=== PATIENT | male | born 1980 | race Caucasian/White ===

== ENCOUNTER 2024-10-09 09:36 | Outpatient (OUT) | payer BC, SELFPAY ==
--- NOTE | 2024-10-09 09:45 | XR_ITS ---
The [address] [address] Patient Name: SPEEDY ROSEN MRN: [id number] date: 1980 Sex: M Assigned Patient Location: [facility] Current Patient Location: Accession/Order Number: [id number] Exam Date: 10/09/2024 11:56 Report Date: 10/09/2024 12:02 At the request of: TAE CUNHA NP Procedure: XR lumbar spine 2-3V CLINICAL DATA: Chronic low back pain radiating to the right hip. No recent injury. RIGHT HIP - 2 views COMPARISON: None AP and frog-lateral views were obtained. There is no evidence of fracture or dislocation. The hip joint space is maintained. There is no significant hypertrophy. There are no significant soft tissue abnormalities. XR/XR hip RT min 2V IMPRESSION: NO ACUTE BONY FINDINGS. LUMBAR SPINE - 3 views COMPARISON: None AP, lateral lumbar and lumbosacral views were obtained. There are no acute fractures or displacement. There is disc space narrowing at the lumbosacral junction along with mild endplate spurring. Additional minimal endplate spurring is seen. There is minor lower lumbar facet disease. The SI joints are intact and show mild sclerosis inferiorly. There are no paraspinal soft tissue abnormalities. IMPRESSION: MILD DEGENERATIVE CHANGE, PREDOMINANTLY AT THE LUMBOSACRAL JUNCTION. NO ACUTE PLAIN FILM FINDINGS. Impression dictated by: Galina Magallon M.D.10/09/2024 12:02 PM Dictation Location: [facility] Electronically authenticated by: [id number] Y Date: 10/09/2024 12:02
--- NOTE | 2024-10-09 09:47 | XR_ITS ---
The [address] [address] Patient Name: SPEEDY ROSEN MRN: [id number] date: 1980 Sex: M Assigned Patient Location: [facility] Current Patient Location: [facility] Accession/Order Number: [id number] Exam Date: 10/09/2024 11:56 Report Date: 10/09/2024 12:02 At the request of: TAE CUNHA NP Procedure: XR lumbar spine 2-3V CLINICAL DATA: Chronic low back pain radiating to the right hip. No recent injury. RIGHT HIP - 2 views COMPARISON: None AP and frog-lateral views were obtained. There is no evidence of fracture or dislocation. The hip joint space is maintained. There is no significant hypertrophy. There are no significant soft tissue abnormalities. XR/XR lumbar spine 2-3V IMPRESSION: NO ACUTE BONY FINDINGS. LUMBAR SPINE - 3 views COMPARISON: None AP, lateral lumbar and lumbosacral views were obtained. There are no acute fractures or displacement. There is disc space narrowing at the lumbosacral junction along with mild endplate spurring. Additional minimal endplate spurring is seen. There is minor lower lumbar facet disease. The SI joints are intact and show mild sclerosis inferiorly. There are no paraspinal soft tissue abnormalities. IMPRESSION: MILD DEGENERATIVE CHANGE, PREDOMINANTLY AT THE LUMBOSACRAL JUNCTION. NO ACUTE PLAIN FILM FINDINGS. Impression dictated by: Galina Magallon M.D.10/09/2024 12:02 PM [facility]ation [facility] Electron[facility] authenticated by: [id number] Y Date: 10/09/2024 12:02
== END 2024-10-09 09:37 | disposition home or self-care (01) ==
PROVIDERS: PCP Nurse Practitioner; Visit Provider Nurse Practitioner
DX: M51.369 Other intervertebral disc degeneration, lumbar region without mention of lumbar back pain or lower extremity pain (principal)
CPT/HCPCS: 72100; 73502

== ENCOUNTER 2024-11-16 14:53 | Outpatient (OUT) | payer BC, SELFPAY ==
--- NOTE | 2024-11-16 16:00 | P.CN_ITS ---
Consult Note: HPI Data of Consult Patient: new to practice Consult date: 11/16/24 Requesting Physician: Ernesto Peña MD Primary Care Provider: Frances Nguyen NP Consult Narrative Reason for consult: low back, leg pain Narrative: 44yom who presents for evaluation. longstanding history of low back pain with radiation into leg. lumbar xr shows multilevel degernative changes. has continued in a series of provider directed home exercises >6 weeks, without lasting benefit. uses tizanidine as needed, though does not like to take medications. cc:: CC: Ernesto Peña MD Review of Systems 2 ROS Status of ROS 10 or more systems reviewed and unremark able except as noted in history and below Meds Home Medications and Allergies Home Medications ?Medication ?Instructions ?Recorded ?Confirmed ?Type pantoprazole 40 mg tablet,delayed 40 mg PO DAILY 11/16/24 11/16/24 History release tizanidine 4 mg capsule 4 mg PO BID PRN muscle spasticity 11/16/24 11/16/24 History Exam Narrative Exam Narrative: Psych-alert and oriented x 3. Attentive and appropriate, constitutionally normal, displays normal mood and affect per situation. There are no obvious deficits in memory, reasoning, or intellect.? Skin-no obvious rashes, bruising, erythema noted to the patient's area of pain.? Extremities- extremities are warm with minimal edema and palpable pulses. Lumbar-tenderness to palpation noted in the lumbar spine and paraspinal musculature. Pain is elicited with flexion, extension, and lateral rotation of the lumbar spine. Range of motion is diminished with these motions. Facet loading maneuvers are positive.? Strength-noted to be unremarkable Sensory-no notable sensory deficits in the bilateral lower extremities to touch or pinprick in all dermatomal distributions with the exception to decreased sensation to the left L3, 4 dermatomal distribution Coordination remains intact.? Gait remains non-antalgic. Assessment and Plan Assessment and Plan (1) Lumbar stenosis with neurogenic claudication: (2) Lumbar spondylosis: Plan 44yom who presents for evaluation. failed conservative measures, as noted. imaging reviewed, as noted. given symptoms and imaging, will have him undergo lumbar mri without contrast. he is in agreement. meds reviewed, no changes. follow up after imaging.
== END 2024-11-16 14:54 | disposition home or self-care (01) ==
LOC: PM 14:53
PROVIDERS: PCP Nurse Practitioner; Visit Provider Anesthesiology Pain Medicine
DX: M48.062 Spinal stenosis, lumbar region with neurogenic claudication (principal); M47.816 Spondylosis without myelopathy or radiculopathy, lumbar region
CPT/HCPCS: G0463

== ENCOUNTER 2025-02-16 08:02 | Outpatient (OUT) | payer BC, SELFPAY ==
--- NOTE | 2025-02-16 08:05 | MR_ITS ---
[facility] [place] [id number] Patient Name: SPEEDY ROSEN MRN: [id number] date: 1980 Sex: M Assigned Patient Location: [facility] Current Patient Location: [facility] Accession/Order Number: [id number] Exam Date: 02/16/2025 15:00 Report Date: 02/16/2025 15:04 At the request of: SORIN CARLOS MD Procedure: MR lumbar spine wo con EXAMINATION: MRI LUMBAR SPINE WITHOUT IV CONTRAST CLINICAL HISTORY: Chronic back pain. COMPARISON: None TECHNIQUE: Multiecho imaging was performed in the sagittal and axial planes without contrast administration. FINDINGS: Vertebral body heights appear maintained. No bone marrow edema. Disc desiccation particularly at L5-S1. Spinal cord terminates in normal position without abnormal cord signal. No paraspinal mass. Visualized retroperitoneum demonstrates no acute findings. At L1-L2: No posterior disc pathology. No neural canal or foraminal stenosis. At L2-L3: No posterior disc pathology. Mild facet joint degenerative change. No significant canal or neural foraminal stenosis. At L3-L4: Diffuse broad-based disc bulge with ligamentum flavum hypertrophy and facet joint degenerative changes causing mild canal and bilateral neural foraminal stenosis. At L4-L5: Diffuse broad-based disc bulge is present malignant flavum hypertrophy and facet joint degenerative changes causing moderate canal and bilateral neural foraminal stenosis. At L5-S1: Diffuse broad-based disc bulge with disc desiccation. Facet joint degenerative changes. No significant canal stenosis. Mild bilateral neural foraminal stenosis. MR/MR lumbar spine wo con IMPRESSION: Multilevel degenerative disease as described above, worst at L4-L5. Impression dictated by: Vinh Nieto Jr., DLettyOLetty 02/16/2025 3:04 PM Dictation Location: [place] [address] Electronically authenticated by: [id number] Y Date: 02/16/2025 15:04
--- OUTSIDE RECORDS SUMMARY | 2025-02-16 08:05 | XMS_ITS | Encounter Summary ---
Author Organization [facility] Address [address] [place] [address] Care Team Providers Care Aircraft Electrical Systems Specialist Name Role Phone Austin Gray MD Primary Care Provider [phone] Frances Nguyen NP Unavailable [phone] Austin Gray MD Primary Care Provider Encounter Details Date Type Department Care Team (Late st Contact Info) Description 08/21/2023 Orders Only [facility] [address] [place] [address] Frances Nguyen, [place] [address] [place] [address] Social History Tobacco Use Types Packs/Day Years Used Date Smoking Tobacco: Never Assessed Sex and Gender Information Value Date Recorded Sex Assigned at Not on file Legal Sex Male 7:40 PM EDT Gender Identity Not on file Sexual Orientation Not on file documented as of this encounter Plan of Treatment Not on file documented as of this encounter Procedures Procedure Name Priority Date/Time Associated Diagnosis Comments XR LUMBAR SPINE 2-3 VIEWS Routine 08/02/2023 1:29 PM EST XR HAND 3+ VIEWS RIGHT Routine 08/02/2023 1:28 PM EST XR HAND 3+ VIEWS LEFT Routine 08/02/2023 1:26 PM EST documented in this encounter Results * XR lumbar spine 2 or 3 views (08/02/2023 1:29 PM EST) Anatomical Region Laterality Modality Spine, L-spine Radiographic Rhea ging us Frances Nguyen NP IMG XR PROCEDURES Final Result * XR hand 3+ views right (08/02/2023 1:28 PM EST) Anatomical Region Laterality Modality Upper Extremities, Hand Right Radiogra phic Imaging us Frances Nguyen VICE PRESIDENT OF CONSULTING SERVICES IMG XR PROCEDURES Final Result * XR hand 3+ views left (08/02/2023 1:26 PM EST) Anatomical Region Laterality Modality Upper Extremities, Hand Left Radiogra phic Imaging Frances Nguyen VICE PRESIDENT OF CONSULTING SERVICES IMG XR PROCEDURES Final Result documented in this encounter Visit Diagnoses Not on filedocumented in this encounter Care Teams Aircraft Electrical Systems Specialist Relationship Specialty Start Date End Date Austin Gray MD PCP - General Family Medicine 03/15/23 10/07/23 Frances Nguyen NP [address] [place] [id number] [facility] 08/19/23 Austin Gray MD [address] [place] [address] PCP - General Family Medicine 10/08/23 documented as of this encounter
--- OUTSIDE RECORDS SUMMARY | 2025-02-16 08:05 | XMS_ITS | Encounter Summary ---
Author Organization [facility] Address [address] [place] [address] Care Team Providers Care Headline Writer Name Role Phone Frances Nguyen NP Unavailable [phone] Austin Gray MD Primary Care Provider [phone] Reason for Visit * Reason Comments Med Refill Encounter Details Date Type Department Care Team (Late st Contact Info) Description 09/08/2024 [facility] [address] [place] [address] Frances Nguyen NP [address] [place] [phone] Gastroesophageal reflux disease with esophagitis, unspecified whether hemorrhage Social History Tobacco Use Types Packs/Day Years Used Date Smoking Tobacco: Never Smokeless Tobacco: Never Alcohol Use Standard Drinks/Week Comments Yes 0 (1 standard drink = 0.6 oz pure alcohol) 1-2 drinks 2-3 times a week, caffeine 1-2 cups per day PHQ-2 Answer Date Recorded Patient Health Questionnaire-2 Score 0 10/10/2023 Sex and Gender Information Value Date Recorded Sex Assigned at Not on file Legal Sex Male 7:40 PM EDT Gender Identity Not on file Sexual Orientation Not on file documented as of this encounter Plan of Treatment Not on file documented as of this encounter Visit Diagnoses Diagnosis Gastroesophageal reflux disease with esophagitis, unspecified whether hemorrhage documented in this encounter Care Teams Headline Writer Relationship Specialty Start Date End Date Frances Nguyen NP [address] [place] [address] PCP - [employer] 1/1/24 Austin Gray MD [address] [place] [id number] PCP - General Family Medicine 10/08/23 documented as of this encounter
--- OUTSIDE RECORDS SUMMARY | 2025-02-16 08:05 | XMS_ITS | Encounter Summary ---
Author Organization [employer] [facility] tem Address [id number] [address] [place] [address] Care Team Providers Care Store Stock Associate Name Role Phone NnamdiFrances pena Asya CIGARETTE MAKER[facility] Primary Care Provider Encounter Details Date Type Department Care Team (Late st Contact Info) Description 10/25/2020 Orders Only [facility] [address] [place] [address] [facility]leny [facility] [address] [place] [address] Social History Tobacco Use Types Packs/Day Years Used Date Smoking Tobacco: Never Smokeless Tobacco: Never Alcohol Use Standard Drinks/Week Comments Yes 4 (1 standard drink = 0.6 oz pure alcohol) Only a few beers a week, not typically every night PHQ-2 Answer Date Recorded Total Score 0 09/27/2020 Childcare Answer Date Recorded Childcare Unknown 01/28/2019 Employment Answer Date Recorded Employment Unknown 01/28/2019 Purpose - Life Answer Date Recorded Purpose and direction in life Unknown Sex and Gender Information Value Date Recorded Sex Assigned at Not on file Legal Sex Male 11:30 AM EDT Gender Identity Not on file Sexual Orientation Not on file COVID-19 Exposure Response Date Recorded In the last month, have you been in contact with someone who was confirmed or suspected to have Coronavirus / COVID-19? No / Unsure 09/27/2020 8:30 AM EST documented as of this encounter Plan of Treatment Upcoming Encounters Date Type Department Care Team (Late st Contact Info) Description 02/23/2025 9:15 AM EDT Office Visit [facility] [address] [place] [address] Annabella Osei MD [address] [facility] [place] [address] documented as of this encounter Visit Diagnoses Not on filedocumented in this encounter Additional Health Concerns Infection Onset Date Last Indicated Resolved Time COVID-19 Rule-Out 12/11/2021 12/11/2021 12/12/2021 12:43 PM EDT Assessment Noted Time PHQ-9 Depression Total Score: 0 09/27/19 21 8:00 AM EST documented as of this encounter Care Teams Store Stock Associate Relationship Specialty Start Date End Date Frances Nguyen, CIGARETTE MAKER-REAL ESTATE AGENT/BROKER PCP - General Nurse Practitioner 08/02/23 documented as of this encounter
--- OUTSIDE RECORDS SUMMARY | 2025-02-16 08:05 | XMS_ITS | Encounter Summary ---
Author Organization [employer] Address [id number] [address] [place] [address] Care Team Providers Care Centerpuncher Name Role Phone NnamdiFrances pena SEAMAN-INSOLE TAPE STITCHER [employer] Primary Care Provider Reason for Visit * Reason Onset Date Comments Medication update 06/22/2022 Encounter Details Date Type Department Care Team (Late st Contact Info) Description 06/22/2022 [facility]phone [facility] [address] [place] [address] Parisa Abad LPN Medication update Social History Tobacco Use Types Packs/Day Years Used Date Smoking Tobacco: Never Smokeless Tobacco: Never Alcohol Use Standard Drinks/Week Comments Yes 4 (1 standard drink = 0.6 oz pure alcohol) Only a few beers a week, not typically every night PHQ-2 Answer Date Recorded Total Score 0 05/14/2022 Childcare Answer Date Recorded Childcare Unknown 01/28/2019 [...] have Coronavirus / COVID-19? No / Unsure 06/05/2022 1:27 PM EDT documented as of this encounter Miscellaneous Notes * Telephone Encounter - Parisa Abad LPN - 06/22/2022 10:10 AM EDT Pt has been using Lunesta 2 tabs at bedtime and has been sleeping great! He would like a refill sent to his pharmacy so that he can continue taking until his next visit with you in August. * Telephone Encounter - Angelica Ervin MD - 06/22/2022 10:10 AM EDT OK. I did refill this, but changed him to the 2mg tablet so he should now only be taking one tabletvs two of the 1mg. I took the Xanax off his list. I presume he has not had excessive sleepiness? * Telephone Encounter - Parisa Abad LPN - 06/22/2022 10:10 AM EDT Called pt but no answer and unable to leave message. * Telephone Encounter - Parisa Abad LPN - 06/22/2022 10:10 AM EDT Pt is not sleepy. Pt said he wakes up feeling great. documented in this encounter Plan of Treatment Upcoming Encounters Date Type Department Care Team (Late st Contact Info) Description 02/23/2025 9:15 AM EDT Office Visit [facility] [address] [place] [address] Annabella Osei MD [address] [place] [address] documented as of this encounter Visit Diagnoses Diagnosis Chronic insomnia Insomnia, unspecified documented in this encounter Additional Health Concerns Assessment Noted Time PHQ-9 Depression Total Score: 0 05/14/20 8:09 AM EDT A Body Mass Index follow-up plan has been documented for the patient 04/05/2021 4:45 PM EDT documented as of this encounter Care Teams Centerpuncher Relationship Specialty Start Date End Date Frances Nguyen, SEAMAN-INSOLE TAPE STITCHER [employer] PCP - General Nurse Practitioner 08/02/23 documented as of this encounter
--- OUTSIDE RECORDS SUMMARY | 2025-02-16 08:05 | XMS_ITS | Encounter Summary ---
Author Organization [employer] tem Address [id number] [address] [place] [address] Care Team Providers Care Mimeograph Operator Name Role Phone Frances Nguyen BOILER INSTALLER-HOUSE WIRER Primary Care Provider Reason for Visit * Reason Onset Date Comments Med Refill 09/13/2022 Encounter Details Date Type Department Care Team (Late st Contact Info) Description 09/13/2022 Refill [facility] [address] [address] Angelica Ervin MD [address] [place] [address] Chronic insomnia Social History Tobacco Use Types Packs/Day Years [...] on file documented as of this encounter Miscellaneous Notes * Telephone Encounter - BEBE Mary - 09/13/2022 8:40 AM EST Pt is scheduled for SS 10/24/22. Requesting a refill of Lunesta. * Telephone Encounter - Angelica Ervin MD - 09/13/2022 8:40 AM EST Can we get him scheduled for follow up before his sleep study? I want to reassess his sleep disordered breathing symptoms necessitating PSG now that he is sleeping better with Lunesta. Thank you. I do also require q6 mo follow up for continued controlled substance prescribing. OARRS reviewed. Lunesta 30# sent in with one refill which should last him through his currently scheduled study in October.I hope he has also considered scheduling CBTi. * Telephone Encounter - BEBE Mary - 09/13/2022 8:40 AM EST Pt scheduled 10/02/22 per EM. documented in this encounter Plan of Treatment Upcoming Encounters Date Type Department Care Team (Late st Contact Info) Description 02/23/2025 9:15 AM EDT Office Visit [facility] [address] [place] [address] Annabella Osei MD [address] [address] [address] [place] [address] documented as of this encounter Visit Diagnoses Diagnosis Chronic insomnia Insomnia, unspecified documented in this encounter Additional Health Concerns Assessment Noted Time PHQ-9 Depression Total Score: 0 05/14/20 22 8:09 AM EDT A Body Mass Index follow-up plan has been documented for the patient 04/05/2021 4:45 PM EDT documented as of this encounter Care Teams Mimeograph Operator Relationship Specialty Start Date End Date Frances Nguyen, BOILER INSTALLER-HOUSE WIRER PCP - General Nurse Practitioner 08/02/23 documented as of this encounter
--- OUTSIDE RECORDS SUMMARY | 2025-02-16 08:05 | XMS_ITS | Encounter Summary ---
Author Organization [employer] [facility] tem Address [id number] [address] [place] [address] Care Team Providers Care Podiatric Physician Name Role Phone NnamdiFrances pena Asya DIRECT[facility] Primary Care Provider Encounter Details Date Type Department Care Team (Late st Contact Info) Description 11/27/2022 Orders Only [facility] [address] [place] [address] Marleny Garcia [facility] [address] [place] [address] Social History Tobacco Use Types [...] Employment Answer Date Recorded Employment Unknown 01/28/2019 Hunger Screening Answer Date Recorded Within the past 12 months we worried whether our food would run out before we got money to buy more. Never True 10/02/2022 Within the past 12 months th e food we bought just didn't last and we didn't have money to get more. Never True 10/02/2022 Purpose - Life Answer Date Recorded Purpose and direction in life Unknown 02 /04/2021 Sex and Gender Information Value Date Recorded Sex Assigned at Not on file Legal Sex Male 11:30 AM EDT Gender Identity Not on file Sexual Orientation Not on file COVID-19 Exposure Response Date Recorded In the last month, have you been in contact with someone who was confirmed or suspected to have Coronavirus / COVID-19? No / Unsure 11/19/2022 2:19 PM EDT documented as of this encounter Plan of Treatment Upcoming Encounters Date Type Department Care Team (Late st Contact Info) Description 02/23/2025 9:15 AM EDT Office Visit [facility] [address] [place] [phone] Annabella Osei MD [address] [facility] [address] [place] [address] documented as of this encounter Visit Diagnoses Not on filedocumented in this encounter Additional Health Concerns Assessment Noted Time PHQ-9 Depression Total Score: 0 05/14/20 22 8:09 AM EDT A Body Mass Index follow-up plan has been documented for the patient 04/05/2021 4:45 PM EDT documented as of this encounter Care Teams Podiatric Physician Relationship Specialty Start Date End Date Frances Nguyen, DIRECTOR WORK-RETAIL EQUIPMENT ASSOCIATE PCP - General Nurse Practitioner 08/02/23 documented as of this encounter
--- OUTSIDE RECORDS SUMMARY | 2025-02-16 08:05 | XMS_ITS | Encounter Summary ---
Author Organization [facility] Address [address] [place] [address] Care Team Providers Care Stock Fitter Name Role Phone Austin Gray MD Primary Care Provider [phone] Frances Nguyen NP Unavailable [phone] Austin Gray MD Primary Care Provider [phone] Encounter Details Date Type Department Care Team (Late st Contact Info) Description 08/02/2023 External Result Encounter [facility] [address] [place] [address] Frances Nguyen, DESPATCH CLERK [address] [place] [address] Social History Tobacco Use Types Packs/Day Years [...] Diagnosis Comments XR LUMBAR SPINE 2-3 VIEWS 08/02/2023 9:28 AM EST XR HAND 3+ VIEWS RIGHT 9:27 AM EST XR HAND 3+ VIEWS LEFT 08/02/2023 9:26 AM EST CBC WITH AUTO DIFFERENTIAL Routine 08/02/2023 9:00 AM EST ANTI-STREPTOLYSIN O Routine 08/02/2023 9 :00 AM EST SED RATE BY MODIFIED WESTERGREN Routine 08/02/2023 9:00 AM EST RHEUMATOID FACTOR Routine 08/02/2023 9:0 0 AM EST C-REACTIVE PROTEIN Routine 08/02/2023 9: 00 AM EST PRITI SCREEN W/REFLEX Routine 08/02/2023 9 :00 AM EST URIC ACID Routine 08/02/2023 9:00 AM EST COMPREHENSIVE METABOLIC PANEL Routine 08/02/2023 9:00 AM EST documented in this encounter Results * XR lumbar spine 2 or 3 views (08/02/2023 9:28 AM EST) Anatomical Region Laterality Modality Spine, L-spine Radiographic Rhea ging 08/02/2023 9:28 AM EST Narrative 08/02/2023 9:26 AM EST THIS EXAM WAS PERFORMED AT [facility] Procedure: Lumbo-sacral spine radiographs performed Number of views:3 History:Low back pain remote trauma Comparison:None Findings: There is no fracture, malalignment, or destructive lesion. There is mild disc space narrowing at L5-S1. Vertebral body height is well-maintained. Impression: No acute findings. Finalized by Eddie Hemphill MD on 08/02/2023 9:26 AM Procedure Note Radiology, Radiologist, MD - 08/13/2023 THIS EXAM WAS PERFORMED AT [facility] Procedure: Lumbo-sacral spine radiographs performed Number of views:3 History:Low back pain remote trauma Comparison:None Findings: There is no fracture, malalignment, or destructive lesion.There is mild disc space narrowing at L5-S1. Vertebral body height iswell-maintained. Impression: No acute findings. Finalized by Eddie Hemphill MD on 08/02/2023 9:26 AM Frances Nguyen DESPATCH CLERK IMG XR PROCEDURES Final Result * XR hand 3+ views right (08/02/2023 9:27 AM EST) Anatomical Region Laterality Modality Upper Extremities, Hand Right Radiogra phic Imaging 08/02/2023 9:27 AM EST Narrative 08/02/2023 9:26 AM EST THIS EXAM WAS PERFORMED AT [facility] Procedure: Right hand radiographs performed Number of views:3 History:Hand pain Comparison:None Findings: There is no fracture, dislocation, or destructive lesion. Joint space is well preserved. Impression: No acute findings. Finalized by Eddie Hemphill MD on 08/02/2023 9:26 AM Procedure Note Radiology, RadiologistMD - 08/13/2023 THIS EXAM WAS PERFORMED AT [facility] Procedure: Right hand radiographs performed Number of views:3 History:Hand pain Comparison:None Findings: There is no fracture, dislocation, or destructive lesion. Jointspace is well preserved. Impression: No acute findings. Finalized by Eddie Hemphill MD on 08/02/2023 9:26 AM Frances Wendy DESPATCH CLERK IMG XR PROCEDURES Final Result * XR hand 3+ views left (08/02/2023 9:26 AM EST) Anatomical Region Laterality Modality Upper Extremities, Hand Left Radiogra phic Imaging 08/02/2023 9:26 AM EST Narrative 08/02/2023 9:25 AM EST THIS EXAM WAS PERFORMED AT [facility] Procedure: Left hand radiographs performed Number of views:3 History:Hand pain Comparison:None Findings: There is no fracture, dislocation, or destructive lesion. Joint space is well preserved. Impression: No acute findings. Finalized by Eddie Hemphill MD on 08/02/2023 9:25 AM Procedure Note Radiology, RadiologistMD - 08/13/2023 THIS EXAM WAS PERFORMED AT [facility] Procedure: Left hand radiographs performed Number of views:3 History:Hand pain Comparison:None Findings: There is no fracture, dislocation, or destructive lesion. Jointspace is well preserved. Impression: No acute findings. Finalized by Eddie Hemphill MD on 08/02/2023 9:25 AM Frances Nguyen NP IMG XR PROCEDURES Final Result * (ABNORMAL) Antistreptolysin O titer (08/02/2023 9:00 AM EST) STREPTOLYSIN O AB, SERUM 359(H) <=330 IU/mL [facility] Comment: NOTE REFERENCE INTERVAL: Streptolysin O Antibody Elevated titers of antideoxyribonuclease B antibody (anti-DNase B) or antistreptolysin O antibody (ASO) indicate a recent group A Streptococcus infection. Anti-DNase B antibodies typically remain elevated longer than ASO and may remain elevated for several months after infection. Patients suspected of having complications related to a recent Streptococcus infection such as acute glomerulonephritis or acute rheumatic fever may have elevated anti-DNase B but normal ASO antibody titers. A negative or very low anti-DNase B and ASO antibody titers, especially from a specimen tested 2 weeks after a suspected infection, indicates unlikely incidence of a recent Streptococcus infection. Performed By: [facility] [address] [place] [id number] Olericulturist: Tuan Xiong MD, PhD CLIA Number: [id number] PERFORMED AT [address] [place] [address] 08/02/2023 9:00 AM EST 08/02/2023 9:05 AM EST Frances Nguyen NP LAB BLOOD ORDERABLES Final Resu lt [facility] * PRITI (08/02/2023 9:00 AM EST) PRITI SCREEN W/REFLEX Negative Negative [facility] Comment: Testing performed using multiplex flow immunoassay. Eleven different antigens associated with systemic autoimmune diseases (dsDNA,Sm,Sm/[employer],Chromatin, SSA,SSB,Alma-1,Scl70,Ribo P,Centromere B) are included in this screening test. PERFORMED AT [facility] [address],[place] [address] 08/02/2023 9:00 AM EST 08/02/2023 9:05 AM EST us Frances Nguyen DESPATCH CLERK LAB BLOOD ORDERABLES Final Resu lt [facility] * Sedimentation rate, automated (08/02/2023 9:00 AM EST) ESR 3 0 - 15 mm/h [facility] 08/02/2023 9:00 AM EST 08/02/2023 9:05 AM EST us Frances Nguyen DESPATCH CLERK LAB BLOOD ORDERABLES Final Resu lt Performing Organization Address City/[facility]/ZIP Co de Phone Number [facility] * Uric acid (08/02/2023 9:00 AM EST) URIC ACID 5.4 2.6 - 7.2 mg/dL [facility] Comment:PERFORMED AT [place] [address],[place] [address] 08/02/2023 9:00 AM EST 08/02/2023 9:05 AM EST us Frances Nguyen DESPATCH CLERK LAB BLOOD ORDERABLES Final Resu lt Performing Organization Address [facility]/ZIP Co de Phone Number [facility] * C-reactive protein (08/02/2023 9:00 AM EST) C REACTIVE PROTEIN 0.1 0.000 - 0.744 mg/dL [facility] Comment:PERFORMED AT [place] [address],[place] [address] 08/02/2023 9:00 AM EST 08/02/2023 9:05 AM EST us Frances Nguyen DESPATCH CLERK LAB BLOOD ORDERABLES Final Resu lt [facility] * (ABNORMAL) Comprehensive metabolic panel (08/02/2023 9:00 AM EST) Sodium 138 134 - 146 mmol/L [facility] Potassium, Bld 4.9 3.5 - 5.0 mmol/L [facility] Chloride 102 98 - 109 mmol/L [facility] Carbon Dioxide 28 22 - 32 mmol/L [facility] Anion Gap 8 5 - 15 mmol/L [facility] BUN 29(H) 5 - 23 mg/dL [facility] Creatinine 1.02 0.60 - 1.30 mg/dL [facility] Comment:METHOD TRACEABLE TO IDMS STANDARD Glucose 81 65 - 99 mg/dL [facility] Calcium 9.9 8.5 - 10.5 mg/dL [facility] TOTAL PROTEIN 8.0 6.0 - 8.0 g/dL [facility] ALBUMIN 4.9 3.2 - 5.3 g/dL [facility] ALKALINE PHOSPHATASE 85 39 - 130 U/L [facility] AST 25 0 - 41 U/L [facility] ALT 31 0 - 40 U/L [facility] TOTAL BILIRUBIN 1.2 0.3 - 1.2 mg/dL [facility] EGFR >90 >59 ml/min/1.7 3sq.m [facility] Comment: Reported eGFR is based on the CKD-EPI 2020 equation that does not use a race coefficient. PERFORMED AT [address] [place] [address] 08/02/2023 9:00 AM EST 08/02/2023 9:05 AM EST us Frances Nguyen DESPATCH CLERK LAB BLOOD ORDERABLES Final Resu lt [facility] * Rheumatoid factor (08/02/2023 9:00 AM EST) RHEUMATOID FACTOR 15 <20 IU/mL [facility] Comment:PERFORMED AT [address], [place] [address] 08/02/2023 9:00 AM EST 08/02/2023 9:05 AM EST us Frances Wendy DESPATCH CLERK LAB BLOOD ORDERABLES Final Resu lt [facility] * CBC auto differential (08/02/2023 9:00 AM EST) WHITE BLOOD CELL COUNT, WBC 6.2 4.0 - 11.0 X10E9/L [facility] RED BLOOD CELL COUNT, RBC 5.01 4.10 - 5.70 X10E12/L [facility] HEMOGLOBIN 14.9 13.0 - 17.0 g/dL [facility] HEMATOCRIT 45.0 39 - 49 % [facility] MEAN CELL VOLUME, MCV 90 80 - 100 fL [facility] MEAN CELL HEMOGLOBIN, MCH 29.7 27 - 34 pg [facility] MEAN CELL HEMOGLOGIN CONCENTRATION, MCHC 33.1 32 - 36 g/dL [facility] RED CELL DISTRIBUTION WIDTH, RDW 13.7 11.5 - 15.0 % [facility] PLATELET COUNT 277 150 - 450 X10E9/L [facility] MEAN PLATELET VOLUME, MPV 8.8 7 - 12 fL [facility] % NEUTROPHILS 59.4 % [facility] % LYMPHOCYTES 25.8 % [facility] % MONOCYTES 7.9 % [facility] % EOSINOPHILS 6.3 % [facility] % BASOPHILS 0.6 % [facility] ABSOLUTE NEUTROPHIL 3.7 1.5 - 6.6 X10E9/L [facility] ABSOLUTE LYMPHOCYTE 1.6 1.0 - 3.5 X10E9/L [facility] ABSOLUTE MONOCYTE 0.5 0 - 0.9 X10E9/L [facility] ABSOLUTE EOSINOPHIL 0.4 0.0 - 0.4 X10E9/L [facility] ABSOLUTE BASOPHIL 0.0 0.0 - 0.2 X10E9/L [facility] Comment:PERFORMED AT [facility] [address],[place] [address] 08/02/2023 9:00 AM EST 08/02/2023 9:05 AM EST us Frances Nguyen DESPATCH CLERK LAB BLOOD ORDERABLES Final Resu lt [facility] documented in this encounter Visit Diagnoses Not on filedocumented in this encounter Care Teams Stock Fitter Relationship Specialty Start Date End Date Austin Gray MD PCP - General Family Medicine 03/15/23 10/07/23 Frances Nguyen NP [address] [place] [address] PCP - [facility] 08/19/23 Austin Gray MD [address] [place] [address] PCP - General Family Medicine 10/08/23 documented as of this encounter
--- OUTSIDE RECORDS SUMMARY | 2025-02-16 08:05 | XMS_ITS | Encounter Summary ---
Author Organization [facility] tem Address [facility] [id number] [address] [place] [address] Care Team Providers Care Furnace Cleaner Name Role Phone Frances Nguyen GEOCHEMICAL LABORATORY TECHNICIAN-INSTRUCTIONAL TECHNOLOGIST Primary Care Provider Encounter Details Date Type Department Care Team (Late st Contact Info) Description 03/07/2022 Telephone [facility] Family Medicine [address] [place] [address] Tri Davidson LPN Social History Tobacco Use Types Packs/Day Years Used Date Smoking Tobacco: Never Smokeless Tobacco: Never Alcohol Use Standard Drinks/Week Comments Yes 4 (1 standard drink = 0.6 oz pure alcohol) Only a few beers a week, not typically every night PHQ-2 Answer Date Recorded Total Score 0 12/25/2021 Childcare Answer Date Recorded Childcare Unknown 01/28/2019 [...] encounter Miscellaneous Notes * Telephone Encounter - Tri Davidson LPN - 03/07/2022 11:22 AM EDT [facility] called stating Marleny gave them a Rx for Xanax that was never filled because insurance company would not pay for it. He has not been sleeping for 2 weeks, they want to know if they could get another Rx and just pay for it. If this is ok let me know and I will talk to them and pend the Rx foryou. * Telephone Encounter - Bulmaro Dunlap MD - 03/07/2022 11:22 AM EDT ok documented in this encounter Plan of Treatment Upcoming Encounters Date Type Department Care Team (Late st Contact Info) Description 02/23/2025 9:15 AM EDT Office Visit [facility] [address] [facility] [place] [id number] Annabella Osei MD [address] [facility] [address] [place] [address] documented as of this encounter Visit Diagnoses Not on filedocumented in this encounter Additional Health Concerns Assessment Noted Time PHQ-9 Depression Total Score: 0 12/26/19 22 1:00 PM EDT A Body Mass Index follow-up plan has been documented for the patient 04/05/2021 4:45 PM EDT documented as of this encounter Care Teams Furnace Cleaner Relationship Specialty Start Date End Date Frances Nguyen, GEOCHEMICAL LABORATORY TECHNICIAN-INSTRUCTIONAL TECHNOLOGIST PCP - General Nurse Practitioner 08/02/23 documented as of this encounter
--- OUTSIDE RECORDS SUMMARY | 2025-02-16 08:05 | XMS_ITS | Clinical Summary ---
Author Organization [facility] Address [address] [place] [address] Care Team Providers Care Evs Attendant Name Role Phone Frances Nguyen NP Unavailable [phone] Austin Gray MD Primary Care Provider [phone] Allergies No known active allergies Medications pantoprazole (ProtoNix) 40 MG EC tabletIndication s:Gastroesophage al reflux disease with esophagitis, unspecified whether hemorrhage Take 1 tablet (40 mg) by mouth in the morning. Take before meals. Do not crush, chew, or split.. 90 tablet 1 09/08/2024 Active tiZANidine (Zanaflex) 4 MG tabletIndication s:Cervical pain (neck),Strain of right trapezius muscle, initial encounter Take 1 tablet (4 mg) by mouth as needed at bedtime for muscle spasms for up to 15 days 15 tablet 1 11/15/2024 Active predniSONE (Deltasone) 20 MG tabletIndication s:Poison claudia dermatitis 1 pill three times daily for 3 days, then 1 pill twice a day for 3 days, then 1 pill once a day for 3 days, then 1/2 pill daily for 3 days take with food 21 tablet 01/20/2025 Active Active Problems Problem Noted Date Diagnosed Date Poison claudia dermatitis 01/20/2025 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 Assessment & Plan (10/19/2024 8:08 PM EST): Pain mgmt Bilateral elbow joint pain 10/19/2024 Assessment & Plan (10/19/2024 8:07 PM EST): Check xrays Has saw ortho in the past for injection Did not help C/w lateral epicondylitis Wear splints at all times Displaced fracture of proxim al third of navicular (scaphoid) bone of right wrist, subsequent encounter for fracture with delayed healing 09/08/2024 Dupuytren's contracture of both hands 09/08/2024 Strain of right trapezius muscle 09/08/2024 Assessment & Plan (10/19/2024 7:55 AM EST): Has been going to PT Cervical pain (neck) 09/08/2024 Assessment & Plan (10/19/2024 7:28 PM EST): Since last visit has had PT also muscle relaxer as well Dermatitis 11/11/2023 Assessment & Plan (11/11/2023 4:36 PM EDT): Unclear etiology, will do steroid taper and vistaril, if not better notify office OTC oatmeal bath as well, try to avoid itching Motion sickness 11/06/2023 Allergic rhinitis 10/10/2023 Anxiety 10/10/2023 Depression 10/10/2023 Atopic dermatitis 10/10/2023 Gastroesophageal reflux disease with esophagitis 10/10/2023 Assessment & Plan (10/10/2023 5:00 PM EST): Cont PPI MARGOTH (obstructive sleep apnea) 10/10/2023 Insomnia 10/10/2023 Asthma 10/10/2023 Bilateral hand pain 10/10/2023 Assessment & Plan (10/10/2023 5:00 PM EST): Will refer to Ortho Dr Nayak for hand issues Neg autoimmune testing Possible ganglion cyst jara aspect of left hand not sure if possible trigger finger Also w right wrist pain Arthritis 10/10/2023 Conductive hearing loss 10/10/2023 Overview (10/10/2023): Conductive hearing loss due to disorder of external ear-bilateral cerumen impaction History of immunotherapy 10/10/2023 Chronic back pain 10/10/2023 Anti-streptolysin titer abnormal 08/07/2023 DDD (degenerative disc disease), lumbar 08/05/20 23 Overview (08/05/2023): Lumbar xray from 08/02/23: mild disc space narrowing at L5-S1 Assessment & Plan (10/19/2024 8:07 PM EST): Will send to Pain mgmt Resolved Problems Problem Noted Date Diagnosed Date Resolved Date Bursitis of right elbow 10/10/202309/20 Left elbow epicondylitis 10/10/2023 Encounters Date Type Department Care Team Description 01/20/2025 Refill [facility] [address] [place] [address] Frances Nguyen, [place] Poison claudia dermatitis (Primary Dx) 01/20/2025 Telephone [facility] [address] [place] [address] Frances Nguyen, [place] Poison Claudia 12/23/2024 Bamboo flowsheet [facility] [address] [place] [address] Mukesh Martinez T, PT 12/23/2024 Travel 12/22/2024 6:00 PM EDT Treatment [facility] [address] [place] [address] Mukesh Martinez T, PT Lumbar paraspinal muscle spasm (Primary Dx) 12/09/2024 Bamboo flowsheet [facility] [address] [place] [address] Mukesh Martinez T, PT 12/09/2024 Travel 12/08/2024 4:30 PM EDT Treatment [facility] [address] [place] [address] Mukesh Martinez T, PT Lumbar paraspinal muscle spasm (Primary Dx) 12/01/2024 4:00 PM EDT Treatment [facility] [address] [place] [address] Mukesh Martinez T, PT Lumbar paraspinal muscle spasm (Primary Dx) 12/01/2024 Bamboo flowsheet [facility] [address] [place] [address] Mukesh Martinez, PT 12/01/2024 Travel 11/25/2024 Bamboo flowsheet [facility] [address] [place] [address] Mukesh Martinez, PT 11/25/2024 Travel 11/24/2024 6:00 PM EDT Treatment [facility] [address] [place] [address] Mukesh Martinez, PT Lumbar paraspinal muscle spasm (Primary Dx) 11/19/2024 Plan of Care Documentation [facility] [address] [place] [address] 11/18/2024 2:30 PM EDT Evaluation [facility] [address] [place] [address] Mukesh Martinez, PT Lumbar paraspinal muscle spasm (Primary Dx) 11/18/2024 Bamboo flowsheet [facility] [address] [place] [address] Mukesh Martinez, PT 11/18/2024 Travel from Last 3 Months Family History Medical History Relation Name Comments Asthma Child Cancer Father Diabetes Father Hepatitis Father Hepatitis C Heart disease Maternal Grandfather Leukemia Other 2 Aunt\/Uncle Arthritis Paternal Grandfather Cancer Paternal Grandmother Hearing loss Son Relation Name Status Comments Brother 3 brothers Child Father Alive Maternal Grandfather Mother Alive Other 1 Spouse Alive Other 2 Aunt\/Uncle Paternal Grandfather Paternal Grandmother Son Social History Tobacco Use Types Packs/Day Years Used Date Smoking Tobacco: Never Smokeless Tobacco: Never Tobacco Cessation:Counseling Given: Not Answered Alcohol Use Standard Drinks/Week Comments Yes 0 [...] on file Sexual Orientation Not on file Last Filed Vital Signs Vital Sign Reading Time Taken Comments Blood Pressure 124/86 10/19/2024 7:19 PM EST Pulse 76 10/19/2024 7:19 PM EST Temperature 37.1 C (98.8 F) 10/19/2024 7:19 PM EST Respiratory Rate 18 10/19/2024 7:19 PM EST Oxygen Saturation 98% 10/19/2024 7:19 PM EST Inhaled Oxygen Concentration - - Weight 80.8 kg (178 lb 3.2 oz) 10/19/2024 7:19 P M EST Height 182.9 cm (6') 11/11/2023 4:14 PM EDT Body Mass Index 24.17 11/11/2023 4:14 PM EDT Plan of Treatment Health Maintenance Due Date Last Done Comments Influenza Vaccine Discontinued Insurance [facility] Care Teams Evs Attendant Relationship Specialty Start Date End Date Frances Nguyen NP [address] [place] [address] PCP - [facility] 08/19/23 Austin Gray MD [address] [place] [address] PCP - General Family Medicine 10/08/23
--- OUTSIDE RECORDS SUMMARY | 2025-02-16 08:05 | XMS_ITS | Referral Summary ---
Author Organization [facility] Address [address] [place] [address] Care Team Providers Care Claims Collector Name Role Phone Unavailable Primary Care Provider Unavailabl e Social History Tobacco Use Types Packs/Day Years Used Date Smoking Tobacco: Never Assessed [place] Safety & Environment Answer Date Rec orded Fear of Current or Ex-Partner Not on file Emotionally Abused Not on file 10/10/2023 Physically Abused Not on file 10/10/2023 Sexually Abused Not on file 10/10/2023 Physically or Sexually Abused Not on file Sex and Gender Information Value Date Recorded Sex Assigned at Not on file Legal Sex Male 9:29 PM EDT Gender Identity Not on file Sexual Orientation Not on file Last Filed Vital Signs Vital Sign Reading Time Taken Comments Blood Pressure - - Pulse - - Temperature - - Respiratory Rate - - Oxygen Saturation - - Inhaled Oxygen Concentration - - Weight 80.7 kg (178 lb) 05/25/2021 8:52 AM EDT Height 182.9 cm (6') 05/25/2021 8:51 AM EDT Body Mass Index 24.14 05/25/2021 8:51 AM EDT Plan of Treatment Not on file
--- OUTSIDE RECORDS SUMMARY | 2025-02-16 08:05 | XMS_ITS | Encounter Summary ---
Author Organization [facility] Address [facility] [id number] [address] [place] [address] Care Team Providers Care Customer Account Coordinator Name Role Phone Frances Nguyen CLIENT COORDINATOR-POST ACUTE CARE NURSE Primary Care Provider Reason for Visit * Reason Onset Date Comments Med Refill 03/07/2022 Encounter Details Date Type Department Care Team (Late st Contact Info) Description [facility] [address] [place] [address] Tri Davidson LPN Anxiety Social History Tobacco Use Types Packs/Day Years [...] Encounter - Tri Davidson LPN - 03/07/2022 12:11 PM EDT Xanax Rx sent to [facility] per Dr. Selina MD documented in this encounter Plan of Treatment Upcoming Encounters Date Type Department Care Team (Late st Contact Info) Description 02/23/2025 9:15 AM EDT Office Visit [facility] [address] [place] [phone] Annabella Osei MD [address] [facility] [address] [place] [address] documented as of this encounter Visit Diagnoses Diagnosis Anxiety Anxiety state, unspecified documented in this encounter Additional Health Concerns Assessment Noted Time PHQ-9 Depression Total Score: 0 12/26/19 22 1:00 PM EDT A Body Mass Index follow-up plan has been documented for the patient 04/05/2021 4:45 PM EDT documented as of this encounter Care Teams Customer Account Coordinator Relationship Specialty Start Date End Date Francse Nguyen, CLIENT COORDINATOR-POST ACUTE CARE NURSE PCP - General Nurse Practitioner 08/02/23 documented as of this encounter
--- OUTSIDE RECORDS SUMMARY | 2025-02-16 08:05 | XMS_ITS | Patient Health Record ---
Author Organization [facility] Address [address] [place] [address] Care Team Providers Care Strategic Account Director Name Role Phone Mike Wilks Unavailable [phone] Allergies No Known Allergies Reason For Referral No Information Social History Tobacco Use: Social History Observation Description Date Details (start date - stop date) Never Smoker NA - NA AUDIT-C (Standard) Question Answer Notes Did you have a drink contain ing alcohol in the past year? Yes How often did you have six o r more drinks on one occasion in the past year? Never (0 point) How many drinks did you have on a typical day when you were drinking in the past year? 1 or 2 drinks (0 point) How often did you have a dri nk containing alcohol in the past year? Daily or almost daily (4 points) Points 4 Interpretation Positive Tobacco Control (Standard) Question Answer Notes Tobacco use: Nonsmoker Problems Problem Type SNOMED Code ICD Code Onset Dates Problem Status W/U Status Risk Notes Problem 37881639613552237 Dupuytren's contracture of both hands (M72.0) Active confirmed Problem [id number] Displaced fracture of proximal third of navicular [scaphoid] bone of right wrist, subsequent encounter for fracture with delayed healing (S62.031G) Active confirmed Plan Of Treatment Pending Test Test Name Order Date SCC- HAND 3 VIEW LEFT [id number] 12/09/2023 CT WRIST RIGHT WITHOUT CONTRAST 12/09/19 24 Insurance Providers Payer Name Payer Address Payer Phone Subscriber Number Group Number Insured Name Patient Relationship to Insured Coverage Start Date Coverage End Date [facility] [address] [place] [address] [id number] SPEEDY ROSEN Self - patient is the insured
--- OUTSIDE RECORDS SUMMARY | 2025-02-16 08:05 | XMS_ITS | Encounter Summary ---
Author Organization [employer] Address [id number] [address] [place] [address] Care Team Providers Care Drawer In Name Role Phone NnamdiFrances pena Asya RN HEDIS-EDUCATOR SENIOR CLINICAL Primary Care Provider Encounter Details Date Type Department Care Team (Late st Contact Info) Description 08/07/2023 Telephone [facility] Pul[facility]Sleep Medicine [address] [address] Parisa Gandara Social History Tobacco Use Types Packs/Day Years [...] Miscellaneous Notes * Telephone Encounter - Parisa Gandara - 08/07/2023 12:55 PM EST Patient called and wanted to pass along information to Dr Ervin that [facility] Patient stated that he is extremely frustrated and will not use the device moving forward. He also requested to cancel his upcoming sleep study, transferred him to the sleep lab to cancel same. * Telephone Encounter - Angelica Ervin MD - 08/07/2023 12:55 PM EST Ok. Thanks for letting me know. I did make a similar note in response to message from sleep lab. I'd be happy to see him in follow up and discuss further. Again, the titration was intended to help identify some of the problems he is having with PAP and therefore improve his tolerance for treatment of his MARGOTH that undoubtedly contributes to his insomnia. I did make alternative therapy recommendations. I think historically he has had difficulty making time for follow up and other treatment recommendations due to his work responsibilities, that again as we have reviewed likely also contribute tohis sleep problems. documented in this encounter Plan of Treatment Upcoming Encounters Date Type Department Care Team (Late st Contact Info) Description 02/23/2025 9:15 AM EDT Office Visit [facility] [address] [place] [address] Annabella Osei MD [address] [facility] [place] [address] documented as of this encounter Visit Diagnoses Not on filedocumented in this encounter Additional Health Concerns Assessment Noted Time PHQ-9 Depression Total Score: 0 05/14/20 22 8:09 AM EDT A Body Mass Index follow-up plan has been documented for the patient 04/05/2021 4:45 PM EDT documented as of this encounter Care Teams Drawer In Relationship Specialty Start Date End Date Frances Nguyen, RN HEDIS-EDUCATOR SENIOR CLINICAL PCP - General Nurse Practitioner 08/02/23 documented as of this encounter
--- OUTSIDE RECORDS SUMMARY | 2025-02-16 08:05 | XMS_ITS | Encounter Summary ---
Author Organization [employer] [facility] tem Address [id number] [address] [place] [address] Care Team Providers Care Traffic Signal Repairer Name Role Phone Frances Nguyen RETAIL LOSS PREVENTION OFFICER-UNDERCOLLAR BASTER Primary Care Provider Encounter Details Date Type Department Care Team (Late st Contact Info) Description 01/25/2021 Orders Only [facility] Family Medicine [address] [place] [address] Tri Davidson LPN Cervicalgia Social History Tobacco Use Types Packs/Day Years Used Date Smoking Tobacco: Never Smokeless Tobacco: Never Alcohol Use Standard Drinks/Week Comments Yes 4 (1 standard drink = 0.6 oz pure alcohol) Only a few beers a week, not typically every night PHQ-2 Answer Date Recorded Total Score 0 01/11/2021 Childcare Answer Date Recorded Childcare Unknown 01/28/2019 [...] have Coronavirus / COVID-19? No / Unsure 01/11/2021 8:56 AM EDT documented as of this encounter Plan of Treatment Upcoming Encounters Date Type Department Care Team (Late st Contact Info) Description 02/23/2025 9:15 AM EDT Office Visit [facility] Pulmonary/Sleep Medicine [address] [place] [address] Annabella Osei MD [address] [place] [address] documented as of this encounter Procedures Procedure Name Priority Date/Time Associated Diagnosis Comments AMB REFERRAL TO PHYSICAL THERAPY Routine 01/26/20 21 Cervicalgia documented in this encounter Results * Ambulatory referral to Physical Therapy (01/25/2021) 01/25/2021 us Marleny Garcia APRN-UNDERCOLLAR BASTER OUTPATIENT REFERRAL O RDERABLES Final Result MANUALLY TRANSCRIBED RESULTS documented in this encounter Visit Diagnoses Diagnosis Cervicalgia documented in this encounter Additional Health Concerns Infection Onset Date Last Indicated Resolved Time COVID-19 Rule-Out 12/11/2021 12/11/2021 12/12/2021 12:43 PM EDT Assessment Noted Time PHQ-9 Depression Total Score: 0 01/12/20 21 9:00 AM EDT documented as of this encounter Care Teams Traffic Signal Repairer Relationship Specialty Start Date End Date Frances Nguyen APRN-UNDERCOLLAR BASTER PCP - General Nurse Practitioner 08/02/23 documented as of this encounter
--- OUTSIDE RECORDS SUMMARY | 2025-02-16 08:05 | XMS_ITS | Encounter Summary ---
Author Organization [employer] [facility] tem Address [id number] [address] [place] [address] Care Team Providers Care Manufacturing Lab Technician Name Role Phone NnamdiFrances pena Asya BRIDGE ENGINEERBOSTON HOME FOR INCURABLES Primary Care Provider Encounter Details Date Type Department Care Team (Late Contact Info) Description 07/17/2021 Orders Only [facility] Family Medicine [address] [place] [address] Marleny Garcia APRNBOSTON HOME FOR INCURABLES [address] [place] [address] Social History Tobacco Use Types Packs/Day Years Used Date Smoking Tobacco: Never Smokeless Tobacco: Never Alcohol Use Standard Drinks/Week Comments Yes 4 (1 standard drink = 0.6 oz pure alcohol) Only a few beers a week, not typically every night PHQ-2 Answer Date Recorded Total Score 0 04/05/2021 Childcare Answer Date Recorded Childcare Unknown 01/28/2019 [...] Encounters Date Type Department Care Team (Late Contact Info) Description 02/23/2025 9:15 AM EDT Office Visit [facility] Pul[facility]Sleep [facility] [address] [place] [address] Annabella Osei MD [address] [facility] [place], [place] [id number] documented as of this encounter Visit Diagnoses Not on filedocumented in this encounter Additional Health Concerns Infection Onset Date Last Indicated Resolved Time COVID-19 Rule-Out 12/11/2021 12/11/2021 12/12/2021 12:43 PM EDT Assessment Noted Time PHQ-9 Depression Total Score: 0 04/05/20 4:00 PM EDT A Body Mass Index follow-up plan has been documented for the patient 04/05/2021 4:45 PM EDT documented as of this encounter Care Teams Manufacturing Lab Technician Relationship Specialty Start Date End Date Frances Nguyen, BRIDGE ENGINEER-MEDICARE NURSE PCP - General Nurse Practitioner 08/02/23 documented as of this encounter
--- OUTSIDE RECORDS SUMMARY | 2025-02-16 08:05 | XMS_ITS | Encounter Summary ---
Author Organization [facility] Address [address] [place] [address] Care Team Providers Care B2B Account Executive Name Role Phone Frances Nguyen NP Unavailable [phone] Austin Gray MD Primary Care Provider [phone] Encounter Details Date Type Department Care Team (Late st Contact Info) Description 11/14/2024 External Result [facility] [address] [place] [address] Frances Nguyen NP [address] [place] [address] Social History Tobacco Use Types Packs/Day Years [...] Name Priority Date/Time Associated Diagnosis Comments XR ELBOW 3+ VIEWS LEFT 11/14/2024 2:17 PM EDT XR ELBOW 3+ VIEWS RIGHT 11/14/2024 11:51 AM EDT documented in this encounter Results * XR elbow 3+ views left (11/14/2024 2:17 PM EDT) Anatomical Region Laterality Modality Upper Extremities, Elbow Left Radiogr aphic Imaging 11/14/2024 2:17 PM EDT Narrative 11/14/2024 2:16 PM EDT THIS EXAM WAS PERFORMED AT [facility] XR ELBOW LT MIN 3 VWS: 11/14/2024 9:27 AM Clinical: Elbow pain. EXAM: LEFT ELBOW RADIOGRAPHS Comparison none Views: 3 Findings: Tiny bone densities adjacent to the lateral epicondyle appear chronic. There is no convincing acute fracture, dislocation, or destructive lesion. Normal joint spaces. No displaced posterior fat pad. Impression: * No acute findings. Finalized by Mele Robles MD on 11/14/2024 2:16 PM Procedure Note Radiology, Radiologist, - 11/14/2024 THIS EXAM WAS PERFORMED AT [facility] XR ELBOW LT MIN 3 VWS: 11/14/2024 9:27 AM Clinical: Elbow pain. EXAM: LEFT ELBOW RADIOGRAPHS Comparison none Views: 3 Findings: Tiny bone densities adjacent to the lateral epicondyle appear chronic. There is no convincing acute fracture, dislocation, or destructivelesion. Normal joint spaces. No displaced posterior fat pad. Impression: * No acute findings. Finalized by Mele Robles MD on 11/14/2024 2:16 PM Frances Nguyen ACCOUNT SERVICES COORDINATOR IMG XR PROCEDURES Final Result * XR elbow 3+ views right (11/14/2024 11:51 AM EDT) Anatomical Region Laterality Modality Upper Extremities, Elbow Right Radiogr aphic Imaging 11/14/2024 11:5 1 AM EDT Narrative 11/14/2024 11:49 AM EDT THIS EXAM WAS PERFORMED AT [facility] Right elbow: HISTORY: Right elbow pain. 4 views of the right elbow were obtained. There is no acute osseous, articular, or soft tissue abnormality. IMPRESSION: Negative exam. Finalized by Paulo Howell MD on 11/14/2024 11:49 AM Procedure Note Radiology, Radiologist, - 11/14/2024 THIS EXAM WAS PERFORMED AT [facility] Right elbow: HISTORY: Right elbow pain. 4 views of the right elbow were obtained. There is no acute osseous,articular, or soft tissue abnormality. IMPRESSION: Negative exam. Finalized by Paulo Howell MD on 11/14/2024 11:49 AM Frances Nguyen NP IMG XR PROCEDURES Final Result documented in this encounter Visit Diagnoses Not on filedocumented in this encounter Care Teams B2B Account Executive Relationship Specialty Start Date End Date Frances Nguyen NP [address] [place] [address] PCP - [facility] 08/19/23 Austin Gray MD [address] [place] [address] PCP - General Family Medicine 10/08/23 documented as of this encounter
--- OUTSIDE RECORDS SUMMARY | 2025-02-16 08:05 | XMS_ITS | Encounter Summary ---
Author Organization [employer] Address [id number] [address] [place] [address] Care Team Providers Care Siphon Operator Name Role Phone NnamdiFrances pena WORM GROWER-MANAGER SOFTWARE Primary Care Provider Encounter Details Date Type Department Care Team (Late st Contact Info) Description 01/22/2023 [facility] [address] [address] Uyen Dickesn RN Social History Tobacco Use Types Packs/Day Years [...] encounter Miscellaneous Notes * Telephone Encounter - Uyen Dickens RN - 01/22/2023 11:43 AM EDT Patient called he is struggling with cpap. Patient states he is taking it off during sleep. Patient is requesting a refill on lunesta. Appt moved up to 02/12 * Telephone Encounter - Angelica Ervin MD - 01/22/2023 11:43 AM EDT Images from the original note were not included. Agree with scheduling follow up. Ordered titration as scheduling out. Will see if we can have him mask refit before our appt. * Telephone Encounter - Kristine Richey - 01/22/2023 11:43 AM EDT Called pt, says not sure he will have time to come in prior to 02/12 appt due to his work schedule but will try. He will call if in the area and can come in. Says he has been working already with [facility] has tried a couple different masks already. 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 Suggested chinstrap- says has severe allergies and doesn't know if if can keep mouth shut due to this. Asked if addressing allergies, says needs to but works long hours and can't get the allergy shots that needs to. He asked if possible to get refill of Lunesta/ advised will check with EM. * Telephone Encounter - Angelica Ervin MD - 01/22/2023 11:43 AM EDT He was given a script for 6 months worth of Lunesta in September. He should still have refills available to him at his pharmacy. I would direct him there. He doesn't have MyChart. * Telephone Encounter - Uyen Dickens RN - 01/22/2023 11:43 AM EDT Patient notified that refills are available documented in this encounter Plan of Treatment Upcoming Encounters Date Type Department Care Team (Late st Contact Info) Description 02/23/2025 9:15 AM EDT Office Visit [facility] Pul[facility]Sleep [facility] [address] [place] [address] Annabella Osei MD [address] [facility] [address] [place] [address] documented as of this encounter Visit Diagnoses Diagnosis Obstructive sleep apnea- Primary Obstructive sleep apnea (adult) (pediatric) documented in this encounter Additional Health Concerns Assessment Noted Time PHQ-9 Depression Total Score: 0 05/14/20 22 8:09 AM EDT A Body Mass Index follow-up plan has been documented for the patient 04/05/2021 4:45 PM EDT documented as of this encounter Care Teams Siphon Operator Relationship Specialty Start Date End Date Frances Nguyen, WORM GROWER-MANAGER SOFTWARE PCP - General Nurse Practitioner 08/02/23 documented as of this encounter
--- OUTSIDE RECORDS SUMMARY | 2025-02-16 08:05 | XMS_ITS | Clinical Summary ---
Author Organization [facility] Address [address] [place] [address] Care Team Providers Care Oxidation Operator Name Role Phone Unavailable Primary Care Provider [...]
--- OUTSIDE RECORDS SUMMARY | 2025-02-16 08:05 | XMS_ITS | Clinical Summary ---
Author Organization [employer] [facility] tem Address [id number] [address] [place] [address] Care Team Providers Care Bottle Label Inspector Name Role Phone Frances Nguyen MELT HOUSE SUPERVISOR-AIR PUMPER Primary Care Provider Allergies No known active allergies Medications pantoprazole (PROTONIX) 40 mg EC tablet TAKE 1 TABLET(40 MG) BY MOUTH IN THE MORNING 30 tablet 5 02/25/2023 Active zaleplon (SONATA) 5 mg capsuleIndicati ons:Chronic insomnia Take 1 capsule (5 mg total) by mouth nightly. 30 capsule 01/12/2025 Active Active Problems Problem Noted Date Diagnosed Date Allergic rhinitis Depression Encounters Date Type Department Care Team Description 01/12/2025 2:45 PM EDT Office Visit [facility] [address] [place] [place] [address] Annabella Osei MD Chronic insomnia (Primary Dx); MARGOTH (obstructive sleep apnea); Hypersomnia 01/12/2025 Telephone [facility]/Sleep [facility] [address] [place] [address] Yeny Garduno RMA Medication Dosage 01/12/2025 Travel 12/29/2024 Telephone [facility]Sleep [facility] [address] [place] [place] [address] SchElise harper CMA 12/29/2024 Telephone [facility]/Sleep Medicine [address] [place] [place] [address] Jovanna Quinones, [facility] 11/26/2024 Telephone [facility] Pulmonary/Sleep Medicine [address] [place] [place] [address] Jovanna Quinones, [facility] 11/18/2024 8:00 PM EDT Clinical Support [facility] - Sleep Disorders [address] [facility] [address] Annabella Osei MD MARGOTH (obstructive sleep apnea) from Last 3 Months Immunizations No known immunizations Family History Medical History Relation Name Comments Hepatitis Father Prostate cancer Father No Known Problems Mother Sleep apnea Neg Hx Relation Name Status Comments Father Alive Mother Alive Social History Tobacco Use Types Packs/Day Years Used Date Smoking Tobacco: Never Smokeless Tobacco: Never Tobacco Cessation:Counseling Given: Not Answered Alcohol Use Standard Drinks/Week Comments Yes 4 [...] Sign Reading Time Taken Comments Blood Pressure 118/84 01/12/2025 2:38 PM EDT Pulse 74 01/12/2025 2:38 PM EDT Temperature 37.1 C (98.8 F) 12/25/2021 1:58 PM EDT Respiratory Rate 16 11/19/2022 2:25 PM EDT Oxygen Saturation 99% 01/12/2025 2:38 PM EDT Inhaled Oxygen Concentration - - Weight 82.1 kg (181 lb) 01/12/2025 2:38 PM EDT Height 182.9 cm (6') 01/12/2025 2:38 PM EDT Body Mass Index 24.55 01/12/2025 2:38 PM EDT Plan of Treatment Upcoming Encounters Date Type Department Care Team (Late st Contact Info) Description 02/23/2025 9:15 AM EDT Office Visit [facility] Pulmonary/Sleep Medicine [address] [facility] [facility] [address] Annabella Osei MD [address] [address] [place] [address] Health Maintenance Due Date Last Done Comments DTaP,Tdap and Td Vaccines (1 - Tdap) 01/28/2000 Depression Screening 05/14/2023 05/14/2022 Influenza Vaccine 04/19/2025 Adult BMI Screening 01/12/2026 01/12/2025 Tobacco Screening 01/12/2026 01/12/2025 Medical Devices Implanted Type Area Herbologist Device Identifier Shelf Expiration Date Model / Serial / Lot Anch Sut 2.9mm Shldr Kntls Rpl [id number] - [id number] - [id number] Implanted:Qty: 3 on 08/07/2019 by Dain Marinelli DO at [facility] [place] Left: Elbow [employer] 11/17/2019 [id number] / [id number] / [id number] Procedures Procedure Name Priority Date/Time Associated Diagnosis Comments POLYSOMNOGRAPHY 4 OR MORE PARAMETERS WITH PAP TITRATION Routine 11/18/2024 8:41 PM EDT MARGOTH (obstructive sleep apnea) from Last 3 Months Results * Polysomnography 4 or more parameters with PAP titration (11/18/2024 8:41 PM EDT) 11/18/2024 8:41 PM EDT Narrative [facility] - 11/27/2024 2:35 PM EDT INTERPRETED us Annabella Osei MD [facility] ORDERABLES Final Re sult [facility] from Last 3 Months Insurance ANTH Care Teams Bottle Label Inspector Relationship Specialty Start Date End Date Frances Nguyen, MELT HOUSE SUPERVISOR-AIR PUMPER PCP - General Nurse Practitioner 08/02/23
--- OUTSIDE RECORDS SUMMARY | 2025-02-16 08:05 | XMS_ITS | Encounter Summary ---
Author Organization [facility] Address [address] [place] [address] Care Team Providers Care Electric Sealing Machine Operator Name Role Phone Frances Nguyen NP Unavailable [phone] Austin Gray MD Primary Care Provider [phone] Encounter Details Date Type Department Care Team (Late st Contact Info) Description 10/09/2023 Abstract [facility] [address] [place] [address] Frances Nguyen NP [address] [place] [address] Social History Tobacco Use Types Packs/Day Years Used Date Smoking Tobacco: Never Tobacco Cessation:Counseling Given: Not Answered [...] on file documented as of this encounter Functional Status * Over the past 2 weeks, how often have you been bothered by any of the following problems? Question Answer Date of Assessment Author Little interest or pleasure in doing things Not at all 10/10/2023 2:36 PM OTTONIEL KLEIN Feeling down, depressed, or hopeless Not at all 10/10/2023 2:36 PM OTTONIEL KLEIN Patient Health Questionnaire -2 Score 0 10/10/2023 2:36 PM EST HUMBARGER, NATASH A documented as of this encounter Plan of Treatment Not on file documented as of this encounter Visit Diagnoses Not on filedocumented in this encounter Care Teams Electric Sealing Machine Operator Relationship Specialty Start Date End Date Frances Nguyen NP [address] [place] [address] PCP - [facility] 08/19/23 Austin Gray MD [address] [place] [address] PCP - General Family Medicine 10/08/23 documented as of this encounter
--- NOTE | 2025-02-16 08:06 | XR_ITS ---
The [address] [address] Patient Name: SPEEDY ROSEN MRN: [id number] date: 1980 Sex: M Assigned Patient Location: RAD Current Patient Location: [facility] Accession/Order Number: [id number] Exam Date: 02/16/2025 08:27 Report Date: 02/16/2025 08:28 At the request of: SORIN CARLOS MD Procedure: XR foreign body eye YUDITH ORBITS FOR FOREIGN BODY - 2 views COMPARISON: None CLINICAL DATA: MRI foreign body clearance Neil and lateral views were obtained. No radiopaque orbital foreign bodies are identified. The imaged paranasal sinuses are clear. No soft tissue abnormalities are seen. XR/XR foreign body eye YUDITH IMPRESSION: NO EVIDENCE OF ORBITAL FOREIGN BODY. Impression dictated by: Galina Magallon M.D. 02/16/2025 8:28 AM Dictation Location: [place] [address] Electronically authenticated by: [id number] Y Date: 02/16/2025 08:28
== END 2025-02-16 08:03 | disposition home or self-care (01) ==
LOC: RAD 08:02
PROVIDERS: PCP Nurse Practitioner; Visit Provider Anesthesiology
DX: M48.062 Spinal stenosis, lumbar region with neurogenic claudication (principal); M51.369 Other intervertebral disc degeneration, lumbar region without mention of lumbar back pain or lower extremity pain
CPT/HCPCS: 70030; 72148

== ENCOUNTER 2025-03-01 15:28 | Outpatient (OUT) | payer BC, SELFPAY ==
--- OUTSIDE RECORDS SUMMARY | 2025-03-01 15:31 | XMS_ITS | Patient Health Record ---
Author Organization [facility] Address [address] [place] [address] Care Team Providers Care Electrical Controls Engineer Name Role Phone Mike Wilks Unavailable [phone] Allergies No Known Allergies Reason For Referral [...] Problem Status W/U Status Risk Notes Problem [id number] Dupuytren's contracture of both hands (M72.0) Active confirmed Problem [id number] Displaced fracture of proximal third of navicular [scaphoid] bone of right wrist, subsequent encounter for fracture with delayed healing (S62.031G) Active confirmed Plan Of Treatment Pending Test Test Name Order Date SCC- HAND 3 VIEW LEFT [id number] 12/09/2023 CT WRIST RIGHT WITHOUT CONTRAST 12/09/19 24 Insurance Providers Payer Name Payer Address Payer Phone Subscriber Number Group Number Insured Name Patient Relationship to Insured Coverage Start Date Coverage End Date [facility] [address] [place] [address] [id number] SPEEDY ROSEN Self - patient is the insured
--- OUTSIDE RECORDS SUMMARY | 2025-03-01 15:31 | XMS_ITS | Encounter Summary ---
Author Organization [facility] Address [address] [place] [address] Care Team Providers Care Pricing Specialist Name Role Phone Frances Nguyen NP Unavailable [phone] Austin Gray MD Primary Care Provider [phone] Reason for Visit * Reason Comments Med Refill Encounter Details Date Type Department Care Team (Late st Contact Info) Description 09/08/2024 [facility] [address] [place] [address] Frances Nguyen NP [address] [place] [address] Gastroesophageal reflux disease with esophagitis, unspecified whether [...] hemorrhage documented in this encounter Care Teams Pricing Specialist Relationship Specialty Start Date End Date Frances Nguyen NP [address] [place] [address] PCP - [facility] [employer] 1/1/24 Austin Gray MD [address] [place] [address] PCP - General Family Medicine 10/08/23 documented as of this encounter
--- OUTSIDE RECORDS SUMMARY | 2025-03-01 15:31 | XMS_ITS | Encounter Summary ---
Author Organization [employer] Address [facility][id number] [address] [place] [address] Care Team Providers Care Materials Handling Coordinator Name Role Phone NnamdiFrances pena CAR SHAGGER-ELECTRIC WIRER Primary Care Provider Encounter Details Date Type Department Care Team (Late st Contact Info) Description 01/22/2023 [facility] [address] [address] Uyen Dickens RN Social History Tobacco Use Types Packs/Day [...] Says he has been working already with [place] has tried a couple different masks already. [...] documented in this encounter Plan of Treatment Not on [...] documented as of this encounter Care Teams Materials Handling Coordinator Relationship Specialty Start Date End Date Frances Nguyen, CAR SHAGGER-ELECTRIC WIRER PCP - General Nurse Practitioner 08/02/23 documented as of this encounter
--- OUTSIDE RECORDS SUMMARY | 2025-03-01 15:31 | XMS_ITS | Encounter Summary ---
Author Organization [employer] Address [id number] [address] [place] [address] Care Team Providers Care Fast Brim Pouncer Name Role Phone NnamdiFrances pena Asya STOCK PREPARER-PAINT PROCESS ENGINEER Primary Care Provider Encounter Details Date Type Department Care Team (Late st Contact Info) Description 08/07/2023 [facility] [address] [address] Parisa Gandara Social History Tobacco [...] [facility] Patient stated that he [...] documented as of this encounter Care Teams Fast Brim Pouncer Relationship Specialty Start Date End Date Frances Nguyen, STOCK PREPARER-PAINT PROCESS ENGINEER PCP - General Nurse Practitioner 08/02/23 documented as of this encounter
--- OUTSIDE RECORDS SUMMARY | 2025-03-01 15:31 | XMS_ITS | Encounter Summary ---
Author Organization [employer] [facility] tem Address [facility][id number] [address] [place] [address] Care Team Providers Care Title Department Manager Name Role Phone NnamdiFrances pena Asya [facility] Primary Care Provider Encounter Details Date Type Department Care Team (Late st Contact Info) Description 07/17/2021 Orders Only [facility] [address] [place] [address] Marleny Garcia [facility] [address] [place] [address] Social History Tobacco Use Types [...] documented as of this encounter Care Teams Title Department Manager Relationship Specialty Start Date End Date Frances Nguyen, OFFC SPEC-ALL AROUND PRESSER PCP - General Nurse Practitioner 08/02/23 documented as of this encounter
--- OUTSIDE RECORDS SUMMARY | 2025-03-01 15:31 | XMS_ITS | Encounter Summary ---
Author Organization [facility] Address [address] [place] [address] Care Team Providers Care Unix Manager Name Role Phone Frances Nguyen NP Unavailable Austin Gray MD Primary Care Provider [phone] Encounter Details Date Type Department Care Team (Late st Contact Info) Description 11/14/2024 External Result [facility] [address] [place] [address] Frances Nguyen NP [address] [place] [address] Social History Tobacco Use Types Packs/Day Years [...] PM EDT THIS EXAM WAS PERFORMED AT [facility] XR ELBOW LT MIN 3 VWS: 11/14/2024 [...] - 11/14/2024 THIS EXAM WAS PERFORMED AT [facility] XR ELBOW LT MIN 3 VWS: 11/14/2024 [...] MD on 11/14/2024 2:16 PM Frances Nguyen EXTENSION SERVICE SPECIALIST IMG XR PROCEDURES Final Result * XR elbow 3+ views right (11/14/2024 11:51 AM EDT) Anatomical Region Laterality Modality Upper Extremities, Elbow Right Radiogr aphic Imaging 11/14/2024 11:5 1 AM EDT Narrative 11/14/2024 11:49 AM EDT THIS EXAM WAS PERFORMED AT [facility] Right elbow: HISTORY: Right elbow pain. 4 views of the right elbow were obtained. There is no acute osseous, articular, or soft tissue abnormality. IMPRESSION: Negative exam. Finalized by Paulo Howell MD on 11/14/2024 11:49 AM Procedure Note Radiology, Radiologist, - 11/14/2024 THIS EXAM WAS PERFORMED AT [facility] Right elbow: HISTORY: Right elbow pain. 4 views of the right elbow were obtained. There is no acute osseous,articular, or soft tissue abnormality. IMPRESSION: Negative exam. Finalized by Paulo Howell MD on 11/14/2024 11:49 AM Frances Nguyen NP IMG XR PROCEDURES Final Result documented in this encounter Visit Diagnoses Not on filedocumented in this encounter Care Teams Unix Manager Relationship Specialty Start Date End Date Frances Nguyen NP [address] [place] [address] PCP - [facility] 08/19/23 Austin Gray MD [address] [place] [address] PCP - General Family Medicine 10/08/23 documented as of this encounter
--- OUTSIDE RECORDS SUMMARY | 2025-03-01 15:31 | XMS_ITS | Encounter Summary ---
Author Organization [employer] [facility] tem Address [facility][id number] [address] [place] [address] Care Team Providers Care Flame Burner Name Role Phone NnamdiFrances pena Asya TELETRAY OPERATOR-[facility] Primary Care Provider Encounter Details Date Type Department Care Team (Late st Contact Info) Description 11/27/2022 Orders Only [facility] [address] [place] [address] Marleny Garcia [facility] [address] [place] [address] Social History Tobacco Use Types [...] documented as of this encounter Care Teams Flame Burner Relationship Specialty Start Date End Date Frances Nguyen APRN-ASSEMBLER [employer] PCP - General Nurse Practitioner 08/02/23 documented as of this encounter
--- OUTSIDE RECORDS SUMMARY | 2025-03-01 15:31 | XMS_ITS | Encounter Summary ---
Author Organization [facility] Address [address] [place] [address] Care Team Providers Care Conservation Scientist Name Role Phone Frances Nguyen NP Unavailable [phone] Austin Gray MD Primary Care Provider [phone] Encounter Details Date Type Department Care Team (Late st Contact Info) Description 10/09/2023 Abstract [facility] [address] [place] [address] Frances Nguyen NP [address] [place] [address] Social History Tobacco Use Types Packs/Day Years [...] on filedocumented in this encounter Care Teams Conservation Scientist Relationship Specialty Start Date End Date Frances Nguyen NP [address] [place] [address] PCP - [facility] 08/19/23 Austin Gray MD [address] [place] [address] PCP - General Family Medicine 10/08/23 documented as of this encounter
--- OUTSIDE RECORDS SUMMARY | 2025-03-01 15:31 | XMS_ITS | Encounter Summary ---
Author Organization [facility] Address [address] [place] [place] [address] Care Team Providers Care Administrative Professional Name Role Phone Austin Gray MD Primary Care Provider Frances Nguyen NP Unavailable [phone] Austin Gray MD Primary Care Provider Encounter Details Date Type Department Care Team (Late st Contact Info) Description 08/21/2023 Orders Only [facility] [address] [place] [place] [address] Frances Nguyen, [place] [address] [place] [address] Social History Tobacco Use Types Packs/Day Years [...] Right Radiogra phic Imaging us Frances Nguyen COLUMN PRECASTER IMG XR PROCEDURES Final Result * XR hand 3+ views left (08/02/2023 1:26 PM EST) Anatomical Region Laterality Modality Upper Extremities, Hand Left Radiogra phic Imaging Frances Nguyen COLUMN PRECASTER IMG XR PROCEDURES Final Result documented in this encounter Visit Diagnoses Not on filedocumented in this encounter Care Teams Administrative Professional Relationship Specialty Start Date End Date Austin Gray MD PCP - General Family Medicine 03/15/23 10/07/23 Frances Nguyen NP [address] [place] [address] [facility]19[facility] Austin Gray MD [address] [place] [address] PCP - General Family Medicine 10/08/23 documented as of this encounter
--- OUTSIDE RECORDS SUMMARY | 2025-03-01 15:31 | XMS_ITS | Encounter Summary ---
Author Organization [employer] Address [id number] [address] [place] [address] Care Team Providers Care Disaster Recovery Consultant Name Role Phone Frances Nguyen DIE CAST PATTERNMAKER-CUSTOMER SUCCESS ASSOCIATE Primary Care Provider Reason for Visit * Reason Onset Date Comments Med Refill 09/13/2022 Encounter Details Date Type Department Care Team (Late st Contact Info) Description 09/13/2022 Refill [facility] [address] [address] Angelica Ervin MD [address] [place] [address] Chronic insomnia Social History Tobacco [...] documented as of this encounter Care Teams Disaster Recovery Consultant Relationship Specialty Start Date End Date Frances Nguyen, DIE CAST PATTERNMAKER-CUSTOMER SUCCESS ASSOCIATE PCP - General Nurse Practitioner 08/02/23 documented as of this encounter
--- OUTSIDE RECORDS SUMMARY | 2025-03-01 15:31 | XMS_ITS | Encounter Summary ---
Author Organization [facility] Address [address] [place] [address] Care Team Providers Care Firestopper Installer Name Role Phone Austin Gray MD Primary Care Provider [phone] Frances Nguyen NP Unavailable [phone] Austin Gray MD Primary Care Provider [phone] Encounter Details Date Type Department Care Team (Late st Contact Info) Description 08/02/2023 External Result Encounter [facility] [address] [place] [address] Frances Nguyen, RAND BUTTER [address] [place] [address] Social History Tobacco Use Types Packs/Day Years [...] AM EST THIS EXAM WAS PERFORMED AT [facility] Procedure: Lumbo-sacral spine radiographs performed Number of views:3 History:Low back pain remote trauma Comparison:None Findings: There is no fracture, malalignment, or destructive lesion. There is mild disc space narrowing at L5-S1. Vertebral body height is well-maintained. Impression: No acute findings. Finalized by Eddie Hemphill MD on 08/02/2023 9:26 AM Procedure Note Radiology, Radiologist, MD - 08/13/2023 THIS EXAM WAS PERFORMED AT [facility] Procedure: Lumbo-sacral spine radiographs performed Number of views:3 History:Low back pain remote trauma Comparison:None Findings: There is no fracture, malalignment, or destructive lesion.There is mild disc space narrowing at L5-S1. Vertebral body height iswell-maintained. Impression: No acute findings. Finalized by Eddie Hemphill MD on 08/02/2023 9:26 AM Frances Nguyen RAND BUTTER IMG XR PROCEDURES Final Result * XR hand 3+ views right (08/02/2023 9:27 AM EST) Anatomical Region Laterality Modality Upper Extremities, Hand Right Radiogra phic Imaging 08/02/2023 9:27 AM EST Narrative 08/02/2023 9:26 AM EST THIS EXAM WAS PERFORMED AT [facility] Procedure: Right hand radiographs performed Number of views:3 History:Hand pain Comparison:None Findings: There is no fracture, dislocation, or destructive lesion. Joint space is well preserved. Impression: No acute findings. Finalized by Eddie Hemphill MD on 08/02/2023 9:26 AM Procedure Note Radiology, RadiologistMD - 08/13/2023 THIS EXAM WAS PERFORMED AT [facility] Procedure: Right hand radiographs performed Number of views:3 History:Hand pain Comparison:None Findings: There is no fracture, dislocation, or destructive lesion. Jointspace is well preserved. Impression: No acute findings. Finalized by Eddie Hemphill MD on 08/02/2023 9:26 AM Frances Wendy RAND BUTTER IMG XR PROCEDURES Final Result * XR hand 3+ views left (08/02/2023 9:26 AM EST) Anatomical Region Laterality Modality Upper Extremities, Hand Left Radiogra phic Imaging 08/02/2023 9:26 AM EST Narrative 08/02/2023 9:25 AM EST THIS EXAM WAS PERFORMED AT [facility] Procedure: Left hand radiographs performed Number of views:3 History:Hand pain Comparison:None Findings: There is no fracture, dislocation, or destructive lesion. Joint space is well preserved. Impression: No acute findings. Finalized by Eddie Hemphill MD on 08/02/2023 9:25 AM Procedure Note Radiology, RadiologistMD - 08/13/2023 THIS EXAM WAS PERFORMED AT [facility] Procedure: Left hand radiographs performed Number of [...] of a recent Streptococcus infection. Performed By: [facility] [address] [place] [address] Inside Meter Tester: Tuan Xiong MD, PhD CLIA Number: [id number] PERFORMED AT [address] [place] [address] 08/02/2023 9:00 AM EST 08/02/2023 9:05 AM EST Frances Nguyen NP LAB BLOOD ORDERABLES Final Resu lt [facility] * PRITI (08/02/2023 9:00 AM EST) PRITI SCREEN W/REFLEX Negative Negative [facility] Comment: Testing performed using multiplex flow immunoassay. Eleven different antigens associated with systemic autoimmune diseases (dsDNA,Sm,Sm/MANAGER EMERGENCY DEPARTMENT,MANAGER EMERGENCY DEPARTMENT,Chromatin, SSA,SSB,Alma-1,Scl70,Ribo P,Centromere B) are included in this screening test. PERFORMED AT [facility] [address],[place] [address] 08/02/2023 9:00 AM EST 08/02/2023 9:05 AM EST us Frances Nguyen RAND BUTTER LAB BLOOD ORDERABLES Final Resu lt [facility] * Sedimentation rate, automated (08/02/2023 9:00 AM EST) ESR 3 0 - 15 mm/h [facility] 08/02/2023 9:00 AM EST 08/02/2023 9:05 AM EST us Frances Nguyen RAND BUTTER LAB BLOOD ORDERABLES Final Resu lt Performing Organization Address City/[facility]/ZIP Co de Phone Number [facility] * Uric acid (08/02/2023 9:00 AM EST) URIC ACID 5.4 2.6 - 7.2 mg/dL [facility] Comment:PERFORMED AT [place] [address],[place] [address] 08/02/2023 9:00 AM EST 08/02/2023 9:05 AM EST us Frances Nguyen RAND BUTTER LAB BLOOD ORDERABLES Final Resu lt Performing Organization Address [facility]/ZIP Co de Phone Number [facility] * C-reactive protein (08/02/2023 9:00 AM EST) C REACTIVE PROTEIN 0.1 0.000 - 0.744 mg/dL [facility] Comment:PERFORMED AT [place] [address],[place] [address] 08/02/2023 9:00 AM EST 08/02/2023 9:05 AM EST us Frances Nguyen RAND BUTTER LAB BLOOD ORDERABLES Final Resu lt [facility] [...] not use a race coefficient. PERFORMED AT [address] [place] [address] 08/02/2023 9:00 AM EST 08/02/2023 9:05 AM EST us Frances Nguyen RAND BUTTER LAB BLOOD ORDERABLES Final Resu lt [facility] * Rheumatoid factor (08/02/2023 9:00 AM EST) RHEUMATOID FACTOR 15 <20 IU/mL [facility] Comment:PERFORMED AT [address] [address] 08/02/2023 9:00 AM EST 08/02/2023 9:05 AM EST us Frances Wendy RAND BUTTER LAB BLOOD ORDERABLES Final Resu lt [facility] [...] 0.0 - 0.2 X10E9/L [facility] Comment:PERFORMED AT [facility] [address],[place] [address] 08/02/2023 9:00 AM EST 08/02/2023 9:05 AM EST us Frances Nguyen RAND BUTTER LAB BLOOD ORDERABLES Final Resu lt [facility] documented in this encounter Visit Diagnoses Not on filedocumented in this encounter Care Teams Firestopper Installer Relationship Specialty Start Date End Date Austin Gray MD PCP - General Family Medicine 03/15/23 10/07/23 Frances Nguyen NP [address] [place] [address] PCP - [facility] 08/19/23 Austin Gray MD [address] [place] [address] PCP - General Family Medicine 10/08/23 documented as of this encounter
--- OUTSIDE RECORDS SUMMARY | 2025-03-01 15:31 | XMS_ITS | Encounter Summary ---
Author Organization [email or web address] [facility] tem Address [facility]-[id number] [address] [place] [address] Care Team Providers Care Viticulture Teacher Name Role Phone Frances Nguyen BOBBIN COLLECTOR-POWER LINE INSTALLER Primary Care Provider Encounter Details Date Type Department Care Team (Late st Contact Info) Description 01/25/2021 Orders Only [facility] [address] [place] [address] Tri Davidson LPN Cervicalgia Social History Tobacco [...] Physical Therapy (01/25/2021) 01/25/2021 us Marleny Garcia APRN-POWER LINE INSTALLER OUTPATIENT REFERRAL O RDERABLES Final Result MANUALLY TRANSCRIBED RESULTS documented in this encounter Visit Diagnoses Diagnosis Cervicalgia documented in this encounter Additional Health Concerns Infection Onset Date Last Indicated Resolved Time COVID-19 Rule-Out 12/11/2021 12/11/2021 12/12/2021 12:43 PM EDT Assessment Noted Time PHQ-9 Depression Total Score: 0 01/12/20 21 9:00 AM EDT documented as of this encounter Care Teams Viticulture Teacher Relationship Specialty Start Date End Date Frances Nguyen, PAYAL-POWER LINE INSTALLER PCP - General Nurse Practitioner 08/02/23 documented as of this encounter
--- OUTSIDE RECORDS SUMMARY | 2025-03-01 15:31 | XMS_ITS | Encounter Summary ---
Author Organization [employer] Address [facility][id number] [address] [place] [address] Care Team Providers Care Carbon Furnace Operator Helper Name Role Phone NnamdiFrances pena CHIEF OPERATOR HYDROFORMER-MERCHANDISE WORKER Primary Care Provider Reason for Visit * Reason Onset Date Comments Medication update 06/22/2022 Encounter Details Date Type Department Care Team (Late st Contact Info) Description 06/22/2022 [facility] [address] [address] Parisa Abad LPN Medication update Social [...] documented as of this encounter Care Teams Carbon Furnace Operator Helper Relationship Specialty Start Date End Date Frances Nguyen, CHIEF OPERATOR HYDROFORMER-MERCHANDISE WORKER PCP - General Nurse Practitioner 08/02/23 documented as of this encounter
--- OUTSIDE RECORDS SUMMARY | 2025-03-01 15:32 | XMS_ITS | Encounter Summary ---
Author Organization [employer] Address [facility][id number] [address] [place] [address] Care Team Providers Care Seed And Fertilizer Specialist Name Role Phone Frances Nguyen EXPENSE CLERK-QUARTZ CUTTER Primary Care Provider Reason for Visit * Reason Onset Date Comments Med Refill 03/07/2022 Encounter Details Date Type Department Care Team (Late st Contact Info) Description 03/07/20[facility] [address] [place] [address] Tri Davidson LPN Anxiety Social [...] Miscellaneous Notes * Telephone Encounter - Tri Davidsno LPN - 03/07/2022 12:11 PM EDT Xanax [...] documented as of this encounter Care Teams Seed And Fertilizer Specialist Relationship Specialty Start Date End Date Frances Nguyen, PAYAL-QUARTZ CUTTER PCP - General Nurse Practitioner 08/02/23 documented as of this encounter
--- OUTSIDE RECORDS SUMMARY | 2025-03-01 15:32 | XMS_ITS | Clinical Summary ---
Author Organization [employer] [facility] tem Address [facility]-[id number] [address] [place] [address] Care Team Providers Care Sewing Machine Tester Name Role Phone Frances Nguyen WHEEL CLEANER-RAILWAY SIGNAL OPERATOR Primary Care Provider Allergies No known active [...] Office Visit [facility] [address] [place] [address] Annabella Osei MD Chronic insomnia (Primary Dx); MARGOTH (obstructive sleep apnea); Hypersomnia 01/12/2025 Telephone [facility] [address] [place] [address] Yeny Garduno RMA Medication Dosage 01/12/2025 Travel 12/29/2024 Telephone [facility] [address] [place] [address] SchElise harper CMA 12/29/2024 Telephone [facility] [address] [place] [address] Jovanna Quinones RMA from Last 3 Months Immunizations No known [...] 01/12/2025 2:38 PM EDT Plan of Treatment Health Maintenance Due Date Last Done Comments DTaP,Tdap and Td Vaccines (1 - Tdap) 01/28/2000 Depression Screening 05/14/2023 05/14/2022 Influenza Vaccine 04/19/2025 Adult BMI Screening 01/12/2026 01/12/2025 Tobacco Screening 01/12/2026 01/12/2025 Medical Devices Implanted Type Area Radio Engineering Teacher Device Identifier Shelf Expiration Date Model / Serial / Lot Anch Sut 2.9mm Shldr Kntls Rpl [id number] - [id number] - [id number] Implanted:Qty: 3 on 08/07/2019 by Dain Marinelli DO at [facility] [place] Left: Elbow [employer] 11/17/2019 [id number] / [id number] / [id number] Insurance Care Teams Sewing Machine Tester Relationship Specialty Start Date End Date Frances Nguyen, WHEEL CLEANER-RAILWAY SIGNAL OPERATOR PCP - General Nurse Practitioner 08/02/23
--- OUTSIDE RECORDS SUMMARY | 2025-03-01 15:32 | XMS_ITS | Encounter Summary ---
Author Organization [facility] Address [address] [place] [address] Care Team Providers Care Plug Paster Name Role Phone Frances Nguyen NP Unavailable [phone] Austin Gray MD Primary Care Provider [phone] Encounter Details Date Type Department Care Team (Late st Contact Info) Description 02/16/2025 Clinisync Result Encounter [facility] External Department Unsolicited Provider, Generic External Data Social History Tobacco Use Types Packs/Day Years [...] Procedure Name Priority Date/Time Associated Diagnosis Comments MR LUMBAR SPINE WO CON 02/16/2025 3:04 PM EDT documented in this encounter Results * MR LUMBAR SPINE WO CON (02/16/2025 3:04 PM EDT) Anatomical Region Laterality Modality Other 02/16/2025 3:04 PM EDT Narrative 02/16/2025 3:06 PM EDT The [address] [address] Magnetic Resonance Report Signed Patient: NOLAN ROSEN MR#: [id number] : 1980 Acct:[id number] Age/Sex: 45 / M ADM Date: 02/16/25 Loc: RAD Attending Dr: Jessica Elizondo M.D. Ordering Physician: Jessica Elizondo M.D. Date of Service: 02/16/25 Procedure(s): MR lumbar spine wo con Accession Number(s): [id number] cc: Frances Nguyen NP; Jessica Elizondo M.D. [place] [address] Patient Name: NOLAN ROSEN MRN: [id number] date: 1980 Sex: M Assigned Patient Location: [facility] Current Patient Location: [facility] Accession/Order Number: [id number] Exam Date: 02/16/2025 15:00 Report Date: 02/16/2025 15:04 At the request of: JESSICA ELIZONDO MD Procedure: MR lumbar spine wo con EXAMINATION: MRI LUMBAR SPINE WITHOUT IV CONTRAST CLINICAL HISTORY: Chronic back pain. COMPARISON: None TECHNIQUE: Multiecho imaging was performed in the sagittal and axial planes without contrast administration. FINDINGS: Vertebral body heights appear maintained. No bone marrow edema. Disc desiccation particularly at L5-S1. Spinal cord terminates in normal position without abnormal cord signal. No paraspinal mass. Visualized retroperitoneum demonstrates no acute findings. At L1-L2: No posterior disc pathology. No neural canal or foraminal stenosis. At L2-L3: No posterior disc pathology. Mild facet joint degenerative change. No significant canal or neural foraminal stenosis. At L3-L4: Diffuse broad-based disc bulge with ligamentum flavum hypertrophy and facet joint degenerative changes causing mild canal and bilateral neural foraminal stenosis. At L4-L5: Diffuse broad-based disc bulge is present malignant flavum hypertrophy and facet joint degenerative changes causing moderate canal and bilateral neural foraminal stenosis. At L5-S1: Diffuse broad-based disc bulge with disc desiccation. Facet joint degenerative changes. No significant canal stenosis. Mild bilateral neural foraminal stenosis. MR/MR lumbar spine wo con IMPRESSION: Multilevel degenerative disease as described above, worst at L4-L5. Impression dictated by: Vinh Nieto Jr., D.O. 02/16/2025 3:04 PM Dictation Location: [place] [address] Electronically authenticated by: [id number] Y Date: 02/16/2025 15:04 Dictated By: Vinh Nieto M.D. Signed By: 02/16/25 1506 DD/ 1504 TD/TT: Buttonhole Machine Operator: Procedure Note Radiology, Radiologist, MD - 02/16/2025 [place] [address] Magnetic Resonance Report Signed Patient: DMITRI ROSEN#: [id number] : 1980Acct:[id number] Age/Sex: 45 / MADM Date: 02/16/25 Loc: [facility] Attending Dr: Jessica Elizondo M.D. Ordering Physician: Jessica Elizondo M.D. Date of Service: 02/16/25 Procedure(s): MR lumbar spine wo con Accession Number(s): [id number] cc: Frances Nguyen SLABBING MACHINE OPERATOR; Jessica Elizondo M.D. The [place] [address] Patient Name: NOLAN ROSEN MRN: [id number] date: 1980 Sex: M Assigned Patient Location: [facility] Current Patient Location: [facility] Accession/Order Number: [id number] Exam Date: 02/16/2025 15:00 Report Date: 02/16/2025 15:04 At the request of: JESSICA ELIZONDO MD Procedure: MR lumbar spine wo con EXAMINATION: MRI LUMBAR SPINE WITHOUT IV CONTRAST CLINICAL HISTORY: Chronic back pain. COMPARISON: None TECHNIQUE: Multiecho imaging was performed in the sagittal and axialplanes without contrast administration. FINDINGS: Vertebral body heights appear maintained. No bone marrow edema. Disc desiccation particularly at L5-S1. Spinal cord terminates in normal position without abnormal cord signal. No paraspinal mass. Visualized retroperitoneum demonstrates no acute findings. At L1-L2: No posterior disc pathology. No neural canal or foraminalstenosis. At L2-L3: No posterior disc pathology. Mild facet joint degenerativechange. No significant canal or neural foraminal stenosis. At L3-L4: Diffuse broad-based disc bulge with ligamentum flavumhypertrophy and facet joint degenerative changes causing mild canal and bilateralneural foraminal stenosis. At L4-L5: Diffuse broad-based disc bulge is present malignant flavum hypertrophy and facet joint degenerative changes causing moderate [place] bilateral neural foraminal stenosis. At L5-S1: Diffuse broad-based disc bulge with disc desiccation. Facetjoint degenerative changes. No significant canal stenosis. Mild bilateralneural foraminal stenosis. MR/MR lumbar spine wo con IMPRESSION: Multilevel degenerative disease as described above, worst at L4-L5. Impression dictated by: Vinh Nieto Jr., DPeyton 02/16/2025 3:04 PM Dictation Location: [place] [address] Electronically authenticated by: [id number] Y Date: :04 Dictated By: Vinh Nieto M.D. Signed By:02/16/25 1506 DD/ 1504 TD/TT: Buttonhole Machine Operator: Generic External Data Provider [facility] Final Result documented in this encounter Visit Diagnoses Not on filedocumented in this encounter Care Teams Plug Paster Relationship Specialty Start Date End Date Frances Nguyen NP [address] [place] [address] PCP - [facility] 08/19/23 Austin Gray MD [address] [place] [address] PCP - General Family Medicine 10/08/23 documented as of this encounter
--- OUTSIDE RECORDS SUMMARY | 2025-03-01 15:32 | XMS_ITS | Clinical Summary ---
Author Organization The [facility] Address [address] [place] [address] Care Team Providers Care Woodwinds Teacher Name Role Phone Unavailable Primary Care Provider [...]
--- OUTSIDE RECORDS SUMMARY | 2025-03-01 15:32 | XMS_ITS | Encounter Summary ---
Author Organization [facility] Address [address] [place] [address] Care Team Providers Care Pull Socket Assembler Name Role Phone Frances Nguyen NP Unavailable [phone] Austin Gray MD Primary Care Provider [phone] Encounter Details Date Type Department Care Team [...] Name Priority Date/Time Associated Diagnosis Comments XR EYE BILATERAL FOREIGN BODY 15410 02/16/2025 8:28 AM EDT documented in this encounter Results * XR EYE BILATERAL FOREIGN BODY 01236 (02/16/2025 8:28 AM EDT) Anatomical Region Laterality Modality Radiographic Rhea ging 02/16/2025 8:28 AM EDT Narrative 02/16/2025 8:30 AM EDT The [address] [address] XRay Report Signed Patient: NOLAN ROSEN MR#: [id number] : 1980 Acct:[id number] Age/Sex: 45 / M ADM Date: 02/16/25 Loc: RAD Attending Dr: Jessica Elizondo M.D. Ordering Physician: Jessica Elizondo M.D. Date of Service: 02/16/25 Procedure(s): XR foreign body eye YUDITH Accession Number(s): [id number] cc: Frances Nguyen ENAMEL BUFFER; Jessica Elizondo M.D. The [place] [address] Patient Name: NOLAN ROSEN MRN: [id number] date: 1980 Sex: M Assigned Patient Location: RAD Current Patient Location: [facility] Accession/Order Number: [id number] Exam Date: 02/16/2025 08:27 Report Date: 02/16/2025 08:28 At the request of: JESSICA ELIZONDO MD Procedure: XR foreign body eye YUDITH ORBITS FOR FOREIGN BODY - 2 views COMPARISON: None CLINICAL DATA: MRI foreign body clearance Neil and lateral views were obtained. No radiopaque orbital foreign bodies are identified. The imaged paranasal sinuses are clear. No soft tissue abnormalities are seen. XR/XR foreign body eye YUDITH IMPRESSION: NO EVIDENCE OF ORBITAL FOREIGN BODY. Impression dictated by: Galina Magallon M.D. 02/16/2025 8:28 AM Dictation Location: [place] [address] Electronically authenticated by: [id number] Y Date: 02/16/2025 08:28 Dictated By: Galina Magallon M.D. Signed By: 02/16/25 0830 DD/ 0828 TD/TT: Food Assembler: Procedure Note Radiology, Radiologist, - 02/16/2025 [place] [address] XRay Report Signed Patient: DEVYN ROSENR#: [id number] : 1980Acct:[id number] Age/Sex: 45 / MADM Date: 02/16/25 Loc: RAD Attending Dr: Jessica Elizondo M.D. Ordering Physician: Jessica Elizondo M.D. Date of Service: 02/16/25 Procedure(s): XR foreign body eye YUDITH Accession Number(s): [id number] cc: Frances Nguyen ENAMEL BUFFER; Jessica Elizondo M.D. [place] [id number] Patient Name: NOLAN ROSEN MRN: [id number] date: 1980 Sex: M Assigned Patient Location: [facility] Current Patient Location: RAD Accession/Order Number: [id number] Exam Date: 02/16/2025 08:27 Report Date: 02/16/2025 08:28 At the request of: JESSICA ELIZONDO MD Procedure: XR foreign body eye YUDITH ORBITS FOR FOREIGN BODY - 2 views COMPARISON: None CLINICAL DATA: MRI foreign body clearance Neil and lateral views were obtained. No radiopaque orbital foreignbodies are identified. The imaged paranasal sinuses are clear. No soft tissue abnormalities are seen. XR/XR foreign body eye YUDITH IMPRESSION: NO EVIDENCE OF ORBITAL FOREIGN BODY. Impression dictated by: Galina Magallon M.D. 02/16/2025 8:28 AM Dictation Location: [place] [address] Electronically authenticated by: [id number] Y Date: 508:28 Dictated By: Galina Magallon M.D. Signed By:02/16/25829 DD/ 7 TD/TT: Food Assembler: us Generic External Data Provider IMG XR PROCEDURES Final Result documented in this encounter Visit Diagnoses Not on filedocumented in this encounter Care Teams Pull Socket Assembler Relationship Specialty Start Date End Date Frances Nguyen NP [address] [place] [address] PCP - [place] [employer] 08/19/23 Austin Gray MD [address] [place] [address] PCP - General Family Medicine 10/08/23 documented as of this encounter
--- OUTSIDE RECORDS SUMMARY | 2025-03-01 15:32 | XMS_ITS | Encounter Summary ---
Author Organization [employer] [facility] tem Address [id number] [address] [place] [address] Care Team Providers Care Diesel Engine Inspector Name Role Phone NnamdiFrances pena Asya POT OPERATOR-[facility] Primary Care Provider Encounter Details Date Type Department Care Team (Late st Contact Info) Description 10/25/2020 Orders Only [facility] [address] [place] [address] [facility]leny [facility] [address] [place] [address] Social History Tobacco Use Types [...] documented as of this encounter Care Teams Diesel Engine Inspector Relationship Specialty Start Date End Date Frances Nguyen, POT OPERATOR-CORRECTIVE AND MANUAL ARTS THERAPIST PCP - General Nurse Practitioner 08/02/23 documented as of this encounter
--- OUTSIDE RECORDS SUMMARY | 2025-03-01 15:32 | XMS_ITS | Clinical Summary ---
Author Organization [facility] Address [address] [place] [address] Care Team Providers Care Valuer Name Role Phone Frances Nguyen NP Unavailable [phone] Austin Gray MD Primary Care Provider [phone] Allergies No known active allergies Medications pantoprazole [...] Active predniSONE (Deltasone) 20 MG tabletIndication s:Poison mery dermatitis 1 pill three times daily for 3 days, then 1 pill twice a day for 3 days, then 1 pill once a day for 3 days, then 1/2 pill daily for 3 days take with food 21 tablet 01/20/2025 Active Active Problems Problem Noted Date Diagnosed Date Poison mery dermatitis 01/20/2025 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 Assessment [...] Encounters Date Type Department Care Team Description 02/16/2025 Clinisync Result Encounter [facility] External Department Unsolicited Provider, Generic External Data 02/16/2025 Clinisync Result Encounter [facility] External Department Unsolicited Provider, Generic External Data 01/20/2025 Refill [facility] [address] [place] [address] Frances Nguyen, INSURANCE PROFESSIONAL Poison mery dermatitis (Primary Dx) 01/20/2025 Telephone [facility] [address] [place] [address] Frances Nguyen, INSURANCE PROFESSIONAL Poison Mery 12/23/2024 Bamboo flowsheet [facility] [address] [place] [address] Mukesh Martinez, PT 12/23/2024 Travel 12/22/2024 6:00 PM EDT Treatment [facility] [address] [place] [address] Mukesh [place], PT Lumbar paraspinal muscle spasm (Primary Dx) 12/09/2024 Bamboo flowsheet [facility] [address] [place] [address] Mukesh Martinez, PT 12/09/2024 Travel 12/08/2024 4:30 PM EDT Treatment [facility] [address] [place] [address] Mukesh Martinez, PT Lumbar paraspinal muscle spasm (Primary Dx) 12/01/2024 4:00 PM EDT Treatment [facility] [address] [place] [address] Mukesh Martinez T, PT Lumbar paraspinal muscle spasm (Primary Dx) 12/01/2024 Bamboo flowsheet [facility] [address] [place] [address] Mukesh Martinez, PT 12/01/2024 Travel from Last 3 Months Family History [...] Date Last Done Comments Influenza Vaccine Discontinued Procedures Procedure Name Priority Date/Time Associated Diagnosis Comments MR LUMBAR SPINE WO CON 02/16/2025 3:04 PM EDT XR EYE BILATERAL FOREIGN BODY 67945 02/16/2025 8:28 AM EDT from Last 3 Months Results * MR LUMBAR SPINE WO CON (02/16/2025 3:04 PM EDT) Anatomical Region Laterality Modality Other 02/16/2025 3:04 PM EDT Narrative 02/16/2025 3:06 [place] [address] Magnetic Resonance Report Signed Patient: NOLAN ROSEN MR#: [id number] : 1980 Acct:[id number] Age/Sex: 45 / M ADM Date: 02/16/25 Loc: [facility] Attending Dr: Jessica Elizondo M.D. Ordering Physician: Jessica Elizondo M.D. Date of Service: 02/16/25 Procedure(s): MR lumbar spine wo con Accession Number(s): [id number] cc: Frances Nguyen NP; Jessica Elizondo M.D. The [place] [id number] Patient Name: NOLAN ROSEN MRN: [id number] date: 1980 Sex: M Assigned Patient Location: [facility] Current Patient Location: [facility] Accession/Order Number: [id number] Exam Date: 02/16/2025 15:00 Report Date: 02/16/2025 [...] Jr., D.O. 02/16/2025 3:04 PM Dictation Location: [place] [address] Electronically authenticated by: [id number] Y Date: 02/16/2025 15:04 Dictated By: Vinh Nieto M.D. Signed By: 02/16/25 1506 DD/ 1504 TD/TT: Rocket Propellant Plant Supervisor: Procedure Note Radiology, Radiologist, - 02/16/2025 [place] [address] Magnetic Resonance Report Signed Patient: DMITRI ROSEN#: [id number] : 1980Acct:[id number] Age/Sex: 45 / MADM Date: 02/16/25 Loc: RAD Attending Dr: Jessica Elizondo M.D. Ordering Physician: Jessica Elizondo M.D. Date of Service: 02/16/25 Procedure(s): MR lumbar spine wo con Accession Number(s): [id number] cc: Frances Nguyen INSURANCE PROFESSIONAL; Jessica Elizondo M.D. The [place] [address] Patient Name: NOLAN ROSEN MRN: [facility]:[id number] date: 1980 Sex: M Assigned Patient Location: [facility] Current Patient Location: [facility] Accession/Order Number: [id number] Exam Date: 02/16/2025 15:00 Report Date: 02/16/2025 [...] Jr., D.O. 02/16/2025 3:04 PM Dictation Location: [place] [address] Electronically authenticated by: [id number] Y Date: 5:04 Dictated By: Vinh Nieto M.D. Signed By:02/16/25 1506 DD/ 1504 TD/TT: Rocket Propellant Plant Supervisor: us Generic External Data Provider [facility] Final Result * XR EYE BILATERAL FOREIGN BODY 51201 (02/16/2025 8:28 AM EDT) Anatomical Region Laterality Modality Radiographic Rhea ging 02/16/2025 8:28 AM EDT Narrative 02/16/2025 8:30 AM EDT The [place] [id number] XRay Report Signed Patient: NOLAN ROSEN MR#: [id number] : 1980 Acct:[id number] Age/Sex: 45 / M ADM Date: 02/16/25 Loc: RAD Attending Dr: Jessica Elizondo M.D. Ordering Physician: Jessica Elizondo M.D. Date of Service: 02/16/25 Procedure(s): XR foreign body eye YUDITH Accession Number(s): [id number] cc: Frances Nguyen NP; Jessica Elizondo M.D. The [address] [address] Patient Name: NOLAN ROSEN MRN: [id number] date: 1980 Sex: M Assigned Patient Location: [facility] Current Patient Location: [facility] Accession/Order Number: [id number] Exam Date: 02/16/2025 08:27 Report Date: 02/16/2025 [...] Magallon M.D. 02/16/2025 8:28 AM Dictation Location: [place] [address] Electronically authenticated by: [id number] Y Date: 02/16/2025 08:28 Dictated By: Galina Magallon M.D. Signed By: 02/16/2530 DD/ 7 TD/TT: Rocket Propellant Plant Supervisor: Procedure Note Radiology, Radiologist, - 02/16/[address] [address] XRay Report Signed Patient: DEVYN ROSENR#: [id number] : 1980Acct:[id number] Age/Sex: 45 / MADM Date: 02/16/25 Loc: RAD Attending Dr: Jessica Elizondo M.D. Ordering Physician: Jessica Elizondo M.D. Date of Service: 02/16/25 Procedure(s): XR foreign body eye YUDITH Accession Number(s): [id number] cc: Frances Nguyen INSURANCE PROFESSIONAL; Jessica Elizondo M.D. The [address] [address] Patient Name: NOLAN ROSEN MRN: [id number] date: 1980 Sex: M Assigned Patient Location: [facility] Current Patient Location: [facility] Accession/Order Number: [id number] Exam Date: 02/16/2025 08:27 Report Date: 02/16/2025 [...] Magallon M.D. 02/16/2025 8:28 AM Dictation Location: [place] [address] Electronically authenticated by: [id number] Y Date: 508:28 Dictated By: Galina Magallon M.D. Signed By:02/16/25829 DD/ 7 TD/TT: Rocket Propellant Plant Supervisor: Generic External Data Provider IMG XR PROCEDURES Final Result from Last 3 Months Insurance BCBS Care Teams Valuer Relationship Specialty Start Date End Date Frances Nguyen NP [address] [place] [address] PCP - [place] [employer] 08/19/23 Austin Gray MD [address] [place] [address] PCP - General Family Medicine 10/08/23
--- OUTSIDE RECORDS SUMMARY | 2025-03-01 15:32 | XMS_ITS | Encounter Summary ---
Author Organization [employer] [facility] tem Address [id number] [address] [place] [address] Care Team Providers Care Corporate Administrative Assistant Name Role Phone Frances Nguyen GAS DERRICK OPERATOR-STATEMENT CLERK Primary Care Provider Encounter Details Date Type Department Care Team (Late st Contact Info) Description 03/07/2022 Telephone [facility] Family Medicine [address] [place] [address] Tri Davidson LPN Social History [...] Time PHQ-9 Depression Total Score: 0 12/26/19 1:00 PM EDT A Body Mass Index follow-up plan has been documented for the patient 04/05/2021 4:45 PM EDT documented as of this encounter Care Teams Corporate Administrative Assistant Relationship Specialty Start Date End Date Frances Nguyen, PAYAL-STATEMENT CLERK PCP - General Nurse Practitioner 08/02/23 documented as of this encounter
--- NOTE | 2025-03-01 16:20 | PM.CN ---
Consult Note: HPI Data of Consult Patient: known to practice within the last 3 years Consult date: 03/01/25 Requesting Physician: Katty Hughes NP Primary Care Provider: Frances Nguyen NP Consult Narrative Reason for consult: low back, bilateral leg pain Narrative: 45yom who presents for assessment. notes persistence of low back, bilateral lower extremity pain. mri reviewed, shows multilevel degenerative changes and disc bulging with resultant stenosis worst at l4-5. continues in a series of provider directed home exercises >6 weeks, without benefit. tried muscle relaxer. cc:: CC: Katty Hughes NP Review of Systems ROS Status of ROS 10 or more systems reviewed and unremarkable except as noted in history and below Meds Home Medications and Allergies Home Medications ?Medication ?Instructions ?Recorded ?Confirmed ?Type pantoprazole 40 mg tablet,delayed 40 mg PO DAILY 11/16/24 11/16/24 History release tizanidine 4 mg capsule 4 mg PO BID PRN muscle spasticity 11/16/24 11/16/24 History Exam Narrative Exam Narrative: Psych-alert and oriented x 3. Attentive and appropriate, constitutionally normal, displays normal mood and affect per situation. There are no obvious deficits in memory, reasoning, or intellect.? Skin-no obvious rashes, bruising, erythema noted to the patient's area of pain.? Extremities- extremities are warm with minimal edema and palpable pulses. Lumbar-tenderness to palpation noted in the lumbar spine and paraspinal musculature. Pain is elicited with flexion, extension, and lateral rotation of the lumbar spine. Range of motion is diminished with these motions. Facet loading maneuvers are positive.? Strength-noted to be unremarkable with the exception of decreased strength rated at 4 out of 5 in bilateral quadriceps femoris, anterior tibialis. Sensory-no notable sensory deficits in the bilateral lower extremities to touch or pinprick in all dermatomal distributions with the exception to decreased sensation to the bilateral L4, 5 dermatomal distribution Coordination remains intact.? Gait remains non-antalgic Assessment and Plan Assessment and Plan (1) Lumbar stenosis with neurogenic claudication: Plan 45yom who presents for assessment. failed conservative measures, as noted. imaging reviewed, as noted. given symptoms and imaging, prudent to attempt bilateral l4-5 tfesi under fluoroscopic guidance x2. he is in agreement. meds reviewed, no changes. follow up after procedure.
== END 2025-03-01 15:29 | disposition home or self-care (01) ==
LOC: PM 15:29
PROVIDERS: PCP Nurse Practitioner; Visit Provider Nurse Practitioner
DX: M48.062 Spinal stenosis, lumbar region with neurogenic claudication (principal)
CPT/HCPCS: G0463

== ENCOUNTER 2025-03-22 07:13 | Day surgery (SDC) | payer BC, SELFPAY ==
--- OUTSIDE RECORDS SUMMARY | 2025-03-22 07:16 | XMS_ITS | CCD ---
Author Organization [facility] Care Team Providers Care Metallurgical Inspector Name Role Phone Wendy CAREER REPRESENTATIVE, Frances Unavailable Austin Gray MD Primary Care Provider [phone] Aichluis fernando HEALTH SERVICES RN-PLATFORM SUPERVISORFrances Primary Care Provider Aichluis fernando HEALTH SERVICES RN-PLATFORM SUPERVISOR, Frances Aysa Primary Care Provider Wendy HEALTH SERVICES RN-PLATFORM SUPERVISOR, Frances Sky Primary Care Provider GIAZ, FRANCES J Referring Unavailable AICHHOLZ, FRANCES J Primary Care Unavailable AICHHOLZ, FRANCES J Referring Unavailable AICHHOLZ, FRANCES J Primary Care Unavailable CL THOMAS Referring Unavailable AICHHOLZ, FRANCES J Primary Care Unavailable AICHHOLZ, FRANCES Attending Unavailable BLACKSTON, ANNABELLE T Attending Unavailable AICHHOLZ, FRANCES Referring Unavailable BLACKSTON, ANNABELLE T Attending Unavailable AICHHOLZ, FRANCES Referring Unavailable BLACKSTON, ANNABELLE T Attending Unavailable AICHHOLZ, FRANCES Referring Unavailable PARISA CALLE Attending Unavailable AICHHOLZ, FRANCES Referring Unavailable BLACKSTON, ANNABELLE T Attending Unavailable AICHHOLZ, FRANCES Referring Unavailable BLACKSTON, ANNABELLE T Attending Unavailable AICHHOLZ, FRANCES Referring Unavailable BLACKSTON, ANNABELLE T Attending Unavailable AICHHOLZ, FRANCES Referring Unavailable AICHHOLZ, FRANCES Attending Unavailable BLACKSTON, ANNABELLE T Attending Unavailable GIEDRAITIS, ANDRIUS Referring Unavailable BLACKSTON, ANNABELLE T Attending Unavailable GIEDRAITIS, ANDRIUS Referring Unavailable BLACKSTON, ANNABELLE T Attending Unavailable GIEDRAITIS, ANDRIUS Referring Unavailable BLACKSTON, ANNABELLE T Attending Unavailable GIEDRAITIS, ANDRIUS Referring Unavailable ANNABELLE MARTINEZ Attending Unavailable GIEDRAITIS, ANDRIUS Referring Unavailable CL THOMAS Attending Unavailable FRANCES NGUYEN Referring Unavailable FRANCES NGUYEN Primary Care Unavailable CL THOMAS Attending Unavailable FRANCES NGUYEN Referring Unavailable FRANCES NGUYEN Primary Care Unavailable CL THOMAS Attending Unavailable FRANCES NGUYEN Referring Unavailable FRANCES NGUYEN Primary Care Unavailable Gijosemanuel REED, Sorin Francisco Attending Unavailable Gijosemanuel REED, Sorin Francisco Attending Unavailable Medications Current Medications Medication Drug Class(es) Dates Sig (Normalized) Sig (Original) pantoprazole 40 mg delayed release oral tablet (20 sources) Proton Pump Inhibitor Start: 02-25-2023 End: 12-07-2024 take 1 tablet by mouth before mealtime pantoprazole (ProtoNix) 40 MG EC tablet Indications: Gastroesophageal reflux disease with esophagitis, unspecified whether hemorrhage Take 1 tablet (40 mg) by mouth in the morning. Take before meals. Do not crush, chew, or split.. 90 tablet 1 09/08/2024 Active predniSONE 20 mg oral tablet (6 sources) Start: 01-20-2025 predniSONE (Deltasone) 20 MG tablet Indications: Poison mery dermatitis 1 pill three times daily for 3 days, then 1 pill twice a day for 3 days, then 1 pill once a day for 3 days, then 1/2 pill daily for 3 days take with food 21 tablet 01/20/2025 Active Start: 11-11-2023 End: 09-08-2024 predniSONE (Deltasone) 10 MG tablet Indications: Dermatitis 2 pills three times daily for 3 days, then 2 pills twice a day for 3 days, then 2 pills once a day for 3 days, then 1 pill daily for 3 days, take with food 39 tablet 11/11/2023 09/08/2024 Discontinued (Therapy completed) tiZANidine 4 mg oral tablet (20 sources) Central alpha-2 Adrenergic Agonist Start: 09-08-2024 End: 11-30-2024 tiZANidine (Zanaflex) 4 MG tablet Indications: Cervical pain (neck) , Strain of right trapezius muscle, initial encounter Take 1 tablet (4 mg) by mouth as needed at bedtime for muscle spasms for up to 15 days 15 tablet 1 11/15/2024 Active zaleplon 5 mg oral capsule (2 sources) gamma-Aminobutyri c Acid A Receptor Agonist Start: 01-12-2025 take 1 capsule by mouth once daily zaleplon (SONATA) 5 mg capsule Indications: Chronic insomnia Take 1 capsule (5 mg total) by mouth nightly. 30 capsule 01/12/2025 Active Completed/Discontinued Medications Medication Drug Class(es) Dates Sig (Normalized) Sig (Original) eszopiclone 3 mg oral tablet (3 sources) Start: 02-26-2023 End: 02-25-2024 take 1 tablet by mouth once daily at bedtime for sleep eszopiclone (LUNESTA) 3 mg tablet Indications: Chronic insomnia Take 1 tablet (3 mg total) by mouth nightly. Take immediately before bedtime for sleep study 1 tablet 11/05/2023 02/25/2024 Discontinued hydrOXYzine pamoate 25 mg oral capsule (3 sources) Antihistamine Start: 11-11-2023 End: 09-08-2024 take 1 capsule by mouth every eight hours hydrOXYzine pamoate (Vistaril) 25 MG capsule Indications: Dermatitis Take 1 capsule (25 mg) by mouth every 8 (eight) hours if needed for itching for up to 10 days May cause drowsiness 30 capsule 11/11/2023 09/08/2024 Discontinued (Therapy completed) Problems Active Problems Problem Classification Problem Date Documented Date Episodic/Chronic Allergic reactions (20 sources) Atopic dermatitis; Translations: [Atopic dermatitis, unspecified] Onset: 10-10-2023 10-10-2023 Chronic Allergic reactions (20 sources) Inflammatory dermatosis; Translations: [Dermatitis, unspecified] Onset: 11-11-2023 11-11-2023 Episodic Anxiety disorders (20 sources) Anxiety; Translations: [Anxiety disorder, unspecified] Onset: 10-10-2023 10-10-2023 Chronic Asthma (20 sources) Asthma; Translations: [Unspecified asthma, uncomplicated] Onset: 10-10-2023 10-10-2023 Chronic Esophageal disorders (20 sources) Gastro-esophageal reflux disease with esophagitis; Translations: [Gastroesophageal reflux disease with esophagitis] Onset: 10-10-2023 10-10-2023 Chronic Miscellaneous mental health disorders (4 sources) Chronic insomnia; Translations: [Psychophysiologic insomnia] Onset: 01-12-2025 10-03-2023 Chronic Mood disorders (20 sources) Depressive disorder; Translations: [Depression] Onset: 10-10-2023 10-10-2023 Chronic Osteoarthritis (20 sources) Arthritis; Translations: [Unspecified osteoarthritis, unspecified site] Onset: 10-10-2023 10-10-2023 Chronic Other ear and sense organ disorders (20 sources) Conductive hearing loss; Translations: [Conductive hearing loss, unspecified] Onset: 10-10-2023 10-10-2023 Chronic Other non-traumatic joint disorders (1 source) Pain in right elbow; Translations: [Pain in right elbow] Onset: 11-14-2024 Episodic Other non-traumatic joint disorders (1 source) Pain in left elbow; Translations: [Pain in left elbow] Onset: 11-14-2024 Episodic Other upper respiratory disease (20 sources) Allergic rhinitis; Translations: [Allergic rhinitis, unspecified] Onset: 10-10-2023 10-10-2023 Chronic Residual codes; unclassified (20 sources) Obstructive sleep apnea syndrome; Translations: [Obstructive sleep apnea (adult) (pediatric)] Onset: 10-10-2023 10-10-2023 Chronic Residual codes; unclassified (3 sources) Hypersomnia; Translations: [Hypersomnia, unspecified] 02-25-2024 Chronic Residual codes; unclassified (2 sources) Obstructive sleep apnea (adult) (pediatric); Translations: [Obstructive sleep apnea (adult) (pediatric)] Onset: 02-25-2024 Chronic Residual codes; unclassified (1 source) Sleep apnea Onset: 02-25-2024 Chronic Spondylosis; intervertebral disc disorders; other back problems (20 sources) Degeneration of lumbar intervertebral disc; Translations: [DDD (degenerative disc disease), lumbar] Onset: 08-05-2023 08-05-2023 Chronic Past or Other Problems Problem Classification Problem Date Documented Da te Episodic/Chronic Fracture of upper limb (20 sources) Fracture of scaphoid bone of wrist; Translations: [Displaced fracture of proximal third of navicular [scaphoid] bone of right wrist, subsequent encounter for fracture with delayed healing] Onset: 09-08-2024 09-08-2024 Episodic Immunizations and screening for infectious disease (20 sources) Anti-streptolysin titer abnormal; Translations: [Raised antibody titer] Onset: 08-07-2023 08-07-2023 Episodic Mood disorders (15 sources) Mood disorders Onset: 05-14-2022 05-14-2022 Other connective tissue disease (20 sources) Pain of bilateral hands; Translations: [Pain in right hand] Onset: 10-10-2023 10-10-2023 Episodic Other connective tissue disease (20 sources) Other bursitis of elbow, right elbow; Translations: [Olecranon bursitis] Onset: 10-10-2023 Resolved: 10-10-2023 10-10-2023 Episodic Other connective tissue disease (20 sources) Dupuytrens contracture of bilateral hands; Translations: [Palmar fascial fibromatosis [Dupuytren]] Onset: 09-08-2024 09-08-2024 Episodic Other injuries and conditions due to external causes (20 sources) Motion sickness; Translations: [Motion sickness, initial encounter] Onset: 11-06-2023 11-06-2023 Episodic Other non-traumatic joint disorders (18 sources) Bilateral elbow joint pain; Translations: [Pain in right elbow] Onset: 10-19-2024 10-19-2024 Episodic Other upper respiratory disease (1 source) Nasal congestion; Translations: [Nasal congestion] 02-25-2024 Episodic Residual codes; unclassified (20 sources) Insomnia; Translations: [Insomnia, unspecified] Onset: 10-10-2023 10-10-2023 Episodic Residual codes; unclassified (20 sources) Past history of procedure; Translations: [Personal history of other medical treatment] Onset: 10-10-2023 10-10-2023 Episodic Residual codes; unclassified (20 sources) History of clinical finding in subject; Translations: [Personal history of other specified conditions] Onset: 10-10-2023 Resolved: 10-10-2023 10-10-2023 Episodic Residual codes; unclassified (1 source) Other specified health status; Translations: [Other specified conditions influencing health status] 06-02-2024 Episodic Residual codes; unclassified (1 source) Sleep disorder; Translations: [Pain, unspecified] 06-02-2024 Episodic Spondylosis; intervertebral disc disorders; other back problems (20 sources) Chronic back pain ; Translations: [Dorsalgia, unspecified] Onset: 10-10-2023 10-10-2023 Episodic Sprains and strains (20 sources) Strain of right trapezius muscle; Translations: [Strain of other muscles, fascia and tendons at shoulder and upper arm level, right arm, initial encounter] Onset: 09-08-2024 09-08-2024 Episodic Unclassified (2 sources) Strain of right trapezius muscle 09-08-2024 Unclassified (15 sources) Onset: 04-05-2021 04-05-2021 Unclassified (2 sources) SI joint arthritis (CMS/HCC) 10-19-2024 Results Test Name Value Interpretation Reference Range Facil ity [place] [address] Magnetic Resonance Report Signed Patient: SPEEDY ROSEN MR#: [id number] : 1980 Acct:[id number] Age/Sex: 45 / M ADM Date: 02/16/25 Loc: RAD Attending Dr: Sorin Elizondo M.D. Ordering Physician: Sorin Elizondo M.D. Date of Service: 02/16/25 Procedure(s): MR lumbar spine wo con Accession Number(s): [id number] cc: Frances Nguyen NP; Sorin Elizondo M.D. [place] [address] Patient Name: SPEEDY ROSEN MRN: [id number] date: 1980 Sex: M Assigned Patient Location: [facility] Current Patient Location: [facility] Accession/Order Number: [id number] Exam Date: 02/16/2025 15:00 Report Date: 02/16/2025 15:04 At the request of: SORIN ELIZONDO MD Procedure: MR lumbar spine wo [...] L4-L5. Impression dictated by: Vinh Nieto Jr., Martin.OLetty 02/16/2025 3:04 PM Dictation Location: [place] [address] Electronically authenticated by: [id number] Y Date: 02/16/2025 15:04 Dictated By: Vinh Nieto M.D. Signed By: 02/16/25 1506 DD/ 1504 TD/TT: Vice President Of Recruiting: [facility] Radiology, Radiologist, - 02/16/2025 [place] [address] Magnetic Resonance Report Signed Patient: SPEEDY ROSEN MR#: [id number] : 1980 Acct:[id number] Age/Sex: 45 / M ADM Date: 02/16/25 Loc: RAD Attending Dr: Sorin Elizondo M.D. Ordering Physician: Sorin Elizondo M.D. Date of Service: 02/16/25 Procedure(s): MR lumbar spine wo con Accession Number(s): [id number] cc: Frances Nguyen CAREER REPRESENTATIVE; Sorin Elizondo M.D. The [place] [address] Patient Name: SPEEDY ROSEN MRN: [id number] date: 1980 Sex: M Assigned Patient Location: [facility] Current Patient Location: [facility] Accession/Order Number: [id number] Exam Date: 02/16/2025 15:00 Report Date: 02/16/2025 15:04 At the request of: SORIN ELIZONDO MD Procedure: MR lumbar spine wo [...] Jr., D.O. 02/16/2025 3:04 PM Dictation Location: [place] [address] Electronically authenticated by: [id number] Y Date: 02/16/2025 15:04 Dictated By: Vinh Nieto M.D. Signed By: 02/16/25 1506 DD/ 1504 TD/TT: Vice President Of Recruiting: [facility] Rad[facility] Study observation (narrative) [facility] MR LUMBAR SPINE WO CONOrdere d By: Radiologist Radiology on 02-16-2025 [facility] Work Phone: XR EYE BILATERAL FOREIGN BOD Y [phone] 02-16-[address] [address] XRay Report Signed Patient: SPEEDY ROSEN MR#: [id number] : 1980 Acct:[id number] Age/Sex: 45 / M ADM Date: 02/16/25 Loc: RAD Attending Dr: Sorin Elizondo M.D. Ordering Physician: Sorin Elizondo M.D. Date of Service: 02/16/25 Procedure(s): XR foreign body eye YUDITH Accession Number(s): [id number] cc: Frances Nguyen NP; Sorin Elizondo M.D. The [address] [address] Patient Name: SPEEDY ROSEN MRN: [facility]:[id number] date: 1980 Sex: M Assigned Patient Location: [facility] Current Patient Location: [facility] Accession/Order Number: [id number] Exam Date: 02/16/2025 08:27 Report Date: 02/16/2025 08:28 At the request of: SORIN ELIZONDO MD Procedure: XR foreign body eye [...] Magallon M.D. 02/16/2025 8:28 AM Dictation Location: [place] [address] Electronically authenticated by: [id number] Y Date: 02/16/2025 08:28 Dictated By: Galina Magallon M.D. Signed By: 02/16/25829 DD/ 7 TD/TT: Vice President Of Recruiting: [facility] Radiology, Radiologist, MD - 02/16/[address] [address] XRay Report Signed Patient: SPEEDY ROSEN MR#: [id number] : 1980 Acct:[id number] Age/Sex: 45 / M ADM Date: 02/16/25 Loc: RAD Attending Dr: Sorin Elizondo M.D. Ordering Physician: Sorin Elizondo M.D. Date of Service: 02/16/25 Procedure(s): XR foreign body eye YUDITH Accession Number(s): [id number] cc: Frances Nguyen CAREER REPRESENTATIVE; Sorin Elizondo M.D. The [place] [address] Patient Name: SPEEDY ROSEN MRN: [id number] date: 1980 Sex: M Assigned Patient Location: [facility] Current Patient Location: [facility] Accession/Order Number: [id number] Exam Date: 02/16/2025 08:27 Report Date: 02/16/2025 08:28 At the request of: SORIN ELIZONDO MD Procedure: XR foreign body eye [...] Magallon M.D. 02/16/2025 8:28 AM Dictation Location: [place] [address] Electronically authenticated by: [id number] Y Date: 02/16/2025 08:28 Dictated By: Galina Magallon M.D. Signed By: 02/16/25829 DD/ 7 TD/TT: Vice President Of Recruiting: [facility] Radiology Study observation (narrative) [facility] XR EYE BILATERAL FOREIGN BOD Y [id number] By: Radiologist Radiology on 02-16-2025 [facility] Work Phone: XR ELBOW LT MIN 3 VWSon 10-18 XR ELBOW LT MIN 3 VWS XR ELBOW LT MIN 3 VWS XR ELBOW LT MIN 3 VWS: 11/14/2024 9:27 AM Clinical: Elbow pain. EXAM: LEFT ELBOW RADIOGRAPHS Comparison none Views: 3 Findings: Tiny bone densities adjacent to the lateral epicondyle appear chronic. There is no convincing acute fracture, dislocation, or destructive lesion. Normal joint spaces. No displaced posterior fat pad. Impression: * No acute findings. Finalized by Mele Robles MD on 11/14/2024 2:16 PM Normal [facility] XR ELBOW RT MIN 3 VWSon 03-2 XR ELBOW RT MIN 3 VWS XR ELBOW RT MIN 3 VWS Right elbow: HISTORY: Right elbow pain. 4 views of the right elbow were obtained. There is no acute osseous, articular, or soft tissue abnormality. IMPRESSION: Negative exam. Finalized by Paulo Howell MD on 11/14/2024 11:49 AM Normal [facility] XR Hip - right [address] [place] [address] XRay Report Signed Patient: SPEEDY ROSEN MR#: [id number] : 1980 Acct:[id number] Age/Sex: 44 / M ADM Date: 10/09/24 Loc: [facility] Attending Dr: Frances Nguyen NP Ordering Physician: Frances Nguyen NP Date of Service: 10/09/24 Procedure(s): XR hip RT min 2V Accession Number(s): [id number] cc: Frances Nguyen NP [place] [address] Patient Name: SPEEDY ROSEN MRN: [id number] date: 1980 Sex: M Assigned Patient Location: [facility] Current Patient Location: Accession/Order Number: [id number] Exam Date: 10/09/2024 11:56 Report Date: 10/09/2024 12:02 At the request of: FRANCES NGUYEN NP Procedure: XR lumbar spine 2-3V CLINICAL DATA: Chronic low back pain radiating to the right hip. No recent injury. RIGHT HIP - 2 views COMPARISON: None AP and frog-lateral views were obtained. There is no evidence of fracture or dislocation. The hip joint space is maintained. There is no significant hypertrophy. There are no significant soft tissue abnormalities. XR/XR hip RT min 2V IMPRESSION: NO ACUTE BONY FINDINGS. LUMBAR SPINE - 3 views COMPARISON: None AP, lateral lumbar and lumbosacral views were obtained. There are no acute fractures or displacement. There is disc space narrowing at the lumbosacral junction along with mild endplate spurring. Additional minimal endplate spurring is seen. There is minor lower lumbar facet disease. The SI joints are intact and show mild sclerosis inferiorly. There are no paraspinal soft tissue abnormalities. IMPRESSION: MILD DEGENERATIVE CHANGE, PREDOMINANTLY AT THE LUMBOSACRAL JUNCTION. NO ACUTE PLAIN FILM FINDINGS. Impression dictated by: Galina Magallon M.D.10/09/2024 12:02 PM Dictation Location: [place] [address] Electronically authenticated by: [id number] Y Date: 10/09/2024 12:02 Dictated By: Galina Magallon M.D. Signed By: 10/14/24 1035 DD/ 1202 TD/TT: Vice President Of Recruiting: [facility] Radiology, Radiologist, - 10/14/2024 [place] [address] XRay Report Signed Patient: SPEEDY ROSEN MR#: [id number] : 1980 Acct:[id number] Age/Sex: 44 / M ADM Date: 10/09/24 Loc: RAD Attending Dr: Frances Nguyne NP Ordering Physician: Frances Nguyen NP Date of Service: 10/09/24 Procedure(s): XR hip RT min 2V Accession Number(s): [id number] cc: Frances Nguyen NP The [address] [address] Patient Name: SPEEDY ROSEN MRN: [facility]:[id number] date: 1980 Sex: M Assigned Patient Location: RAD Current Patient Location: Accession/Order Number: [id number] Exam Date: 10/09/2024 11:56 Report Date: 10/09/2024 12:02 At the request of: FRANCES NGUYEN NP Procedure: XR lumbar spine 2-3V CLINICAL DATA: Chronic low back pain radiating to the right hip. No recent injury. RIGHT HIP - 2 views COMPARISON: None AP and frog-lateral views were obtained. There is no evidence of fracture or dislocation. The hip joint space is maintained. There is no significant hypertrophy. There are no significant soft tissue abnormalities. XR/XR hip RT min 2V IMPRESSION: NO ACUTE BONY FINDINGS. LUMBAR SPINE - 3 views COMPARISON: None AP, lateral lumbar and lumbosacral views were obtained. There are no acute fractures or displacement. There is disc space narrowing at the lumbosacral junction along with mild endplate spurring. Additional minimal endplate spurring is seen. There is minor lower lumbar facet disease. The SI joints are intact and show mild sclerosis inferiorly. There are no paraspinal soft tissue abnormalities. IMPRESSION: MILD DEGENERATIVE CHANGE, PREDOMINANTLY AT THE LUMBOSACRAL JUNCTION. NO ACUTE PLAIN FILM FINDINGS. Impression dictated by: Galina Magallon M.D.10/09/2024 12:02 PM Dictation Location: [place] [address] Electronically authenticated by: [id number] Y Date: 10/09/2024 12:02 Dictated By: Galina Magallon M.D. Signed By: 10/14/24 1035 DD/ 1202 TD/TT: Vice President Of Recruiting: [facility] XR Hip - right 3 ViewsOrdere d By: Radiologist Radiology on 10-14-2024 [facility] Work Phone: No Panel Informationon 10-09 Radiology Study observation (narrative) [facility] XR LUMBAR SPINE 2 OR 3Von [address] [address] XRay Report Signed Patient: SPEEDY ROSEN MR#: [id number] : 1980 Acct:[id number] Age/Sex: 44 / M ADM Date: 10/09/24 Loc: RAD Attending Dr: Frances Nguyen NP Ordering Physician: Frances Nguyen NP Date of Service: 10/09/24 Procedure(s): XR lumbar spine 2-3V Accession Number(s): [id number] cc: Frances Nguyen NP The [address] [address] Patient Name: SPEEDY ROSEN MRN: [facility]:[id number] date: 1980 Sex: M Assigned Patient Location: [facility] Current Patient Location: RAD Accession/Order Number: [id number] Exam Date: 10/09/2024 11:56 Report Date: 10/09/2024 12:02 At the request of: FRANCES NGUYEN NP Procedure: XR lumbar spine 2-3V CLINICAL DATA: Chronic low back pain radiating to the right hip. No recent injury. RIGHT HIP - 2 views COMPARISON: None AP and frog-lateral views were obtained. There is no evidence of fracture or dislocation. The hip joint space is maintained. There is no significant hypertrophy. There are no significant soft tissue abnormalities. XR/XR lumbar spine 2-3V IMPRESSION: NO ACUTE BONY FINDINGS. LUMBAR SPINE - 3 views COMPARISON: None AP, lateral lumbar and lumbosacral views were obtained. There are no acute fractures or displacement. There is disc space narrowing at the lumbosacral junction along with mild endplate spurring. Additional minimal endplate spurring is seen. There is minor lower lumbar facet disease. The SI joints are intact and show mild sclerosis inferiorly. There are no paraspinal soft tissue abnormalities. IMPRESSION: MILD DEGENERATIVE CHANGE, PREDOMINANTLY AT THE LUMBOSACRAL JUNCTION. NO ACUTE PLAIN FILM FINDINGS. Impression dictated by: Galina Magallon M.D.10/09/2024 12:02 PM Dictation Location: [place] [address] Electronically authenticated by: [id number] Y Date: 10/09/2024 12:02 Dictated By: Galina Magallon M.D. Signed By: 10/09/24 1208 DD/ 1202 TD/TT: Vice President Of Recruiting: [facility] Radiology, Radiologist, MD - 10/09/[address] [address] XRay Report Signed Patient: SPEEDY ROESN MR#: [id number] : 1980 Acct:[id number] Age/Sex: 44 / M ADM Date: 10/09/24 Loc: [facility] Attending Dr: Frances Nguyen NP Ordering Physician: Frances Nguyen NP Date of Service: 10/09/24 Procedure(s): XR lumbar spine 2-3V Accession Number(s): [id number] cc: Frances Nguyen NP The [address] [address] Patient Name: SPEEDY ROSEN MRN: [id number] date: 1980 Sex: M Assigned Patient Location: [facility] Current Patient Location: [facility] Accession/Order Number: [id number] Exam Date: 10/09/2024 11:56 Report Date: 10/09/2024 12:02 At the request of: FRANCES NGUYEN NP Procedure: XR lumbar spine 2-3V CLINICAL DATA: Chronic low back pain radiating to the right hip. No recent injury. RIGHT HIP - 2 views COMPARISON: None AP and frog-lateral views were obtained. There is no evidence of fracture or dislocation. The hip joint space is maintained. There is no significant hypertrophy. There are no significant soft tissue abnormalities. XR/XR lumbar spine 2-3V IMPRESSION: NO ACUTE BONY FINDINGS. LUMBAR SPINE - 3 views COMPARISON: None AP, lateral lumbar and lumbosacral views were obtained. There are no acute fractures or displacement. There is disc space narrowing at the lumbosacral junction along with mild endplate spurring. Additional minimal endplate spurring is seen. There is minor lower lumbar facet disease. The SI joints are intact and show mild sclerosis inferiorly. There are no paraspinal soft tissue abnormalities. IMPRESSION: MILD DEGENERATIVE CHANGE, PREDOMINANTLY AT THE LUMBOSACRAL JUNCTION. NO ACUTE PLAIN FILM FINDINGS. Impression dictated by: Galina Magallon M.D.10/09/2024 12:02 PM Dictation Location: [place] [address] Electronically authenticated by: [id number] Y Date: 10/09/2024 12:02 Dictated By: Galina Magallon M.D. Signed By: 10/09/241204 DD/ 01 TD/TT: Vice President Of Recruiting: [facility] [facility] X[facility] LUMBAR SPINE 2 OR 3VOrder ed By: Radiologist Radiology on 10-09-2024 [facility] Work Phone: CERVICAL SPINE 4 OR 5 VIEWSo n 05-25-2021 CERVICAL SPINE 4 OR 5 VIEWS [facility] Department of Radiology [address] [place] [phone] Patient Name: SPEEDY ROSEN : 1980 Sex: M Age: Race: White Pt. Location: Patient Status: O Ordered Date: 05/25/2021 9:30:00 AM Completed Date: 05/25/2021 09:39 AM Requesting Provider: EDWARD KRUGER Attending Provider: EDWARD KRUGER Report Copy To: Signs & Symptoms: M54.2 Cervicalgia I10 History: [place] Comments: Evaluate Exam: CERVICAL SPINE 4 OR 5 VIEWS CERVICAL SPINE 4 OR 5 VIEWS 05/25/2021 9:39 AM CLINICAL INDICATIONS: M54.2 Cervicalgia I10 TECHNOLOGIST COMMENTS: Patient complains of left arm numbness and tingling QUESTION FOR THE RADIOLOGIST: Evaluate PROTOCOL: AP,Odontoid, Lateral, Flexion and Extension views. COMPARISON: None FINDINGS: There is no cervical malalignment or compression deformity. Slight straightening of the normal cervical lordosis noted. No acute fractures seen. Endplates are intact. No subluxation with flexion extension. IMPRESSION: Slight straightening of the normal cervical lordosis. Electronically signed: Paulo Howell. Transcribed by: [email or web address], User Resident: Electronically Signed by: PAULO HOWELL @ 05/25/2021 07:59 PM Normal [facility] Comment on above: Order Comment: Evalu ate Vital Signs Date Time Vital Sign Value Performing Clinician Facility 01-12-2025 14:38-0400 Body height 182.9 cm Cl Thomas MD Work Phone: [facility] 01-12-2025 14:38-0400 Body mass index (BMI) [Ratio] 24.55 kg/m2 Cl Thomas MD Work Phone: [facility] 01-12-2025 14:38-0400 Body weight 82.1 kg Cl Thomas MD Work Phone: [facility] 01-12-2025 14:38-0400 Diastolic blood pressure 84 mm[Hg] Cl Thomas MD Work Phone: [facility] 01-12-2025 14:38-0400 Heart rate 74 /min Cl Thomas MD Work Phone: [facility] 01-12-2025 14:38-0400 SaO2% (BldA) [Mass fraction] 99 % Cl Thomas MD Work Phone: [facility] 01-12-2025 14:38-0400 Systolic blood pressure 118 mm[Hg] Cl Thomas MD Work Phone: [facility] 11-18-2024 20:50-0400 Body height 182.9 cm Pmh 3 [facility] 11-18-2024 20:50-0400 Body mass index (BMI) [Ratio] 24.01 kg/m2 Pm 3 [facility] 11-18-2024 20:50-0400 Body weight 80.29 kg Pmh 3 [facility] 10-19-2024 19:19-0500 Body mass index (BMI) [Ratio] 24.17 kg/m2 Francescristal Zamoraholz CAREER REPRESENTATIVE Work Phone: [facility] 10-19-2024 19:19-0500 Body temperature 98.8 [degF] Frances Seraholz CAREER REPRESENTATIVE Work Phone: [facility] 10-19-2024 19:19-0500 Body weight 80.83 kg Francescristal Zamoraholz CAREER REPRESENTATIVE Work Phone: [facility] 10-19-2024 19:19-0500 Diastolic blood pressure 86 mm[Hg] Frances Seraholz CAREER REPRESENTATIVE Work Phone: [facility] 10-19-2024 19:19-0500 Heart rate 76 /min Frances Seraholz CAREER REPRESENTATIVE Work Phone: [facility] 10-19-2024 19:19-0500 Respiratory rate 18 /min Frances Seraholz CAREER REPRESENTATIVE Work Phone: [facility] 10-19-2024 19:19-0500 SaO2% (BldA) [Mass fraction] 98 % Frances Seraholz CAREER REPRESENTATIVE Work Phone: [facility] 10-19-2024 19:19-0500 Systolic blood pressure 124 mm[Hg] Frances Seraholz CAREER REPRESENTATIVE Work Phone: [facility] 09-08-2024 15:23-0500 Diastolic blood pressure 84 mm[Hg] Frances Seraholz CAREER REPRESENTATIVE Work Phone: [facility] 09-08-2024 15:23-0500 Systolic blood pressure 122 mm[Hg] Frances Seraholz CAREER REPRESENTATIVE Work Phone: [facility] 09-08-2024 14:59-0500 Body mass index (BMI) [Ratio] 25.33 kg/m2 Frances Seraholz CAREER REPRESENTATIVE Work Phone: [facility] 09-08-2024 14:59-0500 Body temperature 97.81 [degF] Frances Seraholz CAREER REPRESENTATIVE Work Phone: [facility] 09-08-2024 14:59-0500 Body weight 84.73 kg Frances Zamoraluis fernando CAREER REPRESENTATIVE Work Phone: [facility] 09-08-2024 14:59-0500 Heart rate 81 /min Frances Zamoraluis fernando CAREER REPRESENTATIVE Work Phone: [facility] 09-08-2024 14:59-0500 Respiratory rate 19 /min Frances Zamoraluis fernando CAREER REPRESENTATIVE Work Phone: [facility] 09-08-2024 14:59-0500 SaO2% (BldA) [Mass fraction] 99 % Frances Zamoraluis fernando CAREER REPRESENTATIVE Work Phone: [facility] 06-02-2024 08:47-0400 Body height 182.9 cm Cl Thomas MD Work Phone: [facility] 06-02-2024 08:47-0400 Body mass index (BMI) [Ratio] 24.01 kg/m2 Cl Thomas MD Work Phone: [facility] 06-02-2024 08:47-0400 Body weight 80.29 kg Cl Thomas MD Work Phone: [facility] 06-02-2024 08:47-0400 Diastolic blood pressure 82 mm[Hg] Cl Thomas MD Work Phone: [facility] 06-02-2024 08:47-0400 Heart rate 74 /min Cl Thomas MD Work Phone: [facility] 06-02-2024 08:47-0400 SaO2% (BldA) [Mass fraction] 100 % Cl Thomas MD Work Phone: [facility] 06-02-2024 08:47-0400 Systolic blood pressure 120 mm[Hg] Cl Thomas MD Work Phone: [facility] 02-25-2024 14:33-0400 Body height 182.9 cm Cl Thomas MD Work Phone: [facility] 02-25-2024 14:33-0400 Body mass index (BMI) [Ratio] 23.42 kg/m2 Cl Thomas MD Work Phone: [facility] 02-25-2024 14:33-0400 Body weight 78.34 kg Cl Thomas MD Work Phone: [facility] 02-25-2024 14:33-0400 Diastolic blood pressure 88 mm[Hg] Cl Thomas MD Work Phone: [facility] 02-25-2024 14:33-0400 Heart rate 78 /min Cl Thomas MD Work Phone: [facility] 02-25-2024 14:33-0400 SaO2% (BldA) [Mass fraction] 98 % Cl Thomas MD Work Phone: [facility] 02-25-2024 14:33-0400 Systolic blood pressure 135 mm[Hg] Cl Thomas MD Work Phone: [facility] Encounters Encounter Date Encounter Type Care Provider Facility Start: 03-01-2025 End: 03-01-2025 ambulatory Sorin Elizondo MD Facility:[facility] Start: 02-16-2025 End: 02-16-2025 Clinisync Result Encounter Generic External Data Provider [facility] Unsolicited Start: 02-16-2025 End: 02-16-2025 Clinisync Result Encounter Generic External Data Provider [facility] External Department Unsolicited Start: 01-20-2025 End: 01-20-2025 Refill Frances Nguyen CAREER REPRESENTATIVE Work Phone: [facility] Comment on above: Poison mery dermatiti s (Primary Dx) Start: 01-12-2025 End: 01-12-2025 Office outpatient visit 25 minutes Cl Thomas MD Work Phone: [facility] Comment on above: Chronic insomnia (Pr imary Dx); MARGOTH (obstructive sleep apnea); Hypersomnia Start: 01-12-2025 End: 01-12-2025 ambulatory CL THOMAS [facility] Start: 01-12-2025 End: 01-12-2025 Telephone encounter Yeny Garduno A [facility] Comment on above: Medication Dosage Start: 12-29-2024 End: 12-29-2024 Telephone encounter Jovanna Quinones [facility] Start: 12-23-2024 End: 12-23-2024 Bamboo flowsheet Annabelle T Blackston PT Work Phone: [facility] Start: 12-23-2024 End: 12-23-2024 Bamboo flowsheet Annabelle T Blackston PT Work Phone: [facility] Start: 12-23-2024 End: 12-23-2024 ambulatory ANNABELLE T BLACKSTON Not Available Start: 12-22-2024 End: 12-23-2024 ambulatory Annabelle T Blackston PT Work Phone: [facility] Comment on above: Lumbar paraspinal mu scle spasm (Primary Dx) Start: 12-09-2024 End: 12-09-2024 Bamboo flowsheet Annabelle T Blackston PT Work Phone: [facility] Start: 12-09-2024 End: 12-09-2024 Bamboo flowsheet Annabelle T Blackston PT Work Phone: [facility] Start: 12-09-2024 End: 12-09-2024 ambulatory ANNABELLE T BLACKSTON Not Available Start: 12-08-2024 End: 12-09-2024 ambulatory Annabelle T Blackston PT Work Phone: [facility] Comment on above: Lumbar paraspinal mu scle spasm (Primary Dx) Start: 12-01-2024 End: 12-02-2024 ambulatory Annabelle T Blackston PT Work Phone: [facility] Comment on above: Lumbar paraspinal mu scle spasm (Primary Dx) Start: 12-01-2024 End: 12-01-2024 Bamboo flowsheet Annabelle T Blackston PT Work Phone: [facility] Start: 12-01-2024 End: 12-01-2024 Bamboo flowsheet Annabelle Cabralton PT Work Phone: [facility] Start: 11-26-2024 End: 11-26-2024 Telephone encounter Jovanna Quinones Cristal [facility] Start: 11-25-2024 End: 11-25-2024 Bamboo flowsheet Annabelle Cabralton PT Work Phone: [facility] Start: 11-25-2024 End: 11-25-2024 Bamboo flowsheet Annabelle Cabralton PT Work Phone: [facility] Start: 11-25-2024 End: 11-25-2024 ambulatory ANNABELLE MARTINEZ Not Available Start: 11-24-2024 End: 11-25-2024 ambulatory Annabelle Martinez PT Work Phone: [facility] Comment on above: Lumbar paraspinal mu scle spasm (Primary Dx) Start: 11-18-2024 End: 11-18-2024 Clinical Support Cl Thomas MD Work Phone: [facility] Comment on above: MARGOTH (obstructive sle ep apnea) Lumbar paraspinal mu scle spasm (Primary Dx) Start: 11-18-2024 End: 11-18-2024 Bamboo flowsheet Annabelle Martinez PT Work Phone: [facility] Start: 11-18-2024 End: 11-18-2024 Bamboo flowsheet Annabelle Cabralton PT Work Phone: [facility] Start: 11-16-2024 End: 11-16-2024 ambulatory Sorin Elizondo MD Facility:[facility] Start: 11-15-2024 End: 11-15-2024 Refill Frances Nguyen CAREER REPRESENTATIVE Work Phone: [facility] Comment on above: Cervical pain (neck) ; Strain of right trapezius muscle, initial encounter Start: 11-14-2024 End: 11-14-2024 ambulatory FRANCES Sky EWNDY [facility] Start: 10-20-2024 End: 10-20-2024 Telephone encounter Jovanna SPENCE [facility] Start: 10-19-2024 End: 10-19-2024 Office outpatient visit 25 minutes Frances Wendy CAREER REPRESENTATIVE Work Phone: [facility] Comment on above: SI joint arthritis ( CMS/HCC) (Primary Dx); Cervical pain (neck); Strain of right trapezius muscle, subsequent encounter; Bilateral elbow joint pain; Degeneration of intervertebral disc of lumbar region, unspecified whether pain present Start: 10-19-2024 End: 10-19-2024 ambulatory FRANCES ZAMORALUIS FERNANDO Not Available Start: 10-19-2024 End: 10-19-2024 Bamboo flowsheet Frances Wendy CAREER REPRESENTATIVE Work Phone: [facility] Start: 10-19-2024 End: 10-19-2024 Bamboo flowsheet Frances Nnamdiallysonluis fernando CAREER REPRESENTATIVE Work Phone: [facility] Start: 10-13-2024 End: 10-13-2024 ambulatory Annabelle Martinez PT Work Phone: [facility] Comment on above: Cervical pain (neck) (Primary Dx); Strain of right trapezius muscle, initial encounter; Degeneration of intervertebral disc of lumbar region, unspecified whether pain present Start: 10-13-2024 End: 10-13-2024 Bamboo flowsheet Annabelle Martinez PT Work Phone: [facility] Start: 10-13-2024 End: 10-13-2024 Bamboo flowsheet Annabelle Martinez PT Work Phone: [facility] Start: 10-12-2024 End: 10-12-2024 Telephone encounter Elise Garcia CMA [facility] Start: 10-11-2024 End: 10-11-2024 Refill Frances Nguyen CAREER REPRESENTATIVE Work Phone: [facility] Comment on above: Cervical pain (neck) ; Strain of right trapezius muscle, initial encounter Start: 10-09-2024 End: 10-14-2024 Clinisync Result Encounter Frances Nguyen CAREER REPRESENTATIVE Work Phone: [facility] Department Unsolicited Start: 10-09-2024 End: 10-14-2024 Clinisync Result Encounter Frances Nguyen CAREER REPRESENTATIVE Work Phone: [facility] Unsolicited Start: 10-06-2024 End: 10-07-2024 ambulatory Annabelle Martinez PT Work Phone: [facility] Comment on above: Cervical pain (neck) (Primary Dx); Strain of right trapezius muscle, initial encounter; Degeneration of intervertebral disc of lumbar region, unspecified whether pain present Start: 10-06-2024 End: 10-06-2024 Bamboo flowsheet Annabelle Martinez PT Work Phone: [facility] Start: 10-06-2024 End: 10-06-2024 Bamboo flowsheet Annabelle Martinez PT Work Phone: [facility] Start: 09-30-2024 End: 09-30-2024 Bamboo flowsheet Parisa Calle MANAGEMENT SCIENTIST [facility] Start: 09-30-2024 End: 09-30-2024 Bamboo flowsheet Parisa Walkery MANAGEMENT SCIENTIST [facility] Start: 09-30-2024 End: 09-30-2024 ambulatory ANNABELLE MARTINEZ Not Available Start: 09-29-2024 End: 09-30-2024 ambulatory Annabelle Martinez PT Work Phone: [facility] Comment on above: Cervical pain (neck) (Primary Dx); Strain of right trapezius muscle, initial encounter Start: 09-23-2024 End: 09-23-2024 Bamboo flowsheet Annabelle Martinez PT Work Phone: [facility] Start: 09-23-2024 End: 09-23-2024 Bamestiven Martinez PT Work Phone: [facility] Start: 09-23-2024 End: 09-23-2024 ambulatory ANNABELLE MARTINEZ Not Available Start: 09-22-2024 End: 09-23-2024 ambulatory Annabelle Martinez PT Work Phone: [facility] Comment on above: Cervical pain (neck) (Primary Dx); Strain of right trapezius muscle, initial encounter; Degeneration of intervertebral disc of lumbar region, unspecified whether pain present Start: 09-16-2024 End: 09-16-2024 Bamestiven Martinez PT Work Phone: [facility] Start: 09-16-2024 End: 09-16-2024 Flower Martinez PT Work Phone: [facility] Start: 09-16-2024 End: 09-16-2024 ambulatory Annabelle Martinez PT Work Phone: [facility] Comment on above: Cervical pain (neck) (Primary Dx); Strain of right trapezius muscle, initial encounter; Degeneration of intervertebral disc of lumbar region, unspecified whether pain present Start: 09-09-2024 End: 09-09-2024 ambulatory Annabelle Martinez PT Work Phone: [facility] Comment on above: Cervical pain (neck) (Primary Dx); Strain of right trapezius muscle, initial encounter; Degeneration of intervertebral disc of lumbar region, unspecified whether pain present Start: 09-08-2024 End: 09-08-2024 ambulatory FRANCES NGUYEN Not Available Start: 09-08-2024 End: 09-08-2024 Office outpatient visit 25 minutes Frances Nguyen CAREER REPRESENTATIVE Work Phone: [facility] Comment on above: Strain of right trap ezius muscle, initial encounter (Primary Dx); Gastroesophageal reflux disease with esophagitis, unspecified whether hemorrhage; Cervical pain (neck); Degeneration of intervertebral disc of lumbar region, unspecified whether pain present Start: 09-08-2024 End: 09-08-2024 Bamboo flowsheet Frances Nguyen CAREER REPRESENTATIVE Work Phone: [facility] Start: 09-08-2024 End: 09-08-2024 Bamboo flowsheet Frances Nguyen CAREER REPRESENTATIVE Work Phone: [facility] Start: 06-03-2024 End: 06-03-2024 Telephone encounter Cl Thomas [facility] Comment on above: Sleep Lab (CPAP) Start: 06-02-2024 End: 06-02-2024 Office outpatient visit 15 minutes Cl Thomas MD Work Phone: [facility] Comment on above: MARGOTH (obstructive sle ep apnea) (Primary Dx); Intolerance of continuous positive airway pressure (CPAP) ventilation; Hypersomnia; Awakens from sleep due to pain Start: 06-02-2024 End: 06-02-2024 ambulatory [facility] Start: 03-24-2024 End: 03-24-2024 Telephone encounter Cl Thomas MD Work Phone: [facility] Start: 02-25-2024 End: 02-25-2024 Office outpatient visit 15 minutes Cl Thomas MD Work Phone: [facility] Comment on above: MARGOTH (obstructive sle ep apnea) (Primary Dx); Chronic insomnia; Hypersomnia; Nasal congestion Start: 02-25-2024 End: 02-25-2024 ambulatory [facility] Start: 11-05-2023 Telephone encounter Cl Max MD Work Phone: [facility] Start: 10-03-2023 Refill Angelica Ervin MD Work Phone: [facility] Comment on above: Chronic insomnia Procedures Date Procedure Procedure Detail Performing Clinician Start: 02-16-2025 MR LUMBAR SPINE WO CON Generic External Data Provider Start: 02-16-2025 XR EYE BILATERAL FOR EIGN BODY 86270 Generic External Data Provider Start: 10-09-2024 Radex hip unilateral with pelvis 2-3 views Frances Nguyen CAREER REPRESENTATIVE Work Phone: Start: 10-09-2024 XR LUMBAR SPINE 2 OR 3V Frances Nguyen CAREER REPRESENTATIVE Work Phone: Start: 02-25-2024 Follow-up visit Follow-up CL THOMAS Start: 05-14-2022 Adult depression screening assessment Angelica Ervin MD Work Phone: Plan of Treatment Date Care Activity Detail Author Start: 01-12-2026 Adult BMI Screening Adult BMI Screen ing [facility] Start: 01-12-2026 Tobacco Screening Tobacco Screening [facility] Start: 11-18-2025 Adult BMI Screening Adult BMI Screen ing [facility] Start: 11-18-2025 Tobacco Screening Tobacco Screening [facility] Start: 06-02-2025 Adult BMI Screening Adult BMI Screen ing [facility] Start: 06-02-2025 Tobacco Screening Tobacco Screening [facility] Start: 04-19-2025 Influenza vaccination Influenza Vacc ine [facility] Start: 02-24-2025 Adult BMI Screening Adult BMI Screen ing [facility] Start: 02-24-2025 Tobacco Screening Tobacco Screening [facility] Start: 02-23-2025 End: 02-23-2025 Patient encounter procedure 02/23/2025 9:15 AM EDT Office Visit [facility] [place] [address] Cl Thomas MD [address] [address] [facility] Start: 01-12-2025 End: 01-12-2025 Patient encounter procedure 01/12/2025 2:45 PM EDT Office Visit [facility] [place] [address] Cl Thomas MD [address] [place] [address] [facility] Start: 12-28-2024 End: 12-28-2024 Patient encounter procedure 12/28/2024 6:30 PM EDT Office Visit [facility] [address] [place] [address] Frances Nguyen, CAREER REPRESENTATIVE [address] [place] [address] [facility] Start: 12-22-2024 End: 12-22-2024 ambulatory 12/22/2024 6:00 PM EDT Treatment [facility] [address] [facility] [address] [place] [address] Annabelle Martinez, PT [address] [facility] [address] [place] [address] [facility] Start: 12-14-2024 End: 12-14-2024 ambulatory 12/14/2024 4:00 PM EDT Treatment [facility] [address] [place] [address] [place] [address] Annabelle Martinez, PT [address] [facility] [address] [place] [address] [facility] Start: 12-08-2024 End: 12-08-2024 ambulatory 12/08/2024 6:00 PM EDT Treatment [facility] [address] [place] [address] [place] [address] Annabelle Martinez, PT [address] [place] [address] [place] [address] [facility] Start: 12-03-2024 End: 12-03-2024 ambulatory 12/03/2024 4:30 PM EDT Treatment [facility] [address] [place] [address] [place] [address] Annabelle Martinez, PT [address] [place] [address] [place] [address] [facility] Start: 12-01-2024 End: 12-01-2024 ambulatory 12/01/2024 4:00 PM EDT Treatment [facility] [address] [place] [address] [place] [address] Annabelle Martinez, PT [address] [place] [address] [place] [address] [facility] Start: 11-26-2024 End: 11-26-2024 ambulatory 11/26/2024 5:00 PM EDT Treatment [facility] [address] [place] [address] [place] [address] Ranjan Britt, PHILIPP [facility] Start: 11-24-2024 End: 11-24-2024 ambulatory 11/24/2024 6:00 PM EDT Treatment [facility] [address] [place] [address] [place] [address] Annabelle Martinez, PT [address] [place] [address] [place] [address] [facility] Start: 11-18-2024 End: 11-18-2024 Clinical Support 11/18/2024 8:00 PM EDT Clinical Support [facility] [address] [place] [id number] Cl Thomas MD [address] [place] [address] [facility] Start: 10-21-2024 End: 10-21-2024 Patient encounter procedure 10/21/2024 6:00 PM EST Office Visit [facility] [address] [place] [address] Frances Nguyen NP [address] [place] [address] [facility] Start: 10-19-2024 End: 10-19-2024 Patient encounter procedure [facility] Comment on above: Cervical pain (neck) (Primary Dx); Strain of right trapezius muscle, subsequent encounter Start: 10-19-2024 End: 10-19-2025 XR Elbow - left 3 Views XR elbow 3+ views left Imaging Routine Bilateral elbow joint pain Expected: 10/19/2024 (Approximate), Expires: 10/19/2025 [facility] Work Phone: Comment on above: Expected: 10/19/2024 (Approximate), Expires: 10/19/2025 Start: 10-19-2024 End: 10-19-2025 XR Elbow - right 3 Views XR elbow 3+ views right Imaging Routine Bilateral elbow joint pain Expected: 10/19/2024 (Approximate), Expires: 10/19/2025 [facility] Comment on above: Expected: 10/19/2024 (Approximate), Expires: 10/19/2025 Start: 10-13-2024 End: 10-13-2024 ambulatory 10/13/2024 5:00 PM EST Treatment [facility] [address] [facility] [address] [place] [address] Annabelle Martinez, PT [address] [facility] [address] [place] [address] [facility] Start: 10-13-2024 End: 10-13-2024 Patient encounter procedure 10/13/2024 2:15 PM EST Office Visit [facility] [address] [id number] Cl Thomas MD [address] [place] [address] [facility] Start: 10-06-2024 End: 10-06-2024 ambulatory 10/06/2024 4:30 PM EST Treatment [facility] [address] [place] [address] [place] [address] Annabelle Martinez, PT [address] [place] [address] [place] [address] [facility] Start: 10-01-2024 End: 10-01-2024 ambulatory 10/01/2024 5:00 PM EST Treatment [facility] [address] [place] [address] [place] [address] Parisa Calle, MANAGEMENT SCIENTIST Arrived [facility] Comment on above: Arrived Start: 09-22-2024 End: 09-22-2024 ambulatory 09/22/2024 4:30 PM EST Treatment [facility] [address] [place] [address] [place] [address] Annabelle Martinez, PT [address] [place] [address] [place] [address] [facility] Start: 09-16-2024 End: 09-16-2024 ambulatory 09/16/2024 4:30 PM EST Treatment [facility] [address] [place] [address] [place] [address] Annabelle Martinez, PT [address] [place] [address] [place] [address] [facility] Start: 09-09-2024 End: 09-09-2024 ambulatory 09/09/2024 1:00 PM EST Evaluation [facility] [address] [place] [address] [place] [address] Annabelle Martinez, PT [address] [place] [address] [place] [address] [facility] Start: 09-08-2024 End: 09-08-2025 XR Hip - right 3 Views XR hip right 2 or 3 views Imaging Routine Degeneration Of Intervertebral Disc Of Lumbar Region, Unspecified Whether Pain Present Expected: 09/08/2024 (Approximate), Expires: 09/08/2025 [facility] Work Phone: Comment on above: Expected: 09/08/2024 (Approximate), Expires: 09/08/2025 Start: 09-08-2024 End: 09-08-2025 XR Lumbar spine 2 or 3 Views XR lumbar spine 2 or 3 views Imaging Routine Degeneration Of Intervertebral Disc Of Lumbar Region, Unspecified Whether Pain Present Expected: 09/08/2024, Expires: 09/08/2025 [facility] Comment on above: Expected: 09/08/2024 , Expires: 09/08/2025 Start: 06-29-2024 End: 06-29-2024 Clinical Support 06/29/2024 8:00 PM EST Clinical Support [facility] [address] [place], [place] [address] [id number] Cl Thomas MD [address] [place] [address] [facility] [facility] Start: 06-02-2024 End: 06-02-2024 Patient encounter procedure 06/02/2024 8:45 AM EDT Office Visit [facility] [address] [place] [address] Cl Thomas MD [address] [address] [facility] Start: 04-19-2024 Influenza vaccination Influenza Vacc ine [facility] Start: 02-27-2024 Adult BMI Screening Adult BMI Screen ing [facility] Start: 02-27-2024 Tobacco Screening Tobacco Screening [facility] Start: 01-07-2024 End: 01-07-2024 Patient encounter procedure 01/07/2024 9:30 AM EDT [facility] [address] [place] [id number] Cl Thomas MD [address] [place] [address] [facility] Start: 01-02-2024 End: 01-02-2024 Clinical Support 01/02/2024 8:00 PM EDT Clinical Support [facility] [address] [place] [address] Angelica Ervin MD [address] [place] [address] [facility] Start: 05-14-2023 Depression Screening Depression Scre ening [facility] Start: 04-19-2023 Influenza vaccination Influenza Vacc ine [facility] Start: 01-28-2000 DTaP,Tdap and Td Vac cines (1 - Tdap) DTaP,Tdap and Td Vaccines (1 - Tdap) [facility] End: 06-02-2025 Polysomnography 4 or more parameters with PAP titration Polysomnography 4 or more parameters with PAP titration Sleep Center Routine MARGOTH (obstructive sleep apnea) 1 Occurrences starting 06/02/2024 until 06/02/2025 [facility] Work Phone: Comment on above: 1 Occurrences starti ng 06/02/2024 until 06/02/2025 Payers Date Payer Category [facility] [id number] 2023 [employer] - PPO ANTHEM [id number] 2023 Unknown [id number]. [id number] 2023 Unknown [id number] 1981 Unknown [id number] 2.16840.1.833211.3.579. 2.1285 1981 Unknown [id number] 2.16.840.1.401461.3.579. 2.1285 1981 Unknown [id number] 2.16.840.1.994040.3.579. 2.1285 1981 Unknown [id number] 2.16.840.1.925392.3.579. 2.1258 1981 Unknown [id number] 2.16.840.1.059016.3.579. 2.1258 1981 Unknown [id number] 2.16.840.1.053950.3.579. 2.1258 1981 Unknown [id number] 2.16.840.1.628663.3.579. 2.1258 1981 Unknown [id number] 2.16.840.1.562434.3.579. 2.1258 1981 Unknown [id number] 2.16.840.1.940204.3.579. 2.1258 1981 Unknown [id number] 2.16.840.1.118951.3.579. 2.1258 1981 Unknown [id number] 2.16.840.1.088998.3.579. 2.1258 1981 Unknown [id number] 2.16.840.1.150259.3.579. 2.1258 1981 Unknown [id number] 2.16.840.1.980407.3.579. 2.1258 1981 Unknown [id number] 2.16.840.1.988050.3.579. 2.1258 1981 Unknown [id number] 2.16840.1.985669.3.579. 2.1258 1981 Unknown [id number] 2.16.840.1.590138.3.579. 2.1258 1981 Unknown [id number] 2.16.840.1.141514.3.579. 2.1258 1981 Unknown [id number] 2.16.840.1.588005.3.579. 2.1285 1981 Unknown [id number] 2.16840.1.625276.3.579. 2.1285 1981 Unknown [id number] 2.16840.1.313623.3.579. 2.1285 1981 Unknown [id number] 2.16840.1.397232.3.579. 2.196 1981 Unknown [id number] 2.16840.1.493419.3.579. 2.196 Social History Date Type Detail Facility Start: 06-05-2022 End: 10-10-2023 Tobacco smoking status NHIS Never smoked tobacco [facility] Start: 06-05-2022 End: 10-10-2023 Tobacco use and exposure Smokeless tobacco non-user [facility] Start: 11-11-2023 End: 10-19-2024 Alcoholic beverage intake Current drinker of alcohol (finding) [facility] Start: 10-10-2023 End: 11-11-2023 History of Social function [facility] Start: 10-10-2023 End: 11-11-2023 Tobacco use panel [facility] Start: 10-09-2023 Alcohol Comment 1-2 drinks 2-3 times a week, caffeine 1-2 cups per day [facility] Start: 1980 Sex assigned at Not on file P [facility] Adolescent depressio n screening assessment 0 [facility] Start: 05-15-2017 Alcohol Comment Only a few bee rs a week, not typically every night [facility] Start: 03-24-2015 Sex Male (finding) [facility] Medical Equipment Procedure Code Equipment Code Equipment Origin al Text Equipment Identifier Dates Anch Sut 2.9mm S hldr Kntls Rpl [id number] - [id number] - [id number] Start: 08-07-2019 Clinical Notes 11-05-2023 to 01-12-2025 Telephone Encounter - BEBE Mary - 01/12/2025 3:59 PM EDTTelephone Encounter - Cl Thomas MD - 01/12/2025 3:59 PM EDTTelephone Encounter - BEBE Mary - 01/12/2025 3:59 PM EDT Note Date & Type Note Facility 01-12-2025 Miscellaneous Notes [facility] They need clarification on Rx. Is it supposed to be 30 for 30 days or 10 for 10 days? I [facility] message with [facility], 30 day supply was intended documented in this encounter [facility] 01-12-2025 Telephone encounter Note Received call from [facility]. They need clarification on Rx. Is it supposed to be 30 for 30 days or 10 for 10 days? [facility] 01-12-2025 Telephone encounter Note I left message with [facility] pharmacy, 30 day supply was intended [facility] 01-12-2025 History of Presen t illness Narrative Images from the original note were not included. Images from the original note were not included. CHIEF COMPLAINT: Speedy Rosen is a 44 y.o. male who presents to [facility] in follow-up for MARGOTH and chronic insomnia The patient was unaccompanied. INTERVAL EVENTS Since last seen, Mr. Rosen reports he was trying to use his CPAP machine but has trouble keeping it on and falling asleep with the mask. Sometimes he will remove it unintentionally. He has been having significant insomnia. He feels like he does not fall asleep. He did not feel like he slept on the sleep study despite it showing several hours asleep, although it was highly fragmented. He did notice a benefit that night and tolerated the CPAP better at higher pressures. He would like to be able to wear his CPAP at home. He has been very tired during the day because he is not sleeping well at night. He has had to call off of work. He sometimes is worried about driving. He reports that he had tried Xanax in the past, for sleep, after his son had . He also had tried Lunesta with Dr. Ervin but had to take higher than prescribed doses for it to be effective. Denies marijuana use, denies drug use. Using a Nasal cushion with chin strap, denies trouble tolerating the mask. Benton Sleepiness Scale: Sitting and Reading: (!) High Chance Watching TV: (!) High Chance Sitting inactive in a public place (theater, meeting): (!) High Chance As a passenger in a car for an hour without a break: (!) Moderate Chance Lying down in the afternoon to rest: (!) High Chance Sitting and talking to someone: Never Sitting quietly after lunch (without alcohol): Slight Chance In a car, while stopped for a few minutes in traffic: Slight Chance Total: 16 I personally reviewed this data PAST MEDICAL HISTORY: Patient Active Problem List Diagnosis Allergic rhinitis Depression Past Medical History: Diagnosis Date Allergic rhinitis Anxiety Depression Moderate obstructive sleep apnea Visual impairment glasses, contacts Past Surgical History: Procedure Laterality Date CYST REMOVAL left hand, left foot HERNIA REPAIR RELEASE LATERAL EPICONDYLE ELBOW Left 08/07/2019 Performed by Dain Marinelli DO at [facility] ALLERGIES: No Known Allergies MEDICATIONS: Current Outpatient Medications on File Prior to Visit Medication Sig Dispense Refill pantoprazole (PROTONIX) 40 mg EC tablet TAKE 1 TABLET(40 MG) BY MOUTH IN THE MORNING 30 tablet 5 No current facility-administered medications on file prior to visit. PHYSICAL EXAMINATION: BP 118/84 (BP Site: Left Arm, BP Postition: Sitting) Pulse 74 Ht 182.9 cm (6') Wt 82.1 kg (181 lb) SpO2 99% BMI 24.55 kg/m General appearance: no acute distress. Eyes: no conjunctival erythema, no scleral icterus. Ears, Nose, Mouth and Throat: external ears unremarkable, external nose and mouth unremarkable Neck: trachea position midline. Respiratory: normal work of breathing Skin: No rash/ lesions/ulcers/ induration/subcutaneous nodules in visible regions. Neurologic: face symmetric at rest and activation, no dysarthria, no tremor or abnormal movements Mental Status: Cognitive: Alert and oriented. Insight good. Judgment good. DATA: I personally reviewed the following: Sleep Study Results: Titration study on 11/18/2024 (Rutppw=634.0 lbs; BMI=24.2 kg/m2) DIAGNOSIS: ? Obstructive Sleep Apnea (G47.33) COMMENTS: This CPAP titration tested settings of 9-11 cm of water. Sleep was initially highly fragmented. The patient reported during an awakening after about 2 hrs, that he did not feel like he had slept at all, suggest of sleep state misperception. There was mouth venting and a chin strap was added. CPAP 11 cm of water effectively treated this patient s obstructive sleep apnea and was tested in lateral REM and NREM sleep. PSG 10/24/22 AHI 21.1 pil2ckj 92% Dx MARGOTH IMPRESSION/RECOMMENDATIONS: 1. Chronic insomnia 2. MARGOTH (obstructive sleep apnea) 3. Hypersomnia Speedy Rosen is a 44 y.o. male with medical problems including as above, presenting in follow up for moderate MARGOTH AHI 21.1 SpO2 min 92%, prescribed auto CPAP 12-20 cm of water. He is attempting CPAP use but is either removing the mask due to difficulty falling asleep or removing it shortly thereafter unintentionally when he falls asleep. - all trial zaleplon 5mg nightly for 30 supply to see if this improves his sleep onset difficulty and ability to use CPAP - RV in 6 weeks - OARRS/MAPS reviewed today with no concerns - We discussed the side effects of hypnotic medication including risks for dependence, abuse/misuse, sleep walking/abnormal sleep related behaviors, changes to mood/behavior, and hang over effect/next day sedation. - We discussed to stop use and contact the clinic should adverse effects occur - The patient was advised they should not take this medication with alcohol or other sedating substances as this may cause excess CATEGORY CONSULTANT depression/altered mentation. - The patient was advised to only take the medication if they have adequate time to devote to sleep (must have a full night sleep - 8 hrs) and not to drive or perform tasks requiring full mental alertness the next morning until the know how the medication affects them EDUCATION: Pathophysiology of MARGOTH was explained. Health risks associated with untreated MARGOTH were discussed (cardiopulmonary, cerebrovascular, and anesthesia/sedative-related). Risks associated with excessive daytime sleepiness, particularly while driving/operating machinery were discussed. 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 MARGOTH treatment options were discussed. CPAP is the most predictably effective treatment. Above plan as discussed with the patient who acknowledged understanding and agreement. CL THOMAS MD [facility] [address] [address] documented in this encounter [facility] 01-12-2025 Instructions Cl Thomas MD - 01/12/2025 2:45 PM EDT Sonata 5 mg at bedtime must use CPAP - you may adjust the ramp time - We discussed the side effects of hypnotic medication including risks for dependence, abuse/misuse, sleep walking/abnormal sleep related behaviors, changes to mood/behavior, and hang over effect/next day sedation. - We discussed to stop use and contact the clinic should adverse effects occur - The patient was advised they should not take this medication with alcohol or other sedating substances as this may cause excess CATEGORY CONSULTANT depression/altered mentation. - The patient was advised to only take the medication if they have adequate time to devote to sleep (must have a full night sleep - 8 hrs) and not to drive or perform tasks requiring full mental alertness the next morning until the know how the medication affects them The following attachments cannot be sent through Care Everywhere.Zaleplon, ADULT (Ivorian)documented in this encounter [facility] 12-29-2024 Miscellaneous Notes Pressure change done in office and pressure change order faxed to [facility] for their records. documented in this encounter [facility] 12-29-2024 Telephone encounter Note Pressure change done in office and pressure change order faxed to [facility] for their records. [facility] 12-29-2024 Miscellaneous Notes Images from the original note were not included. Patient stopped in office and stated that he had a sleep study recently and that his pressures where adjusted from those results. Patient stated that the pressures do not feel like they are not enough, he stated that he feels that he is suffocating. 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 Patient stated that he does not know how we were able to get any results from his sleep study because he stated that he did not sleep at all. Patient is wanting this fixed as soon as possible. Please review and advise. Pressure change auto CPAP 12-[address] if excessively sleepy He slept for 375 min on the sleep study, although sleep was broken Will need RV for compliance and address insomnia Consumer Insights Specialist called patient and informed him that per AD: Cl Thomas MD Physician Signed 1449 Pressure change auto CPAP 12-[address] not [address] if excessively sleepy He slept for 375 min on the sleep study, although sleep was broken Will need RV for compliance and address insomnia Consumer Insights Specialist scheduled patient for follow up with AD on 01/12/2025. documented in this encounter [facility] 12-29-2024 Telephone encounter Note Images from the original note were not included. Patient stopped in office and stated that he had a sleep study recently and that his pressures where adjusted from those results. Patient stated that the pressures do not feel like they are not enough, he stated that he feels that he is suffocating. 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 Patient stated that he does not know how we were able to get any results from his sleep study because he stated that he did not sleep at all. Patient is wanting this fixed as soon as possible. Please review and advise. [facility] 12-29-2024 Telephone encounter Note Pressure change auto CPAP 12-[address] if excessively sleepy He slept for 375 min on the sleep study, although sleep was broken Will need RV for compliance and address insomnia [facility] 12-29-2024 Telephone encounter Note Consumer Insights Specialist called patient and informed him that per AD: Cl Thomas MD Physician Signed 1449 Pressure change auto CPAP 12-[address] if excessively sleepy He slept for 375 min on the sleep study, although sleep was broken Will need RV for compliance and address insomnia Consumer Insights Specialist scheduled patient for follow up with AD on 01/12/2025. [facility] 12-22-2024 History of Presen t illness Narrative Images from the original note were not included. Physical Therapy Treatment Visit Patient Name: Speedy Rosen Today's Date: 12/22/24 Encounter Diagnoses Name Primary? Lumbar paraspinal muscle spasm Yes Visit number: 5/6 Timed Code Treatment Minutes: 40 minutes Total Treatment Time: 40 minutes Time In: 1705 Time Out: 1745 History: Pt. Presents to PT with c/c of lumbar spine which started couple years ago. Reports his back is affecting his ability to sleep and perform daily tasks. Pt. 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 Denies N/T in LE. Pain feels like it is heating up and on fire at time. Has difficulty sitting for long periods of time. Less back pain while moving. Follow up: after PT Precautions: universal Subjective: pt. Report no change is his back pain. Increased limping and bilateral lumbar and hip pain today. Back feels worse today. Pain: 6-7/10 Objective: PT Evaluation (11/18/24) Lumbar ROM: flexion mid pierre, prone extension increased stiffness at L3/4 segment, good extension at L5/S1, rotation/side bending normal ROM Flexibility: moderate lumbar paraspinal and hamstring Core: 4-/5 Palpation: increased lumbar paraspinal muscle tone Joint: hypomobility at L3/4 segment Treatment: PT evaluation Education: HEP education with demonstration, Educated on Eval Findings and POC Manual Therapy: (30 minutes) lumbar PA mobs, lumbar roll MET bilateral, Passive ROM, Joint mobilization, Soft Tissue Mobilization, Myofascial Release, Muscle Energy Technique, Neural Mobilization, Myofascial Cupping, Dry Needling, IASTM, and Scar mobilization Therapeutic Exercise: (10 minutes) exercises in grid; Strength, Endurance, Flexibility, ROM, HEP, Neural Mobilization, Power, and Core Stability Therapeutic Activity: Exercises to improve dynamic activities, functional tasks, functional mobility to return to prior activity level Gait Training: Neuromuscular re-education: Balance Training, Muscle Facilitation, Dynamic Stability, Core Stabilization, and Blood Flow Restriction Training (BFRT) Modalities: ( minutes) prone: IFC with MHP, Heat, Ice, Electrical Stimulation, Ultrasound, Cervical Mechanical Traction, Lumbar Mechanical Traction, Iontophoresis, and Fluidotherapy DN: 6x needles, 3x right/3x left to lumbar paraspinal muscles at L3/4/5. 20 mm depth (held minute rest) Assessment: Pt. Has participated 5 PT session with start of POC on 11/18/24 for lumbar paraspinal muscle spasms. Pt. Will benefit from skilled PT services. Manual techniques help back feel better during treatment but does not last long. Outcome Measure: in chart Short Term Goal: To be met in 2 weeks Goal 1: Pt to be instructed in home exercise program. Working Supervisor Goals: To be met in 10 weeks Goal 1: Pt to report independence and compliance with home program. Goal 2: Pt. Will report of 0/10 low back pain while sitting for long periods of time to help improve his quality of life. Goal 3: Pt. Will demonstrate normal lumbar paraspinal muscle flexibility to help demonstrate his low back pain to while him to sit for long periods of time. Goal 4: Pt. Will demonstrate normal lumbar spine joint mobility to help decrease pain to improve his quality of life. Goal 5: Pt. Will demonstrate 5/5 core strength to allow him to sit of long periods of time. Pt will benefit from skilled PT for 1-3x/week from 11/18/24 to 01/27/25 to address the above impairments. I hereby deem this POC medically necessary. Please sign below. Date: documented in this encounter [facility] 12-08-2024 History of Presen t illness Narrative Images from the original note were not included. Physical Therapy Treatment Visit Patient Name: Speedy Rosen Today's Date: 12/08/24 Encounter Diagnoses Name Primary? Lumbar paraspinal muscle spasm Yes Visit number: 4 Timed Code Treatment Minutes: 53 minutes Total Treatment Time: 53 minutes Time In: 1605 Time Out: 1650 History: Pt. Presents to PT with c/c of lumbar spine which started couple years ago. Reports his back is affecting his ability to sleep and perform daily tasks. Pt. 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 Denies N/T in LE. Pain feels like it is heating up and on fire at time. Has difficulty sitting for long periods of time. Less back pain while moving. Follow up: after PT Precautions: universal Subjective: pt. Report no change is his back pain. Pain: 2/10 best; worst: 8-9/10 Objective: PT Evaluation (11/18/24) Lumbar ROM: flexion mid pierre, prone extension increased stiffness at L3/4 segment, good extension at L5/S1, rotation/side bending normal ROM Flexibility: moderate lumbar paraspinal and hamstring Core: 4-/5 Palpation: increased lumbar paraspinal muscle tone Joint: hypomobility at L3/4 segment Treatment: PT evaluation Education: HEP education with demonstration, Educated on Eval Findings and POC Manual Therapy: (30 minutes) lumbar PA mobs, lumbar roll MET bilateral, Passive ROM, Joint mobilization, Soft Tissue Mobilization, Myofascial Release, Muscle Energy Technique, Neural Mobilization, Myofascial Cupping, Dry Needling, IASTM, and Scar mobilization Therapeutic Exercise: (25 minutes) exercises in grid; Strength, Endurance, Flexibility, ROM, HEP, Neural Mobilization, Power, and Core Stability Therapeutic Activity: Exercises to improve dynamic activities, functional tasks, functional mobility to return to prior activity level Gait Training: Neuromuscular re-education: Balance Training, Muscle Facilitation, Dynamic Stability, Core Stabilization, and Blood Flow Restriction Training (BFRT) Modalities: ( minutes) prone: IFC with MHP, Heat, Ice, Electrical Stimulation, Ultrasound, Cervical Mechanical Traction, Lumbar Mechanical Traction, Iontophoresis, and Fluidotherapy DN: 6x needles, 3x right/3x left to lumbar paraspinal muscles at L3/4/5. 20 mm depth (held minute rest) Assessment: Pt. Has participated 4 PT session with start of POC on 11/18/24 for lumbar paraspinal muscle spasms. Pt. Will benefit from skilled PT services. DN did not help, continues to demonstrate severe lumbar paraspinal muscle tightness. Added more lateral hip strengthening to HEP and POC today. Pt. Demonstrates 4/5 lateral hip strength. Continue PT POC Outcome Measure: in chart Short Term Goal: To be met in 2 weeks Goal 1: Pt to be instructed in home exercise program. Working Supervisor Goals: To be met in 10 weeks Goal 1: Pt to report independence and compliance with home program. Goal 2: Pt. Will report of 0/10 low back pain while sitting for long periods of time to help improve his quality of life. Goal 3: Pt. Will demonstrate normal lumbar paraspinal muscle flexibility to help demonstrate his low back pain to while him to sit for long periods of time. Goal 4: Pt. Will demonstrate normal lumbar spine joint mobility to help decrease pain to improve his quality of life. Goal 5: Pt. Will demonstrate 5/5 core strength to allow him to sit of long periods of time. Pt will benefit from skilled PT for 1-3x/week from 11/18/24 to 01/27/25 to address the above impairments. I hereby deem this POC medically necessary. Please sign below. Date: documented in this encounter [facility] 12-01-2024 History of Presen t illness Narrative Images from the original note were not included. Physical Therapy Treatment Visit Patient Name: Speedy Rosen Today's Date: 12/01/24 Encounter Diagnoses Name Primary? Lumbar paraspinal muscle spasm Yes Visit number: 3 Timed Code Treatment Minutes: 40 minutes Total Treatment Time: 40 minutes Time In: 1605 Time Out: 1650 History: Pt. Presents to PT with c/c of lumbar spine which started couple years ago. Reports his back is affecting his ability to sleep and perform daily tasks. Pt. 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 Denies N/T in LE. Pain feels like it is heating up and on fire at time. Has difficulty sitting for long periods of time. Less back pain while moving. Follow up: after PT Precautions: universal Subjective: pt. Report no change is his back pain. Pain: 2/10 best; worst: 8-9/10 Objective: PT Evaluation (11/18/24) Lumbar ROM: flexion mid pierre, prone extension increased stiffness at L3/4 segment, good extension at L5/S1, rotation/side bending normal ROM Flexibility: moderate lumbar paraspinal and hamstring Core: 4-/5 Palpation: increased lumbar paraspinal muscle tone Joint: hypomobility at L3/4 segment Treatment: PT evaluation Education: HEP education with demonstration, Educated on Eval Findings and POC Manual Therapy: (30 minutes) lumbar PA mobs, lumbar roll MET bilateral, Passive ROM, Joint mobilization, Soft Tissue Mobilization, Myofascial Release, Muscle Energy Technique, Neural Mobilization, Myofascial Cupping, Dry Needling, IASTM, and Scar mobilization Therapeutic Exercise: (10 minutes) exercises in grid; Strength, Endurance, Flexibility, ROM, HEP, Neural Mobilization, Power, and Core Stability Therapeutic Activity: Exercises to improve dynamic activities, functional tasks, functional mobility to return to prior activity level Gait Training: Neuromuscular re-education: Balance Training, Muscle Facilitation, Dynamic Stability, Core Stabilization, and Blood Flow Restriction Training (BFRT) Modalities: ( minutes) prone: IFC with MHP, Heat, Ice, Electrical Stimulation, Ultrasound, Cervical Mechanical Traction, Lumbar Mechanical Traction, Iontophoresis, and Fluidotherapy DN: 6x needles, 3x right/3x left to lumbar paraspinal muscles at L3/4/5. 20 mm depth (held minute rest) Assessment: Pt. Has participated 3 PT session with start of POC on 11/18/24 for lumbar paraspinal muscle spasms. Pt. Will benefit from skilled PT services. DN did not help, continues to demonstrate severe lumbar paraspinal muscle tightness. Added more lateral hip strengthening to HEP and POC today. Pt. Demonstrates 4/5 lateral hip strength. Outcome Measure: in chart Short Term Goal: To be met in 2 weeks Goal 1: Pt to be instructed in home exercise program. Senior Living Goals: To be met in 10 weeks Goal 1: Pt to report independence and compliance with home program. Goal 2: Pt. Will report of 0/10 low back pain while sitting for long periods of time to help improve his quality of life. Goal 3: Pt. Will demonstrate normal lumbar paraspinal muscle flexibility to help demonstrate his low back pain to while him to sit for long periods of time. Goal 4: Pt. Will demonstrate normal lumbar spine joint mobility to help decrease pain to improve his quality of life. Goal 5: Pt. Will demonstrate 5/5 core strength to allow him to sit of long periods of time. Pt will benefit from skilled PT for 1-3x/week from 11/18/24 to 01/27/25 to address the above impairments. I hereby deem this POC medically necessary. Please sign below. Date: documented in this encounter [facility] 11-26-2024 Miscellaneous Notes Patient called office about having a titration completed on 11/18/2024, patient stated that he needs to have a pressure change and a chin strap. Consumer Insights Specialist informed patient that AD will read the titration and then result it to our sleep coordinators and they will contact patient to inform him if any pressure changes need made. Patient verbalized understanding. documented in this encounter [facility] 11-26-2024 Telephone encounter Note Patient called office about having a titration completed on 11/18/2024, patient stated that he needs to have a pressure change and a chin strap. Consumer Insights Specialist informed patient that AD will read the titration and then result it to our sleep coordinators and they will contact patient to inform him if any pressure changes need made. Patient verbalized understanding. [facility] 11-24-2024 History of Presen t illness Narrative Images from the original note were not included. Physical Therapy Treatment Visit Patient Name: Speedy Rosen Today's Date: 11/25/2024 Encounter Diagnoses Name Primary? Lumbar paraspinal muscle spasm Yes Visit number: 2 Timed Code Treatment Minutes: 38 minutes Total Treatment Time: 45 minutes Time In: 1800 Time Out: 1845 History: Pt. Presents to PT with c/c of lumbar spine which started couple years ago. Reports his back is affecting his ability to sleep and perform daily tasks. Pt. 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 Denies N/T in LE. Pain feels like it is heating up and on fire at time. Has difficulty sitting for long periods of time. Less back pain while moving. Follow up: after PT Precautions: universal Subjective: pt. Report back does feel looser but continues to have pain. Pain: 2/10 best; worst: 8-9/10 Objective: PT Evaluation (11/18/24) Lumbar ROM: flexion mid pierre, prone extension increased stiffness at L3/4 segment, good extension at L5/S1, rotation/side bending normal ROM Flexibility: moderate lumbar paraspinal and hamstring Core: 4-/5 Palpation: increased lumbar paraspinal muscle tone Joint: hypomobility at L3/4 segment Treatment: PT evaluation Education: HEP education with demonstration, Educated on Eval Findings and POC Manual Therapy: (30 minutes) lumbar PA mobs, lumbar roll MET bilateral, Passive ROM, Joint mobilization, Soft Tissue Mobilization, Myofascial Release, Muscle Energy Technique, Neural Mobilization, Myofascial Cupping, Dry Needling, IASTM, and Scar mobilization Therapeutic Exercise: (8 minutes) exercises in grid; Strength, Endurance, Flexibility, ROM, HEP, Neural Mobilization, Power, and Core Stability Therapeutic Activity: Exercises to improve dynamic activities, functional tasks, functional mobility to return to prior activity level Gait Training: Neuromuscular re-education: Balance Training, Muscle Facilitation, Dynamic Stability, Core Stabilization, and Blood Flow Restriction Training (BFRT) Modalities: ( minutes) prone: IFC with MHP, Heat, Ice, Electrical Stimulation, Ultrasound, Cervical Mechanical Traction, Lumbar Mechanical Traction, Iontophoresis, and Fluidotherapy DN: 6x needles, 3x right/3x left to lumbar paraspinal muscles at L3/4/5. 20 mm depth (10 minute rest) Assessment: Pt. Has participated 2 PT session with start of POC on 11/18/24 for lumbar paraspinal muscle spasms. Pt. Will benefit from skilled PT services. Trial to DN today to help decrease lumbar spasm, severe bilateral lumbar paraspinal muscle tightness. Outcome Measure: in chart Short Term Goal: To be met in 2 weeks Goal 1: Pt to be instructed in home exercise program. Senior Living Goals: To be met in 10 weeks Goal 1: Pt to report independence and compliance with home program. Goal 2: Pt. Will report of 0/10 low back pain while sitting for long periods of time to help improve his quality of life. Goal 3: Pt. Will demonstrate normal lumbar paraspinal muscle flexibility to help demonstrate his low back pain to while him to sit for long periods of time. Goal 4: Pt. Will demonstrate normal lumbar spine joint mobility to help decrease pain to improve his quality of life. Goal 5: Pt. Will demonstrate 5/5 core strength to allow him to sit of long periods of time. Pt will benefit from skilled PT for 1-3x/week from 11/18/24 to 01/27/25 to address the above impairments. I hereby deem this POC medically necessary. Please sign below. Date: documented in this encounter [facility] 11-18-2024 History of Presen t illness Narrative Images from the original note were not included. Physical Therapy Evaluation Visit Patient Name: Speedy Rosen Today's Date: 11/18/2024 Encounter Diagnoses Name Primary? Lumbar paraspinal muscle spasm Yes Visit number: 1 Timed Code Treatment Minutes: 60 minutes Total Treatment Time: 60 minutes Time In: 1430 Time Out: 1530 History: Pt. Presents to PT with c/c of lumbar spine which started couple years ago. Reports his back is affecting his ability to sleep and perform daily tasks. Pt. 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 Denies N/T in LE. Pain feels like it is heating up and on fire at time. Has difficulty sitting for long periods of time. Less back pain while moving. Follow up: after PT Precautions: universal Subjective Pain: 2/10 best; worst: 8-9/10 Objective: PT Evaluation (11/18/24) Lumbar ROM: flexion mid pierre, prone extension increased stiffness at L3/4 segment, good extension at L5/S1, rotation/side bending normal ROM Flexibility: moderate lumbar paraspinal and hamstring Core: 4-/5 Palpation: increased lumbar paraspinal muscle tone Joint: hypomobility at L3/4 segment Treatment: PT evaluation (20 minutes) Education: HEP education with demonstration, Educated on Eval Findings and POC Manual Therapy: (15 minutes) lumbar PA mobs, lumbar roll MET bilateral, Passive ROM, Joint mobilization, Soft Tissue Mobilization, Myofascial Release, Muscle Energy Technique, Neural Mobilization, Myofascial Cupping, Dry Needling, IASTM, and Scar mobilization Therapeutic Exercise: (8 minutes) exercises in grid; Strength, Endurance, Flexibility, ROM, HEP, Neural Mobilization, Power, and Core Stability Therapeutic Activity: Exercises to improve dynamic activities, functional tasks, functional mobility to return to prior activity level Gait Training: Neuromuscular re-education: Balance Training, Muscle Facilitation, Dynamic Stability, Core Stabilization, and Blood Flow Restriction Training (BFRT) Modalities: (15 minutes) prone: IFC with MHP, Heat, Ice, Electrical Stimulation, Ultrasound, Cervical Mechanical Traction, Lumbar Mechanical Traction, Iontophoresis, and Fluidotherapy Assessment: Pt. Has participated 1 PT session with start of POC on 11/18/24 for lumbar paraspinal muscle spasms. Pt. Will benefit from skilled PT services. Outcome Measure: in chart Short Term Goal: To be met in 2 weeks Goal 1: Pt to be instructed in home exercise program. Senior Living Goals: To be met in 10 weeks Goal 1: Pt to report independence and compliance with home program. Goal 2: Pt. Will report of 0/10 low back pain while sitting for long periods of time to help improve his quality of life. Goal 3: Pt. Will demonstrate normal lumbar paraspinal muscle flexibility to help demonstrate his low back pain to while him to sit for long periods of time. Goal 4: Pt. Will demonstrate normal lumbar spine joint mobility to help decrease pain to improve his quality of life. Goal 5: Pt. Will demonstrate 5/5 core strength to allow him to sit of long periods of time. Pt will benefit from skilled PT for 1-3x/week from 11/18/24 to 01/27/25 to address the above impairments. I hereby deem this POC medically necessary. Please sign below. Date: documented in this encounter [facility] 10-20-2024 Miscellaneous Notes Patient stopped in office and stated that he tried to contact the sleep lab to see what he needed to bring with him for his titration study that is scheduled for tonight, financial underwriter informed him to wear comfortable pajamas, eat dinner prior to coming, bring his PAP mask that he currently using with his PAP machine, and to bring any nighttime medication that he may need to take. Patient stated that he does not know why he needs to have a sleep study as he had stopped at his DME and was informed by them that he could just have a pressure change. Patient stated that a pressure change has never been offered to him and he feels that he is being ripped off that he has to have another study. Consumer Insights Specialist explained to patient that he has had pressure changes in the past by Dr. Ervin and that those had not helped so the next step is a sleep study, patient verbalized understanding and walked out of office. documented in this encounter [facility] 10-20-2024 Telephone encounter Note Patient stopped in office and stated that he tried to contact the sleep lab to see what he needed to bring with him for his titration study that is scheduled for tonight, financial underwriter informed him to wear comfortable pajamas, eat dinner prior to coming, bring his PAP mask that he currently using with his PAP machine, and to bring any nighttime medication that he may need to take. Patient stated that he does not know why he needs to have a sleep study as he had stopped at his DME and was informed by them that he could just have a pressure change. Patient stated that a pressure change has never been offered to him and he feels that he is being ripped off that he has to have another study. Consumer Insights Specialist explained to patient that he has had pressure changes in the past by Dr. Ervin and that those had not helped so the next step is a sleep study, patient verbalized understanding and walked out of office. [facility] 10-19-2024 History of Presen t illness Narrative Associated Problem(s): SI joint arthritis (CMS/HCC) Pain mgmt Associated Problem(s): DDD (degenerative disc disease), lumbar Will send to Pain mgmt Associated Problem(s): Bilateral elbow joint pain Check xrays Has saw ortho in the past for injection Did not help C/w lateral epicondylitis Wear splints at all times Pt still gets nerve pain in that back left shoulder blade. Pt is still doing the stretches at home. Images from the original note were not included. Speedy Rosen is a 44 y.o. male presents with chief complaint of No chief complaint on file. HPI: Here for recheck and to review xrays Chronic pain related issues: trapezius, bilat elbows, lumbar and hip No fever, rashes, steroids in the past not a lot of help, autoimmune testing a bout 15 months ago negative PT did help on trapezius region, but sxs still present His pain in low back limits his ability to stand for much of any length of time Elbow pain is worsening as well, L>R SUBJECTIVE: MEDICATIONS: Current Outpatient Medications Medication Instructions pantoprazole (PROTONIX) 40 mg, Oral, Daily before breakfast, Do not crush, chew, or split. tiZANidine (ZANAFLEX) 4 mg, Oral, Nightly PRN ALLERGIES: No Known Allergies REVIEW OF SYMPTOMS: Review of Systems Constitutional: Negative for activity change, appetite change and unexpected weight change. HENT: Negative for ear pain, nosebleeds, sneezing, trouble swallowing and voice change. Eyes: Negative for pain, discharge and visual disturbance. Respiratory: Negative for apnea, chest tightness and wheezing. Cardiovascular: Negative for leg swelling. Gastrointestinal: Negative for abdominal distention, blood in stool, constipation and diarrhea. Genitourinary: Negative for decreased urine volume, difficulty urinating, dysuria and hematuria. Musculoskeletal: Positive for arthralgias, back pain and myalgias. Skin: Negative for color change. Neurological: Negative for dizziness, tremors and seizures. Psychiatric/Behavioral: Negative for agitation, decreased concentration, hallucinations, self-injury and suicidal ideas. The patient is not nervous/anxious. Hematological: Negative for adenopathy. Does not bruise/bleed easily. Endocrine: Negative for cold intolerance, heat intolerance, polydipsia and polyuria. Allergic/Immunologic: Negative for environmental allergies and food allergies. PAST MEDICAL HISTORY Past Medical History: Diagnosis Date Anti-streptolysin titer abnormal 08/07/2023 Anxiety Arthritis 10/10/2023 Asthma (CMS/HCC) 10/10/2023 Bilateral hand pain 10/10/2023 Bursitis of right elbow 10/10/2023 Chronic back pain 10/10/2023 Conductive hearing loss 10/10/2023 Conductive hearing loss due to disorder of external ear-bilateral cerumen impaction DDD (degenerative disc disease), lumbar 08/05/2023 High serum bilirubin level Serum bilirubin raised History of immunotherapy 10/10/2023 History of medical problems 10/10/2023 Perennial allergic rhinitis, unspecified allergic rhinitis trigger Insomnia 10/10/2023 MARGOTH (obstructive sleep apnea) 10/10/2023 Past Surgical History: Procedure Laterality Date CYST REMOVAL left hand HERNIA REPAIR 2009 TENDON RELEASE 07/2019 Left partial lateral epicondylectomy 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 OBJECTIVE: Visit Vitals BP 124/86 (BP Location: Left arm, Patient Position: Sitting, BP Cuff Size: Adult long) Pulse 76 Temp 98.8 F (Temporal) Resp 18 Wt 178 lb 3.2 oz SpO2 98% BMI 24.17 kg/m Smoking Status Never BSA 2.03 m Physical Exam Vitals and nursing note reviewed. Constitutional: Appearance: Normal appearance. He is not ill-appearing. HENT: Head: Normocephalic. Right Ear: External ear normal. Left Ear: External ear normal. Nose: Nose normal. Mouth/Throat: Mouth: Mucous membranes are moist. Pharynx: Oropharynx is clear. Eyes: Extraocular Movements: Extraocular movements intact. Conjunctiva/sclera: Conjunctivae normal. Neck: Vascular: No carotid bruit. Cardiovascular: Rate and Rhythm: Normal rate and regular rhythm. Pulses: Normal pulses. Heart sounds: Normal heart sounds. Pulmonary: Effort: Pulmonary effort is normal. Breath sounds: Normal breath sounds. No wheezing. Musculoskeletal: Cervical back: Neck supple. Right lower leg: No edema. Left lower leg: No edema. Comments: No CTL spine curvature DTR's 2+ bilat UE/LE, MMT 5/5 bilat UE/LE No atrophy noted, +tenderness to left lateral elbow, pain bilat with resisted supination and pronation. Tightness and spasm to right trap region, near full cervical ROM Lymphadenopathy: Cervical: No cervical adenopathy. Skin: General: Skin is warm and dry. Capillary Refill: Capillary refill takes 2 to 3 seconds. Neurological: General: No focal deficit present. Mental Status: He is alert. Motor: No weakness. Deep Tendon Reflexes: Reflexes normal. Psychiatric: Mood and Affect: Mood normal. Behavior: Behavior normal. Thought Content: Thought content normal. Judgment: Judgment normal. ASSESSMENT AND PLAN: No follow-ups on file. Problem List Items Addressed This Visit DDD (degenerative disc disease), lumbar Will send to Pain mgmt Strain of right trapezius muscle Has been going to PT Cervical pain (neck) Since last visit has had PT also muscle relaxer as well SI joint arthritis (CMS/HCC) - Primary Pain mgmt Relevant Orders Ambulatory referral to Pain Medicine Bilateral elbow joint pain Check xrays Has saw ortho in the past for injection Did not help C/w lateral epicondylitis Wear splints at all times Relevant Orders XR elbow 3+ views left XR elbow 3+ views right Associated Problem(s): Strain of right trapezius muscle Has been going to PT Associated Problem(s): Cervical pain (neck) Since last visit has had PT also muscle relaxer as well documented in this encounter [facility] 10-19-2024 Instructions Frances Nguyen NP - 10/19/2024 7:30 PM EST Low back: refer to pain mgmt: Dr Nikos Garza Check elbow xray documented in this encounter [facility] 10-13-2024 History of Presen t illness Narrative Images from the original note were not included. Physical Therapy Treatments Visit Patient Name: Speedy Rosen Today's Date: 10/06/24 Encounter Diagnoses Name Primary? Cervical pain (neck) Yes Strain of right trapezius muscle, initial encounter Degeneration of intervertebral disc of lumbar region, unspecified whether pain present Visit number: 6 Timed Code Treatment Minutes: 38 minutes Total Treatment Time: 48 minutes Time In: 1630 Time Out: 1722 History: Pt. Presents to PT with c/c of right neck pain (upper trapezius/rhomboid muscle) which started couple months ago. Static posture increases his neck/shoulder pain. Movement no issues/pain/feels better. 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 No NT or weakness. Also, having lumbar pain and has order for x-ray of low back and right hip which he has to schedule. Pt. Reports he is able to perform all work and daily tasks but has pain with tasks. Precautions: universal Subjective: Pt. Reports he feels he took a step backward. Continues to have increased mid back pain while sitting for long periods of time. Pt. Had x-ray which showed DDD in lumbar spine. Reports he has increased low back pain while sitting/standing for long periods of time. Reports he did slip and fall on ice today and back is sore from his fall. Pain: 4/10 left rhomboid Objective: PT Evaluation (09/09/24) Neck ROM: flexion normal, extension normal, R SB 20 deg pain, L SB 25 deg pain. R rotation 45 deg, L rotation 40 deg. Palpation: right upper trapezius muscle trigger point Flexibility: moderate right upper trapezius muscle flexibility Strength: right manager environmental services 100#, left manager environmental services 110#, bilateral UE 5/5 Treatment: PT evaluation ( minutes) Education: HEP education with demonstration, Educated on Eval Findings and POC Manual Therapy: (26 minutes) MFR bilateral UT, cervical joint mobs, UT str. Trigger point release, Passive ROM, Joint mobilization, Soft Tissue Mobilization, Myofascial Release, Muscle Energy Technique, Neural Mobilization, Myofascial Cupping, Dry Needling, IASTM, and Scar mobilization Therapeutic Exercise: (16 minutes) Strength, Endurance, Flexibility, ROM, HEP, Neural Mobilization, Power, and Core Stability Therapeutic Activity: Exercises to improve dynamic activities, functional tasks, functional mobility to return to prior activity level Neuromuscular re-education: Balance Training, Muscle Facilitation, Dynamic Stability, Core Stabilization, and Blood Flow Restriction Training (BFRT) Modalities: Heat, Ice, Electrical Stimulation, Ultrasound, Cervical Mechanical Traction, Lumbar Mechanical Traction, Iontophoresis, and Fluidotherapy DN: 4x needles, left rhomboid muscle protocol, minute rest (no charge), bilateral upper trapezius, fanning, (1x) Assessment: Pt. Has participated in 6 PT session with start of POC on 09/09/24 for right upper trapezius muscle trigger point. Pt. Will benefit from skilled PT services. Pt. Demonstrates bilateral rib pain at T8-10 segment/bottom of scapula. Pt. Demonstrates less neck pain but possible mid back pain might be secondary pain due to low back pain. Pt. Has met max potential toward PT goals and will be discharged. Overall patient reports of improvement with PT treatment. Outcome Measure: UEFS: 78/80 Short Term Goal: To be met in 2 weeks Goal 1: Pt to be instructed in home exercise program. Senior Living Goals: To be met in 10 weeks Goal 1: Pt to report independence and compliance with home program. Goal 2: Pt. Will report of 0/10 right neck pain while perform work tasks to help improve his quality of life. Goal 3: Pt. Will demonstrate normal right upper trapezius muscle flexibility to help decrease pain and improve his quality of life. Goal 4: Pt. Will demonstrate normal right cervical spine ROM grossly in all planes to help improve his functional mobility with work tasks. Plan: Pt will be discharged and instructed to call our office if he has questions. I hereby deem this POC medically necessary. Please sign below. Date: documented in this encounter [facility] 10-12-2024 Miscellaneous Notes Patient called office back and stated that he does not wish to reschedule his appointment at this time due to him needing to reschedule his sleep study, patient stated that he hasn't been able to use his machine and that he really needs to get his sleep study before returning to the office, financial underwriter transferred patient to the sleep lab to reschedule his sleep study, patient stated that he would call our office back to reschedule. documented in this encounter [facility] 10-12-2024 Telephone encounter Note Patient called office back and stated that he does not wish to reschedule his appointment at this time due to him needing to reschedule his sleep study, patient stated that he hasn't been able to use his machine and that he really needs to get his sleep study before returning to the office, financial underwriter transferred patient to the sleep lab to reschedule his sleep study, patient stated that he would call our office back to reschedule. [facility] 10-12-2024 Miscellaneous Notes Patient left [employer] message wanting to cancel appointment and stated Nothing has changed. I haven't done the study . Consumer Insights Specialist attempted to call patient to reschedule appointment, voicemail box was full, unable to leave message. [facility] encounter Note Patient left [employer] message wanting to cancel appointment and stated Nothing has changed. I haven't done the study . Consumer Insights Specialist attempted to call patient to reschedule appointment, voicemail box was full, unable to leave message. [facility] History of Presen t illness Narrative Physical Therapy Treatments Visit Patient Name: Speedy Rosen Today's Date: 10/06/24 Encounter Diagnoses Name Primary? Cervical pain (neck) Yes Strain of right trapezius muscle, initial encounter Degeneration of intervertebral disc of lumbar region, unspecified whether pain present Visit number: 5 Timed Code Treatment Minutes: 38 minutes Total Treatment Time: 48 minutes Time In: 1630 Time Out: 1722 History: Pt. Presents to PT with c/c of right neck pain (upper trapezius/rhomboid muscle) which started couple months ago. Static posture increases his neck/shoulder pain. Movement no issues/pain/feels better. 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 No NT or weakness. Also, having lumbar pain and has order for x-ray of low back and right hip which he has to schedule. Pt. Reports he is able to perform all work and daily tasks but has pain with tasks. Precautions: universal Subjective: Pt. Reports he was able to sit for 3 hours with no mid back pain at swim meet over the weekend. Reports no mid back issue today. Pain: 0-3/10 left rhomboid Objective: PT Evaluation (09/09/24) Neck ROM: flexion normal, extension normal, R SB 20 deg pain, L SB 25 deg pain. R rotation 45 deg, L rotation 40 deg. Palpation: right upper trapezius muscle trigger point Flexibility: moderate right upper trapezius muscle flexibility Strength: right manager environmental services 100#, left manager environmental services 110#, bilateral UE 5/5 Treatment: PT evaluation ( minutes) Education: HEP education with demonstration, Educated on Eval Findings and POC Manual Therapy: (26 minutes) MFR bilateral UT, cervical joint mobs, UT str. Trigger point release, Passive ROM, Joint mobilization, Soft Tissue Mobilization, Myofascial Release, Muscle Energy Technique, Neural Mobilization, Myofascial Cupping, Dry Needling, IASTM, and Scar mobilization Therapeutic Exercise: (27 minutes) Strength, Endurance, Flexibility, ROM, HEP, Neural Mobilization, Power, and Core Stability Therapeutic Activity: Exercises to improve dynamic activities, functional tasks, functional mobility to return to prior activity level Neuromuscular re-education: Balance Training, Muscle Facilitation, Dynamic Stability, Core Stabilization, and Blood Flow Restriction Training (BFRT) Modalities: Heat, Ice, Electrical Stimulation, Ultrasound, Cervical Mechanical Traction, Lumbar Mechanical Traction, Iontophoresis, and Fluidotherapy DN: 4x needles, left rhomboid muscle protocol, minute rest (no charge), bilateral upper trapezius, fanning, (1x) Assessment: Pt. Has participated in 5 PT session with start of POC on 09/09/24 for right upper trapezius muscle trigger point. Pt. Will benefit from skilled PT services. Pt. Demonstrates good progress with PT treatment. No LTRs with DN today in UT. Continue to focus on improve scapular strength. Outcome Measure: UEFS: 78/80 Short Term Goal: To be met in 2 weeks Goal 1: Pt to be instructed in home exercise program. Working Supervisor Goals: To be met in 10 weeks Goal 1: Pt to report independence and compliance with home program. Goal 2: Pt. Will report of 0/10 right neck pain while perform work tasks to help improve his quality of life. Goal 3: Pt. Will demonstrate normal right upper trapezius muscle flexibility to help decrease pain and improve his quality of life. Goal 4: Pt. Will demonstrate normal right cervical spine ROM grossly in all planes to help improve his functional mobility with work tasks. Pt will benefit from skilled PT for 1-3x/week from 09/09/24 to 11/18/24 to address the above impairments. I hereby deem this POC medically necessary. Please sign below. Date: documented in this encounter [facility] 09-29-2024 History of Presen t illness Narrative Physical Therapy Treatments Visit Patient Name: Speedy Rosen Today's Date: 09/22/24 Encounter Diagnoses Name Primary? Cervical pain (neck) Yes Strain of right trapezius muscle, initial encounter Visit number: 4 Timed Code Treatment Minutes: 38 minutes Total Treatment Time: 48 minutes Time In: 1630 Time Out: 1722 History: Pt. Presents to PT with c/c of right neck pain (upper trapezius/rhomboid muscle) which started couple months ago. Static posture increases his neck/shoulder pain. Movement no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 lab. This order is then reviewed by the lab staff and a request for approval is sent to your insurance company. If you would like to know the estimated cost of your study, you can call [phone] for general pricing information (note that you will need the following procedure codes allow them to estimate the cost: Polysomnogram (PSG), in lab diagnostic study without CPAP = 19542 PAP titration, in lab with CPAP for treatment = 36099 Home sleep study = 47239 Every study request is reviewed in our sleep prior authorization department. Some sleep studies require prior authorization and some do not (only require that the provider document the need for the study). Some sleep study orders may need to be changed based on insurance coverage. (ie in lab to home study). Please confirm with your insurance that all [facility] sleep labs are in network with your insurance. If you change your insurance after the sleep study is ordered, please call the sleep lab back to update our scheduling staff ([phone] option #1). You should receive a call prior to your sleep study to pre-register. They will be able to provide sleep study cost estimates as well. The sleep lab will also give detailed instructions on where to check in for the study. Preparing for your sleep study: Avoid napping and afternoon caffeine use prior to the sleep study. Very specific instructions on what to bring will be provided by the sleep lab (pajamas, toiletries, medications, etc). Prior to the sleep study you will be asked to choose a medical equipment supplier (DME).The DME will be providing the pap machine if ordered by the provider. What happens after my sleep study? Within 24-48 hours the data from your sleep study is sent to a graphics edit technician to be reviewed and scored. The report from the graphics edit technician is then sent to the sleep medicine physician and within 7-10 days the study will be formally interpreted. Once the study is completed, there will be contact from our office (through [employer], phone, or a letter) about next steps (ie treatment for sleep apnea, office appointment, cpap machine orders). If a cpap machine has been ordered and you do not hear from the equipment company within 30 days of your study, please call our office [phone]. FYI: Some insurance companies have strict guidelines regarding the timeline for this process. If sleep studies are not completed within 6-12 months of the office visit insurance may require another office visit. Also if cpap set up is not done within a year of the initial sleep study insurance may require another sleep study. Thank you, [facility], [place] Sleep Medicine Department documented in this encounter [facility] 03-24-2024 Miscellaneous Notes ----- Message from Dr. Cl Thomas MD sent at 02/25/2024 2:50 PM EDT ----- Regarding: check 1 mo Check download Please obtain updated download for review documented in this encounter [facility] 03-24-2024 Telephone encounter Note ----- Message from Dr. Cl Thomas MD sent at 02/25/2024 2:50 PM EDT ----- Regarding: check 1 mo Check download [facility] 03-24-2024 Telephone encounter Note Please obtain updated download for review [facility] 02-25-2024 History of Presen t illness Narrative Images from the original note were not included. CHIEF COMPLAINT: Speedy Rosen is a 44 y.o. male who presents to [facility] in follow-up for MARGOTH and insomnia The patient was unaccompanied. He is a former patient of Dr. Arcadio LEONARD EVENTS Since last seen, Mr. Rosen reports he has not been using his CPAP machine. He has a nasal pillow mask which he does find comfortable. He tried a fullface mask in the past which caused him to feel claustrophobic. He reports that he removes the mask unintentionally overnight. He did feel more panic was using the fullface mask. He reports having allergies and congestion but is not using any treatment for this currently. Reports he has take very high doses of Benadryl for it to be effective. He did try Flonase in the past but did not notice a benefit. His CPAP machine pressures have not been adjusted. He did have a CPAP titration ordered. He did not go through with this as he was told that it would be 3000 dollars after getting the [place] estimate. He sleeps on his side at home Wakes with obstruction on his back He was using Lunesta in the past. 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 [place] Sleepiness Scale: Sitting and Reading: Slight Chance Watching TV: (!) Moderate Chance Sitting inactive in a public place (theater, meeting): (!) Moderate Chance As a passenger in a car for an hour without a break: Slight Chance Lying down in the afternoon to rest: (!) Moderate Chance Sitting and talking to someone: Never Sitting quietly after lunch (without alcohol): Slight Chance In a car, while stopped for a few minutes in traffic: Slight Chance Total: 10 PAST MEDICAL HISTORY: Patient Active Problem List Diagnosis Allergic rhinitis Depression Past Medical History: Diagnosis Date Allergic rhinitis Anxiety Depression Moderate obstructive sleep apnea Visual impairment glasses, contacts Past Surgical History: Procedure Laterality Date CYST REMOVAL left hand, left foot HERNIA REPAIR RELEASE LATERAL EPICONDYLE ELBOW Left 08/07/2019 Performed by Dain Marinelli DO at [facility] ALLERGIES: No Known Allergies MEDICATIONS: Current Outpatient Medications on File Prior to Visit Medication Sig Dispense Refill pantoprazole (PROTONIX) 40 mg EC tablet TAKE 1 TABLET(40 MG) BY MOUTH IN THE MORNING 30 tablet 5 No current facility-administered medications on file prior to visit. PHYSICAL EXAMINATION: BP 135/88 Pulse 78 Ht 182.9 cm (6') Wt 78.3 kg (172 lb 11.2 oz) SpO2 98% BMI 23.42 kg/m General appearance: no acute distress. Eyes: no conjunctival erythema, no scleral icterus. Ears, Nose, Mouth and Throat: external ears unremarkable, external nose and mouth unremarkable Respiratory: normal work of breathing Skin: No rash/ lesions/ulcers/ induration/subcutaneous nodules in visible regions. Neurologic: face symmetric at rest and activation, no dysarthria, no tremor or abnormal movements Mental Status: Cognitive: Alert and oriented, Insight good. Judgment good. DATA: Sleep Study Results: PSG 10/24/22 AHI 21.1 [id number] 92% Dx MARGOTH No new CPAP data today IMPRESSION/RECOMMENDATIONS: 1. MARGOTH (obstructive sleep apnea) 2. Chronic insomnia 3. Hypersomnia 4. Nasal congestion Speedy Rosen is a 44 y.o. male with medical problems including as above, presenting in follow up for Moderate obstructive sleep apnea AHI 21 SpO2 min 92% not currently treated. He has trouble tolerating CPAP and not able to keep it all night. I did review his prior CPAP download from last year which should continued obstructive events on the auto CPAP settings 5-20 cm of water. Discussed with him that he should resume his CPAP and use it for several weeks so I can have some data to adjust his machine empirically. He may need a higher pressure if his AHI continues to be elevated, not able to have in lab titration due to cost. Discussed with him that if his sleep apnea is untreated that I would avoid using hypnotics. I am not refilling Lunesta at this time. Discussed with him that they 3 mg Lunesta does has a warning they should not drive the next day after taking the medication. He also admitted to taking higher than prescribed doses in the past. For nasal congestion recommended that he try Astepro [id number] nasal spray per package directions Return visit in 3 months Can also consider oral appliance if not able to tolerate CPAP EDUCATION: Pathophysiology of MARGOTH was explained. Health risks associated with untreated MARGOTH were discussed (cardiopulmonary, cerebrovascular, and anesthesia/sedative-related). Risks associated with excessive daytime sleepiness, particularly while driving/operating machinery were discussed. 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 MARGOTH treatment options were discussed. CPAP is the most predictably effective treatment. Interim measures to reduce obstructive sleep apnea severity were recommended (avoidance of the supine position and elevation of the upper body and during sleep). Above plan as discussed with the patient who acknowledged understanding and agreement. CL THOMAS MD [facility] [address] [address] documented in this encounter [facility] 02-25-2024 Instructions Cl Thomas MD - 02/25/2024 2:30 PM EDT AstePro nasal spray - over the counter per package directions for congestion Retry CPAP - we can adjust the pressure as needed documented in this encounter [facility] 11-05-2023 Miscellaneous Notes error documented in this encounter [facility] 11-05-2023 Telephone encounter Note error [facility] Work Phone: Evaluation note Diagnosis Bilateral hand pain- Primary Gastroesophageal reflux disease with esophagitis, unspecified whether hemorrhage Dermatitis- Primary Contact dermatitis and other eczema, due to unspecified cause Strain of right trapezius muscle, initial encounter- Primary Gastroesophageal reflux disease with esophagitis, unspecified whether hemorrhage Cervical pain (neck) Cervicalgia Degeneration of intervertebral disc of lumbar region, unspecified whether pain present [facility] Diagnosis Bilateral hand pain- Primary Gastroesophageal reflux disease with esophagitis, unspecified whether hemorrhage Dermatitis- Primary Contact dermatitis and other eczema, due to unspecified cause Cervical pain (neck)- Primary Cervicalgia Strain of right trapezius muscle, initial encounter Degeneration of intervertebral disc of lumbar region, unspecified whether pain present [facility] Diagnosis Bilateral hand pain- Primary Gastroesophageal reflux disease with esophagitis, unspecified whether hemorrhage Dermatitis- Primary Contact dermatitis and other eczema, due to unspecified cause Cervical pain (neck)- Primary Cervicalgia Strain of right trapezius muscle, initial encounter Degeneration of intervertebral disc of lumbar region, unspecified whether pain present [facility] Diagnosis Bilateral hand pain- Primary Gastroesophageal reflux disease with esophagitis, unspecified whether hemorrhage Dermatitis- Primary Contact dermatitis and other eczema, due to unspecified cause Cervical pain (neck)- Primary Cervicalgia Strain of right trapezius muscle, initial encounter documented [facility] encounter [facility]* Diagnosis Chronic insomnia Insomnia, unspecified [facility] Diagnosis MARGOTH (obstructive sleep apnea)- Primary Obstructive sleep apnea (adult) (pediatric) Chronic insomnia Insomnia, unspecified Hypersomnia Hypersomnia, unspecified Nasal congestion Other diseases of nasal cavity and sinuses [facility] Diagnosis MARGOTH (obstructive sleep apnea)- Primary Obstructive sleep apnea (adult) (pediatric) Intolerance of continuous positive airway pressure (CPAP) ventilation Hypersomnia Hypersomnia, unspecified Awakens from sleep due to pain [facility] Diagnosis Bilateral hand pain- Primary Gastroesophageal reflux disease with esophagitis, unspecified whether hemorrhage Dermatitis- Primary Contact dermatitis and other eczema, due to unspecified cause Cervical pain (neck) Cervicalgia Strain of right trapezius muscle, initial encounter documented in this encounter [facility]* Diagnosis Bilateral hand pain- Primary Gastroesophageal reflux disease with esophagitis, unspecified whether hemorrhage Dermatitis- Primary Contact dermatitis and other eczema, due to unspecified cause SI joint arthritis (CMS/HCC)- Primary Cervical pain (neck) Cervicalgia Strain of right trapezius muscle, subsequent encounter Bilateral elbow joint pain Degeneration of intervertebral disc of lumbar region, unspecified whether pain present documented in this encounter [facility]* Diagnosis Bilateral hand pain- Primary Gastroesophageal reflux disease with esophagitis, unspecified whether hemorrhage Dermatitis- Primary Contact dermatitis and other eczema, due to unspecified cause SI joint arthritis (CMS/HCC)- Primary Cervical pain (neck) Cervicalgia Strain of right trapezius muscle, subsequent encounter Bilateral elbow joint pain Degeneration of intervertebral disc of lumbar region, unspecified whether pain present Cervical pain (neck) Cervicalgia Strain of right trapezius muscle, initial encounter documented in this encounter [facility]* Diagnosis MARGOTH (obstructive sleep apnea) Obstructive sleep apnea (adult) (pediatric) [facility] Diagnosis Bilateral hand pain- Primary Gastroesophageal reflux disease with esophagitis, unspecified whether hemorrhage Dermatitis- Primary Contact dermatitis and other eczema, due to unspecified cause SI joint arthritis (CMS/HCC)- Primary Cervical pain (neck) Cervicalgia Strain of right trapezius muscle, subsequent encounter Bilateral elbow joint pain Degeneration of intervertebral disc of lumbar region, unspecified whether pain present Lumbar paraspinal muscle spasm- Primary Other symptoms referable to back [facility]* Diagnosis Bilateral hand pain- Primary Gastroesophageal reflux disease with esophagitis, unspecified whether hemorrhage Dermatitis- Primary Contact dermatitis and other eczema, due to unspecified cause SI joint arthritis (CMS/HCC)- Primary Cervical pain (neck) Cervicalgia Strain of right trapezius muscle, subsequent encounter Bilateral elbow joint pain Degeneration of intervertebral disc of lumbar region, unspecified whether pain present Lumbar paraspinal muscle spasm- Primary Other symptoms referable to back [facility]* Diagnosis Bilateral hand pain- Primary Gastroesophageal reflux disease with esophagitis, unspecified whether hemorrhage Dermatitis- Primary Contact dermatitis and other eczema, due to unspecified cause SI joint arthritis (CMS/HCC)- Primary Cervical pain (neck) Cervicalgia Strain of right trapezius muscle, subsequent encounter Bilateral elbow joint pain Degeneration of intervertebral disc of lumbar region, unspecified whether pain present Lumbar paraspinal muscle spasm- Primary Other symptoms referable to back [facility]* Diagnosis Bilateral hand pain- Primary Gastroesophageal reflux disease with esophagitis, unspecified whether hemorrhage Dermatitis- Primary Contact dermatitis and other eczema, due to unspecified cause SI joint arthritis (CMS/HCC)- Primary Cervical pain (neck) Cervicalgia Strain of right trapezius muscle, subsequent encounter Bilateral elbow joint pain Degeneration of intervertebral disc of lumbar region, unspecified whether pain present Lumbar paraspinal muscle spasm- Primary Other symptoms referable to back [facility]* Diagnosis MARGOTH (obstructive sleep apnea)- Primary Obstructive sleep apnea (adult) (pediatric) [facility] Diagnosis Chronic insomnia- Primary Insomnia, unspecified MARGOTH (obstructive sleep apnea) Obstructive sleep apnea (adult) (pediatric) Hypersomnia Hypersomnia, unspecified [facility] Diagnosis Bilateral hand pain- Primary Gastroesophageal reflux disease with esophagitis, unspecified whether hemorrhage Dermatitis- Primary Contact dermatitis and other eczema, due to unspecified cause SI joint arthritis (CMS/HCC)- Primary Cervical pain (neck) Cervicalgia Strain of right trapezius muscle, subsequent encounter Bilateral elbow joint pain Degeneration of intervertebral disc of lumbar region, unspecified whether pain present Poison mery dermatitis- Primary documented in this encounter [facility] HealthcareInstructionsNot on filedocumented in this [facility] SystemInstructionsNot on filedocumented in this encounterProMedina Hospital SystemInstructionsNot on filedocumented in this encounterProMedina Hospital SystemInstructionsNot on filedocumented in this encounterProMed[facility] InstructionsNot on filedocumented in this encounterProMedina [facility] InstructionsNot on filedocumented in this encounterProMedina Hospital SystemReason for visit Narrative* Consultation (Routine) - Authorized Specialty Diagnoses / Procedures Referred By Rosamaria campos Referred To Contact Physical Therapy Diagnoses Cervical pain (neck) Strain of right trapezius muscle, initial encounter Degeneration of intervertebral disc of lumbar region, unspecified whether pain present Procedures [place] OFFICE/OUTPATIENT NEW HIGH MDM 60 MINUTES Frances Nguyen NP [address] [place] [address] Phone: tel: fax: Annabelle Martinez, PT [address] [address] Phone: tel: fax: Referral ID Status Reason Start Date Expiration Date Visits Requested Visits Authorized [id number] Authorized Consult and Treat 09/09/2024 11/07/2024 6 6 The [facility] Narrative* Consultation (Routine) - Closed Specialty Diagnoses / Procedures Referred By Rosamaria campos Referred To Contact Physical Therapy Diagnoses Cervical pain (neck) Strain of right trapezius muscle, initial encounter Degeneration of intervertebral disc of lumbar region, unspecified whether pain present Procedures AK OFFICE/OUTPATIENT NEW HIGH MDM 60 MINUTES Frances Nguyen NP [address] [place] [address] Phone: tel: fax: Annabelle Martinez, PT 112 [facility] [address] [place] [address] Phone: tel: fax: Referral ID Status Reason Start Date Expiration Date V isits Requested Visits Authorized [id number] Closed Consult and Treat 09/09/2024 11/07/2024 6 6 [facility]* Misc (Routine) - Closed Specialty Diagnoses / Procedures [facility] Referred To Contact Diagnoses MARGOTH (obstructive sleep apnea) Procedures Polysomnography 4 or more [place] [address] [place] [address] Phone: tel: fax: Referral ID Status Reason Start Date Expiration Date Visits Re quested Visits Authorized [id number] Closed 06/02/2024 06/02/[address] [facility] - Outpatient (Routine) - Authorized Specialty Diagnoses / Procedures [facility] Referred To Contact Physical Therapy Diagnoses Lumbar Stenosis Procedures AK PHYSICAL THERAPY EVALUATION LOW COMPLEX 20 MINS [place] OFFICE/OUTPATIENT NEW HIGH MDM 60 MINUTES Sorin Elizondo MD [address] [place] [address] Phone: tel: fax: Leydi Jenkins, GRACE Referral ID Status Reason Start Date Expiration Date V isits Requested Visits Authorized [id number] Authorized 11/18/2024 01/16/2025 6 6 [facility] Summary Purpose Family History No Family History Records FoundNo Family History Records FoundNo Family History Records FoundNo Family History Records FoundNo Family History Records Found Advance Directives No Advanced Directives Records FoundNo Advanced Directives Records FoundNo Advanced Directives Records FoundNo Advanced Directives Records FoundNo Advanced Directives Records Found Reason for Referral Specialty Diagnoses / Procedures [facility] Referred To Contact Diagnoses MARGOTH (obstructive sleep apnea) Procedures Polysomnography 4 or more parameters [place] [address] [place] [address] Referral ID Status Reason Start Date Expiration Date V isits Requested Visits Authorized [id number] Pending Review 06/02/2024 06/02/2025 1 1 Additional Source Comments (unrecognized sect ion and content) No Status Records FoundNo Status Records FoundNo Status Records FoundNo Status Records FoundNo Status Records Found INFORMATION SOURCE (unrecogn ized section and content) DATE CREATED AUTHOR 05/29/2021 [facility] DATE CREATED AUTHOR AUTHOR'S ORGANIZ ATION 11/22/2024 [facility] DATE CREATED AUTHOR AUTHOR'S ORGANIZ ATION 12/25/2024 [facility] EPIC DATE CREATED AUTHOR AUTHOR'S ORGANIZ ATION 01/15/2025 [facility] DATE CREATED AUTHOR AUTHOR'S ORGANIZ ATION 03/08/2025 [facility] Care Teams (unrecognized sec tion and content) Metallurgical Inspector Relationship Specialty Start Date End Date Frances Nguyen NP [address] [place] [address] PCP - [employer] 08/19/23 Austin Gray MD [address] [place] [address] PCP - General Family Medicine 10/08/23 Metallurgical Inspector Relationship Specialty Start Date End Date Frances Nguyen NP [address] [place] [address] PCP - [employer] 08/19/23 Austin Gray MD [address] [place] [address] PCP - General Family Medicine 10/08/23 Metallurgical Inspector Relationship Specialty Start Date End Date Frances Nguyen NP [address] [place] [address] PCP - [employer] 08/19/23 Austin Gray MD [address] [place] [address] PCP - General Family Medicine 10/08/23 Metallurgical Inspector Relationship Specialty Start Date End Date Frances Nguyen NP [address] [place] [address] PCP - [employer] 08/19/23 Austin Gray MD [address] [place] [address] PCP - General Family Medicine 10/08/23 Metallurgical Inspector Relationship Specialty Start Date End Date Frances Nguyen NP [address] [place] [address] PCP - [employer] 08/19/23 Austin Gray MD [address] [place] [address] PCP - General Family Medicine 10/08/23 Metallurgical Inspector Relationship Specialty Start Date End Date Frances Nguyen NP [address] [place] [address] PCP - [employer] 08/19/23 Austin Gray MD [address] [place] [address] PCP - General Family Medicine 10/08/23 Metallurgical Inspector Relationship Specialty Start Date End Date Frances Nguyen NP [address] [place] [address] PCP - [employer] 08/19/23 Austin Gray MD [address] [place] [address] PCP - General Family Medicine 10/08/23 Metallurgical Inspector Relationship Specialty Start Date End Date Frances Nguyen [facility] [address] [place] [address] PCP - General Nurse Practitioner 08/02/23 Metallurgical Inspector Relationship Specialty Start Date End Date Frances Nguyen [facility] [address] [place] [address] PCP - General Nurse Practitioner 08/02/23 Metallurgical Inspector Relationship Specialty Start Date End Date Frances Nguyen [facility] [address] [place] [address] PCP - General Nurse Practitioner 08/02/23 Metallurgical Inspector Relationship Specialty Start Date End Date Frances Nguyen [facility] PCP - General Nurse Practitioner 08/02/23 Metallurgical Inspector Relationship Specialty Start Date End Date Frances Nguyen [facility] PCP - General Nurse Practitioner 08/02/23 Metallurgical Inspector Relationship Specialty Start Date End Date Frances Nguyen NP [address] [place] [address] PCP - [employer] 08/19/23 Austin Gray MD [address] [place] [address] PCP - General Family Medicine 10/08/23 Metallurgical Inspector Relationship Specialty Start Date End Date Frances Nguyen NP [address] [place] [address] PCP - [employer] 08/19/23 Austin Gray MD [address] [place] [address] PCP - General Family Medicine 10/08/23 Metallurgical Inspector Relationship Specialty Start Date End Date Frances Nguyen, HEALTH SERVICES RN-PLATFORM SUPERVISOR PCP - General Nurse Practitioner 08/02/23 Metallurgical Inspector Relationship Specialty Start Date End Date Frances Nguyen NP [address] [place] [address] PCP - [employer] 08/19/23 Austin Gray MD [address] [place] [address] PCP - General Family Medicine 10/08/23 Metallurgical Inspector Relationship Specialty Start Date End Date Frances Nguyen NP [address] [place] [address] PCP - [employer] 08/19/23 Austin Gray MD [address] [place] [address] PCP - General Family Medicine 10/08/23 Metallurgical Inspector Relationship Specialty Start Date End Date Frances Nguyen NP [address] [place] [address] PCP - [employer] 08/19/23 Austin Gray MD [address] [place] [address] PCP - General Family Medicine 10/08/23 Metallurgical Inspector Relationship Specialty Start Date End Date Frances Nguyen NP [address] [place] [address] PCP - [employer] 08/19/23 Austin Gray MD [address] [place] [address] PCP - General Family Medicine 10/08/23 Metallurgical Inspector Relationship Specialty Start Date End Date Frances Nguyen NP [address] [place] [address] PCP - [employer] 08/19/23 Austin Gray MD [address] [place] [address] PCP - General Family Medicine 10/08/23 Metallurgical Inspector Relationship Specialty Start Date End Date Frances Nguyen, HEALTH SERVICES RN-PLATFORM SUPERVISOR PCP - General Nurse Practitioner 08/02/23 Metallurgical Inspector Relationship Specialty Start Date End Date Frances Nguyen NP [address] [place] [address] PCP - [employer] 08/19/23 Austin Gray MD [address] [place] [address] PCP - General Family Medicine 10/08/23 Metallurgical Inspector Relationship Specialty Start Date End Date Frances Nguyen NP [address] [place] [address] PCP - [employer] 08/19/23 Austin Gray MD [address] [place] [address] PCP - General Family Medicine 10/08/23 Metallurgical Inspector Relationship Specialty Start Date End Date Frances Nguyen NP [address] [place] [address] PCP - [employer] 08/19/23 Austin Gray MD [address] [place] [address] PCP - General Family Medicine 10/08/23 Metallurgical Inspector Relationship Specialty Start Date End Date Frances Nguyen, HEALTH SERVICES RN-PLATFORM SUPERVISOR PCP - General Nurse Practitioner 08/02/23 Metallurgical Inspector Relationship Specialty Start Date End Date Frances Nguyen NP [address] [place] [address] PCP - [employer] 08/19/23 Austin Gray MD [address] [place] [address] PCP - General Family Medicine 10/08/23 Metallurgical Inspector Relationship Specialty Start Date End Date Frances Nguyen NP [address] [place] [address] PCP - [employer] 08/19/23 Austin Gray MD [address] [place] [address] PCP - General Family Medicine 10/08/23 Metallurgical Inspector Relationship Specialty Start Date End Date Frances Nguyen APRN-PLATFORM SUPERVISOR PCP - General Nurse Practitioner 08/02/23 Metallurgical Inspector Relationship Specialty Start Date End Date Frances Nguyen APRN-PLATFORM SUPERVISOR PCP - General Nurse Practitioner 08/02/23 Metallurgical Inspector Relationship Specialty Start Date End Date Frances Nguyen NP [address] [place] [address] PCP - [employer] 08/19/23 Austin Gray MD [address] [place] [address] PCP - General Family Medicine 10/08/23 Reason for Visit (unrecogniz ed section and content) Reason Comments Pain Reason Onset Date Comments Med Refill 10/03/2023 Reason Comments Sleep Apnea Not using PAP [facility] eDME: Jocelyn Avery, patient reports that he has not used medication in over 6 months Follow-up Reason Comments Follow-up Sleep Apnea Patient has not used his pap machine in about a month- he states he will try to wear it but it ends up on the floor and he takes it off- Reason Onset Date Comments Sleep Lab 06/03/2024 CPAP Reason Comments Med Refill Reason Onset Date Comments Medication Dosage 01/12/2025 Reason Comments Follow-up Sleep Apnea Download in chart Insomnia Would like to discus s insomnia FOR RECORDS PERTAINING TO PATIENTS WHO ARE OR HAVE BEEN ENROLLED IN A CHEMICAL DEPENDENCY/SUBSTANCEABUSE PROGRAM, SOME INFORMATION MAY BE OMITTED. This clinical summary was aggregated from multiple sources. Caution should be exercised in using it in the provision of clinical care. This summary normalizes information from multiple sources, and as a consequence, information in this document may materially change the coding, format and clinical context of patient data. In addition, data may be omitted in some cases. CLINICAL DECISIONS SHOULD BE BASED ON THE PRIMARY CLINICAL RECORDS. [employer] provides no warranty or guarantee of the accuracy or completeness of information in this document.
[2025-03-22 07:29] VITALS: BP 127/79; PULSE 69; TEMP 36.6; O2SAT 98
[2025-03-22 08:25] VITALS: BP 143/80; PULSE 62; O2SAT 99
[2025-03-22] MEDS: BUPIVACAINE HCL 0.25% PF 25 MG/10 ML VIAL INJ (08:26)
[2025-03-22] MEDS: IOHEXOL 240 MG/ML - 10 ML VIAL INJ (08:26)
[2025-03-22] MEDS: 0.9 % SODIUM CHLORIDE 10 ML SYRINGE - SALINE FLUSH INJ (08:26)
[2025-03-22] MEDS: LIDOCAINE HCL 2% 400 MG/20 ML MDV 3 ML INJ (08:27)
[2025-03-22] MEDS: METHYLPREDNISOLONE ACETATE 80 MG/ML VIAL INJ (08:27)
[2025-03-22 08:28] VITALS: BP 141/83; PULSE 59; O2SAT 100
--- NOTE | 2025-03-22 08:29 | W.PM.PROCNOT ---
Date of procedure: 03/22/25 Pre-op diagnosis: Pain due to lumbar stenosis with neurogenic claudication Post-op diagnosis: same as pre-op Procedure: Procedure: Bilateral L4-5 transforaminal epidural steroid injection Medications: Bupivacaine 0.25% 2cc, lidocaine 2% 1cc, depomedrol 80mg The patient was seen and examined in the preoperative holding area.? Informed consent was obtained and placed on the chart.? Patient was brought to the medical procedure unit and placed in the prone position where a timeout was completed verifying the correct patient, procedure site, position, and planned special equipment using sterile aseptic technique.? Under direct fluoroscopic visualization a 25-gauge Quincke tipped spinal needle was advanced at level left L4-5 to the designated neural foramen where contrast dye was injected to show adequate spread.? There was no evidence of vascular or adverse uptake.? Epidural spread was appreciated.? The above-mentioned injectate was then placed in a 1.5 mL aliquot preceded by negative aspiration.? The needle was removed. The same procedure, at the same level, was completed on the opposite side. ? Patient was taken to the postprocedural recovery area and monitored for an appropriate length of time before found suitable for discharge in the accompaniment of a responsible adult. Anesthesia: Local Surgeon: Jessica Elizondo Pathology: none sent Condition: stable Disposition: no change
== END 2025-03-22 08:32 | disposition home or self-care (01) ==
LOC: SURGOUT 07:14
PROVIDERS: PCP Nurse Practitioner; Visit Provider Anesthesiology
DX: M48.062 Spinal stenosis, lumbar region with neurogenic claudication (principal); M54.50 Low back pain, unspecified
CPT/HCPCS: 64483; J0665; J1010; Q9966

== ENCOUNTER 2025-03-31 15:08 | Outpatient (OUT) | payer BC, SELFPAY ==
--- OUTSIDE RECORDS SUMMARY | 2025-03-31 15:12 | XMS_ITS | Encounter Summary ---
Author Organization [employer] [facility] Address [id number] [address] [place] [address] Care Team Providers Care Electrical Linesworker Name Role Phone NnamdiFrances pena HYDRO EXCAVATION OPERATOR-PARKS WORKER Primary Care Provider Encounter Details Date Type Department Care Team (Late st Contact Info) Description 01/22/2023 [facility]phone [facility] [address] [address] Uyen Dickens RN Social History [...] Says he has been working already [place] different masks already. [...] documented as of this encounter Care Teams Electrical Linesworker Relationship Specialty Start Date End Date Frances Nguyen, HYDRO EXCAVATION OPERATOR-PARKS WORKER PCP - General Nurse Practitioner 08/02/23 documented as of this encounter
--- OUTSIDE RECORDS SUMMARY | 2025-03-31 15:12 | XMS_ITS | Encounter Summary ---
Author Organization [email or web address] tem Address [id number] [address] [place] [address] Care Team Providers Care Robotic Machine Tender Production Name Role Phone Frances Nguyen CARBON BRUSH MAKER-BATCH UNIT TREATER Primary Care Provider Encounter Details Date Type Department Care Team (Late st Contact Info) Description 01/25/2021 Orders Only [facility] [address] [place] [address] Tri Davidson LPN Cervicalgia Social History Tobacco [...] Physical Therapy (01/25/2021) 01/25/2021 us Marleny Garcia APRN-BATCH UNIT TREATER OUTPATIENT REFERRAL O RDERABLES Final Result MANUALLY TRANSCRIBED RESULTS documented in this encounter Visit Diagnoses Diagnosis Cervicalgia documented in this encounter Additional Health Concerns Infection Onset Date Last Indicated Resolved Time COVID-19 Rule-Out 12/11/2021 12/11/2021 12/12/2021 12:43 PM EDT Assessment Noted Time PHQ-9 Depression Total Score: 0 01/12/20 21 9:00 AM EDT documented as of this encounter Care Teams Robotic Machine Tender Production Relationship Specialty Start Date End Date Frances Nguyen, PAYAL-BATCH UNIT TREATER PCP - General Nurse Practitioner 08/02/23 documented as of this encounter
--- OUTSIDE RECORDS SUMMARY | 2025-03-31 15:12 | XMS_ITS | Encounter Summary ---
Author Organization [facility] Address [address] [place] [address] Care Team Providers Care Form Presser Name Role Phone Frances Nguyen NP Unavailable [phone] Austin Gray MD Primary Care Provider [phone] Reason for Visit * Reason Comments Med Refill Encounter Details Date Type Department Care Team (Late st Contact Info) Description 09/08/2024 Refill [facility] [address] [place] [address] Frances Nguyen NP [address] [place] [address] Gastroesophageal reflux disease with esophagitis, unspecified whether [...] hemorrhage documented in this encounter Care Teams Form Presser Relationship Specialty Start Date End Date Frances Nguyen NP [address] [place] [address] PCP - [employer] 1/1/24 Austin Gray MD [address] [place] [address] PCP - General Family Medicine 10/08/23 documented as of this encounter
--- OUTSIDE RECORDS SUMMARY | 2025-03-31 15:12 | XMS_ITS | Clinical Summary ---
Author Organization [facility] Address [address] [address] Care Team Providers Care National Recruiter Name Role Phone Unavailable Primary Care Provider [...]
--- OUTSIDE RECORDS SUMMARY | 2025-03-31 15:12 | XMS_ITS | Encounter Summary ---
Author Organization [facility] Address [address] [facility] [place] [address] Care Team Providers Care Manager Physical Name Role Phone Frances Nguyen NP Unavailable [phone] Austin Gray MD Primary Care Provider [phone] Encounter Details Date Type Department Care Team (Late st Contact Info) Description 03/01/2025 Abstract [facility] [address] [place] [address] Frances Nguyen NP [address] [place] [address] Social History Tobacco Use Types Packs/Day Years [...] on filedocumented in this encounter Care Teams Manager Physical Relationship Specialty Start Date End Date Frances Nguyen NP [address] [place] [address] PCP - [employer] 08/19/23 Austin Gray MD [address] [place] [address] PCP - General Family Medicine 10/08/23 documented as of this encounter
--- OUTSIDE RECORDS SUMMARY | 2025-03-31 15:12 | XMS_ITS | Encounter Summary ---
Author Organization [facility] Address [address] [place] [address] Care Team Providers Care Marine Rigger Name Role Phone Frances Nguyen NP Unavailable [phone] Austin Gray MD Primary Care Provider [phone] Encounter Details Date Type Department Care Team (Late st Contact Info) Description 10/09/2023 Abstract [facility] [address] [place] [address] Frances Nguyen NP [address] [place] [address] Social History Tobacco Use Types Packs/Day Years [...] on filedocumented in this encounter Care Teams Marine Rigger Relationship Specialty Start Date End Date Frances Nguyen NP [address] [place] [address] PCP - [facility] 08/19/23 Austin Gray MD [address] [place] [address] PCP - General Family Medicine 10/08/23 documented as of this encounter
--- OUTSIDE RECORDS SUMMARY | 2025-03-31 15:12 | XMS_ITS | Encounter Summary ---
Author Organization [employer] Address [facility]-[id number] [address] [place] [address] Care Team Providers Care Cigarette Seller Name Role Phone Frances Nguyen BRAND SALES CONSULTANT-BLADDER TRIMMER Primary Care Provider Reason for Visit * Reason Onset Date Comments Med Refill 09/13/2022 Encounter Details Date Type Department Care Team (Late st Contact Info) Description 09/13/2022 Refill [facility] Pul[facility]/Sleep Medicine [address] [address] Angelica Ervin MD [address] [place] [address] Chronic insomnia Social History Tobacco [...] documented as of this encounter Care Teams Cigarette Seller Relationship Specialty Start Date End Date Frances Nguyen, BRAND SALES CONSULTANT-BLADDER TRIMMER PCP - General Nurse Practitioner 08/02/23 documented as of this encounter
--- OUTSIDE RECORDS SUMMARY | 2025-03-31 15:12 | XMS_ITS | Encounter Summary ---
Author Organization [employer] [facility] tem Address [id number] [address] [place] [address] Care Team Providers Care Quantitative Developer Name Role Phone NnamdiFrances pena Asya MANAGER BACKGROUND-[facility] Primary Care Provider Encounter Details Date Type Department Care Team (Late st Contact Info) Description 10/25/2020 Orders Only [facility] [address] [place] [address] [facility] [address] [place] [address] Social History Tobacco Use Types [...] documented as of this encounter Care Teams Quantitative Developer Relationship Specialty Start Date End Date Frances Nguyen, MANAGER BACKGROUND-TECHNOLOGY ADMINISTRATOR PCP - General Nurse Practitioner 08/02/23 documented as of this encounter
--- OUTSIDE RECORDS SUMMARY | 2025-03-31 15:12 | XMS_ITS | Patient Health Record ---
Author Organization [facility] Address [address] [place] [address] Care Team Providers Care Retoucher Photoengraving Name Role Phone Mike Wilks Unavailable [phone] Allergies No Known Allergies Reason For Referral [...] Problem Status W/U Status Risk Notes Problem [id number] Dupuytren's contracture of both hands (M72.0) Active confirmed Problem [id number] Displaced fracture of proximal third of navicular [scaphoid] bone of right wrist, subsequent encounter for fracture with delayed healing (S62.031G) Active confirmed Plan Of Treatment Pending Test Test Name Order Date SCC- HAND 3 VIEW LEFT [id number] 12/09/2023 CT WRIST RIGHT WITHOUT CONTRAST 12/09/19 24 Insurance Providers Payer Name Payer Address Payer Phone Subscriber Number Group Number Insured Name Patient Relationship to Insured Coverage Start Date Coverage End Date [facility] [address] [place] [address] [id number] SPEEDY ROSEN Self - patient is the insured
--- OUTSIDE RECORDS SUMMARY | 2025-03-31 15:12 | XMS_ITS | Clinical Summary ---
Author Organization [employer] [facility] tem Address [facility]-[id number] [address] [place] [address] Care Team Providers Care Brake Repairer Bus Name Role Phone Frances Nguyen PODIATRY DOCTOR-PLANT ATTENDANT OR ASSISTANT OPERATOR Primary Care Provider Allergies No known [...] Medicine [address] [place] [place] [address] Annabella Osei MD Chronic insomnia (Primary Dx); MARGOTH (obstructive sleep apnea); Hypersomnia 01/12/2025 Telephone [facility]Sleep [facility] [address] [place] [address] Yeny Garduno RMA Medication Dosage 01/12/2025 Travel 12/29/2024 Telephone [facility] [address] [place] [address] SchElise harper CMA 12/29/2024 Telephone [facility] [address] [place] [address] Jovanna Quinones RMA from Last 3 [...] 01/12/2026 01/12/2025 Medical Devices Implanted Type Area Track Laying Equipment Operator Device Identifier Shelf Expiration Date Model / Serial / Lot Anch Sut 2.9mm Shldr Kntls Rpl [id number] - [id number] - [id number] Implanted:Qty: 3 on 08/07/2019 by Dain Marinelli DO at [facility] [place] [employer] Left: El[employer] 11/17/2019 [id number] / [id number] / [id number] Insurance Care Teams Brake Repairer Bus Relationship Specialty Start Date End Date Frances Nguyen, PODIATRY DOCTOR-PLANT ATTENDANT OR ASSISTANT OPERATOR PCP - General Nurse Practitioner 08/02/23
--- OUTSIDE RECORDS SUMMARY | 2025-03-31 15:12 | XMS_ITS | Encounter Summary ---
Author Organization [employer] [facility] Address [facility]-[id number] [address] [place] [address] Care Team Providers Care Consumer Insights Specialist Name Role Phone NnamdiFrances pena Asya PORK CUTLET MAKER-DENTURE WAXER Primary Care Provider Encounter Details Date Type Department Care Team (Late st Contact Info) Description 08/07/2023 [facility] [address] [address] Parisa Gandara Social History Tobacco [...] [place] Patient stated that he is extremely frustrated [...] documented as of this encounter Care Teams Consumer Insights Specialist Relationship Specialty Start Date End Date Frances Nguyen, PORK CUTLET MAKER-DENTURE WAXER PCP - General Nurse Practitioner 08/02/23 documented as of this encounter
--- OUTSIDE RECORDS SUMMARY | 2025-03-31 15:12 | XMS_ITS | Encounter Summary ---
Author Organization [employer] tem Address [facility] [id number] [address] [place] [address] Care Team Providers Care Rn Private Duty Name Role Phone NnamdiFrances pena MANAGER FAMILY-MEDICAL DEVICE SALES CONSULTANT Primary Care Provider Reason for Visit * Reason Onset Date Comments Medication update 06/22/2022 Encounter Details Date Type Department Care Team (Late st Contact Info) Description 06/22/2022 Telephone [facility] [address] [place] [address] Parisa Abad LPN Medication update Social [...] documented as of this encounter Care Teams Rn Private Duty Relationship Specialty Start Date End Date Frances Nguyen, MANAGER FAMILY-MEDICAL DEVICE SALES CONSULTANT PCP - General Nurse Practitioner 08/02/23 documented as of this encounter
--- OUTSIDE RECORDS SUMMARY | 2025-03-31 15:12 | XMS_ITS | Encounter Summary ---
Author Organization [facility] tem Address [id number] [address] [place] [address] Care Team Providers Care Casino Floor Runner Name Role Phone NnamdiFrances pena Asya NETWORK CONTRACTOR-[facility] Primary Care Provider Encounter Details Date Type Department Care Team (Late st Contact Info) Description 11/27/2022 Orders Only [facility] [address] [place] [address] [facility] [address] [place] [address] Social History Tobacco Use Types [...] documented as of this encounter Care Teams Casino Floor Runner Relationship Specialty Start Date End Date Frances Nguyen APRN-PEGA DEVELOPER PCP - General Nurse Practitioner 08/02/23 documented as of this encounter
--- OUTSIDE RECORDS SUMMARY | 2025-03-31 15:12 | XMS_ITS | Encounter Summary ---
Author Organization [employer] Address [facility] [id number] [address] [place] [address] Care Team Providers Care Embosser Operator Name Role Phone Frances Nguyen FELLER OPERATOR-ECOLOGICAL RISK ASSESSOR Primary Care Provider Reason for Visit * Reason Onset Date Comments Med Refill 03/07/2022 Encounter Details Date Type Department Care Team (Late st Contact Info) Description 03/07/2022 Refill [facility] [address] [place] [address] Tri Davidson LPN Anxiety Social [...] documented as of this encounter Care Teams Embosser Operator Relationship Specialty Start Date End Date Frances Nguyen, PAYAL-ECOLOGICAL RISK ASSESSOR PCP - General Nurse Practitioner 08/02/23 documented as of this encounter
--- OUTSIDE RECORDS SUMMARY | 2025-03-31 15:12 | XMS_ITS | Encounter Summary ---
Author Organization [facility] Address [address] [facility] [place] [address] Care Team Providers Care Building Illuminating Engineer Name Role Phone Frances Nguyen NP Unavailable [phone] Austin Gray MD Primary Care Provider [phone] Encounter Details Date Type Department Care Team (Late st Contact Info) Description 03/22/2025 Abstract [facility] [address] [place] [address] Frances Nguyen NP [address] [place] [address] Social History Tobacco Use Types Packs/Day Years [...] on filedocumented in this encounter Care Teams Building Illuminating Engineer Relationship Specialty Start Date End Date Frances Nguyen NP [address] [place] [address] PCP - [place] [employer] 08/19/23 Austin Gray MD [address] [place] [address] PCP - General Family Medicine 10/08/23 documented as of this encounter
--- OUTSIDE RECORDS SUMMARY | 2025-03-31 15:12 | XMS_ITS | Encounter Summary ---
Author Organization [facility] Address [address] [place] [place] [address] Care Team Providers Care Auto Body Painter Name Role Phone Austin Gray MD Primary Care Provider [phone] Frances Nguyen NP Unavailable [phone] Austin Gray MD Primary Care Provider Encounter Details Date Type Department Care Team (Late st Contact Info) Description 08/21/2023 Orders Only [facility] [address] [place] [place] [address] Frances Nguyen, [place] [address] [place] [address] Social History Tobacco Use Types Packs/Day Years [...] Right Radiogra phic Imaging us Frances Nguyen RETAIL CENTER RECEPTIONIST IMG XR PROCEDURES Final Result * XR hand 3+ views left (08/02/2023 1:26 PM EST) Anatomical Region Laterality Modality Upper Extremities, Hand Left Radiogra phic Imaging Frances Nguyen RETAIL CENTER RECEPTIONIST IMG XR PROCEDURES Final Result documented in this encounter Visit Diagnoses Not on filedocumented in this encounter Care Teams Auto Body Painter Relationship Specialty Start Date End Date Austin Gray MD PCP - General Family Medicine 03/15/23 10/07/23 Frances Nguyen NP [address] [place] [address] [facility] 08/19/23 Austin Gray MD [address] [place] [address] PCP - General Family Medicine 10/08/23 documented as of this encounter
--- OUTSIDE RECORDS SUMMARY | 2025-03-31 15:12 | XMS_ITS | Encounter Summary ---
Author Organization [employer] tem Address [id number] [address] [place] [address] Care Team Providers Care Digging Machine Operator Name Role Phone NnamdiFrances pena Asya [facility] Primary Care Provider Encounter Details Date Type Department Care Team (Late st Contact Info) Description 07/17/2021 Orders Only [facility] [address] [place] [address] Marleny Garcia [facility] [address] [place] [address] Social History Tobacco Use Types [...] documented as of this encounter Care Teams Digging Machine Operator Relationship Specialty Start Date End Date Frances Nguyen, PHARMACY MANAGER-FUEL RETROFITTING TECHNICIAN PCP - General Nurse Practitioner 08/02/23 documented as of this encounter
--- OUTSIDE RECORDS SUMMARY | 2025-03-31 15:12 | XMS_ITS | Encounter Summary ---
Author Organization [facility] Address [address] [place] [address] Care Team Providers Care Chief Warden Name Role Phone Austin Gray MD Primary Care Provider [phone] Frances Nguyen NP Unavailable [phone] Austin Gray MD Primary Care Provider [phone] Encounter Details Date Type Department Care Team (Late st Contact Info) Description 08/02/2023 External Result Encounter [facility] [address] [place] [address] Frances Nguyen, DRUPAL DEVELOPER [address] [place] [address] Social History Tobacco Use Types Packs/Day Years [...] AM EST THIS EXAM WAS PERFORMED AT [facility] Procedure: Lumbo-sacral spine radiographs performed Number of views:3 History:Low back pain remote trauma Comparison:None Findings: There is no fracture, malalignment, or destructive lesion. There is mild disc space narrowing at L5-S1. Vertebral body height is well-maintained. Impression: No acute findings. Finalized by Eddie Hemphill MD on 08/02/2023 9:26 AM Procedure Note Radiology, Radiologist, MD - 08/13/2023 THIS EXAM WAS PERFORMED AT [facility] Procedure: Lumbo-sacral spine radiographs performed Number of views:3 History:Low back pain remote trauma Comparison:None Findings: There is no fracture, malalignment, or destructive lesion.There is mild disc space narrowing at L5-S1. Vertebral body height iswell-maintained. Impression: No acute findings. Finalized by Eddie Hemphill MD on 08/02/2023 9:26 AM Frances Nguyen DRUPAL DEVELOPER IMG XR PROCEDURES Final Result * XR hand 3+ views right (08/02/2023 9:27 AM EST) Anatomical Region Laterality Modality Upper Extremities, Hand Right Radiogra phic Imaging 08/02/2023 9:27 AM EST Narrative 08/02/2023 9:26 AM EST THIS EXAM WAS PERFORMED AT [facility] Procedure: Right hand radiographs performed Number of views:3 History:Hand pain Comparison:None Findings: There is no fracture, dislocation, or destructive lesion. Joint space is well preserved. Impression: No acute findings. Finalized by Eddie Hemphill MD on 08/02/2023 9:26 AM Procedure Note Radiology, RadiologistMD - 08/13/2023 THIS EXAM WAS PERFORMED AT [facility] Procedure: Right hand radiographs performed Number of views:3 History:Hand pain Comparison:None Findings: There is no fracture, dislocation, or destructive lesion. Jointspace is well preserved. Impression: No acute findings. Finalized by Eddie Hemphill MD on 08/02/2023 9:26 AM Frances Wendy DRUPAL DEVELOPER IMG XR PROCEDURES Final Result * XR hand 3+ views left (08/02/2023 9:26 AM EST) Anatomical Region Laterality Modality Upper Extremities, Hand Left Radiogra phic Imaging 08/02/2023 9:26 AM EST Narrative 08/02/2023 9:25 AM EST THIS EXAM WAS PERFORMED AT [facility] Procedure: Left hand radiographs performed Number of views:3 History:Hand pain Comparison:None Findings: There is no fracture, dislocation, or destructive lesion. Joint space is well preserved. Impression: No acute findings. Finalized by Eddie Hemphill MD on 08/02/2023 9:25 AM Procedure Note Radiology, RadiologistMD - 08/13/2023 THIS EXAM WAS PERFORMED AT [facility] Procedure: Left hand radiographs performed Number [...] of a recent Streptococcus infection. Performed By: [employer] [address] [place] [address] Inspector Floor: Tuan Xiong MD, PhD CLIA Number: [id number] PERFORMED AT [address] [place] [address] 08/02/2023 9:00 AM EST 08/02/2023 9:05 AM EST Frances Nguyen NP LAB BLOOD ORDERABLES Final Resu lt [facility] * PRITI (08/02/2023 9:00 AM EST) PRITI SCREEN W/REFLEX Negative Negative [facility] Comment: Testing performed using multiplex flow immunoassay. Eleven different antigens associated with systemic autoimmune diseases (dsDNA,Sm,Sm/PLASTIC TILE LAYER,PLASTIC TILE LAYER,Chromatin, SSA,SSB,Alma-1,Scl70,Ribo P,Centromere B) are included in this screening test. PERFORMED AT [facility] [address],[place] [address] 08/02/2023 9:00 AM EST 08/02/2023 9:05 AM EST us Frances Nguyen DRUPAL DEVELOPER LAB BLOOD ORDERABLES Final Resu lt [facility] * Sedimentation rate, automated (08/02/2023 9:00 AM EST) ESR 3 0 - 15 mm/h [facility] 08/02/2023 9:00 AM EST 08/02/2023 9:05 AM EST us Frances Nguyen DRUPAL DEVELOPER LAB BLOOD ORDERABLES Final Resu lt Performing Organization Address City/[facility]/ZIP Co de Phone Number [facility] * Uric acid (08/02/2023 9:00 AM EST) URIC ACID 5.4 2.6 - 7.2 mg/dL [facility] Comment:PERFORMED AT [place] [address],[place] [address] 08/02/2023 9:00 AM EST 08/02/2023 9:05 AM EST us Frances Nguyen DRUPAL DEVELOPER LAB BLOOD ORDERABLES Final Resu lt Performing Organization Address [facility]/ZIP Co de Phone Number [facility] * C-reactive protein (08/02/2023 9:00 AM EST) C REACTIVE PROTEIN 0.1 0.000 - 0.744 mg/dL [facility] Comment:PERFORMED AT [place] [address],[place] [address] 08/02/2023 9:00 AM EST 08/02/2023 9:05 AM EST us Frances Nguyen DRUPAL DEVELOPER LAB BLOOD ORDERABLES Final Resu lt [facility] [...] not use a race coefficient. PERFORMED AT [address] [place] [address] 08/02/2023 9:00 AM EST 08/02/2023 9:05 AM EST us Frances Nguyen DRUPAL DEVELOPER LAB BLOOD ORDERABLES Final Resu lt [facility] * Rheumatoid factor (08/02/2023 9:00 AM EST) RHEUMATOID FACTOR 15 <20 IU/mL [facility] Comment:PERFORMED AT [address], [place] [address] 08/02/2023 9:00 AM EST 08/02/2023 9:05 AM EST us Frances Wendy DRUPAL DEVELOPER LAB BLOOD ORDERABLES Final Resu lt [facility] [...] 0.0 - 0.2 X10E9/L [facility] Comment:PERFORMED AT [facility] [address],[place] [address] 08/02/2023 9:00 AM EST 08/02/2023 9:05 AM EST us Frances Nguyen DRUPAL DEVELOPER LAB BLOOD ORDERABLES Final Resu lt [facility] documented in this encounter Visit Diagnoses Not on filedocumented in this encounter Care Teams Chief Warden Relationship Specialty Start Date End Date Austin Gray MD PCP - General Family Medicine 03/15/23 10/07/23 Frances Nguyen NP [address] [place] [address] PCP - [facility] 08/19/23 Austin Gray MD [address] [place] [address] PCP - General Family Medicine 10/08/23 documented as of this encounter
--- OUTSIDE RECORDS SUMMARY | 2025-03-31 15:12 | XMS_ITS | Encounter Summary ---
Author Organization [facility] Address [address] [place] [address] Care Team Providers Care Bowling Ball Marker Name Role Phone Frances Nguyen NP Unavailable [phone] Austin Gray MD Primary Care Provider [phone] Encounter Details Date Type Department Care Team (Late st Contact Info) Description 11/14/2024 External Result [facility] [address] [place] [address] Frances Nguyen NP [address] [place] [address] Social History Tobacco Use Types Packs/Day Years [...] PM EDT THIS EXAM WAS PERFORMED AT [facility] XR ELBOW LT MIN 3 VWS: 11/14/2024 [...] - 11/14/2024 THIS EXAM WAS PERFORMED AT [facility] XR ELBOW LT MIN 3 VWS: 11/14/2024 [...] MD on 11/14/2024 2:16 PM Frances Nguyen JD EDWARDS CONSULTANT IMG XR PROCEDURES Final Result * XR elbow 3+ views right (11/14/2024 11:51 AM EDT) Anatomical Region Laterality Modality Upper Extremities, Elbow Right Radiogr aphic Imaging 11/14/2024 11:5 1 AM EDT Narrative 11/14/2024 11:49 AM EDT THIS EXAM WAS PERFORMED AT [facility] Right elbow: HISTORY: Right elbow pain. 4 views of the right elbow were obtained. There is no acute osseous, articular, or soft tissue abnormality. IMPRESSION: Negative exam. Finalized by Paulo Howell MD on 11/14/2024 11:49 AM Procedure Note Radiology, Radiologist, - 11/14/2024 THIS EXAM WAS PERFORMED AT [facility] Right elbow: HISTORY: Right elbow pain. 4 views of the right elbow were obtained. There is no acute osseous,articular, or soft tissue abnormality. IMPRESSION: Negative exam. Finalized by Paulo Howell MD on 11/14/2024 11:49 AM Frances Nguyen NP IMG XR PROCEDURES Final Result documented in this encounter Visit Diagnoses Not on filedocumented in this encounter Care Teams Bowling Ball Marker Relationship Specialty Start Date End Date Frances Nguyen NP [address] [place] [address] PCP - [facility] 08/19/23 Austin Gray MD [address] [place] [address] PCP - General Family Medicine 10/08/23 documented as of this encounter
--- OUTSIDE RECORDS SUMMARY | 2025-03-31 15:12 | XMS_ITS | Encounter Summary ---
Author Organization [facility] tem Address [id number] [address] [place] [address] Care Team Providers Care Binding Stitcher Name Role Phone Frances Nguyen PHONE SCREENER-VEHICLE FARE COLLECTOR Primary Care Provider Encounter Details Date Type Department Care Team (Late st Contact Info) Description 03/07/2022 Telephone [facility] Family Medicine [address] [place] [address] Tri Davidson LPN Social History [...] documented as of this encounter Care Teams Binding Stitcher Relationship Specialty Start Date End Date Frances Nguyen, PAYAL-VEHICLE FARE COLLECTOR PCP - General Nurse Practitioner 08/02/23 documented as of this encounter
--- OUTSIDE RECORDS SUMMARY | 2025-03-31 15:13 | XMS_ITS | Clinical Summary ---
Author Organization [facility] Address [address] [place] [address] Care Team Providers Care Infrastructure Project Manager Name Role Phone Frances Nguyen NP Unavailable [phone] Austin Gray MD Primary Care Provider [phone] Allergies No known active allergies Medications pantoprazole [...] abnormal 08/07/2023 DDD (degenerative disc disease), lumbar 12/18/20 23 Overview (08/05/2023): Lumbar xray from 08/02/23: mild disc space narrowing at L5-S1 Assessment & Plan (10/19/2024 8:07 PM EST): Will send to Pain mgmt Resolved Problems Problem Noted Date Diagnosed Date Resolved Date Bursitis of right elbow 10/10/202309/20 Left elbow epicondylitis 10/10/2023 Encounters Date Type Department Care Team Description 03/22/2025 Abstract [facility] [address] [place] [address] Frances Nguyen NP 03/01/2025 Abstract [facility] [address] [place] [address] Frances Nguyen NP 02/16/2025 Clinisync Result Encounter [facility] External Department Unsolicited Provider, Generic External Data 02/16/2025 Clinisync Result Encounter [facility] External Department Unsolicited Provider, Generic External Data 01/20/2025 Refill [facility] [address] [place] [address] Frances Nguyen NP Poison claudia dermatitis (Primary Dx) 01/20/2025 Telephone [facility] [address] [place] [address] Frances Nguyen NP Poison Claudia from Last 3 Months Family History Medical [...] PM EDT XR EYE BILATERAL FOREIGN BODY 12363 02/16/2025 8:28 AM EDT from Last 3 Months Results * MR LUMBAR SPINE WO CON (02/16/2025 3:04 PM EDT) Anatomical Region Laterality Modality Other 02/16/2025 3:04 PM EDT Narrative 02/16/2025 3:06 [place] [address] Magnetic Resonance Report Signed Patient: NOLAN ROSEN MR#: [id number] : 1980 Acct:[id number] Age/Sex: 45 / M ADM Date: 02/16/25 Loc: RAD Attending Dr: Jessica Elizondo M.D. Ordering Physician: Jessica Elizondo M.D. Date of Service: 02/16/25 Procedure(s): MR lumbar spine wo con Accession Number(s): [id number] cc: Frances Nguyen NP; Jessica Elizondo M.D. [place] [address] Patient Name: NOLAN ROSEN MRN: [id number] date: 1980 Sex: M Assigned Patient Location: [facility] Current Patient Location: RAD Accession/Order Number: [id number] Exam Date: 02/16/2025 15:00 Report Date: 02/16/2025 [...] L4-L5. Impression dictated by: Vinh Nieto Jr., D.OLetty 02/16/2025 3:04 PM Dictation Location: [place] [address] Electronically authenticated by: [id number] Y Date: 02/16/2025 15:04 Dictated By: Vinh Nieto M.D. Signed By: 02/16/25 1506 DD/ 1504 TD/TT: Metal Miner: Procedure Note Radiology, Radiologist, - 02/16/2025 [place] [address] Magnetic Resonance Report Signed Patient: DMITRI ORSEN#: [id number] : 1980Acct:[id number] Age/Sex: 45 / MADM Date: 02/16/25 Loc: RAD Attending Dr: Jessica Elizondo M.D. Ordering Physician: Jessica Elizondo M.D. Date of Service: 02/16/25 Procedure(s): MR lumbar spine wo con Accession Number(s): [id number] cc: Frances Nguyen NP; Jessica Elizondo M.D. [place] [address] Patient Name: NOLAN ROSEN MRN: [id number] date: 1980 Sex: M Assigned Patient Location: [facility] Current Patient Location: [facility] Accession/Order Number: [id number] Exam Date: 02/16/2025 15:00 Report Date: 02/16/2025 [...] Jr., D.O. 02/16/2025 3:04 PM Dictation Location: [place] [address] Electronically authenticated by: [id number] Y Date: :04 Dictated By: Vinh Nieto M.D. Signed By:02/16/25 1506 DD/ 1504 TD/TT: Metal Miner: Generic External Data Provider [facility] Final Result * XR EYE BILATERAL FOREIGN BODY 08644 (02/16/2025 8:28 AM EDT) Anatomical Region Laterality Modality Radiographic Rhea ging 02/16/2025 8:28 AM EDT Narrative 02/16/2025 8:30 [place] [address] XRay Report Signed Patient: NOLAN ROSEN MR#: [id number] : 1980 Acct:[id number] Age/Sex: 45 / M ADM Date: 02/16/25 Loc: RAD Attending Dr: Jessica Elizondo M.D. Ordering Physician: Jessica Elizondo M.D. Date of Service: 02/16/25 Procedure(s): XR foreign body eye YUDITH Accession Number(s): [id number] cc: Frances Nguyen NP; Jessica Elizondo M.D. The [place] [address] Patient Name: NOLAN ROSEN MRN: [id number] date: 1980 Sex: M Assigned Patient Location: RAD Current Patient Location: RAD Accession/Order Number: [id number] Exam Date: 02/16/2025 08:27 Report Date: 02/16/2025 [...] Magallon M.D. 02/16/2025 8:28 AM Dictation Location: [place] [address] Electronically authenticated by: [id number] Y Date: 02/16/2025 08:28 Dictated By: Galina Magallon M.D. Signed By: 02/16/25829 DD/ 7 TD/TT: Metal Miner: Procedure Note Radiology, Radiologist, MD - 02/16/2025 [place] [address] XRay Report Signed Patient: DMITRI ROSEN#: [id number] : 1980Acct:[id number] Age/Sex: 45 / MADM Date: 02/16/25 Loc: RAD Attending Dr: Jessica Elizondo M.D. Ordering Physician: Jessica Elizondo M.D. Date of Service: 02/16/25 Procedure(s): XR foreign body eye YUDITH Accession Number(s): [id number] cc: Frances Nguyen HOUSEKEEPER CAREGIVER; Jessica Elizondo M.D. The [address] [address] Patient Name: NOLAN ROSEN MRN: [id number] date: 1980 Sex: M Assigned Patient Location: [facility] Current Patient Location: RAD Accession/Order Number: [id number] Exam Date: 02/16/2025 08:27 Report Date: 02/16/2025 [...] Magallon M.D. 02/16/2025 8:28 AM Dictation Location: [place] [address] Electronically authenticated by: [id number] Y Date: 508:28 Dictated By: Galina Magallon M.D. Signed By:02/16/25829 DD/ 7 TD/TT: Metal Miner: Generic External Data Provider IMG XR PROCEDURES Final Result from Last 3 Months Insurance [facility] Care Teams Infrastructure Project Manager Relationship Specialty Start Date End Date Frances Nguyen NP [address] [place] [address] PCP - [employer] [employer] 08/19/23 Austin Gray MD [address] [place] [address] PCP - General Family Medicine 10/08/23
--- NOTE | 2025-03-31 15:30 | P.CN_ITS ---
Consult Note: HPI Data of Consult Patient: known to practice within the last 3 years Consult date: 03/31/25 Requesting Physician: Katty Hughes NP Primary Care Provider: Frances Nguyen NP Consult Narrative Reason for consult: low back, bilateral leg pain Narrative: 45yom who presents for assessment. notes persistence of low back, bilateral lower extremity pain. mri reviewed, shows multilevel degenerative changes and disc bulging with resultant stenosis worst at l4-5. continues in a series of provider directed home exercises >6 weeks, without benefit. tried muscle relaxer. recently underwent bilateral L4-5 TFESI with 100% improvement per pt, pain 0/10 increasing to 0/10. has not utilized tylenol, nsaids, or tizanidine since his injection. cc:: CC: Katty Hughes NP [facility] Medical History (Updated 03/10/25 @ 12:27 by Mary Kimble RN) Hiatal hernia ?K44.9 - Diaphragmatic hernia without obstruction or gangrene (ICD-10) Acid reflux ?K21.9 - Gastro-esophageal reflux disease without esophagitis (ICD-10) Asthma ?J45.909 - Unspecified asthma, uncomplicated (ICD-10) Sleep apnea ?G47.30 - Sleep apnea, unspecified (ICD-10) Surgical History (Updated 03/10/25 @ 12:27 by Mary Kimble RN) History of hernia repair ?Z98.890 - Other specified postprocedural states (ICD-10) ?Z87.19 - Personal history of other diseases of the digestive system (ICD-10) Meds Home Medications and Allergies Home Medications ?Medication ?Instructions ?Recorded ?Confirmed ?Type pantoprazole 40 mg tablet,delayed 40 mg PO DAILY 11/1603/22/25 History release tizanidine 4 mg capsule 4 mg PO BID PRN muscle spast icity 11/16/24 03/22/25 History Exam Constitutional Documenting provider has reviewed patient's vital signs: yes Common normals: no apparent distress, oriented x3, healthy appearing, alert and well nourished General appearance: cooperative HENAK Common normals: normocephalic, hearing grossly normal bilaterally and moist oral mucous membranes Head and scalp: normocephalic Eye Common normals: PERRL Pupil: PERRL Neck & C-Spine Common normals: full ROM General: normal visual inspection Chest Common normals: inspection of chest normal Respiratory Common normals: normal respiratory effort, no retractions and no use of accessory muscles Back & Pelvis Lumbar spine/lower back: straight leg raise negative bilaterally; ROM not limited, no pain with ROM and no lumbar spinal tenderness Other: strength 5/5 in BLE sensation intact BLE Neuro Common normals: oriented x3 Sensorium/orientation: alert Psych Common normals: mental status grossly normal, thought process normal, cooperative, affect normal, speech normal and activity/motor behavior normal Speech: normal speech Thought process: normal thought process Assessment and Plan Assessment and Plan (1) Lumbar stenosis with neurogenic claudication: Assessment and Plan: 03/22/25 bilateral L4-5 TFESI 100% improvement ongoing Plan pain significantly improved, can utilize tizanidine prn as directed continue HEP as tolerated f/u 3 months, sooner if needed. as discussed with pt goal of KLARISSA is at least 50% improvement for 3 months
--- OUTSIDE RECORDS SUMMARY | 2025-03-31 16:05 | XMS_ITS | CCD ---
Author Organization [facility] Care Team Providers Care Trencher Driver Name Role Phone Wendy PAI GOW DEALER, Frances Unavailable Austin Gray MD Primary Care Provider [phone] Aichluis fernando PATTERNMAKER BENCH-CLIENT CUSTOMER MANAGERFrances Primary Care Provider Aichluis fernando PATTERNMAKER BENCH-CLIENT CUSTOMER MANAGER, Frances Asya Primary Care Provider Wendy PATTERNMAKER BENCH-CLIENT CUSTOMER MANAGER, Frances Sky Primary Care Provider GIAZ, FRANCES [...] Facil ity [place] [address] Magnetic Resonance Report Signed Patient: SPEEDY ROSEN MR#: [id number] : 1980 Acct:[id number] Age/Sex: 45 / M ADM Date: 02/16/25 Loc: RAD Attending Dr: Sorin Elizondo M.D. Ordering Physician: Sorin Elizondo M.D. Date of Service: 02/16/25 Procedure(s): MR lumbar spine wo con Accession Number(s): [id number] cc: Frances Nguyen NP; Sorin Elizondo M.D. [place] [address] Patient Name: SPEEDY ROSEN MRN: TBH:[id number] date: 1980 Sex: M Assigned Patient Location: [facility] Current Patient Location: [facility] Accession/Order Number: [id number] Exam Date: 02/16/2025 15:00 Report Date: 02/16/2025 [...] Jr., Martin.OLetty 02/16/2025 3:04 PM Dictation Location: [place] [address] Electronically authenticated by: [id number] Y Date: 02/16/2025 15:04 Dictated By: Vinh Nieto M.D. Signed By: 02/16/25 1506 DD/ 1504 TD/TT: Preform Machine Operator: [facility] Radiology, Radiologist, - 02/16/2025 [place] [address] Magnetic Resonance Report Signed Patient: SPEEDY ROSEN MR#: [id number] : 1980 Acct:[id number] Age/Sex: 45 / M ADM Date: 02/16/25 Loc: RAD Attending Dr: Sorin Elizondo M.D. Ordering Physician: Sorin Elizondo M.D. Date of Service: 02/16/25 Procedure(s): MR lumbar spine wo con Accession Number(s): [id number] cc: Frances Nguyen PAI GOW DEALER; Sorin Elizondo M.D. The [place] [address] Patient Name: SPEEDY ROSEN MRN: [id number] date: 1980 Sex: M Assigned Patient Location: [facility] Current Patient Location: [facility] Accession/Order Number: [id number] Exam Date: 02/16/2025 15:00 Report Date: 02/16/2025 [...] Jr., D.O. 02/16/2025 3:04 PM Dictation Location: [place] [address] Electronically authenticated by: [id number] Y Date: 02/16/2025 15:04 Dictated By: Vinh Nieto M.D. Signed By: 02/16/25 1506 DD/ 1504 TD/TT: Preform Machine Operator: [facility] [employer] Radiology Study observation (narrative) [facility] MR LUMBAR SPINE WO CONOrdere d By: Radiologist Radiology on 02-16-2025 [facility] [employer] Work Phone: XR EYE BILATERAL FOREIGN BOD Y [id number] 02-16-[address] [address] XRay Report Signed Patient: SPEEDY ROSEN MR#: [id number] : 1980 Acct:[id number] Age/Sex: 45 / M ADM Date: 02/16/25 Loc: RAD Attending Dr: Sorin Elizondo M.D. Ordering Physician: Sorin Elizondo M.D. Date of Service: 02/16/25 Procedure(s): XR foreign body eye YUDITH Accession Number(s): [id number] cc: Frances Nguyen NP; Sorin Elizondo M.D. The [address] [address] Patient Name: SPEEDY ROSEN MRN: [facility]:[id number] date: 1980 Sex: M Assigned Patient Location: [facility] Current Patient Location: [facility] Accession/Order Number: [id number] Exam Date: 02/16/2025 08:27 Report Date: 02/16/2025 [...] Magallon M.D. 02/16/2025 8:28 AM Dictation Location: [place] [address] Electronically authenticated by: [id number] Y Date: 02/16/2025 08:28 Dictated By: Galina Magallon M.D. Signed By: 02/16/25829 DD/ 7 TD/TT: Preform Machine Operator: [facility] Radiology, Radiologist, MD - 02/16/[address] [address] XRay Report Signed Patient: SPEEDY ROSEN MR#: [id number] : 1980 Acct:[id number] Age/Sex: 45 / M ADM Date: 02/16/25 Loc: RAD Attending Dr: Sorin Elizondo M.D. Ordering Physician: Sorin Elizondo M.D. Date of Service: 02/16/25 Procedure(s): XR foreign body eye YUDITH Accession Number(s): [id number] cc: Frances Nguyen PAI GOW DEALER; Sorin Elizondo M.D. The [place] [address] Patient Name: SPEEDY ROSEN MRN: TBH:[id number] date: 1980 Sex: M Assigned Patient Location: [facility] Current Patient Location: [facility] Accession/Order Number: [id number] Exam Date: 02/16/2025 08:27 Report Date: 02/16/2025 [...] Magallon M.D. 02/16/2025 8:28 AM Dictation Location: [place] [address] Electronically authenticated by: [id number] Y Date: 02/16/2025 08:28 Dictated By: Galina Magallon M.D. Signed By: 02/16/25829 DD/ 7 TD/TT: Preform Machine Operator: [facility] Radiology Study observation (narrative) [facility] XR EYE BILATERAL FOREIGN BOD Y [id number] By: Radiologist Radiology on 02-16-2025 [facility] [email or web address] Work Phone: XR ELBOW LT MIN [...] Robles MD on 11/14/2024 2:16 PM Normal [facility] XR ELBOW RT MIN 3 VWSon 03-2 XR ELBOW RT MIN 3 VWS XR ELBOW RT MIN 3 VWS Right elbow: HISTORY: Right elbow pain. 4 views of the right elbow were obtained. There is no acute osseous, articular, or soft tissue abnormality. IMPRESSION: Negative exam. Finalized by Paulo Howell MD on 11/14/2024 11:49 AM Normal [facility] XR Hip - right 3 [place] [address] XRay Report Signed Patient: SPEEDY ROSEN MR#: [id number] : 1980 Acct:[id number] Age/Sex: 44 / M ADM Date: 10/09/24 Loc: [facility] Attending Dr: Frances Nguyen NP Ordering Physician: Frances Nguyen NP Date of Service: 10/09/24 Procedure(s): XR hip RT min 2V Accession Number(s): [id number] cc: Frances Nguyen NP [place] [address] Patient Name: SPEEDY ROSEN MRN: TBH:[id number] date: 1980 Sex: M Assigned Patient Location: [facility] Current Patient Location: Accession/Order Number: [id number] Exam Date: 10/09/2024 11:56 Report Date: 10/09/2024 [...] Galina Magallon M.D.10/09/2024 12:02 PM Dictation Location: [place] [address] Electronically authenticated by: [id number] Y Date: 10/09/2024 12:02 Dictated By: Galina Magallon M.D. Signed By: 10/14/24 1035 DD/ 1202 TD/TT: Preform Machine Operator: [facility] Radiology, Radiologist, - 10/14/2024 [place] [address] XRay Report Signed Patient: SPEEDY ROSEN MR#: [id number] : 1980 Acct:[id number] Age/Sex: 44 / M ADM Date: 10/09/24 Loc: RAD Attending Dr: Frances Nguyen NP Ordering Physician: Frances Nguyen NP Date of Service: 10/09/24 Procedure(s): XR hip RT min 2V Accession Number(s): [id number] cc: Frances Nguyen NP The [address] [address] Patient Name: SPEEDY ROSEN MRN: [facility]:[id number] date: 1980 Sex: M Assigned Patient Location: RAD Current Patient Location: Accession/Order Number: [id number] Exam Date: 10/09/2024 11:56 Report Date: 10/09/2024 [...] Galina Magallon M.D.10/09/2024 12:02 PM Dictation Location: [place] [address] Electronically authenticated by: [id number] Y Date: 10/09/2024 12:02 Dictated By: Galina Magallon M.D. Signed By: 10/14/24 1035 DD/ 1202 TD/TT: Preform Machine Operator: [employer] XR Hip - right 3 ViewsOrdere d By: Radiologist Radiology on 10-14-2024 [facility] Work Phone: No Panel Informationon 10-09 Radiology Study observation (narrative) [facility] XR LUMBAR SPINE 2 OR [address] [address] XRay Report Signed Patient: SPEEDY ROSEN MR#: [id number] : 1980 Acct:[id number] Age/Sex: 44 / M ADM Date: 10/09/24 Loc: RAD Attending Dr: Frances Nguyen NP Ordering Physician: Frances Nguyen NP Date of Service: 10/09/24 Procedure(s): XR lumbar spine 2-3V Accession Number(s): [id number] cc: Frances Nguyen NP The [address] [address] Patient Name: SPEEDY ROSEN MRN: [facility]:[id number] date: 1980 Sex: M Assigned Patient Location: [facility] Current Patient Location: RAD Accession/Order Number: [id number] Exam Date: 10/09/2024 11:56 Report Date: 10/09/2024 [...] ACUTE PLAIN FILM FINDINGS. Impression dictated by: Glaina Magallon M.D.10/09/2024 12:02 PM Dictation Location: [place] [address] Electronically authenticated by: [id number] Y Date: 10/09/2024 12:02 Dictated By: Galina Magallon M.D. Signed By: 10/09/24 1207 DD/ 1202 TD/TT: Preform Machine Operator: [facility] Radiology, Radiologist, MD - 10/09/[address] [address] XRay Report Signed Patient: SPEEDY ROSEN MR#: [id number] : 1980 Acct:[id number] Age/Sex: 44 / M ADM Date: 10/09/24 Loc: [facility] Attending Dr: Frances Nguyen NP Ordering Physician: Frances Nguyen NP Date of Service: 10/09/24 Procedure(s): XR lumbar spine 2-3V Accession Number(s): [id number] cc: Frances Nguyen NP The [address] [address] Patient Name: SPEEDY ROSEN MRN: [id number] date: 1980 Sex: M Assigned Patient Location: [facility] Current Patient Location: [facility] Accession/Order Number: [id number] Exam Date: 10/09/2024 11:56 Report Date: 10/09/2024 [...] Galina Magallon M.D.10/09/2024 12:02 PM Dictation Location: [place] [address] Electronically authenticated by: [id number] Y Date: 10/09/2024 12:02 Dictated By: Galina Magallon M.D. Signed By: 10/09/241204 DD/ 01 TD/TT: Preform Machine Operator: [employer] XR LUMBAR SPINE 2 OR 3VOrder ed By: Radiologist Radiology on 10-09-2024 [facility] Work Phone: CERVICAL SPINE 4 OR 5 VIEWSo n 05-25-2021 CERVICAL SPINE 4 OR 5 VIEWS [facility] Department of Radiology [address] [place] [address] Patient Name: SPEEDY ROSEN : 1980 Sex: M Age: Race: White Pt. Location: Patient Status: O Ordered Date: 05/25/2021 9:30:00 AM Completed Date: 05/25/2021 09:39 AM Requesting Provider: EDWARD KRUGER Attending Provider: EDWARD KRUGER Report Copy To: Signs & Symptoms: M54.2 Cervicalgia I10 History: Erna Comments: Evaluate Exam: CERVICAL SPINE 4 OR [...] lordosis. Electronically signed: Paulo Howell. Transcribed by: [email or web address], User Resident: Electronically Signed by: PAULO HOWELL @ 05/25/2021 07:59 PM Normal The [facility] Comment on above: Order Comment: Evalu ate Vital Signs Date Time Vital Sign Value Performing Clinician Facility 01-12-2025 14:38-0400 Body height 182.9 cm Cl Thomas MD Work Phone: [facility] 01-12-2025 14:38-0400 Body mass index (BMI) [Ratio] 24.55 kg/m2 Cl Thomas MD Work Phone: [facility] 01-12-2025 14:38-0400 Body weight 82.1 kg Cl Thomas MD Work Phone: [facility] 01-12-2025 14:38-0400 Diastolic blood pressure 84 mm[Hg] Cl Thomas MD Work Phone: [facility] 01-12-2025 14:38-0400 Heart rate 74 /min Cl Thomas MD Work Phone: [facility] 01-12-2025 14:38-0400 SaO2% (BldA) [Mass fraction] 99 % Cl Thomas MD Work Phone: [facility] 01-12-2025 14:38-0400 Systolic blood pressure 118 mm[Hg] Cl Thomas MD Work Phone: [facility] 11-18-2024 20:50-0400 Body height 182.9 cm Pmh 3 [facility] 11-18-2024 20:50-0400 Body mass index (BMI) [Ratio] 24.01 kg/m2 Pm 3 [facility] 11-18-2024 20:50-0400 Body weight 80.29 kg Pmh 3 [facility] 10-19-2024 19:19-0500 Body mass index (BMI) [Ratio] 24.17 kg/m2 Francescristal Zamoraholz PAI GOW DEALER Work Phone: [facility] 10-19-2024 19:19-0500 Body temperature 98.8 [degF] Frances Seraholz PAI GOW DEALER Work Phone: [facility] 10-19-2024 19:19-0500 Body weight 80.83 kg Francescristal Zamoraholz PAI GOW DEALER Work Phone: [facility] 10-19-2024 19:19-0500 Diastolic blood pressure 86 mm[Hg] Frances Seraholz PAI GOW DEALER Work Phone: [facility] 10-19-2024 19:19-0500 Heart rate 76 /min Frances Seraholz PAI GOW DEALER Work Phone: [facility] 10-19-2024 19:19-0500 Respiratory rate 18 /min Frances Seraholz PAI GOW DEALER Work Phone: [facility] 10-19-2024 19:19-0500 SaO2% (BldA) [Mass fraction] 98 % Frances Seraholz PAI GOW DEALER Work Phone: [facility] 10-19-2024 19:19-0500 Systolic blood pressure 124 mm[Hg] Frances Seraholz PAI GOW DEALER Work Phone: [facility] 09-08-2024 15:23-0500 Diastolic blood pressure 84 mm[Hg] Frances Seraholz PAI GOW DEALER Work Phone: [facility] 09-08-2024 15:23-0500 Systolic blood pressure 122 mm[Hg] Frances Seraholz PAI GOW DEALER Work Phone: [facility] 09-08-2024 14:59-0500 Body mass index (BMI) [Ratio] 25.33 kg/m2 Frances Seraholz PAI GOW DEALER Work Phone: [facility] 09-08-2024 14:59-0500 Body temperature 97.81 [degF] Frances Seraholz PAI GOW DEALER Work Phone: [facility] 09-08-2024 14:59-0500 Body weight 84.73 kg Frances Zamoraluis fernando PAI GOW DEALER Work Phone: [facility] 09-08-2024 14:59-0500 Heart rate 81 /min Frances Zamoraluis fernando PAI GOW DEALER Work Phone: [facility] 09-08-2024 14:59-0500 Respiratory rate 19 /min Frances Zamoraluis fernando PAI GOW DEALER Work Phone: [facility] 09-08-2024 14:59-0500 SaO2% (BldA) [Mass fraction] 99 % Frances Zamoraluis fernando PAI GOW DEALER Work Phone: [facility] 06-02-2024 08:47-0400 Body height 182.9 cm Cl Thomas MD Work Phone: [facility] 06-02-2024 08:47-0400 Body mass index (BMI) [Ratio] 24.01 kg/m2 Cl Thomas MD Work Phone: [facility] 06-02-2024 08:47-0400 Body weight 80.29 kg Cl Thomas MD Work Phone: [facility] 06-02-2024 08:47-0400 Diastolic blood pressure 82 mm[Hg] Cl Thomas MD Work Phone: [facility] 06-02-2024 08:47-0400 Heart rate 74 /min Cl Thomas MD Work Phone: [facility] 06-02-2024 08:47-0400 SaO2% (BldA) [Mass fraction] 100 % Cl Thomas MD Work Phone: [facility] 06-02-2024 08:47-0400 Systolic blood pressure 120 mm[Hg] Cl Thomas MD Work Phone: [facility] 02-25-2024 14:33-0400 Body height 182.9 cm Cl Thomas MD Work Phone: [facility] 02-25-2024 14:33-0400 Body mass index (BMI) [Ratio] 23.42 kg/m2 Cl Thomas MD Work Phone: [facility] 02-25-2024 14:33-0400 Body weight 78.34 kg Cl Thomas MD Work Phone: [facility] 02-25-2024 14:33-0400 Diastolic blood pressure 88 mm[Hg] Cl Thomas MD Work Phone: [facility] 02-25-2024 14:33-0400 Heart rate 78 /min Cl Thomas MD Work Phone: [facility] 02-25-2024 14:33-0400 SaO2% (BldA) [Mass fraction] 98 % lC Thomas MD Work Phone: [facility] 02-25-2024 14:33-0400 Systolic blood pressure 135 mm[Hg] Cl Thomas MD Work Phone: [facility] Encounters Encounter Date Encounter Type Care Provider Facility Start: 03-01-2025 End: 03-01-2025 ambulatory Sorin Elizondo MD Facility:[facility] Start: 02-16-2025 End: 02-16-2025 Clinisync Result Encounter Generic External Data Provider [facility] External Department Unsolicited Start: 02-16-2025 End: 02-16-2025 Clinisync Result Encounter Generic External Data Provider [facility] External Department Unsolicited Start: 01-20-2025 End: 01-20-2025 Refill Frances Nguyen PAI GOW DEALER Work Phone: [facility] Comment on above: Poison mery dermatiti s (Primary Dx) Start: 01-12-2025 End: 01-12-2025 Office outpatient visit 25 minutes Cl Thomas MD Work Phone: [facility] Comment on above: Chronic insomnia (Pr imary Dx); MARGOTH (obstructive sleep apnea); Hypersomnia Start: 01-12-2025 End: 01-12-2025 ambulatory CL THOMAS [facility] Start: 01-12-2025 End: 01-12-2025 Telephone [...] End: 11-26-2024 Telephone encounter Jovanna Quinones Cristal [facility] Start: 11-25-2024 [...] Clinical Support Cl Thomas MD Work Phone: [facility] Comment on above: [...] Start: 11-15-2024 End: 11-15-2024 Refill Frances Nguyen PAI GOW DEALER Work Phone: [facility] Comment on above: Cervical pain (neck) ; Strain of right trapezius muscle, initial encounter Start: 11-14-2024 End: 11-14-2024 ambulatory FRANCES Sky WENDY [facility] Start: 10-20-2024 End: 10-20-2024 Telephone encounter Jovanna SPENCE [facility] Start: 10-19-2024 End: 10-19-2024 Office outpatient visit 25 minutes Frances Wendy PAI GOW DEALER Work Phone: [facility] Comment on above: SI joint arthritis ( CMS/HCC) (Primary Dx); Cervical pain (neck); Strain of right trapezius muscle, subsequent encounter; Bilateral elbow joint pain; Degeneration of intervertebral disc of lumbar region, unspecified whether pain present Start: 10-19-2024 End: 10-19-2024 ambulatory FRANCES ZAMORALUIS FERNANDO Not Available Start: 10-19-2024 End: 10-19-2024 Bamboo flowsheet Frances Wendy PAI GOW DEALER Work Phone: [facility] Start: 10-19-2024 End: 10-19-2024 Bamboo flowsheet Frances Nnamdiallysonluis fernando PAI GOW DEALER Work Phone: [facility] Start: 10-13-2024 [...] Start: 10-11-2024 End: 10-11-2024 Refill Frances Nguyen PAI GOW DEALER Work Phone: [facility] Comment on above: Cervical pain (neck) ; Strain of right trapezius muscle, initial encounter Start: 10-09-2024 End: 10-14-2024 Clinisync Result Encounter Frances Nguyen PAI GOW DEALER Work Phone: [facility] Unsolicited Start: 10-09-2024 End: 10-14-2024 Clinisync Result Encounter Frances Nguyen PAI GOW DEALER Work Phone: [facility] Unsolicited Start: [...] 09-30-2024 End: 09-30-2024 Bamboo flowsheet Parisa Calle OPERATING ROOM COORDINATOR [facility] Start: 09-30-2024 End: 09-30-2024 Bamboo flowsheet Parisa Walkery OPERATING ROOM COORDINATOR [facility] Start: 09-30-2024 End: 09-30-2024 [...] Office outpatient visit 25 minutes Frances Nguyen PAI GOW DEALER Work Phone: [facility] Comment on above: Strain of right trap ezius muscle, initial encounter (Primary Dx); Gastroesophageal reflux disease with esophagitis, unspecified whether hemorrhage; Cervical pain (neck); Degeneration of intervertebral disc of lumbar region, unspecified whether pain present Start: 09-08-2024 End: 09-08-2024 Bamboo flowsheet Frances Nguyen PAI GOW DEALER Work Phone: [facility] Start: 09-08-2024 End: 09-08-2024 Bamboo flowsheet Frances Nguyen PAI GOW DEALER Work Phone: [facility] Start: 06-03-2024 End: 06-03-2024 Telephone encounter [facility] Comment on above: Sleep Lab (CPAP) Start: 06-02-2024 End: 06-02-2024 Office outpatient visit 15 minutes Cl Thomas MD Work Phone: [facility] Comment on above: MARGOTH (obstructive sle ep apnea) (Primary Dx); Intolerance of continuous positive airway pressure (CPAP) ventilation; Hypersomnia; Awakens from sleep due to pain Start: 06-02-2024 End: 06-02-2024 ambulatory [facility] Start: 03-24-2024 End: 03-24-2024 Telephone encounter Cl Thomas MD Work Phone: [facility] Start: 02-25-2024 End: 02-25-2024 Office outpatient visit 15 minutes Cl Thomas MD Work Phone: [facility] Comment on above: MARGOTH (obstructive sle ep apnea) (Primary Dx); Chronic insomnia; Hypersomnia; Nasal congestion Start: 02-25-2024 End: 02-25-2024 ambulatory [facility] Start: 11-05-2023 Telephone encounter Cl Max MD Work Phone: [facility] Start: 10-03-2023 Refill Angelica Ervin MD Work Phone: [facility] Comment on above: Chronic insomnia Procedures Date Procedure Procedure Detail Performing Clinician Start: 02-16-2025 MR LUMBAR SPINE WO CON Generic External Data Provider Start: 02-16-2025 XR EYE BILATERAL FOR EIGN BODY 24960 Generic External Data Provider Start: 10-09-2024 Radex hip unilateral with pelvis 2-3 views Frances Nguyen PAI GOW DEALER Work Phone: Start: 10-09-2024 XR LUMBAR SPINE 2 OR 3V Frances Nguyen PAI GOW DEALER Work Phone: Start: 02-25-2024 Follow-up visit Follow-up CL THOMAS Start: 05-14-2022 Adult depression screening assessment Angelica Ervin MD Work Phone: Plan of Treatment Date Care Activity Detail Author Start: 01-12-2026 Adult BMI Screening Adult BMI Screen ing [facility] Start: 01-12-2026 Tobacco Screening Tobacco Screening [facility] Start: 11-18-2025 Adult BMI Screening Adult BMI Screen ing [facility] Start: 11-18-2025 Tobacco Screening Tobacco Screening [facility] Start: 06-02-2025 Adult BMI Screening Adult BMI Screen ing [facility] Start: 06-02-2025 Tobacco Screening Tobacco Screening [facility] Start: 04-19-2025 Influenza vaccination Influenza Vacc ine [facility] Start: 02-24-2025 Adult BMI Screening Adult BMI Screen ing [facility] Start: 02-24-2025 Tobacco Screening Tobacco Screening [facility] Start: 02-23-2025 End: 02-23-2025 Patient encounter procedure 02/23/2025 9:15 AM EDT Office Visit [facility] [place] [address] Cl Thomas MD [address] [address] [facility] Start: 01-12-2025 End: 01-12-2025 Patient encounter procedure 01/12/2025 2:45 PM EDT Office Visit [facility] [place] [address] Cl Thomas MD [address] [facility] [address] [place] [address] [facility] Start: 12-28-2024 End: 12-28-2024 Patient encounter procedure 12/28/2024 6:30 PM EDT Office Visit [facility] [address] [place] [address] Frances Nguyen, PAI GOW DEALER [address] [place] [address] [facility] Start: 12-22-2024 End: 12-22-2024 ambulatory 12/22/2024 6:00 PM EDT Treatment [facility] [address] [place] [address] Annabelle Martinez, PT [address] [facility] [address] [place] [address] [facility] Start: 12-14-2024 End: 12-14-2024 ambulatory 12/14/2024 4:00 PM EDT Treatment [facility] [address] [place] [address] Annabelle Martinez, PT [address] [facility] [address] [place] [address] [facility] Start: 12-08-2024 End: 12-08-2024 ambulatory 12/08/2024 6:00 PM EDT Treatment [facility] [address] [place] [address] Annabelle Martinez, PT [address] [place] [address] [facility] Start: 12-03-2024 End: 12-03-2024 ambulatory 12/03/2024 4:30 PM EDT Treatment [facility] [address] [place] [address] Annabelle Martinez, PT [address] [place] [address] [facility] Start: 12-01-2024 End: 12-01-2024 ambulatory 12/01/2024 4:00 PM EDT Treatment [facility] [address] [place] [address] Annabelle Martinez, PT [address] [place] [address] [facility] Start: 11-26-2024 End: 11-26-2024 ambulatory 11/26/2024 5:00 PM EDT Treatment [facility] [address] [place] [address] Ranjan Britt, PHILIPP [facility] Start: 11-24-2024 End: 11-24-2024 ambulatory 11/24/2024 6:00 PM EDT Treatment [facility] [address] [place] [address] Annabelle Martinez, PT [address] [place] [address] [facility] Start: 11-18-2024 End: 11-18-2024 Clinical Support 11/18/2024 8:00 PM EDT Clinical Support [facility] [address] [place] [id number] Cl Thomas MD [address] [facility] [address] [place] [address] [facility] Start: 10-21-2024 End: 10-21-2024 Patient encounter procedure 10/21/2024 6:00 PM EST Office Visit [facility] [address] [place] [address] Frances Nguyen NP [address] [place] [address] [facility] Start: 10-19-2024 End: 10-19-2024 [...] Treatment [facility] [address] [facility] [address] [place] [address] Annabelle Martinez, PT [address] [facility] [address] [place] [address] [facility] Start: 10-13-2024 End: 10-13-2024 Patient encounter procedure 10/13/2024 2:15 PM EST Office Visit [facility] [address] [facility] [place] [id number] Cl Thomas MD [address] [facility] [address] [place] [address] [facility] Start: 10-06-2024 End: 10-06-2024 ambulatory 10/06/2024 4:30 PM EST Treatment [facility] [address] [place] [address] [place] [address] Annabelle Martinez, PT [address] [place] [address] [place] [address] [facility] Start: 10-01-2024 End: 10-01-2024 ambulatory 10/01/2024 5:00 PM EST Treatment [facility] [address] [place] [address] [place] [address] Parisa Calle, OPERATING ROOM COORDINATOR Arrived [facility] Comment on above: Arrived Start: 09-22-2024 End: 09-22-2024 ambulatory 09/22/2024 4:30 PM EST Treatment [facility] [address] [place] [address] [place] [address] Annabelle Martinez, PT [address] [place] [address] [place] [address] [facility] Start: 09-16-2024 End: 09-16-2024 ambulatory 09/16/2024 4:30 PM EST Treatment [facility] [address] [place] [address] [place] [address] Annabelle Martinez, PT [address] [place] [address] [place] [address] [facility] Start: 09-09-2024 End: 09-09-2024 ambulatory 09/09/2024 1:00 PM EST Evaluation [facility] [address] [place] [address] [place] [address] Annabelle Martinez, PT [address] [place] [address] [place] [address] [facility] Start: 09-08-2024 End: 09-08-2025 [...] Support 06/29/2024 8:00 PM EST Clinical Support [facility] [address] [place], [place] [address] [place] [id number] Cl Thomas MD [address] [place] [address] [facility] Start: 06-02-2024 End: 06-02-2024 Patient encounter procedure 06/02/2024 8:45 AM EDT Office Visit [facility] [address] [facility] [place] [address] Cl Thomas MD [address] [address] [facility] Start: 04-19-2024 Influenza vaccination Influenza Vacc ine [facility] Start: 02-27-2024 Adult BMI Screening Adult BMI Screen ing [facility] Start: 02-27-2024 Tobacco Screening Tobacco Screening [facility] Start: 01-07-2024 End: 01-07-2024 Patient encounter procedure 01/07/2024 9:30 AM EDT [facility] [address] [place] [phone] Cl Thomas MD [address] [facility] [address] [place] [address] [facility] Start: 01-02-2024 End: 01-02-2024 Clinical Support 01/02/2024 8:00 PM EDT Clinical Support [facility] [address] [facility] [place] [address] Angelica Ervin MD [address] [place] [place] [address] [facility] Start: 05-14-2023 Depression Screening Depression Scre ening [facility] Start: 04-19-2023 Influenza vaccination Influenza Vacc ine [facility] Start: 01-28-2000 DTaP,Tdap and Td Vac cines (1 - Tdap) DTaP,Tdap and Td Vaccines (1 - Tdap) [facility] End: 06-02-2025 Polysomnography 4 or more parameters with PAP titration Polysomnography 4 or more parameters with PAP titration Sleep Center Routine MARGOTH (obstructive sleep apnea) 1 Occurrences starting 06/02/2024 until 06/02/2025 [facility] Work Phone: Comment on above: 1 Occurrences starti ng 06/02/2024 until 06/02/2025 Payers Date Payer Category [facility] [id number] 2023 [employer] - PPO ANTHEM [id number] 2023 Unknown [id number] [id number]. [id number] 2023 Unknown [id number] 1981 Unknown [id number] 2.16840.1.753989.3.579. 2.1285 1981 Unknown [id number] 2.16.840.1.782496.3.579. 2.1285 1981 Unknown [id number] 2.16.840.1.849979.3.579. 2.1285 1981 Unknown [id number] 2.16.840.1.409206.3.579. 2.1258 1981 Unknown [id number] 2.16.840.1.714189.3.579. 2.1258 1981 Unknown [id number] 2.16.840.1.064795.3.579. 2.1258 1981 Unknown [id number] 2.16.840.1.439816.3.579. 2.1258 1981 Unknown [id number] 2.16.840.1.539749.3.579. 2.1258 1981 Unknown [id number] 2.16.840.1.822077.3.579. 2.1258 1981 Unknown [id number] 2.16.840.1.509018.3.579. 2.1258 1981 Unknown [id number] 2.16.840.1.435626.3.579. 2.1258 1981 Unknown [id number] 2.16.840.1.542350.3.579. 2.1258 1981 Unknown [id number] 2.16.840.1.197396.3.579. 2.1258 1981 Unknown [id number] 2.16.840.1.755382.3.579. 2.1258 1981 Unknown [id number] 2.16840.1.987804.3.579. 2.1258 1981 Unknown [id number] 2.16.840.1.177023.3.579. 2.1258 1981 Unknown [id number] 2.16.840.1.003907.3.579. 2.1258 1981 Unknown [id number] 2.16.840.1.030680.3.579. 2.1285 1981 Unknown [id number] 2.16840.1.631247.3.579. 2.1285 1981 Unknown [id number] 2.16840.1.681742.3.579. 2.1285 1981 Unknown [id number] 2.16840.1.195008.3.579. 2.196 1981 Unknown [id number] 2.16840.1.861595.3.579. 2.196 Social History Date Type Detail Facility Start: 06-05-2022 End: 10-10-2023 Tobacco smoking status NHIS Never smoked tobacco [facility] Start: 06-05-2022 End: 10-10-2023 Tobacco use and exposure Smokeless tobacco non-user [facility] Start: 11-11-2023 End: 10-19-2024 Alcoholic beverage intake Current drinker of alcohol (finding) [facility] Start: 10-10-2023 End: 11-11-2023 History of Social function [facility] Start: 10-10-2023 End: 11-11-2023 Tobacco use panel [facility] Start: 10-09-2023 Alcohol Comment 1-2 drinks 2-3 times a week, caffeine 1-2 cups per day [facility] Start: 1980 Sex assigned at Not on file [facility] Adolescent depressio n screening assessment 0 [facility] Start: 05-15-2017 Alcohol Comment Only a few bee rs a week, not typically every night [facility] Start: 03-24-2015 Sex Male (finding) [facility] Medical Equipment Procedure Code Equipment Code Equipment Origin al Text Equipment Identifier Dates Anch Sut 2.9mm S hldr Kntls Rpl [id number] - [id number] - [id number] Start: 08-07-2019 Clinical Notes 11-05-2023 to 01-12-2025 Telephone Encounter - BEBE Mary - 01/12/2025 3:59 PM EDTTelephone Encounter - Cl Thomas MD - 01/12/2025 3:59 PM EDTTelephone Encounter - BEBE Mary - 01/12/2025 3:59 PM EDT Note Date & Type Note Facility 01-12-2025 Miscellaneous Notes [facility] They need clarification on Rx. Is it supposed to be 30 for 30 days or 10 for 10 days? I [facility] message [facility], 30 day supply was intended documented in this encounter [facility] 01-12-2025 Telephone encounter Note Received call from [facility]. They need clarification on Rx. Is it supposed to be 30 for 30 days or 10 for 10 days? [facility] 01-12-2025 Telephone encounter Note I left message with [facility] pharmacy, 30 day supply was intended [facility] 01-12-2025 History of Presen t illness Narrative Images from the original note were not included. Images from the original note were not included. CHIEF COMPLAINT: Speedy Rosen is a 44 y.o. male who presents to [facility] in follow-up [...] chin strap, denies trouble tolerating the mask. [place] Sleepiness Scale: Sitting and Reading: (!) High [...] 08/07/2019 Performed by Dain Marinelli DO at [facility] ALLERGIES: No Known Allergies MEDICATIONS: Current Outpatient [...] Sleep Study Results: Titration study on 11/18/2024 (Qbtxgl=886.0 lbs; BMI=24.2 kg/m2) DIAGNOSIS: ? Obstructive Sleep [...] and NREM sleep. PSG 10/24/22 AHI 21.1 [id number] 92% Dx MARGOTH IMPRESSION/RECOMMENDATIONS: 1. Chronic insomnia [...] sedating substances as this may cause excess AIRPLANE RENTAL CLERK depression/altered mentation. 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 MARGOTH treatment options were discussed. CPAP is the most predictably effective treatment. Above plan as discussed with the patient who acknowledged understanding and agreement. CL THOMAS MD [facility] [address] [facility] [place] [address] documented in this encounter [facility] 01-12-2025 Instructions Cl Thomas MD - 01/12/2025 [...] sedating substances as this may cause excess AIRPLANE RENTAL CLERK depression/altered mentation. - The patient was advised to only take the medication if they have adequate time to devote to sleep (must have a full night sleep - 8 hrs) and not to drive or perform tasks requiring full mental alertness the next morning until the know how the medication affects them The following attachments cannot be sent through Care Everywhere.[place], ADULT (Bahamian)documented in this encounter [facility] 12-29-2024 Miscellaneous Notes Pressure change done in office and pressure change order faxed to [facility] for their records. documented in this encounter [facility] 12-29-2024 Telephone encounter Note Pressure change done in office and pressure change order faxed to [facility] for their records. [facility] 12-29-2024 Miscellaneous Notes Images from the original [...] need RV for compliance and address insomnia Crane Operator called patient and informed him that per AD: Cl Thomas MD Physician Signed 1449 Pressure change auto CPAP 12-[address] should not drive if excessively sleepy He slept for 375 min on the sleep study, although sleep was broken Will need RV for compliance and address insomnia Crane Operator scheduled patient for follow up with AD on 01/12/2025. documented in this encounter [facility] 12-29-2024 Telephone encounter Note Images from the [...] soon as possible. Please review and advise. [facility] 12-29-2024 Telephone encounter Note Pressure change auto CPAP 12-[address] should not drive if excessively sleepy He slept for 375 min on the sleep study, although sleep was broken Will need RV for compliance and address insomnia [facility] 12-29-2024 Telephone encounter Note Crane Operator called patient and informed him that per AD: Cl Thomas MD Physician Signed 1449 Pressure change auto CPAP 12-20 Agree he should not drive if excessively sleepy He slept for 375 min on the sleep study, although sleep was broken Will need RV for compliance and address insomnia Crane Operator scheduled patient for follow up with AD on 01/12/2025. [facility] 12-22-2024 History of Presen t illness Narrative [...] to be instructed in home exercise program. Pellet Machine Operator Goals: To be met in 10 weeks [...] sign below. Date: documented in this encounter [facility] 12-08-2024 History of Presen t illness Narrative [...] to be instructed in home exercise program. Pellet Machine Operator Goals: To be met in 10 weeks [...] sign below. Date: documented in this encounter [facility] 12-01-2024 History of Presen t illness Narrative [...] to be instructed in home exercise program. Penitentiary Goals: To be met in 10 weeks [...] sign below. Date: documented in this encounter [facility] 11-26-2024 Miscellaneous Notes Patient called office about having a titration completed on 11/18/2024, patient stated that he needs to have a pressure change and a chin strap. Crane Operator informed patient that AD will read the titration and then result it to our sleep coordinators and they will contact patient to inform him if any pressure changes need made. Patient verbalized understanding. documented in this encounter [facility] 11-26-2024 Telephone encounter Note Patient called office about having a titration completed on 11/18/2024, patient stated that he needs to have a pressure change and a chin strap. Crane Operator informed patient that AD will read the titration and then result it to our sleep coordinators and they will contact patient to inform him if any pressure changes need made. Patient verbalized understanding. [facility] 11-24-2024 History of Presen t illness Narrative [...] to be instructed in home exercise program. Pellet Machine Operator Goals: To be met in 10 weeks [...] sign below. Date: documented in this encounter [facility] 11-18-2024 History of Presen t illness Narrative [...] to be instructed in home exercise program. Pellet Machine Operator Goals: To be met in 10 weeks [...] sign below. Date: documented in this encounter [facility] 10-20-2024 Miscellaneous Notes Patient stopped in office and stated that he tried to contact the sleep lab to see what he needed to bring with him for his titration study that is scheduled for tonight, securities underwriter informed him to wear comfortable pajamas, [...] that he has to have another study. Crane Operator explained to patient that he has had pressure changes in the past by Dr. Ervin and that those had not helped so the next step is a sleep study, patient verbalized understanding and walked out of office. documented in this encounter [facility] 10-20-2024 Telephone encounter Note Patient stopped in office and stated that he tried to contact the sleep lab to see what he needed to bring with him for his titration study that is scheduled for tonight, securities underwriter informed him to wear comfortable pajamas, [...] that he has to have another study. Crane Operator explained to patient that he has had pressure changes in the past by Dr. Ervin and that those had not helped so the next step is a sleep study, patient verbalized understanding and walked out of office. [facility] 10-19-2024 History of Presen t illness Narrative [...] TENDON RELEASE 07/2019 Left partial lateral epicondylectomy slide fastener repairer tendon release/Bondra family history includes Arthritis in [...] relaxer as well documented in this encounter [facility] 10-19-2024 Instructions Frances Nguyen NP - 10/19/2024 7:30 PM EST Low back: refer to pain mgmt: Dr Nikos Garza Check elbow xray documented in this encounter [facility] 10-13-2024 History of Presen t illness Narrative [...] right upper trapezius muscle flexibility Strength: right journalists and other writers 100#, left journalists and other writers 110#, bilateral UE 5/5 Treatment: PT evaluation [...] to be instructed in home exercise program. Pellet Machine Operator Goals: To be met in 10 weeks [...] sign below. Date: documented in this encounter [facility] 10-12-2024 Miscellaneous Notes Patient called office back and stated that he does not wish to reschedule his appointment at this time due to him needing to reschedule his sleep study, patient stated that he hasn't been able to use his machine and that he really needs to get his sleep study before returning to the office, securities underwriter transferred patient to the sleep lab to reschedule his sleep study, patient stated that he would call our office back to reschedule. documented in this encounter [facility] 10-12-2024 Telephone encounter Note Patient called office back and stated that he does not wish to reschedule his appointment at this time due to him needing to reschedule his sleep study, patient stated that he hasn't been able to use his machine and that he really needs to get his sleep study before returning to the office, securities underwriter transferred patient to the sleep lab to reschedule his sleep study, patient stated that he would call our office back to reschedule. [facility] 10-12-2024 Miscellaneous Notes Patient left [employer] message wanting to cancel appointment and stated Nothing has changed. I haven't done the study . Crane Operator attempted to call patient to reschedule appointment, voicemail box was full, unable to leave message. [facility]12[facility] Telephone encounter Note Patient left [employer] message wanting to cancel appointment and stated Nothing has changed. I haven't done the study . Crane Operator attempted to call patient to reschedule appointment, voicemail box was full, unable to leave message. [facility] 10-06[facility] History of Presen t illness Narrative [...] right upper trapezius muscle flexibility Strength: right journalists and other writers 100#, left journalists and other writers 110#, bilateral UE 5/5 Treatment: PT evaluation [...] to be instructed in home exercise program. Pellet Machine Operator Goals: To be met in 10 weeks [...] sign below. Date: documented in this encounter [facility] 09-29-2024 History of Presen t illness Narrative [...] right upper trapezius muscle flexibility Strength: right journalists and other writers 100#, left journalists and other writers 110#, bilateral UE 5/5 Treatment: PT evaluation [...] to be instructed in home exercise program. Pellet Machine Operator Goals: To be met in 10 weeks [...] sign below. Date: documented in this encounter [facility] 09-22-2024 History of Presen t illness Narrative [...] right upper trapezius muscle flexibility Strength: right journalists and other writers 100#, left journalists and other writers 110#, bilateral UE 5/5 Treatment: PT evaluation [...] to be instructed in home exercise program. Pellet Machine Operator Goals: To be met in 10 weeks [...] sign below. Date: documented in this encounter [facility] 09-16-2024 History of Presen t illness Narrative [...] right upper trapezius muscle flexibility Strength: right journalists and other writers 100#, left journalists and other writers 110#, bilateral UE 5/5 Treatment: PT evaluation [...] to be instructed in home exercise program. Pellet Machine Operator Goals: To be met in 10 weeks [...] sign below. Date: documented in this encounter [facility] 09-08-2024 History of Presen t illness Narrative [...] TENDON RELEASE 07/2019 Left partial lateral epicondylectomy slide fastener repairer tendon release/Bondra family history includes Arthritis in [...] to Physical Therapy documented in this encounter [facility] 09-08-2024 Instructions Frances Nguyen NP - 09/08/2024 2:40 PM EST Will use muscle relaxer at bedtime as needed PT Fu in 6 weeks documented in this encounter [facility] 06-03-2024 Miscellaneous Notes 06/02 order received Scheduled CPAP at [facility] on 06/29 Confirmation antionette Cortez pre auth for ins [employer] blue access CPAP order & 06/02 Thomas notes in [facility] documented in this encounter [facility] [email or web address] [facility] 06-03-2024 Telephone encounter Note 06/02 order received Scheduled CPAP at [facility] on 06/29 Confirmation antionette Patelted pre auth for ins [employer] blue access CPAP order & 06/02 Thomas notes in epic [facility] [email or web address] [facility] 06-02-2024 History of Presen t illness Narrative CHIEF COMPLAINT: Speedy Rosen is a 44 y.o. 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1 [id number] 92% Dx MARGOTH IMPRESSION/RECOMMENDATIONS: 1. MARGOTH (obstructive [...] he would want to have a permanent diagnostic medical sonographer in his body. 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 MARGOTH treatment options were discussed. CPAP is the most predictably effective treatment. Above plan as discussed with the patient who acknowledged understanding and agreement. CL THOMAS MD [facility] [address] [facility] [address] documented in this encounter [facility] 06-02-2024 Instructions Cl Thomas MD - 06/02/2024 8:45 AM EDT Mandibular advancing oral appliance for MARGOTH Custom made and adjustable ENT: Dr. Marissa Garcia ([facility]), phone: [phone] Dr. Lana Carson ([facility]), phone: [phone] Dentists: Dr. Roberth Murcia, phone [phone], [place], [address] Dr. Devendra Sesay ([facility] Accredited) [facility] [address] Chris Rogers [facility] [place], [place] [id number] Dr. Rl Coronado [address] [place], [place] [id number] Dr. Ignacio Pérez [address] [place] [address] Thank you for visiting [facility] office. The process of completing a sleep study has many steps. We have detailed these steps below to help keep you informed of what to expect. The scheduling, prior authorization, and registration process: Please call [phone] option #1 to schedule your sleep study. Your sleep medicine specialist places an electronic order which is sent to [facility] sleep lab. This order is then reviewed by the lab staff and a request for approval is sent to your insurance company. If you would like to know the estimated cost of your study, you can call [phone] for general pricing information (note that you will need the following procedure codes allow them to estimate the cost: Polysomnogram (PSG), in lab diagnostic study without CPAP = 69803 PAP titration, in lab with CPAP for treatment = 13050 Home sleep study = 23426 Every study request is reviewed in our [...] lab back to update our scheduling staff ([phone] option #1). You should receive a call [...] your sleep study is sent to a chemistry quality control technician to be reviewed and scored. The report from the chemistry quality control technician is then sent to the sleep medicine physician and within 7-10 days the study will be formally interpreted. Once the study is completed, there will be contact from our office (through [employer], phone, or a letter) about next steps (ie treatment for sleep apnea, office appointment, cpap machine orders). If a cpap machine has been ordered and you do not hear from the equipment company within 30 days of your study, please call our office [phone]. FYI: Some insurance companies have strict guidelines regarding the timeline for this process. If sleep studies are not completed within 6-12 months of the office visit insurance may require another office visit. Also if cpap set up is not done within a year of the initial sleep study insurance may require another sleep study. Thank you, [facility] Sleep [facility] Department documented in this encounter [facility] 03-24-2024 Miscellaneous Notes ----- Message from Dr. Cl Thomas MD sent at 02/25/2024 2:50 PM EDT ----- Regarding: check 1 mo Check download Please obtain updated download for review documented in this encounter [facility] 03-24-2024 Telephone encounter Note ----- Message from Dr. Cl Thomas MD sent at 02/25/2024 2:50 PM EDT ----- Regarding: check 1 mo Check download [facility] 03-24-2024 Telephone encounter Note Please obtain updated download for review [facility] 02-25-2024 History of Presen t illness Narrative Images from the original note were not included. CHIEF COMPLAINT: Speedy Rosen is a 44 y.o. male who presents to [facility] in follow-up for MARGTOH and insomnia The patient was unaccompanied. 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 MARGOTH treatment options were discussed. CPAP is the most predictably effective treatment. Interim measures to reduce obstructive sleep apnea severity were recommended (avoidance of the supine position and elevation of the upper body and during sleep). Above plan as discussed with the patient who acknowledged understanding and agreement. CL THOMAS MD [facility] [address] [place] [address] documented in this encounter [facility] 02-25-2024 Instructions Cl Thomas MD - 02/25/2024 2:30 PM EDT AstePro nasal spray - over the counter per package directions for congestion Retry CPAP - we can adjust the pressure as needed documented in this encounter [facility] 11-05-2023 Miscellaneous Notes error documented in this encounter [facility] 11-05-2023 Telephone encounter Note error [facility] Work Phone: Evaluation note Diagnosis Bilateral hand [...] muscle, initial encounter documented in this encounter [facility] HealthcareEvaluation note* Diagnosis Chronic insomnia Insomnia, unspecified documented in this encounter [facility] SystemEvaluation note* Diagnosis MARGOTH (obstructive sleep apnea)- Primary Obstructive sleep apnea (adult) (pediatric) Chronic insomnia Insomnia, unspecified Hypersomnia Hypersomnia, unspecified Nasal congestion Other diseases of nasal cavity and sinuses documented in this encounter [facility] SystemEvaluation note* Diagnosis MARGOTH (obstructive sleep apnea)- Primary Obstructive sleep apnea (adult) (pediatric) Intolerance of continuous positive airway pressure (CPAP) ventilation Hypersomnia Hypersomnia, unspecified Awakens from sleep due to pain documented in this encounter [facility] SystemEvaluation note* Diagnosis Bilateral hand pain- Primary Gastroesophageal reflux disease with esophagitis, unspecified whether hemorrhage Dermatitis- Primary Contact dermatitis and other eczema, due to unspecified cause Cervical pain (neck) Cervicalgia Strain of right trapezius muscle, initial encounter documented in this encounter [facility] HealthcareEvaluation note* Diagnosis Bilateral hand pain- Primary Gastroesophageal reflux disease with esophagitis, unspecified whether hemorrhage Dermatitis- Primary Contact dermatitis and other eczema, due to unspecified cause SI joint arthritis (CMS/HCC)- Primary Cervical pain (neck) Cervicalgia Strain of right trapezius muscle, subsequent encounter Bilateral elbow joint pain Degeneration of intervertebral disc of lumbar region, unspecified whether pain present documented in this encounter [facility] HealthcareEvaluation note* Diagnosis Bilateral hand pain- [...] muscle, initial encounter documented in this encounter [facility] HealthcareEvaluation note* Diagnosis MARGOTH (obstructive sleep apnea) Obstructive sleep apnea (adult) (pediatric) [facility] Diagnosis Bilateral hand pain- [...] mery dermatitis- Primary documented in this encounter [facility] HealthcareInstructionsNot on filedocumented in [facility] SystemInstructionsNot on filedocumented in this [facility]Pro[facility] SystemInstructionsNot on filedocumented in this [facility]Pro[facility] SystemInstructionsNot on filedocumented in this [facility] InstructionsNot on filedocumented in this [facility] InstructionsNot on filedocumented in this encounterProA[facility] SystemReason for visit Narrative* Consultation (Routine) - Authorized Specialty Diagnoses / Procedures Referred By Rosamaria campos Referred To Contact Physical Therapy Diagnoses Cervical pain (neck) Strain of right trapezius muscle, initial encounter Degeneration of intervertebral disc of lumbar region, unspecified whether pain present Procedures [place] OFFICE/OUTPATIENT NEW HIGH MDM 60 MINUTES Frances Nguyen NP [address] [place] [address] Phone: tel: fax: Annabelle Martinez, PT [address] [address] Phone: tel: fax: Referral ID Status Reason Start Date Expiration Date Visits Requested Visits Authorized [id number] Authorized Consult and Treat 09/09/2024 11/07/2024 6 6 [facility] N[facility]ative* Consultation (Routine) - Closed Specialty Diagnoses / Procedures Referred By Rosamaria campos Referred To Contact Physical Therapy Diagnoses Cervical pain (neck) Strain of right trapezius muscle, initial encounter Degeneration of intervertebral disc of lumbar region, unspecified whether pain present Procedures [place] OFFICE/OUTPATIENT NEW HIGH MDM 60 MINUTES Frances Nguyen NP [address] [place] [address] Phone: tel: fax: Annabelle Martinez, PT 112 [facility] [address] [place] [address] Phone: tel: fax: Referral ID Status Reason Start Date Expiration Date V isits Requested Visits Authorized [id number] Closed Consult and Treat 09/09/2024 11/07/2024 6 6 [facility] N[facility]ative* Misc (Routine) - Closed Specialty Diagnoses / Procedures [facility] Referred To Contact Diagnoses MARGOTH (obstructive sleep apnea) Procedures Polysomnography 4 or more [place] [address] [place] [address] Phone: tel: fax: Referral ID Status Reason Start Date Expiration Date Visits Re quested Visits Authorized [id number] Closed 06/02/2024 06/02/2025 1 1 [facility] SystemReason for visit Narrative* Rehabilitation - Outpatient (Routine) - Authorized Specialty Diagnoses / Procedures [facility] Referred To Contact Physical Therapy Diagnoses Lumbar Stenosis Procedures [place] PHYSICAL THERAPY EVALUATION LOW COMPLEX 20 MINS [place] OFFICE/OUTPATIENT NEW HIGH MDM 60 MINUTES Sorin Elizondo MD [address] [place] [address] Phone: tel: fax: Leydi Jenkins, GRACE Referral ID Status Reason Start Date Expiration Date V isits Requested Visits Authorized [id number] Authorized 11/18/2024 01/16/2025 6 6 [facility] [...] Referral Specialty Diagnoses / Procedures [facility] Referred To Contact Diagnoses MARGOTH (obstructive sleep apnea) Procedures Polysomnography 4 or more parameters [place] [address] [place] [address] Referral ID Status Reason Start Date Expiration Date V isits Requested Visits Authorized [id number] Pending Review 06/02/2024 06/02/2025 1 1 Additional Source Comments (unrecognized sect ion and content) No Status Records FoundNo Status Records FoundNo Status Records FoundNo Status Records FoundNo Status Records Found INFORMATION SOURCE (unrecogn ized section and content) DATE CREATED AUTHOR 05/29/2021 [facility] DATE CREATED AUTHOR AUTHOR'S ORGANIZ ATION 11/22/2024 [facility] DATE CREATED AUTHOR AUTHOR'S ORGANIZ ATION 12/25/2024 [facility] Specialists EPIC DATE CREATED AUTHOR AUTHOR'S ORGANIZ ATION 01/15/2025 [facility] DATE CREATED AUTHOR AUTHOR'S ORGANIZ ATION 03/08/2025 Care Teams (unrecognized sec tion and content) Trencher Driver Relationship Specialty Start Date End Date Frances Nguyen NP [address] [place] [address] PCP - [place] [employer] 08/19/23 Austin Gray MD [address] [place] [address] PCP - General Family Medicine 10/08/23 Trencher Driver Relationship Specialty Start Date End Date Frances Nguyen NP [address] [place] [address] PCP - [employer] 08/19/23 Austin Gray MD [address] [place] [address] PCP - General Family Medicine 10/08/23 Trencher Driver Relationship Specialty Start Date End Date Frances Nguyen NP [address] [place] [address] PCP - [employer] 08/19/23 Austin Gray MD [address] [place] [address] PCP - General Family Medicine 10/08/23 Trencher Driver Relationship Specialty Start Date End Date Frances Nguyen NP [address] [place] [address] PCP - [employer] 08/19/23 Austin Gray MD [address] [place] [address] PCP - General Family Medicine 10/08/23 Trencher Driver Relationship Specialty Start Date End Date Frances Nguyen NP [address] [place] [address] PCP - [employer] 08/19/23 Austin Gray MD [address] [place] [address] PCP - General Family Medicine 10/08/23 Trencher Driver Relationship Specialty Start Date End Date Frances Nguyen NP [address] [place] [address] PCP - [employer] 08/19/23 Austin Gray MD [address] [place] [address] PCP - General Family Medicine 10/08/23 Trencher Driver Relationship Specialty Start Date End Date Frances Nguyen NP [address] [place] [address] PCP - [employer] [place] [employer] 08/19/23 Austin Gray MD [address] [place] [address] PCP - General Family Medicine 10/08/23 Trencher Driver Relationship Specialty Start Date End Date Frances Nguyen [facility] [address] [place] [address] PCP - General Nurse Practitioner 08/02/23 Trencher Driver Relationship Specialty Start Date End Date Frances Nguyen [facility] [address] [place] [address] PCP - General Nurse Practitioner 08/02/23 Trencher Driver Relationship Specialty Start Date End Date Frances Nguyen [facility] [address] [place] [address] PCP - General Nurse Practitioner 08/02/23 Trencher Driver Relationship Specialty Start Date End Date Frances Nguyen [facility] PCP - General Nurse Practitioner 08/02/23 Trencher Driver Relationship Specialty Start Date End Date Frances Nguyen [facility] PCP - General Nurse Practitioner 08/02/23 Trencher Driver Relationship Specialty Start Date End Date Frances Nguyen NP [address] [place] [address] PCP - [employer] 08/19/23 Austin Gray MD [address] [place] [address] PCP - General Family Medicine 10/08/23 Trencher Driver Relationship Specialty Start Date End Date Frances Nguyen NP [address] [place] [address] PCP - [employer] 08/19/23 Austin Gray MD [address] [place] [address] PCP - General Family Medicine 10/08/23 Trencher Driver Relationship Specialty Start Date End Date Frances Nguyen, PATTERNMAKER BENCH-CLIENT CUSTOMER MANAGER PCP - General Nurse Practitioner 08/02/23 Trencher Driver Relationship Specialty Start Date End Date Frances Nguyen NP [address] [place] [address] PCP - [employer] 08/19/23 Austin Gray MD [address] [place] [address] PCP - General Family Medicine 10/08/23 Trencher Driver Relationship Specialty Start Date End Date Frances Nguyen NP [address] [place] [address] PCP - [place] [employer] 08/19/23 Austin Gray MD [address] [place] [address] PCP - General Family Medicine 10/08/23 Trencher Driver Relationship Specialty Start Date End Date Farnces Nguyen NP [address] [place] [address] PCP - [employer] 08/19/23 Austin Gray MD [address] [place] [address] PCP - General Family Medicine 10/08/23 Trencher Driver Relationship Specialty Start Date End Date Frances Nguyen NP [address] [place] [address] PCP - [place] [employer] 08/19/23 Austin Gray MD [address] [place] [address] PCP - General Family Medicine 10/08/23 Trencher Driver Relationship Specialty Start Date End Date Frances Nguyen NP [address] [place] [address] PCP - [place] [employer] 08/19/23 Austin Gray MD [address] [place] [address] PCP - General Family Medicine 10/08/23 Trencher Driver Relationship Specialty Start Date End Date Frances Nguyen, PATTERNMAKER BENCH-CLIENT CUSTOMER MANAGER PCP - General Nurse Practitioner 08/02/23 Trencher Driver Relationship Specialty Start Date End Date Frances Nguyen NP [address] [place] [address] PCP - [place] [employer] 08/19/23 Austin Gray MD [address] [place] [address] PCP - General Family Medicine 10/08/23 Trencher Driver Relationship Specialty Start Date End Date Frances Nguyen NP [address] [place] [address] PCP - [place] [employer] 08/19/23 Austin Gray MD [address] [place] [address] PCP - General Family Medicine 10/08/23 Trencher Driver Relationship Specialty Start Date End Date Frances Nguyen NP [address] [place] [address] PCP - [employer] 08/19/23 Austin Gray MD [address] [place] [address] PCP - General Family Medicine 10/08/23 Trencher Driver Relationship Specialty Start Date End Date Frances Nguyen, PATTERNMAKER BENCH-CLIENT CUSTOMER MANAGER PCP - General Nurse Practitioner 08/02/23 Trencher Driver Relationship Specialty Start Date End Date Frances Nguyen NP [address] [place] [address] PCP - [place] [employer] 08/19/23 Austin Gray MD [address] [place] [address] PCP - General Family Medicine 10/08/23 Trencher Driver Relationship Specialty Start Date End Date Frances Nguyen NP [address] [place] [address] PCP - [place] [employer] 08/19/23 Austin Gray MD [address] [place] [address] PCP - General Family Medicine 10/08/23 Trencher Driver Relationship Specialty Start Date End Date Frances Nguyen APRN-CLIENT CUSTOMER MANAGER PCP - General Nurse Practitioner 08/02/23 Trencher Driver Relationship Specialty Start Date End Date Frances Nguyen APRN-CLIENT CUSTOMER MANAGER PCP - General Nurse Practitioner 08/02/23 Trencher Driver Relationship Specialty Start Date End Date Frances Nguyen NP [address] [place] [address] PCP - [employer] 08/19/23 Austin Gray MD [address] [place] [address] PCP - General Family Medicine 10/08/23 [...] BE BASED ON THE PRIMARY CLINICAL RECORDS. [employer] provides no warranty or guarantee of the accuracy or completeness of information in this document.
== END 2025-03-31 15:09 | disposition home or self-care (01) ==
LOC: PM 15:10
PROVIDERS: PCP Nurse Practitioner; Visit Provider Nurse Practitioner
DX: M48.062 Spinal stenosis, lumbar region with neurogenic claudication (principal)
CPT/HCPCS: G0463

== ENCOUNTER 2025-04-22 14:41 | Outpatient (OUT) | payer BC, SELFPAY ==
--- OUTSIDE RECORDS SUMMARY | 2025-04-22 14:44 | XMS_ITS | Encounter Summary ---
Author Organization [facility] tem Address [id number] [address] [place] [address] Care Team Providers Care Senior Web Services Developer Name Role Phone NnamdiFrances pena Asya REGISTRAR [facility] Primary Care Provider Encounter Details Date Type Department Care Team (Late st Contact Info) Description 08/22/2023 Orders Only [facility] [address] [place] [address] Marleny Garcia [facility] [address] [place] [address] Social History Tobacco Use Types [...] documented as of this encounter Care Teams Senior Web Services Developer Relationship Specialty Start Date End Date Frances Nguyen, REGISTRAR MUSEUM-APPRENTICE JOCKEY PCP - General Nurse Practitioner 08/02/23 documented as of this encounter
--- OUTSIDE RECORDS SUMMARY | 2025-04-22 14:44 | XMS_ITS | Encounter Summary ---
Author Organization [facility] Address [address] [facility] [place] [address] Care Team Providers Care Antique Refinisher Name Role Phone Frances Nguyen NP Unavailable [phone] Austin Gray MD Primary Care Provider [phone] Encounter Details Date Type Department Care Team (Late st Contact Info) Description 04/01/2025 Abstract [facility] [address] [place] [address] Frances Nguyen NP [address] [facility] [place] [address] Social History Tobacco Use Types Packs/Day Years [...] on filedocumented in this encounter Care Teams Antique Refinisher Relationship Specialty Start Date End Date Frances Nguyen NP [address] [place] [address] PCP - [place] [employer] 08/19/23 Austin Gray MD [address] [place] [address] PCP - General Family Medicine 10/08/23 documented as of this encounter
--- OUTSIDE RECORDS SUMMARY | 2025-04-22 14:44 | XMS_ITS | Encounter Summary ---
Author Organization [facility] Address [address] [place] [facility] [place] [address] Care Team Providers Care Expander Name Role Phone Frances Nguyen NP Unavailable [phone] Austin Gray MD Primary Care Provider [phone] Encounter Details Date Type Department Care Team (Late st Contact Info) Description 03/22/2025 Abstract [facility] [address] [facility] [place] [address] Frances Nguyen NP [address] [facility] [place] [address] Social History Tobacco Use Types Packs/Day Years [...] on filedocumented in this encounter Care Teams Expander Relationship Specialty Start Date End Date Frances Nguyen NP [address] [place] [address] PCP - [place] [employer] 08/19/23 Austin Gray MD [address] [place] [address] PCP - General Family Medicine 10/08/23 documented as of this encounter
--- OUTSIDE RECORDS SUMMARY | 2025-04-22 14:44 | XMS_ITS | Clinical Summary ---
Author Organization [facility] Healthcare Address [address] [place] [address] Care Team Providers Care Production Manager Name Role Phone Frances Nguyen NP Unavailable [phone] Austin Gray MD Primary Care Provider [phone] Allergies No known active allergies Medications pantoprazole [...] Encounters Date Type Department Care Team Description 04/01/2025 Abstract [facility] [address] [place] [address] Frances Nguyen NP 03/22/2025 Abstract [facility] [address] [place] [address] Frances Nguyen NP 03/01/2025 Abstract [facility] [address] [place] [address] Frances Nguyen NP 02/16/2025 Clinisync Result Encounter [facility] External Department Unsolicited Provider, Generic External Data 02/16/2025 Clinisync Result Encounter [facility]OM[facility] External Department Unsolicited Provider, Generic External Data 01/20/2025 Refill [facility] [address] [place] [address] Frances Nguyen NP Poison mery dermatitis (Primary Dx) 01/20/2025 Telephone [facility] [address] [place] [address] Frances Nguyen NP Poison Mery from Last 3 Months Family History Medical [...] PM EDT XR EYE BILATERAL FOREIGN BODY 41622 02/16/2025 8:28 AM EDT from Last 3 Months Results * MR LUMBAR SPINE WO CON (02/16/2025 3:04 PM EDT) Anatomical Region Laterality Modality Other 02/16/2025 3:04 PM EDT Narrative 02/16/2025 3:06 PM EDT The [address] [address] Magnetic Resonance Report Signed Patient: NOLAN ROSEN MR#: [id number] : 1980 Acct:[id number] Age/Sex: 45 / M ADM Date: 02/16/25 Loc: RAD Attending Dr: Jessica Elizondo M.D. Ordering Physician: Jessica Elizondo M.D. Date of Service: 02/16/25 Procedure(s): MR lumbar spine wo con Accession Number(s): [id number] cc: Frances Nguyen NP; Jessica Elizondo M.D. [place] [address] Patient Name: NOLAN ROSEN MRN: [id number] date: 1980 Sex: M Assigned Patient Location: [facility] Current Patient Location: [facility] Accession/Order Number: [id number] Exam Date: 02/16/2025 15:00 Report Date: 02/16/2025 [...] Jr., D.O. 02/16/2025 3:04 PM Dictation Location: [place] [address] Electronically authenticated by: [id number] Y Date: 02/16/2025 15:04 Dictated By: Vinh Nieto M.D. Signed By: 02/16/25 1506 DD/ 1504 TD/TT: Choir Director: Procedure Note Radiology, Radiologist, MD - 02/16/2025 [place] [address] Magnetic Resonance Report Signed Patient: DMITRI ROSEN#: [id number] : 1980Acct:[id number] Age/Sex: 45 / MADM Date: 02/16/25 Loc: RAD Attending Dr: Jessica Elizondo M.D. Ordering Physician: Jessica Elizondo M.D. Date of Service: 02/16/25 Procedure(s): MR lumbar spine wo con Accession Number(s): [id number] cc: Frances Nguyen SPORTING GOODS SALES ASSOCIATE; Jessica Elizondo M.D. The [place] [address] Patient Name: NOLAN ROSEN MRN: [id number] date: 1980 Sex: M Assigned Patient Location: [facility] Current Patient Location: [facility] Accession/Order Number: [id number] Exam Date: 02/16/2025 15:00 Report Date: 02/16/2025 [...] Jr., D.O. 02/16/2025 3:04 PM Dictation Location: [place] [address] Electronically authenticated by: [id number] Y Date: 5:04 Dictated By: Vinh Nieto M.D. Signed By:02/16/25 1506 DD/ 1504 TD/TT: Choir Director: Generic External Data Provider [employer] IMAGING Final Result * XR EYE BILATERAL FOREIGN BODY [address] (02/16/2025 8:28 AM EDT) Anatomical Region Laterality Modality Radiographic Rhea ging 02/16/2025 8:28 AM EDT Narrative 02/16/2025 8:30 [place] [address] XRay Report Signed Patient: NOLAN ROSEN MR#: [id number] : 1980 Acct:[id number] Age/Sex: 45 / M ADM Date: 02/16/25 Loc: RAD Attending Dr: Jessica Elizondo M.D. Ordering Physician: Jessica Elizondo M.D. Date of Service: 02/16/25 Procedure(s): XR foreign body eye YUDITH Accession Number(s): [id number] cc: Frances Nguyen SPORTING GOODS SALES ASSOCIATE; Jessica Elizondo M.D. The [address] [address] Patient Name: NOLAN ROSEN MRN: [id number] date: 1980 Sex: M Assigned Patient Location: RAD Current Patient Location: [facility] Accession/Order Number: [id number] Exam Date: 02/16/2025 08:27 Report Date: 02/16/2025 [...] Magallon M.D. 02/16/2025 8:28 AM Dictation Location: [place] [address] Electronically authenticated by: [id number] Y Date: 02/16/2025 08:28 Dictated By: Galina Magallon M.D. Signed By: 02/16/25829 DD/ 7 TD/TT: Choir Director: Procedure Note Radiology, Radiologist, - 02/16/2025 [place] [address] XRay Report Signed Patient: DEVYN ROSENR#: [id number] : 1980Acct:[id number] Age/Sex: 45 / MADM Date: 02/16/25 Loc: RAD Attending Dr: Jessica Elizondo M.D. Ordering Physician: Jessica Elizondo M.D. Date of Service: 02/16/25 Procedure(s): XR foreign body eye YUDITH Accession Number(s): [id number] cc: Frances Nguyen NP; Jessica Elizondo M.D. The [place] [id number] Patient Name: NOLAN ROSEN MRN: [id number] date: 1980 Sex: M Assigned Patient Location: RAD Current Patient Location: RAD Accession/Order Number: [id number] Exam Date: 02/16/2025 08:27 Report Date: 02/16/2025 [...] Magallon M.D. 02/16/2025 8:28 AM Dictation Location: [place] [address] Electronically authenticated by: [id number] Y Date: 508:28 Dictated By: Galina Magallon M.D. Signed By:02/16/25829 DD/ 7 TD/TT: Choir Director: Generic External Data Provider IMG XR PROCEDURES Final Result from Last 3 Months Insurance BS Care Teams Production Manager Relationship Specialty Start Date End Date Frances Nguyen NP [address] [place] [address] PCP - [place] [employer] 08/19/23 [place] Gray MD [address] [place] [address] PCP - General Family Medicine 10/08/23
--- OUTSIDE RECORDS SUMMARY | 2025-04-22 14:44 | XMS_ITS | Encounter Summary ---
Author Organization [employer] Address [id number] [address] [place] [address] Care Team Providers Care Auto Body Builder Apprentice Name Role Phone Frances Nguyen ARTISTIC DIRECTOR-FIRE LOOKOUT Primary Care Provider Reason for Visit * Reason Onset Date Comments Med Refill 03/07/2022 Encounter Details Date Type Department Care Team (Late st Contact Info) Description 03/07/2022 [facility] [address] [place] [address] Tri Davidson LPN Anxiety Social [...] documented as of this encounter Care Teams Auto Body Builder Apprentice Relationship Specialty Start Date End Date Frances Nguyen, PAYAL-FIRE LOOKOUT PCP - General Nurse Practitioner 08/02/23 documented as of this encounter
--- OUTSIDE RECORDS SUMMARY | 2025-04-22 14:44 | XMS_ITS | Encounter Summary ---
Author Organization [facility] Address [address] [place] [address] Care Team Providers Care Powerplant Operator Name Role Phone [place] Gray MD Primary Care Provider [phone] Frances Nguyen NP Unavailable [phone] [place] Gray MD Primary Care Provider [phone] Encounter Details Date Type Department Care Team (Late st Contact Info) Description 08/21/2023 Orders Only [facility] [address] [facility] [place] [address] Frances Nguyen, CEMENT FINISHING SUPERVISOR [address] [place] [address] Social History Tobacco Use Types Packs/Day Years [...] Upper Extremities, Hand Right Radiogra phic Imaging Frances Wendy CEMENT FINISHING SUPERVISOR IMG XR PROCEDURES Final Result * XR hand 3+ views left (08/02/2023 1:26 PM EST) Anatomical Region Laterality Modality Upper Extremities, Hand Left Radiogra phic Imaging Frances Wendy WOOD IMG XR PROCEDURES Final Result documented in this encounter Visit Diagnoses Not on filedocumented in this encounter Care Teams Powerplant Operator Relationship Specialty Start Date End Date [place] Gray MD PCP - General Family Medicine 03/15/23 10/07/23 Frances Nguyen NP [address] [place] [address] PCP - [employer] 08/19/23 [place] Gray MD [address] [place] [address] PCP - General Family Medicine 10/08/23 documented as of this encounter
--- OUTSIDE RECORDS SUMMARY | 2025-04-22 14:44 | XMS_ITS | Encounter Summary ---
Author Organization [facility] Address [address] [place] [address] Care Team Providers Care Epic Beacon Analyst Name Role Phone Frances Nguyen NP Unavailable [place] Gray MD Primary Care Provider [phone] Encounter Details Date Type Department Care Team (Late st Contact Info) Description 10/09/2023 Abstract [facility] [address] [facility] [place] [address] Frances Nguyen NP [address] [facility] [place] [address] Social History Tobacco Use Types Packs/Day Years [...] things Not at all 10/10/2023 2:36 PM Nneka Sanz MA Feeling down, depressed, or hopeless Not at all 10/10/2023 2:36 PM Nneka Sanz MA Patient Health Questionnaire-2 Score 0 10/10/2023 2:36 PM Neli Sanz MA documented as of this encounter Plan of Treatment Not on file documented as of this encounter Visit Diagnoses Not on filedocumented in this encounter Care Teams Epic Beacon Analyst Relationship Specialty Start Date End Date Frances Nguyen NP [address] [place] [address] PCP - [facility] 08/19/23 [place] Gray MD [address] [place] [address] PCP - General Family Medicine 10/08/23 documented as of this encounter
--- OUTSIDE RECORDS SUMMARY | 2025-04-22 14:44 | XMS_ITS | Encounter Summary ---
Author Organization [facility] Address [address] [place] [address] Care Team Providers Care Social Media Editor Name Role Phone Frances Nguyen NP Unavailable [phone] [place] Gray MD Primary Care Provider [phone] Reason for Visit * Reason Comments Med Refill Encounter Details Date Type Department Care Team (Late st Contact Info) Description 09/08/2024 Refill [facility] [address] [place] [address] Frances Nguyen NP [address] [place] [address] Gastroesophageal reflux disease with esophagitis, unspecified whether [...] hemorrhage documented in this encounter Care Teams Social Media Editor Relationship Specialty Start Date End Date Frances Nguyen NP [address] [place] [address] PCP - [place] [employer] 08/19/23 [place] Gray MD [address] [place] [address] PCP - General Family Medicine 10/08/23 documented as of this encounter
--- OUTSIDE RECORDS SUMMARY | 2025-04-22 14:44 | XMS_ITS | Encounter Summary ---
Author Organization [facility] Address [address] [place] [address] Care Team Providers Care Corporate Director Of Human Resources Name Role Phone [place] Gray MD Primary Care Provider [phone] Frances Nguyen NP Unavailable [phone] Austin Gray MD Primary Care Provider [phone] Encounter Details Date Type Department Care Team (Late st Contact Info) Description 08/02/2023 External Result Encounter [facility] [address] [place] [address] Frances Nguyen, NUCLEAR POWERPLANT MECHANIC [address] [place] [address] Social History Tobacco Use Types Packs/Day Years [...] Anatomical Region Laterality Modality Spine, L-spine Radiographic Reha ging 08/02/2023 9:28 AM EST Narrative 08/02/2023 9:26 AM EST THIS EXAM WAS PERFORMED AT [facility] Procedure: Lumbo-sacral spine radiographs performed Number of views:3 History:Low back pain remote trauma Comparison:None Findings: There is no fracture, malalignment, or destructive lesion. There is mild disc space narrowing at L5-S1. Vertebral body height is well-maintained. Impression: No acute findings. Finalized by Eddie Hemphill MD on 08/02/2023 9:26 AM Procedure Note Radiology, Radiologist, MD - 08/13/2023 THIS EXAM WAS PERFORMED AT [facility] Procedure: Lumbo-sacral spine radiographs performed Number of views:3 History:Low back pain remote trauma Comparison:None Findings: There is no fracture, malalignment, or destructive lesion.There is mild disc space narrowing at L5-S1. Vertebral body height iswell-maintained. Impression: No acute findings. Finalized by Eddie Hemphill MD on 08/02/2023 9:26 AM us Frances Aichholz NUCLEAR POWERPLANT MECHANIC IMG XR PROCEDURES Final Result * XR hand 3+ views right (08/02/2023 9:27 AM EST) Anatomical Region Laterality Modality Upper Extremities, Hand Right Radiogra phic Imaging 08/02/2023 9:27 AM EST Narrative 08/02/2023 9:26 AM EST THIS EXAM WAS PERFORMED AT [facility] Procedure: Right hand radiographs performed Number of views:3 History:Hand pain Comparison:None Findings: There is no fracture, dislocation, or destructive lesion. Joint space is well preserved. Impression: No acute findings. Finalized by Eddie Hemphill MD on 08/02/2023 9:26 AM Procedure Note Radiology, RadiologistMD - 08/13/2023 THIS EXAM WAS PERFORMED AT [facility] Procedure: Right hand radiographs performed Number of views:3 History:Hand pain Comparison:None Findings: There is no fracture, dislocation, or destructive lesion. Jointspace is well preserved. Impression: No acute findings. Finalized by Eddie Hemphill MD on 08/02/2023 9:26 AM Frances Nnamdiallysonwaldo NUCLEAR POWERPLANT MECHANIC IMG XR PROCEDURES Final Result * XR hand 3+ views left (08/02/2023 9:26 AM EST) Anatomical Region Laterality Modality Upper Extremities, Hand Left Radiogra phic Imaging 08/02/2023 9:26 AM EST Narrative 08/02/2023 9:25 AM EST THIS EXAM WAS PERFORMED AT [facility] Procedure: Left hand radiographs performed Number of views:3 History:Hand pain Comparison:None Findings: There is no fracture, dislocation, or destructive lesion. Joint space is well preserved. Impression: No acute findings. Finalized by Eddie Hemphill MD on 08/02/2023 9:25 AM Procedure Note Radiology, RadiologistMD - 08/13/2023 THIS EXAM WAS PERFORMED AT [facility] Procedure: Left hand radiographs performed Number [...] of a recent Streptococcus infection. Performed By: [facility] [address] [place] [address] Buckle Wire Inserter: Tuan Xiong MD, PhD CLIA Number: [id number] PERFORMED AT [address] [place] [address] 08/02/2023 9:00 AM EST 08/02/2023 9:05 AM EST Frances Nguyen NP LAB BLOOD ORDERABLES Final Resu lt [facility] * PRITI (08/02/2023 9:00 AM EST) PRITI SCREEN W/REFLEX Negative Negative [facility] Comment: Testing performed using multiplex flow immunoassay. Eleven different antigens associated with systemic autoimmune diseases (dsDNA,Sm,Sm/HOME FURNISHINGS SALES REPRESENTATIVE,HOME FURNISHINGS SALES REPRESENTATIVE,Chromatin, SSA,SSB,Alma-1,Scl70,Ribo P,Centromere B) are included in this screening test. PERFORMED AT [facility] [address],[place] [address] 08/02/2023 9:00 AM EST 08/02/2023 9:05 AM EST us Frances Nguyen NUCLEAR POWERPLANT MECHANIC LAB BLOOD ORDERABLES Final Resu lt [facility] * Sedimentation rate, automated (08/02/2023 9:00 AM EST) ESR 3 0 - 15 mm/h [facility] 08/02/2023 9:00 AM EST 08/02/2023 9:05 AM EST us Frances Nguyen NUCLEAR POWERPLANT MECHANIC LAB BLOOD ORDERABLES Final Resu lt Performing Organization Address [facility] Co de Phone Number [facility] * Uric acid (08/02/2023 9:00 AM EST) URIC ACID 5.4 2.6 - 7.2 mg/dL [facility] Comment:PERFORMED AT [address],[place] [address] 08/02/2023 9:00 AM EST 08/02/2023 9:05 AM EST us Frances Nguyen NUCLEAR POWERPLANT MECHANIC LAB BLOOD ORDERABLES Final Resu lt Performing Organization Address [facility] Co de Phone Number [facility] * C-reactive protein (08/02/2023 9:00 AM EST) C REACTIVE PROTEIN 0.1 0.000 - 0.744 mg/dL [facility] Comment:PERFORMED AT [place] [address],[place] [address] 08/02/2023 9:00 AM EST 08/02/2023 9:05 AM EST us Frances Nguyen NUCLEAR POWERPLANT MECHANIC LAB BLOOD ORDERABLES Final Resu lt [facility] [...] not use a race coefficient. PERFORMED AT [address], [place] [address] 08/02/2023 9:00 AM EST 08/02/2023 9:05 AM EST us Frances Nguyen NUCLEAR POWERPLANT MECHANIC LAB BLOOD ORDERABLES Final Resu lt [facility] * Rheumatoid factor (08/02/2023 9:00 AM EST) RHEUMATOID FACTOR 15 <20 IU/mL [facility] Comment:PERFORMED AT [address] [address] 08/02/2023 9:00 AM EST 08/02/2023 9:05 AM EST us Frances Nguyen NUCLEAR POWERPLANT MECHANIC LAB BLOOD ORDERABLES Final Resu lt [facility] * CBC auto differential (08/02/2023 9:00 AM [...] 0.0 - 0.2 X10E9/L [facility] Comment:PERFORMED AT [facility] [address],[place] [address] 08/02/2023 9:00 AM EST 08/02/2023 9:05 AM EST us Frances gNuyen NUCLEAR POWERPLANT MECHANIC LAB BLOOD ORDERABLES Final Resu lt [facility] documented in this encounter Visit Diagnoses Not on filedocumented in this encounter Care Teams Corporate Director Of Human Resources Relationship Specialty Start Date End Date [place] Gray MD PCP - General Family Medicine 03/15/23 10/07/23 Frances Nguyen NP [address] [place] [address] PCP - [facility] 08/19/23 [place] Gray MD [address] [place] [address] PCP - General Family Medicine 10/08/23 documented as of this encounter
--- OUTSIDE RECORDS SUMMARY | 2025-04-22 14:44 | XMS_ITS | Encounter Summary ---
Author Organization [facility] Address [address] [place] [address] Care Team Providers Care Sign Installer Name Role Phone Frances Nguyen NP Unavailable [phone] [place] Gray MD Primary Care Provider [phone] Encounter Details Date Type Department Care Team (Late st Contact Info) Description 11/14/2024 External Result Encounter [facility] [address] [place] [address] Frances Nguyen NP [address] [facility] [place] [address] Social History Tobacco Use Types Packs/Day Years [...] PM EDT THIS EXAM WAS PERFORMED AT [facility] XR ELBOW LT MIN 3 VWS: [...] - 11/14/2024 THIS EXAM WAS PERFORMED AT [facility] XR ELBOW LT MIN 3 VWS: [...] MD on 11/14/2024 2:16 PM Frances Nguyen CEMENT GRINDING MILL OPERATOR IMG XR PROCEDURES Final Result * XR elbow 3+ views right (11/14/2024 11:51 AM EDT) Anatomical Region Laterality Modality Upper Extremities, Elbow Right Radiogr aphic Imaging 11/14/2024 11:5 1 AM EDT Narrative 11/14/2024 11:49 AM EDT THIS EXAM WAS PERFORMED AT [facility] Right elbow: HISTORY: Right elbow pain. 4 views of the right elbow were obtained. There is no acute osseous, articular, or soft tissue abnormality. IMPRESSION: Negative exam. Finalized by Paulo Howell MD on 11/14/2024 11:49 AM Procedure Note Radiology, Radiologist, - 11/14/2024 THIS EXAM WAS PERFORMED AT [facility] Right elbow: HISTORY: Right elbow pain. 4 views of the right elbow were obtained. There is no acute osseous,articular, or soft tissue abnormality. IMPRESSION: Negative exam. Finalized by Paulo Howell MD on 11/14/2024 11:49 AM Frances Nguyen NP IMG XR PROCEDURES Final Result documented in this encounter Visit Diagnoses Not on filedocumented in this encounter Care Teams Sign Installer Relationship Specialty Start Date End Date Frances Nguyen NP [address] [place] [address] PCP - [facility] 08/19/23 [place] Gray MD [address] [place] [address] PCP - General Family Medicine 10/08/23 documented as of this encounter
--- OUTSIDE RECORDS SUMMARY | 2025-04-22 14:44 | XMS_ITS | Encounter Summary ---
Author Organization [employer] [facility] tem Address [id number] [address] [place] [address] Care Team Providers Care Lion Trainer Name Role Phone Frances Nguyen MACHINE STAPLER-NARROW GAUGE ENGINEER Primary Care Provider Encounter Details Date Type Department Care Team (Late st Contact Info) Description 01/25/2021 Orders Only [facility] [address] [place] [address] Tri Davidson LPN Cervicalgia Social History Tobacco [...] Physical Therapy (01/25/2021) 01/25/2021 us Marleny Garcia APRN-NARROW GAUGE ENGINEER OUTPATIENT REFERRAL O RDERABLES Final Result MANUALLY TRANSCRIBED RESULTS documented in this encounter Visit Diagnoses Diagnosis Cervicalgia documented in this encounter Additional Health Concerns Infection Onset Date Last Indicated Resolved Time COVID-19 Rule-Out 12/11/2021 12/11/2021 12/12/2021 12:43 PM EDT Assessment Noted Time PHQ-9 Depression Total Score: 0 01/12/20 21 9:00 AM EDT documented as of this encounter Care Teams Lion Trainer Relationship Specialty Start Date End Date Frances Nguyen, PAYAL-NARROW GAUGE ENGINEER PCP - General Nurse Practitioner 08/02/23 documented as of this encounter
--- OUTSIDE RECORDS SUMMARY | 2025-04-22 14:44 | XMS_ITS | Encounter Summary ---
Author Organization [employer] [facility] tem Address [facility] [address] [place] [address] Care Team Providers Care Venereal Disease Control Head Name Role Phone NnamdiFrances pena Asya [facility] Primary Care Provider Encounter Details Date Type Department Care Team (Late st Contact Info) Description 07/17/2021 Orders Only [facility] [address] [place] [address] [facility]leny [facility] [address] [place] [address] Social History Tobacco Use Types [...] documented as of this encounter Care Teams Venereal Disease Control Head Relationship Specialty Start Date End Date Frances Nguyen, RISK PROFESSIONAL-SURVEYOR'S ASSISTANT PCP - General Nurse Practitioner 08/02/23 documented as of this encounter
--- OUTSIDE RECORDS SUMMARY | 2025-04-22 14:44 | XMS_ITS | Encounter Summary ---
Author Organization [employer] Address [id number] [address] [place] [address] Care Team Providers Care Documentation Designer Name Role Phone NnamdiFrances pena PROGRAMMER BUSINESS-BULK PLANT AGENT Primary Care Provider Reason for Visit * Reason Onset Date Comments Medication update 06/22/2022 Encounter Details Date Type Department Care Team (Late st Contact Info) Description 06/22/2022 [facility]phone [facility] [address] [place] [address] Parisa Abad LPN Medication update Social [...] documented as of this encounter Care Teams Documentation Designer Relationship Specialty Start Date End Date Frances Nguyen, PROGRAMMER BUSINESS-BULK PLANT AGENT PCP - General Nurse Practitioner 08/02/23 documented as of this encounter
--- OUTSIDE RECORDS SUMMARY | 2025-04-22 14:44 | XMS_ITS | Encounter Summary ---
Author Organization [employer] [facility] tem Address [id number] [address] [place] [address] Care Team Providers Care Veterans' Coordinator Name Role Phone NnamdiFrances pena Asya [facility] Primary Care Provider Encounter Details Date Type Department Care Team (Late st Contact Info) Description 11/27/2022 Orders Only [facility] [address] [place] [address] [facility]len[facility] [address] [place] [address] Social History Tobacco Use Types [...] documented as of this encounter Care Teams Veterans' Coordinator Relationship Specialty Start Date End Date Frances Nguyen APRN-ELECTRIC FREIGHT CAR OPERATOR PCP - General Nurse Practitioner 08/02/23 documented as of this encounter
--- OUTSIDE RECORDS SUMMARY | 2025-04-22 14:44 | XMS_ITS | Encounter Summary ---
Author Organization [facility] Address [address] [facility] [place] [address] Care Team Providers Care Rn Hospice Name Role Phone Frances Nguyen NP Unavailable [phone] Austin Gray MD Primary Care Provider [phone] Encounter Details Date Type Department Care Team (Late st Contact Info) Description 03/01/[address] [facility] [address] [facility] [place] [address] Frances Nguyen NP [address] [place] [address] Social History Tobacco Use Types Packs/Day Years [...] on filedocumented in this encounter Care Teams Rn Hospice Relationship Specialty Start Date End Date Frances Nguyen NP [address] [place] [address] PCP - [place] [employer] 08/19/23 Austin Gray MD [address] [place] [address] PCP - General Family Medicine 10/08/23 documented as of this encounter
--- OUTSIDE RECORDS SUMMARY | 2025-04-22 14:44 | XMS_ITS | Encounter Summary ---
Author Organization [employer] [facility] Address [id number] [address] [place] [address] Care Team Providers Care English Horn Player Name Role Phone NnamdiFrances pena Asya BANKING AND FINANCE INSTRUCTOR-INVENTORY AND PRICING ASSOCIATE Primary Care Provider Encounter Details Date Type Department Care Team (Late st Contact Info) Description 08/07/2023 [facility]phone [facility] [address] [address] Parisa Gandara Social History Tobacco [...] [facility] Patient stated that he is [...] documented as of this encounter Care Teams English Horn Player Relationship Specialty Start Date End Date Frances Nguyen, BANKING AND FINANCE INSTRUCTOR-INVENTORY AND PRICING ASSOCIATE PCP - General Nurse Practitioner 08/02/23 documented as of this encounter
--- OUTSIDE RECORDS SUMMARY | 2025-04-22 14:44 | XMS_ITS | Patient Health Record ---
Author Organization [facility] Address [address] [place] [address] Care Team Providers Care Auditing Clerk Name Role Phone Mike Wilks Unavailable [phone] Allergies No Known Allergies Reason For Referral [...] Problem Status W/U Status Risk Notes Problem [id number] Displaced fracture of proximal third of navicular [scaphoid] bone of right wrist, subsequent encounter for fracture with delayed healing (S62.031G) Active confirmed Problem [id number] Dupuytren's contracture of both hands (M72.0) Active confirmed Plan Of Treatment Pending Test Test Name Order Date SCC- HAND 3 VIEW LEFT [id number] 12/09/2023 CT WRIST RIGHT WITHOUT CONTRAST 12/09/19 24 Insurance Providers Payer Name Payer Address Payer Phone Subscriber Number Group Number Insured Name Patient Relationship to Insured Coverage Start Date Coverage End Date [facility] [address] [place] [address] [id number] SPEEDY ROSEN Self - patient is the insured
--- OUTSIDE RECORDS SUMMARY | 2025-04-22 14:44 | XMS_ITS | Encounter Summary ---
Author Organization [facility] tem Address [id number] [address] [place] [address] Care Team Providers Care Electricians Top Helper Name Role Phone Frances Nguyen AWNING HANGER HELPER-CHIEF OF STAFF DOCTOR Primary Care Provider Encounter Details Date Type Department Care Team (Late st Contact Info) Description 03/07/2022 Telephone [facility] [address] [place] [address] Tri Davidson LPN Social History [...] documented as of this encounter Care Teams Electricians Top Helper Relationship Specialty Start Date End Date Frances Nguyen, PAYAL-CHIEF OF STAFF DOCTOR PCP - General Nurse Practitioner 08/02/23 documented as of this encounter
--- OUTSIDE RECORDS SUMMARY | 2025-04-22 14:44 | XMS_ITS | Encounter Summary ---
Author Organization [employer] [facility] Address [id number] [address] [place] [address] Care Team Providers Care Photo Checker Name Role Phone Frances Nguyen LIQUOR DEPARTMENT MANAGER-PRINTED CIRCUIT BOARDS LAMINATOR Primary Care Provider Reason for Visit * Reason Onset Date Comments Med Refill 09/13/2022 Encounter Details Date Type Department Care Team (Late st Contact Info) Description 09/13/2022 Refill [facility]Sleep Medicine [address] [address] Angelica Ervin MD [address] [place] [address] Chronic insomnia Social History Tobacco [...] documented as of this encounter Care Teams Photo Checker Relationship Specialty Start Date End Date Frances Nguyen, LIQUOR DEPARTMENT MANAGER-PRINTED CIRCUIT BOARDS LAMINATOR PCP - General Nurse Practitioner 08/02/23 documented as of this encounter
--- OUTSIDE RECORDS SUMMARY | 2025-04-22 14:44 | XMS_ITS | Encounter Summary ---
Author Organization [employer] [facility] Address [facility][id number] [address] [place] [address] Care Team Providers Care State Fire Marshal Name Role Phone NnamdiFrances pena SUPERVISOR ACOUSTICAL TILE CARPENTERS-BUSINESS DEVELOPMENT SALES EXECUTIVE Primary Care Provider Encounter Details Date Type Department Care Team (Late st Contact Info) Description 01/22/2023 [facility] [address] [address] Uyen Dickens RN Social History [...] Says he has been working already with [employer] has tried a couple different masks already. [...] documented as of this encounter Care Teams State Fire Marshal Relationship Specialty Start Date End Date Frances Nguyen, SUPERVISOR ACOUSTICAL TILE CARPENTERS-BUSINESS DEVELOPMENT SALES EXECUTIVE PCP - General Nurse Practitioner 08/02/23 documented as of this encounter
--- OUTSIDE RECORDS SUMMARY | 2025-04-22 14:44 | XMS_ITS | Clinical Summary ---
Author Organization [employer] [facility] Address [facility]-[id number] [address] [place] [address] Care Team Providers Care Caustic Plant Worker Name Role Phone Frances Nguyen ELECTRON BEAM WELDER-COAL CAGER Primary Care Provider Allergies No known active allergies Medications pantoprazole (PROTONIX) 40 mg EC tablet TAKE 1 TABLET(40 MG) BY MOUTH IN THE MORNING 30 tablet 5 02/25/2023 Active zaleplon (SONATA) 5 mg capsuleIndicati ons:Chronic insomnia Take 1 capsule (5 mg total) by mouth nightly. 30 capsule 01/12/2025 Active Active Problems Problem Noted Date Diagnosed Date Allergic rhinitis Depression Immunizations No known immunizations Family History Medical [...] 01/12/2026 01/12/2025 Medical Devices Implanted Type Area Multimedia Author Device Identifier Shelf Expiration Date Model / Serial / Lot Anch Sut 2.9mm [facility] [id number] - [id number] - [id number] Implanted:Qty: 3 on 08/07/2019 by Dain Marinelli DO at [facility] [place] Left: [employer] 11/17/2019 [id number] / [id number] / [id number] Insurance Care Teams Caustic Plant Worker Relationship Specialty Start Date End Date Frances Nguyen, PAYAL-COAL CAGER PCP - General Nurse Practitioner 08/02/23
--- OUTSIDE RECORDS SUMMARY | 2025-04-22 14:44 | XMS_ITS | Clinical Summary ---
Author Organization [facility] Address [address] [place] [address] Care Team Providers Care Ornamental Metal Worker Helper Name Role Phone Unavailable Primary Care Provider [...]
--- OUTSIDE RECORDS SUMMARY | 2025-04-22 14:44 | XMS_ITS | Encounter Summary ---
Author Organization [employer] [facility] Address [facility]-[id number] [address] [place] [address] Care Team Providers Care Film Process Operator Name Role Phone NnamdiFrances pena Asya WORKDAY SENIOR ASSOCIATE-[facility] Primary Care Provider Encounter Details Date Type Department Care Team (Late st Contact Info) Description 10/25/2020 Orders Only [facility] [address] [place] [address] [facility] [address] [place] [address] Social History Tobacco Use Types [...] documented as of this encounter Care Teams Film Process Operator Relationship Specialty Start Date End Date Frances Nguyen, WORKDAY SENIOR ASSOCIATE-CYLINDER MACHINE OPERATOR PCP - General Nurse Practitioner 08/02/23 documented as of this encounter
--- NOTE | 2025-04-22 15:02 | PM.CN ---
Consult Note: HPI Data of Consult Patient: known to practice within the last 3 years Requesting Physician: Katty Hughes NP Primary Care Provider: Frances Nguyen NP Consult Narrative Reason for consult: low back and left hip pain Narrative: Nolan Stern a 45 year old male presents for evaluation of severe left low back pain. has failed to benefit from > 6 weeks of PT/HEP, heat, ice, tylenol, nsaids. KONSTANTIN worsening from last visit, 28% today. Pain 7/10 increasing to 10/10 with standing, walking, twisting, bending. cc:: CC: Katty Hughes NP Review of Systems ROS Musculoskeletal Reports: back pain and joint pain [facility] Medical History (Updated 04/22/25 @ 15:04 by Katty Hughes NP) Hiatal hernia ?K44.9 - Diaphragmatic hernia without obstruction or gangrene (ICD-10) Acid reflux ?K21.9 - Gastro-esophageal reflux disease without esophagitis (ICD-10) Asthma ?J45.909 - Unspecified asthma, uncomplicated (ICD-10) Sleep apnea ?G47.30 - Sleep apnea, unspecified (ICD-10) Surgical History History of hernia repair ?Z98.890 - Other specified postprocedural states (ICD-10) ?Z87.19 - Personal history of other diseases of the digestive system (ICD-10) Meds Home Medications and Allergies Home Medications ?Medication ?Instructions ?Recorded ?Confirmed ?Type pantoprazole 40 mg tablet,delayed 40 mg PO DAILY 11/16/24 03/22/25 History release tizanidine 4 mg capsule 4 mg PO BID PRN muscle spasticity 11/16/24 03/22/25 History meloxicam 7.5 mg tablet 7.5 mg PO BID #60 tabs 04/22/25 Rx Exam Constitutional Documenting provider has reviewed patient's vital signs: yes Common normals: no apparent distress, oriented x3, healthy appearing, alert and well nourished General appearance: cooperative [facility] Common normals: normocephalic, hearing grossly normal bilaterally and moist oral mucous membranes Head and scalp: normocephalic Eye Common normals: PERRL Pupil: PERRL Neck & C-Spine Common normals: full ROM General: normal visual inspection Chest Common normals: inspection of chest normal Respiratory Common normals: normal respiratory effort, no retractions and no use of accessory muscles Back & Pelvis Lumbar spine/lower back: pain with ROM and lumbar spinal tenderness Sacroiliac joints: SI joint(s) abnormal Other: severe pain with left sumanth(patricks), gaenslens, thigh thrust, compression test sensation intact BLE Neuro Common normals: oriented x3 Sensorium/orientation: alert Psych Common normals: mental status grossly normal, thought process normal, cooperative, affect normal, speech normal and activity/motor behavior normal Speech: normal speech Thought process: normal thought process Results Additional Findings Additional findings: If on a controlled substance or opioids, I have checked an [place] report on this patient and there are no aberrancies noted in the prescribing history.??If on a controlled substance or opioid a drug screen was completed and reviewed within the last year, and if there has not been a drug screen completed we ordered one today to monitor higher risk, state monitored pain medication use. As part of providing excellent, safe, comprehensive care, the following was completed at our patient's visit: 1. A medication reconciliation and review to ensure accurate knowledge of current/active medications, including asking our patients to inform us about any [id number]-[id number] medications or herbal remedies/nutritional supplements/alternative remedies. 2. A review to specifically ensure our patients have had annual screening for screening for depression, screening for tobacco use, and screening for unhealthy alcohol use. For concerning screenings had a discussion with the patient, provided patient education, and recommended follow-up with primary care provider when appropriate. If patient noted with a risk of falling, they received education on strength, gait, and balance training to prevent future risk of falling. Portions of this note may have been carried over from the previous visit and updated as appropriate. Please note this office utilizes paper charting in addition to the electronic medical record. A list of current medications, vitals, and PMH is available there as the clinical staff outside of myself do not have access to [employer] charting during the clinic day operations. As part of providing quality comprehensive care the current medications, vitals, and PMH were reviewed in the paper chart. Assessment and Plan Assessment and Plan (1) Sacroiliitis: Assessment and Plan: The patient has had over 3 months of moderate to severe low back and left SIJ pain with functional impairment and inadequate response to conservative care including NSAIDS (unless there are contraindication such as concurrent blood thinners), multiple oral or topical pain medications, and home exercise program/physical therapy.? Patient has completed >6 weeks of guided home exercise program and/or formal physical therapy program without relief of their symptoms.? I have reviewed the imaging of the lumbar spine and no red flags were identified. (2) Lumbar stenosis with neurogenic claudication: (3) Lumbar spondylosis: Plan left SIJ injection under fluoroscopy start mobic 7.5mg bid with food, risks vs benefits reviewed continue tizanidine prn f/u 2 weeks after injection
--- OUTSIDE RECORDS SUMMARY | 2025-04-22 15:05 | XMS_ITS | CCD ---
Author Organization [facility] Care Team Providers Care Phys Ther Name Role Phone Wendy LABOR SPECIALIST, Frances Unavailable Austin Gray MD Primary Care Provider Aichwaldo SUGAR GRINDER-MOTOR HOME ELECTRICAL FOREMANFrances Primary Care Provider Aichwaldo SUGAR GRINDER-MOTOR HOME ELECTRICAL FOREMAN, Frances Asya Primary Care Provider Wendy SUGAR GRINDER-MOTOR HOME ELECTRICAL FOREMAN, Frances Sky Primary Care Provider GIAZ, FRANCES [...] Unavailable BLACKSTON, ANNABELLE T Attending Unavailable AICHHOLZ, FRANECS Referring Unavailable BLACKSTON, ANNABELLE T Attending Unavailable [...] Referring Unavailable FRANCES NGUYEN Primary Care Unavailable Giedraitis , Sorin Francisco Attending Unavailable Giedraitis , Sorin Francisco Attending Unavailable Giedraitis , Sorin Francisco Attending Unavailable Medications Current Medications [...] Facil ity [place] [address] Magnetic Resonance Report Signed Patient: SPEEDY ROSEN MR#: [id number] : 1980 Acct:[id number] Age/Sex: 45 / M ADM Date: 02/16/25 Loc: LINDA Attending Dr: Sorin Elizondo M.D. Ordering Physician: Sorin Elizondo M.D. Date of Service: 02/16/25 Procedure(s): MR lumbar spine wo con Accession Number(s): [id number] cc: Frances Nguyen LABOR SPECIALIST; Sorin Elizondo M.D. [place] [id number] Patient Name: SPEEDY ROSEN MRN: [facility]:[id number] date: 1980 Sex: M Assigned Patient Location: [facility] Current Patient Location: [facility] Accession/Order Number: [id number] Exam Date: 02/16/2025 15:00 Report Date: 02/16/2025 [...] Jr., D.O. 02/16/2025 3:04 PM Dictation Location: [place] [address] Electronically authenticated by: [id number] Y Date: 02/16/2025 15:04 Dictated By: Vinh Nieto M.D. Signed By: 02/16/25 1506 DD/ 1504 TD/TT: Graphics Production Specialist: [facility] Radiology, Radiologist, MD - 02/16/2025 [place] [address] Magnetic Resonance Report Signed Patient: SPEEDY ROSEN MR#: [id number] : 1980 Acct:[id number] Age/Sex: 45 / M ADM Date: 02/16/25 Loc: RAD Attending Dr: Sorin Elizondo M.D. Ordering Physician: Sorin Elizondo M.D. Date of Service: 02/16/25 Procedure(s): MR lumbar spine wo con Accession Number(s): [id number] cc: Frances Nguyen LABOR SPECIALIST; Sorin Elizondo M.D. [address] [address] Patient Name: SPEEDY ROSEN MRN: [facility]:[id number] date: 1980 Sex: M Assigned Patient Location: [facility] Current Patient Location: [facility] Accession/Order Number: [id number] Exam Date: 02/16/2025 15:00 Report Date: 02/16/2025 [...] Jr., D.O. 02/16/2025 3:04 PM Dictation Location: [place] [address] Electronically authenticated by: [id number] Y Date: 02/16/2025 15:04 Dictated By: Vinh Nieto M.D. Signed By: 02/16/25 1506 DD/ 1504 TD/TT: Graphics Production Specialist: [facility] Radiology Study observation (narrative) [facility] MR LUMBAR SPINE WO CONOrdere d By: Radiologist Radiology on 02-16-2025 [facility] [employer] Work Phone: XR EYE BILATERAL FOREIGN BOD Y [id number] 02-16-[address] [address] XRay Report Signed Patient: SPEEDY ROSEN MR#: [id number] : 1980 Acct:[id number] Age/Sex: 45 / M ADM Date: 02/16/25 Loc: RAD Attending Dr: Sorin Elizondo M.D. Ordering Physician: Sorin Elizondo M.D. Date of Service: 02/16/25 Procedure(s): XR foreign body eye YUDITH Accession Number(s): [id number] cc: Frances Nguyen NP; Sorin Elizondo M.D. [address] [address] Patient Name: SPEEDY ROSEN MRN: [facility]:[id number] date: 1980 Sex: M Assigned Patient Location: [facility] Current Patient Location: [facility] Accession/Order Number: [id number] Exam Date: 02/16/2025 08:27 Report Date: 02/16/2025 [...] Magallon M.D. 02/16/2025 8:28 AM Dictation Location: [place] [address] Electronically authenticated by: [id number] Y Date: 02/16/2025 08:28 Dictated By: Galina Magallon M.D. Signed By: 02/16/25829 DD/ 7 TD/TT: Graphics Production Specialist: [facility] Radiology, Radiologist, - 02/16/[address] [address] XRay Report Signed Patient: SPEEDY ROSEN MR#: [id number] : 1980 Acct:[id number] Age/Sex: 45 / M ADM Date: 02/16/25 Loc: RAD Attending Dr: Sorin Elizondo M.D. Ordering Physician: Sorin Elizondo M.D. Date of Service: 02/16/25 Procedure(s): XR foreign body eye YUDITH Accession Number(s): [id number] cc: Frances Nguyen NP; Sorin Elizondo M.D. The [place] [id number] Patient Name: SPEEDY ROSEN MRN: [facility]:[id number] date: 1980 Sex: M Assigned Patient Location: [facility] Current Patient Location: [facility] Accession/Order Number: [id number] Exam Date: 02/16/2025 08:27 Report Date: 02/16/2025 [...] Magallon M.D. 02/16/2025 8:28 AM Dictation Location: [place] [address] Electronically authenticated by: [id number] Y Date: 02/16/2025 08:28 Dictated By: Galina Magallon M.D. Signed By: 02/16/25829 DD/ 7 TD/TT: Graphics Production Specialist: [facility] Radiology Study observation (narrative) [facility] XR EYE BILATERAL FOREIGN BOD Y [id number] By: Radiologist Radiology on 02-16-2025 [facility] [employer] Work Phone: XR ELBOW LT MIN 3 VWSon 03- XR ELBOW LT MIN 3 VWS XR [...] Robles MD on 11/14/2024 2:16 PM Normal [facility] XR ELBOW RT MIN 3 VWSon 03- XR ELBOW RT MIN 3 VWS XR ELBOW RT MIN 3 VWS Right elbow: HISTORY: Right elbow pain. 4 views of the right elbow were obtained. There is no acute osseous, articular, or soft tissue abnormality. IMPRESSION: Negative exam. Finalized by Paulo Howell MD on 11/14/2024 11:49 AM Normal [facility] XR Hip - right [address] [address] XRay Report Signed Patient: SPEEDY ROSEN MR#: [id number] : 1980 Acct:[id number] Age/Sex: 44 / M ADM Date: 10/09/24 Loc: RAD Attending Dr: Frances Nguyen NP Ordering Physician: Frances Nguyen NP Date of Service: 10/09/24 Procedure(s): XR hip RT min 2V Accession Number(s): [id number] cc: Frances Nguyen NP [place] [id number] Patient Name: SPEEDY ROSEN MRN: [facility]:[id number] date: 1980 Sex: M Assigned Patient Location: [facility] Current Patient Location: Accession/Order Number: [id number] Exam Date: 10/09/2024 11:56 Report Date: 10/09/2024 [...] Galina Magallon M.D.10/09/2024 12:02 PM Dictation Location: [place] [address] Electronically authenticated by: [id number] Y Date: 10/09/2024 12:02 Dictated By: Galina Magallon M.D. Signed By: 10/14/24 1035 DD/ 1202 TD/TT: Graphics Production Specialist: [facility] Radiology, Radiologist, - 10/14/2024 [place] [address] XRay Report Signed Patient: SPEEDY ROSEN MR#: [id number] : 1980 Acct:[id number] Age/Sex: 44 / M ADM Date: 10/09/24 Loc: RAD Attending Dr: Frances Nguyen NP Ordering Physician: Frances Nguyen NP Date of Service: 10/09/24 Procedure(s): XR hip RT min 2V Accession Number(s): [id number] cc: Frances Nguyen NP The [address] [address] Patient Name: SPEEDY ROSEN MRN: [facility]:[id number] date: 1980 Sex: M Assigned Patient Location: [facility] Current Patient Location: Accession/Order Number: [id number] Exam Date: 10/09/2024 11:56 Report Date: 10/09/2024 [...] Galina Magallon M.D.10/09/2024 12:02 PM Dictation Location: [place] [address] Electronically authenticated by: [id number] Y Date: 10/09/2024 12:02 Dictated By: Galina Magallon M.D. Signed By: 10/14/24 1035 DD/ 1202 TD/TT: Graphics Production Specialist: [employer] XR Hip - right 3 ViewsOrdere d By: Radiologist Radiology on 10-14-2024 [employer] Work Phone: No Panel Informationon 10-09 Radiology Study observation (narrative) [facility] XR LUMBAR SPINE 2 OR 3Von [address] [address] XRay Report Signed Patient: SPEEDY ROSEN MR#: [id number] : 1980 Acct:[id number] Age/Sex: 44 / M ADM Date: 10/09/24 Loc: [facility] Attending Dr: Frances Nguyen NP Ordering Physician: Frances Nguyen NP Date of Service: 10/09/24 Procedure(s): XR lumbar spine 2-3V Accession Number(s): [id number] cc: Frances Nguyen NP [place] [address] Patient Name: SPEEDY ROSEN MRN: [facility]:[id number] date: 1980 Sex: M Assigned Patient Location: [facility] Current Patient Location: [facility] Accession/Order Number: [id number] Exam Date: 10/09/2024 11:56 Report Date: 10/09/2024 [...] Galina Magallon M.D.10/09/2024 12:02 PM Dictation Location: [place] [address] Electronically authenticated by: [id number] Y Date: 10/09/2024 12:02 Dictated By: Galina Magallon M.D. Signed By: 10/09/24 1201 DD/ 1202 TD/TT: Graphics Production Specialist: [facility] Radiology, Radiologist, - 10/09/[address] [address] XRay Report Signed Patient: SPEEDY ROSEN MR#: [id number] : 1980 Acct:[id number] Age/Sex: 44 / M ADM Date: 10/09/24 Loc: [facility] Attending Dr: Frances Nguyen NP Ordering Physician: Frances Nguyen NP Date of Service: 10/09/24 Procedure(s): XR lumbar spine 2-3V Accession Number(s): [id number] cc: Frances Nguyen NP [place] [id number] Patient Name: SPEEDY ROSEN MRN: [facility]:[id number] date: 1980 Sex: M Assigned Patient Location: [facility] Current Patient Location: [facility] Accession/Order Number: [id number] Exam Date: 10/09/2024 11:56 Report Date: 10/09/2024 [...] Galina Magallon M.D.10/09/2024 12:02 PM Dictation Location: [employer] Electronically authenticated by: [id number] Y Date: 10/09/2024 12:02 Dictated By: Galina Magallon M.D. Signed By: 10/09/241204 DD/ 120 TD/TT: Graphics Production Specialist: [employer] XR LUMBAR SPINE 2 OR 3VOrder ed By: Radiologist Radiology on 10-09-2024 [employer] Work Phone: CERVICAL SPINE 4 OR 5 VIEWSo n 05-25-2021 CERVICAL SPINE 4 OR 5 VIEWS [facility] Department of Radiology [address] [place] [address] Patient Name: SPEEDY ROSEN : 1980 Sex: M Age: Race: White Pt. Location: Patient Status: O Ordered Date: 05/25/2021 9:30:00 AM Completed Date: 05/25/2021 09:39 AM Requesting Provider: EDWARD KRUGER Attending Provider: EDWARD KRUGER Report Copy To: Signs & Symptoms: M54.2 Cervicalgia I10 History: [place] Comments: Evaluate Exam: CERVICAL SPINE 4 OR [...] lordosis. Electronically signed: Paulo Howell. Transcribed by: [id number], User Resident: Electronically Signed by: PAULO HOWELL @ 05/25/2021 07:59 PM Normal [facility] Comment on above: Order Comment: Evalu ate Vital Signs Date Time Vital Sign Value Performing Clinician Facility 01-12-2025 14:38-0400 Body height 182.9 cm Cl Thomas MD Work Phone: [facility] 01-12-2025 14:38-0400 Body mass index (BMI) [Ratio] 24.55 kg/m2 Cl Thomas MD Work Phone: [facility] 01-12-2025 14:38-0400 Body weight 82.1 kg Cl Thomas MD Work Phone: [facility] 01-12-2025 14:38-0400 Diastolic blood pressure 84 mm[Hg] Cl Thomas MD Work Phone: [facility] 01-12-2025 14:38-0400 Heart rate 74 /min Cl Thomas MD Work Phone: [facility] 01-12-2025 14:38-0400 SaO2% (BldA) [Mass fraction] 99 % Cl Thomas MD Work Phone: [facility] 01-12-2025 14:38-0400 Systolic blood pressure 118 mm[Hg] Cl Thomas MD Work Phone: [facility] 11-18-2024 20:50-0400 Body height 182.9 cm P[facility] 3 [facility] 11-18-2024 20:50-0400 Body mass index (BMI) [Ratio] 24.01 kg/m2 Pm 3 [facility] 11-18-2024 20:50-0400 Body weight 80.29 kg Pmh 3 [facility] 10-19-2024 19:19-0500 Body mass index (BMI) [Ratio] 24.17 kg/m2 Frances Aichholz LABOR SPECIALIST Work Phone: [facility] 10-19-2024 19:19-0500 Body temperature 98.8 [degF] Frances Aichholz LABOR SPECIALIST Work Phone: [facility] 10-19-2024 19:19-0500 Body weight 80.83 kg Frances Aichholz LABOR SPECIALIST Work Phone: [facility] 10-19-2024 19:19-0500 Diastolic blood pressure 86 mm[Hg] Frances Aichholz LABOR SPECIALIST Work Phone: [facility] 10-19-2024 19:19-0500 Heart rate 76 /min Frances Aichholz LABOR SPECIALIST Work Phone: [facility] 10-19-2024 19:19-0500 Respiratory rate 18 /min Frances Aichholz LABOR SPECIALIST Work Phone: [facility] 10-19-2024 19:19-0500 SaO2% (BldA) [Mass fraction] 98 % Frances Aichholz LABOR SPECIALIST Work Phone: [facility] 10-19-2024 19:19-0500 Systolic blood pressure 124 mm[Hg] Frances Aichholz LABOR SPECIALIST Work Phone: [facility] 09-08-2024 15:23-0500 Diastolic blood pressure 84 mm[Hg] Frances Aichholz LABOR SPECIALIST Work Phone: [facility] 09-08-2024 15:23-0500 Systolic blood pressure 122 mm[Hg] Frances Aichholz LABOR SPECIALIST Work Phone: [facility] 09-08-2024 14:59-0500 Body mass index (BMI) [Ratio] 25.33 kg/m2 Frances Aichholz LABOR SPECIALIST Work Phone: [facility] 09-08-2024 14:59-0500 Body temperature 97.81 [degF] Frances Aichholz LABOR SPECIALIST Work Phone: [facility] 09-08-2024 14:59-0500 Body weight 84.73 kg Frances Nguyen LABOR SPECIALIST Work Phone: [facility] 09-08-2024 14:59-0500 Heart rate 81 /min Frances Nguyen LABOR SPECIALIST Work Phone: [facility] 09-08-2024 14:59-0500 Respiratory rate 19 /min Frances Nguyen LABOR SPECIALIST Work Phone: [facility] 09-08-2024 14:59-0500 SaO2% (BldA) [Mass fraction] 99 % Frances Nguyen LABOR SPECIALIST Work Phone: [facility] 06-02-2024 08:47-0400 Body height 182.9 cm Cl Thomas MD Work Phone: [facility] 06-02-2024 08:47-0400 Body mass index (BMI) [Ratio] 24.01 kg/m2 Cl Thomas MD Work Phone: [facility] 06-02-2024 08:47-0400 Body weight 80.29 kg Cl Thomas MD Work Phone: [facility] 06-02-2024 08:47-0400 Diastolic blood pressure 82 mm[Hg] Cl Thomas MD Work Phone: [facility] 06-02-2024 08:47-0400 Heart rate 74 /min Cl Thomas MD Work Phone: [facility] 06-02-2024 08:47-0400 SaO2% (BldA) [Mass fraction] 100 % Cl Thomas MD Work Phone: [facility] 06-02-2024 08:47-0400 Systolic blood pressure 120 mm[Hg] Cl Thomas MD Work Phone: [facility] 02-25-2024 14:33-0400 Body height 182.9 cm Cl Thomas MD Work Phone: [facility] 02-25-2024 14:33-0400 Body mass index (BMI) [Ratio] 23.42 kg/m2 Cl Thomas MD Work Phone: [facility] 02-25-2024 14:33-0400 Body weight 78.34 kg Cl Thomas MD Work Phone: [facility] 02-25-2024 14:33-0400 Diastolic blood pressure 88 mm[Hg] Cl Thomas MD Work Phone: [facility] 02-25-2024 14:33-0400 Heart rate 78 /min Cl Thomas MD Work Phone: [facility] 02-25-2024 14:33-0400 SaO2% (BldA) [Mass fraction] 98 % Cl Thomas MD Work Phone: [facility] 02-25-2024 14:33-0400 Systolic blood pressure 135 mm[Hg] Cl Thomas MD Work Phone: [facility] Encounters Encounter Date Encounter Type Care Provider Facility Start: 03-22-2025 End: 03-22-2025 ambulatory Sorin Elizondo MD Facility:[facility] Start: 03-01-2025 End: 03-01-2025 ambulatory Sorin Elizondo MD Facility:[facility] Start: 02-16-2025 End: 02-16-2025 Clinisync Result Encounter Generic External Data Provider [facility] External Department Unsolicited Start: 02-16-2025 End: 02-16-2025 Clinisync Result Encounter Generic External Data Provider [facility] External Department Unsolicited Start: 01-20-2025 End: 01-20-2025 Refill Frances Nguyen LABOR SPECIALIST Work Phone: [facility] Comment on above: Poison mery dermatiti s (Primary Dx) Start: 01-12-2025 End: 01-12-2025 Office outpatient visit 25 minutes Cl Thomas MD Work Phone: [facility] Comment on above: Chronic insomnia (Pr imary Dx); MARGOTH (obstructive sleep apnea); Hypersomnia Start: 01-12-2025 End: 01-12-2025 ambulatory CL THOMAS [facility] Start: 01-12-2025 End: 01-12-2025 [facility] Comment on above: Medication Dosage Start: 12-29-2024 End: 12-29-2024 [facility] Start: 12-23-2024 End: 12-23-2024 Bamboo flowsheet Annabelle Ramoston PT Work Phone: [facility] Start: 12-23-2024 End: 12-23-2024 Bamboo flowsheet Annabelle Ramoston PT Work Phone: [facility] Start: 12-23-2024 End: 12-23-2024 ambulatory ANNABELLE MARTINEZ Not Available Start: 12-22-2024 End: 12-23-2024 ambulatory Annabelle Ramoston PT Work Phone: [facility] Comment on above: Lumbar paraspinal mu scle spasm (Primary Dx) Start: 12-09-2024 End: 12-09-2024 Bamboo flowsheet Annabelle Ramoston PT Work Phone: [facility] Start: 12-09-2024 End: 12-09-2024 Bamboo flowsheet Annabelle Ramoston PT Work Phone: [facility] Start: 12-09-2024 End: 12-09-2024 ambulatory ANNABELLE RAMOSTON Not Available Start: 12-08-2024 End: 12-09-2024 ambulatory Annabelle Lei Ramoston PT Work Phone: [facility] Comment on above: Lumbar paraspinal mu scle spasm (Primary Dx) Start: 12-01-2024 End: 12-02-2024 ambulatory Annabelle Ramoston PT Work Phone: [facility] Comment on above: Lumbar paraspinal mu scle spasm (Primary Dx) Start: 12-01-2024 End: 12-01-2024 Bamboo flowsroman Martinez PT Work Phone: [facility] Start: 12-01-2024 End: 12-01-2024 Bamboo flowsheet Annabelle Martinez PT Work Phone: [facility] Start: 11-26-2024 End: 11-26-2024 Telephone encounter Jovanna Quinones [facility] Start: 11-25-2024 End: 11-25-2024 Bamboo flowsheet Annabelle Martinez PT Work Phone: [facility] Start: 11-25-2024 End: 11-25-2024 Bamboo flowsheet Annabelle Martinez PT Work Phone: [facility] Start: 11-25-2024 End: 11-25-2024 ambulatory ANNABELLE MARTINEZ Not Available Start: 11-24-2024 End: 11-25-2024 ambulatory Annabelle Martinez PT Work Phone: [facility] Comment on above: Lumbar paraspinal mu scle spasm (Primary Dx) Start: 11-18-2024 End: 11-18-2024 Clinical Support Cl Thomas MD Work Phone: [facility] Comment on above: MARGOTH (obstructive sle ep apnea) Lumbar paraspinal mu scle spasm (Primary Dx) Start: 11-18-2024 End: 11-18-2024 Bamboo flowsheet Annabelle Martinez PT Work Phone: [facility] Start: 11-18-2024 End: 11-18-2024 Bamboo flowsheet Annabelle Martinez PT Work Phone: [facility] Start: 11-16-2024 End: 11-16-2024 ambulatory Sorin Elizondo MD Facility:[facility] Start: 11-15-2024 End: 11-15-2024 Refill Frances Nguyen LABOR SPECIALIST Work Phone: [facility] Comment on above: Cervical pain (neck) ; Strain of right trapezius muscle, initial encounter Start: 11-14-2024 End: 11-14-2024 ambulatory FRANCES NGUYEN [facility] Start: 10-20-2024 End: 10-20-2024 Telephone encounter Jovanna Quniones [facility] Start: 10-19-2024 End: 10-19-2024 Office outpatient visit 25 minutes Frances Nguyen LABOR SPECIALIST Work Phone: [facility] Comment on above: SI joint arthritis ( CMS/HCC) (Primary Dx); Cervical pain (neck); Strain of right trapezius muscle, subsequent encounter; Bilateral elbow joint pain; Degeneration of intervertebral disc of lumbar region, unspecified whether pain present Start: 10-19-2024 End: 10-19-2024 ambulatory FRANCES WENDY Not Available Start: 10-19-2024 End: 10-19-2024 Bamboo flowsheet Frances Wendy LABOR SPECIALIST Work Phone: [facility] Start: 10-19-2024 End: 10-19-2024 Bamboo flowsheet Frances Wendy LABOR SPECIALIST Work Phone: [facility] Start: 10-13-2024 [...] 10-12-2024 End: 10-12-2024 Telephone encounter Elise Garcia COLOR CHECKER [facility] Start: 10-11-2024 End: 10-11-2024 Refill Frances Zamorawaldo LABOR SPECIALIST Work Phone: [facility] Comment on above: Cervical pain (neck) ; Strain of right trapezius muscle, initial encounter Start: 10-09-2024 End: 10-14-2024 Clinisync Result Encounter Frances Zamorawaldo LABOR SPECIALIST Work Phone: [facility] External Department Unsolicited Start: 10-09-2024 End: 10-14-2024 Clinisync Result Encounter Frances Zamorawaldo LABOR SPECIALIST Work Phone: [facility] External Department Unsolicited Start: [...] 09-30-2024 End: 09-30-2024 Bamboo flowsheet Parisa Calle REGRINDER [facility] Start: 09-30-2024 End: 09-30-2024 Bamboo flowsheet Parisa Calle REGRINDER [facility] Start: 09-30-2024 End: 09-30-2024 ambulatory ANNABELLE MARTINEZ Not Available Start: 09-29-2024 End: 09-30-2024 ambulatory Annabelle Martinez PT Work Phone: [facility] Comment on above: Cervical pain (neck) (Primary Dx); Strain of right trapezius muscle, initial encounter Start: 09-23-2024 End: 09-23-2024 Bamestiven Martinez PT [...] whether pain present Start: 09-16-2024 End: 09-16-2024 Bambosravan Martinez PT Work Phone: [facility] Start: 09-16-2024 End: 09-16-2024 Bamestiven Martinez PT [...] 09-08-2024 Office outpatient visit 25 minutes Frances Cotohholz LABOR SPECIALIST Work Phone: [facility] Comment on above: Strain of right trap ezius muscle, initial encounter (Primary Dx); Gastroesophageal reflux disease with esophagitis, unspecified whether hemorrhage; Cervical pain (neck); Degeneration of intervertebral disc of lumbar region, unspecified whether pain present Start: 09-08-2024 End: 09-08-2024 Bamboo flowsheet Frances Zamorawaldo LABOR SPECIALIST Work Phone: [facility] Start: 09-08-2024 End: 09-08-2024 Bamboo flowsheet Frances Zamorawaldo LABOR SPECIALIST Work Phone: [facility] Start: 06-03-2024 End: 06-03-2024 Telephone encounter Cl Thomas [facility] Comment on above: Sleep Lab (CPAP) Start: 06-02-2024 End: 06-02-2024 Office outpatient visit 15 minutes Cl Thomas MD Work Phone: [facility] Comment on above: MARGOTH (obstructive sle ep apnea) (Primary Dx); Intolerance of continuous positive airway pressure (CPAP) ventilation; Hypersomnia; Awakens from sleep due to pain Start: 06-02-2024 End: 06-02-2024 ambulatory CL THOMAS [facility] Start: 03-24-2024 End: 03-24-2024 Telephone encounter Cl Thomas MD Work Phone: [facility] Start: 02-25-2024 End: 02-25-2024 Office outpatient visit 15 minutes Cl Thomas MD Work Phone: [facility] Comment on above: MARGOTH (obstructive sle ep apnea) (Primary Dx); Chronic insomnia; Hypersomnia; Nasal congestion Start: 02-25-2024 End: 02-25-2024 ambulatory CL THOMAS [facility] Start: 11-05-2023 Telephone encounter Cl Max MD Work Phone: [facility] Start: 10-03-2023 Refill Angelica Ervin MD Work Phone: [facility] Comment on above: Chronic insomnia Procedures Date Procedure Procedure Detail Performing Clinician Start: 02-16-2025 MR LUMBAR SPINE WO CON Generic External Data Provider Start: 02-16-2025 XR EYE BILATERAL FOR EIGN BODY 92510 Generic External Data Provider Start: 10-09-2024 Radex hip unilateral with pelvis 2-3 views Frances Nguyen LABOR SPECIALIST Work Phone: Start: 10-09-2024 XR LUMBAR SPINE 2 OR 3V Frances Nguyen LABOR SPECIALIST Work Phone: Start: 02-25-2024 Follow-up visit Follow-up CL THOMAS Start: 05-14-2022 Adult depression screening assessment Angelica Ervin MD Work Phone: Plan of Treatment Date Care Activity Detail Author Start: 01-12-2026 Adult BMI Screening Adult BMI Screen ing [facility] Start: 01-12-2026 Tobacco Screening Tobacco Screening [facility] Start: 11-18-2025 Adult BMI Screening Adult BMI Screen ing [facility] Start: 11-18-2025 Tobacco Screening Tobacco Screening [facility] Start: 06-02-2025 Adult BMI Screening Adult BMI Screen ing [facility] Start: 06-02-2025 Tobacco Screening Tobacco Screening [facility] Start: 04-19-2025 Influenza vaccination Influenza Vacc ine [facility] Start: 02-24-2025 Adult BMI Screening Adult BMI Screen ing [facility] Start: 02-24-2025 Tobacco Screening Tobacco Screening [facility] Start: 02-23-2025 End: 02-23-2025 Patient encounter procedure 02/23/2025 9:15 AM EDT Office Visit [facility] [address] [place] [address] Cl Thomas MD [address] [facility] [address] [place] [address] [facility] Start: 01-12-2025 End: 01-12-2025 Patient encounter procedure 01/12/2025 2:45 PM EDT Office Visit [facility] [address] [place] [id number] Cl Thomas MD [address] [facility] [address] [place] [address] [facility] Start: 12-28-2024 End: 12-28-2024 Patient encounter procedure 12/28/2024 6:30 PM EDT Office Visit [facility] [address] [place] [address] Frances Nguyen, LABOR SPECIALIST [address] [place] [address] [facility] Start: 12-22-2024 End: 12-22-2024 ambulatory 12/22/2024 6:00 PM EDT Treatment [facility] [address] [place] [address] Annabelle Martinez, PT [address] [place] [address] [facility] Start: 12-14-2024 End: 12-14-2024 ambulatory 12/14/2024 4:00 PM EDT Treatment [facility] [address] [place] [address] Annabelle Martinez, PT [address] [place] [address] [facility] Start: 12-08-2024 End: 12-08-2024 ambulatory 12/08/2024 6:00 PM EDT Treatment [facility] [address] [place] [address] Annabelle Martinez, PT [address] [place] [address] [facility] Start: 12-03-2024 End: 12-03-2024 ambulatory 12/03/2024 4:30 PM EDT Treatment [facility] [address] [place] [address] Annabelle Martinez, PT [address] [place] [address] [facility] Start: 12-01-2024 End: 12-01-2024 ambulatory 12/01/2024 4:00 PM EDT Treatment [facility] [address] [place] [address] Annabelle Martinez, PT [address] [place] [address] [facility] Start: 11-26-2024 End: 11-26-2024 ambulatory 11/26/2024 5:00 PM EDT Treatment [facility] [address] [facility] [address] [place] [address] Ranjan Britt PTA [facility] Start: 11-24-2024 End: 11-24-2024 ambulatory 11/24/2024 6:00 PM EDT Treatment [facility] [address] [place] [address] Annabelle Martinez, PT [address] [place] [address] [facility] Start: 11-18-2024 End: 11-18-2024 Clinical Support 11/18/2024 8:00 PM EDT Clinical Support [facility] [address] [place] [address] Cl [place] [address] [place] [address] [facility] Start: 10-21-2024 End: 10-21-2024 Patient encounter procedure 10/21/2024 6:00 PM EST Office Visit [facility] [address] [place] [address] Frances Nguyen, [place] [address] [place] [address] [facility] Start: 10-19-2024 End: 10-19-2024 [...] joint pain Expected: 10/19/2024 (Approximate), Expires: 10/19/2025 [facility] Comment on above: Expected: 10/19/2024 (Approximate), Expires: 10/19/2025 Start: 10-13-2024 End: 10-13-2024 ambulatory 10/13/2024 5:00 PM EST Treatment [facility] [address] [facility] [address] [place] [address] Annabelle Martinez, PT [address] [facility] [address] [place] [address] [facility] Start: 10-13-2024 End: 10-13-2024 Patient encounter procedure 10/13/2024 2:15 PM EST Office Visit [facility] [address] [place] [phone] Cl Thomas MD [address] [facility] [address] [place] [address] [facility] Start: 10-06-2024 End: 10-06-2024 ambulatory 10/06/2024 4:30 PM EST Treatment [facility] [address] [place] [address] Annabelle Martinez, PT [address] [facility] [address] [place] [address] [facility] Start: 10-01-2024 End: 10-01-2024 ambulatory 10/01/2024 5:00 PM EST Treatment [facility] [address] [place] [address] Parisa Calle, REGRINDER Arrived [facility] Comment on above: Arrived Start: 09-22-2024 End: 09-22-2024 ambulatory 09/22/2024 4:30 PM EST Treatment [facility] [address] [place] [address] Annabelle Martinez, PT [address] [facility] [address] [place] [address] [facility] Start: 09-16-2024 End: 09-16-2024 ambulatory 09/16/2024 4:30 PM EST Treatment [facility] [address] [place] [address] Annabelle Martinez, PT [address] [place] [address] [facility] Start: 09-09-2024 End: 09-09-2024 ambulatory 09/09/2024 1:00 PM EST Evaluation [facility] [address] [place] [address] Annabelle Martinez, PT [address] [place] [address] [facility] Start: 09-08-2024 End: 09-08-2025 [...] Support 06/29/2024 8:00 PM EST Clinical Support [facility] [address] [place], [place] [address] [place] [address] Cl Thomas MD [address] [place] [address] [facility] Start: 06-02-2024 End: 06-02-2024 Patient encounter procedure 06/02/2024 8:45 AM EDT Office Visit [facility] [address] [place] [address] Cl Thomas MD [address] [address] [facility] Start: 04-19-2024 Influenza vaccination Influenza Vacc ine [facility] Start: 02-27-2024 Adult BMI Screening Adult BMI Screen ing [facility] Start: 02-27-2024 Tobacco Screening Tobacco Screening [facility] Start: 01-07-2024 End: 01-07-2024 Patient encounter procedure 01/07/2024 9:30 AM EDT Office Visit [facility] [address] [place] [address] Cl Thomas MD [address] [facility] [address] [place] [address] [facility] Start: 01-02-2024 End: 01-02-2024 Clinical Support 01/02/2024 8:00 PM EDT Clinical Support [facility] [address] [facility] [address] Angelica Ervin MD [address] [place] [address] [facility] Start: 05-14-2023 Depression Screening Depression Scre ening [facility] Start: 04-19-2023 Influenza vaccination Influenza Vacc ine [facility] Start: 01-28-2000 DTaP,Tdap and Td Vac cines (1 - Tdap) DTaP,Tdap and Td Vaccines (1 - Tdap) [facility] End: 06-02-2025 Polysomnography 4 or more parameters with PAP titration Polysomnography 4 or more parameters with PAP titration Sleep Center Routine MARGOTH (obstructive sleep apnea) 1 Occurrences starting 06/02/2024 until 06/02/2025 [facility] Work Phone: Comment on above: 1 Occurrences starti ng 06/02/2024 until 06/02/2025 Payers Date Payer Category Payer Blue Cross Blue Shield BCBS [id number] 2023 Blue Cross Blue Shie Managed Care - PPO ANTHEM [id number] 2023 Unknown [id number]. [id number] 2023 Unknown [id number] 1981 Unknown [id number] 2.16.840.1.123817.3.579. 2.1285 1981 Unknown [id number] 2.16.840.1.784317.3.579. 2.128 1981 Unknown [id number] 2.16.840.1.966131.3.579. 2.128 1981 Unknown [id number] 2.16.840.1.962948.3.579. 2.9 1981 Unknown [id number] 2.16.840.1.203377.3.579. 2.1259 1981 Unknown [id number] 2.16.840.1.008550.3.579. 2.1258 1981 Unknown [id number] 2.16.840.1.763566.3.579. 2.1258 1981 Unknown [id number] 2.16.840.1.597689.3.579. 2.1258 1981 Unknown [id number] 2.840.1.143919.3.579. 2.1258 1981 Unknown [id number] 2.16840.1.078003.3.579. 2.1258 1981 Unknown [id number] 2.840.1.589346.3.579. 2.1258 1981 Unknown [id number] 2.840.1.296090.3.579. 2.1258 1981 Unknown [id number] 2.0.1.556030.3.579. 2.1258 1981 Unknown [id number] 2.840.1.244187.3.579. 2.1258 1981 Unknown [id number] 2.840.1.531635.3.579. 2.1258 1981 Unknown [id number] 2.840.1.454272.3.579. 2.1258 1981 Unknown [id number] 2840.1.987782.3.579. 2.1258 1981 Unknown [id number] 2.840.1.690276.3.579. 2.1285 1981 Unknown [id number] 2.840.1.882296.3.579. 2.1285 1981 Unknown [id number] 2.840.1.013790.3.579. 2.1285 1981 Unknown [id number] 2.840.1.314734.3.579. 2.196 1981 Unknown [id number] 2.16840.1.738459.3.579. 2.196 1981 Unknown [id number] 2.16.840.1.700304.3.579. 2.196 Social History Date Type Detail Facility Start: 06-05-2022 End: 10-10-2023 Tobacco smoking status NHIS Never smoked tobacco [facility] Start: 06-05-2022 End: 10-10-2023 Tobacco use and exposure Smokeless tobacco non-user [facility] Start: 11-11-2023 End: 10-19-2024 Alcoholic beverage intake Current drinker of alcohol (finding) [facility] Start: 10-10-2023 End: 11-11-2023 History of Social function [facility] Start: 10-10-2023 End: 11-11-2023 Tobacco use panel [facility] Start: 10-09-2023 Alcohol Comment 1-2 drinks 2-3 times a week, caffeine 1-2 cups per day [facility] Start: 1980 Sex assigned at Not on file P [facility] Adolescent depressio n screening assessment 0 [facility] Start: 05-15-2017 Alcohol Comment Only a few bee rs a week, not typically every night [facility] Start: 03-24-2015 Sex Male (finding) [facility] Medical Equipment Procedure Code Equipment Code Equipment Origin al Text Equipment Identifier Dates Anch Sut 2.9mm S hldr Kntls Rpl [id number] - [id number] - [id number] Start: 08-07-2019 Clinical Notes 11-05-2023 to 01-12-2025 Telephone Encounter - Yeny Garduno [facility] - 01/12/2025 3:59 PM EDTTelephone Encounter - Cl Thomas MD - 01/12/2025 3:59 PM EDTTelephone Encounter - Yeny Garduno [facility] - 01/12/2025 3:59 PM EDT Note Date & Type Note Facility 01-12-2025 Miscellaneous Notes Received call from [facility]. They need clarification on Rx. Is it supposed to be 30 for 30 days or 10 for 10 days? I left message with [email or web address] pharmacy, 30 day supply was intended documented in this encounter [facility] 01-12-2025 Telephone encounter Note Received call from [email or web address]. They need clarification on Rx. Is it supposed to be 30 for 30 days or 10 for 10 days? [facility] 01-12-2025 Telephone encounter Note I left message with [facility] pharmacy, 30 day supply was intended [facility] 01-12-2025 History of Presen t illness Narrative Images from the original note were not included. Images from the original note were not included. CHIEF COMPLAINT: Speedy Rosen is a 44 y.o. male who presents to [facility] in follow-up for [...] chin strap, denies trouble tolerating the mask. Wilbraham Sleepiness Scale: Sitting and Reading: (!) High [...] 08/07/2019 Performed by Dain Marinelli DO at [facility] ALL[facility]GIES: No Known Allergies MEDICATIONS: Current [...] Sleep Study Results: Titration study on 11/18/2024 (Gktwmq=163.0 lbs; BMI=24.2 kg/m2) DIAGNOSIS: ? Obstructive Sleep [...] and NREM sleep. PSG 10/24/22 AHI 21.1 [id number] 92% Dx MARGOTH IMPRESSION/RECOMMENDATIONS: 1. Chronic insomnia [...] sedating substances as this may cause excess PROGRAM CONSULTANT depression/altered mentation. - The patient was [...] to stop the activity if sleepiness occurs (cotton puller at the next safe opportunity if driving). MARGOTH treatment options were discussed. CPAP is the most predictably effective treatment. Above plan as discussed with the patient who acknowledged understanding and agreement. CL THOMAS MD [facility] [address] [place] [address] documented in this encounter [facility] 01-12-2025 Instructions Cl Thomas MD - 01/12/2025 [...] sedating substances as this may cause excess PROGRAM CONSULTANT depression/altered mentation. - The patient was advised to only take the medication if they have adequate time to devote to sleep (must have a full night sleep - 8 hrs) and not to drive or perform tasks requiring full mental alertness the next morning until the know how the medication affects them The following attachments cannot be sent through Care Everywhere.[place], ADULT (Slovenian)documented in this encounter [facility] 12-29-2024 Miscellaneous Notes Pressure change done in office and pressure change order faxed to [facility] for their records. documented in this encounter [facility] 12-29-2024 Telephone encounter Note Pressure change done in office and pressure change order faxed to [facility] for their records. [facility] 12-29-2024 Miscellaneous Notes Images from the original [...] need RV for compliance and address insomnia Manufacturing Recruiter called patient and informed him that per AD: Cl Thomas MD Physician Signed 1449 Pressure change auto CPAP 12-[address] not drive if excessively sleepy He slept for 375 min on the sleep study, although sleep was broken Will need RV for compliance and address insomnia Manufacturing Recruiter scheduled patient for follow up with AD on 01/12/2025. documented in this encounter [facility] 12-29-2024 Telephone encounter Note Images from the [...] soon as possible. Please review and advise. [facility] 12-29-2024 Telephone encounter Note Pressure change auto CPAP 12-[address] he should not drive if excessively sleepy He slept for 375 min on the sleep study, although sleep was broken Will need RV for compliance and address insomnia [facility] 12-29-2024 Telephone encounter Note Manufacturing Recruiter called patient and informed him that per AD: Cl Thomas MD Physician Signed 1449 Pressure change auto CPAP 12-20 [address]gree he should not drive if excessively sleepy He slept for 375 min on the sleep study, although sleep was broken Will need RV for compliance and address insomnia Manufacturing Recruiter scheduled patient for follow up with AD on 01/12/2025. T [facility] 12-22-2024 History of Presen t illness Narrative Images from the original note were not included. Physical Therapy Treatment Visit Patient Name: Speedy Rosen Today's Date: 12/22/24 Encounter Diagnoses Name Primary? Lumbar paraspinal muscle spasm Yes Visit number: 12/22 Timed Code Treatment Minutes: 40 minutes Total [...] to be instructed in home exercise program. Skilled Nursing Goals: To be met in 10 weeks [...] sign below. Date: documented in this encounter [facility] 12-08-2024 History of Presen t illness Narrative [...] to be instructed in home exercise program. Administrative Medical Director Goals: To be met in 10 weeks [...] sign below. Date: documented in this encounter [facility] 12-01-2024 History of Presen t illness Narrative [...] to be instructed in home exercise program. Administrative Medical Director Goals: To be met in 10 weeks [...] sign below. Date: documented in this encounter [facility] 11-26-2024 Miscellaneous Notes Patient called office about having a titration completed on 11/18/2024, patient stated that he needs to have a pressure change and a chin strap. Manufacturing Recruiter informed patient that AD will read the titration and then result it to our sleep coordinators and they will contact patient to inform him if any pressure changes need made. Patient verbalized understanding. documented in this encounter [facility] 11-26-2024 Telephone encounter Note Patient called office about having a titration completed on 11/18/2024, patient stated that he needs to have a pressure change and a chin strap. Manufacturing Recruiter informed patient that AD will read the titration and then result it to our sleep coordinators and they will contact patient to inform him if any pressure changes need made. Patient verbalized understanding. [facility] 11-24-2024 History of Presen t illness Narrative [...] to be instructed in home exercise program. Skilled Nursing Goals: To be met in 10 weeks [...] sign below. Date: documented in this encounter [facility] 11-18-2024 History of Presen t illness Narrative [...] to be instructed in home exercise program. Skilled Nursing Goals: To be met in 10 weeks [...] sign below. Date: documented in this encounter [facility] 10-20-2024 Miscellaneous Notes Patient stopped in office and stated that he tried to contact the sleep lab to see what he needed to bring with him for his titration study that is scheduled for tonight, adjusto writer operator informed him to wear comfortable pajamas, eat [...] that he has to have another study. Manufacturing Recruiter explained to patient that he has had pressure changes in the past by Dr. Ervin and that those had not helped so the next step is a sleep study, patient verbalized understanding and walked out of office. documented in this encounter [facility] 10-20-2024 Telephone encounter Note Patient stopped in office and stated that he tried to contact the sleep lab to see what he needed to bring with him for his titration study that is scheduled for tonight, adjusto writer operator informed him to wear comfortable pajamas, eat [...] that he has to have another study. Manufacturing Recruiter explained to patient that he has had pressure changes in the past by Dr. Ervin and that those had not helped so the next step is a sleep study, patient verbalized understanding and walked out of office. [employer] 10-19-2024 History of Presen t illness Narrative [...] TENDON RELEASE 07/2019 Left partial lateral epicondylectomy floor representative tendon release/Bondra family history includes Arthritis in [...] relaxer as well documented in this encounter [facility] 10-19-2024 Instructions Frances Nguyen NP - 10/19/2024 7:30 PM EST Low back: refer to pain mgmt: Dr Nikos Garza Check elbow xray documented in this encounter [facility] 10-13-2024 History of Presen t illness Narrative [...] right upper trapezius muscle flexibility Strength: right anesthesia director 100#, left anesthesia director 110#, bilateral UE 5/5 Treatment: PT evaluation [...] to be instructed in home exercise program. Skilled Nursing Goals: To be met in 10 weeks [...] sign below. Date: documented in this encounter [facility] 10-12-2024 Miscellaneous Notes Patient called office back and stated that he does not wish to reschedule his appointment at this time due to him needing to reschedule his sleep study, patient stated that he hasn't been able to use his machine and that he really needs to get his sleep study before returning to the office, adjusto writer operator transferred patient to the sleep lab to reschedule his sleep study, patient stated that he would call our office back to reschedule. documented in this encounter [facility] 10-12-2024 Telephone encounter Note Patient called office back and stated that he does not wish to reschedule his appointment at this time due to him needing to reschedule his sleep study, patient stated that he hasn't been able to use his machine and that he really needs to get his sleep study before returning to the office, adjusto writer operator transferred patient to the sleep lab to reschedule his sleep study, patient stated that he would call our office back to reschedule. [facility] 10-12-2024 Miscellaneous Notes Patient left mychart message wanting to cancel appointment and stated Nothing has changed. I haven't done the study . Manufacturing Recruiter attempted to call patient to reschedule appointment, voicemail box was full, unable to leave message. documented in this encounter [facility] 10-12-2024 Telephone encounter Note Patient left mychart message wanting to cancel appointment and stated Nothing has changed. I haven't done the study . Manufacturing Recruiter attempted to call patient to reschedule appointment, voicemail box was full, unable to leave message. [facility] 10-06-2024 History of Presen t illness Narrative [...] right upper trapezius muscle flexibility Strength: right anesthesia director 100#, left anesthesia director 110#, bilateral UE 5/5 Treatment: PT evaluation [...] to be instructed in home exercise program. Skilled Nursing Goals: To be met in 10 weeks [...] sign below. Date: documented in this encounter [facility] 09-29-2024 History of Presen t illness Narrative [...] right upper trapezius muscle flexibility Strength: right anesthesia director 100#, left anesthesia director 110#, bilateral UE 5/5 Treatment: PT evaluation [...] to be instructed in home exercise program. Skilled Nursing Goals: To be met in 10 weeks [...] sign below. Date: documented in this encounter [facility] 09-22-2024 History of Emmanuelle campos illness Narrative Physical Therapy Treatments Visit Patient [...] lawn chair to watch swim meet. Pain: 4-5/10 Objective: PT Evaluation (09/09/24) Neck ROM: flexion normal, extension normal, R SB 20 deg pain, L SB 25 deg pain. R rotation 45 deg, L rotation 40 deg. Palpation: right upper trapezius muscle trigger point Flexibility: moderate right upper trapezius muscle flexibility Strength: right anesthesia director 100#, left anesthesia director 110#, bilateral UE 5/5 Treatment: PT evaluation [...] to be instructed in home exercise program. Skilled Nursing Goals: To be met in 10 weeks [...] sign below. Date: documented in this encounter [facility] 09-16-2024 History of Presen t illness Narrative [...] right upper trapezius muscle flexibility Strength: right anesthesia director 100#, left anesthesia director 110#, bilateral UE 5/5 Treatment: PT evaluation [...] to be instructed in home exercise program. Administrative Medical Director Goals: To be met in 10 weeks [...] sign below. Date: documented in this encounter [facility] 09-08-2024 History of Presen t illness Narrative [...] titer abnormal 08/07/2023 Anxiety Arthritis 10/10/2023 Asthma ([facility]) 10/10/2023 Bilateral hand pain 10/10/2023 Bursitis of [...] TENDON RELEASE 07/2019 Left partial lateral epicondylectomy floor representative tendon release/Bondra family history includes Arthritis in [...] to Physical Therapy documented in this encounter [facility] 09-08-2024 Instructions Frances Nguyen NP - 09/08/2024 2:40 PM EST Will use muscle relaxer at bedtime as needed PT Fu in 6 weeks documented in this encounter [facility] 06-03-2024 Miscellaneous Notes 06/02 order received Scheduled CPAP at [facility] on 06/29 Confirmation antionette Chatted pre auth for ins [employer] blue access CPAP order & 06/02 Thomas notes in epic documented in this encounter [facility] 06-03-2024 Telephone encounter Note 06/02 order received Scheduled CPAP at [facility] on 06/29 Confirmation antionette Chatted pre auth for ins [employer] blue access CPAP order & 06/02 Thomas notes in epic [facility] 06-02-2024 History of Presen t illness Narrative CHIEF COMPLAINT: Speedy Rosen is a 44 y.o. male who presents to [facility] in follow-up for [...] with driving where he does need to cotton puller. Wilbraham Sleepiness Scale: Sitting and Reading: (!) High [...] minutes in traffic: Slight Chance (he will cotton puller and stop) Total: 14 I personally reviewed this data PAST MEDICAL HISTORY: Patient Active Problem List Diagnosis Allergic rhinitis Depression Past Medical History: Diagnosis Date Allergic rhinitis Anxiety Depression Moderate obstructive sleep apnea Visual impairment glasses, contacts Past Surgical History: Procedure Laterality Date CYST REMOVAL left hand, left foot HERNIA REPAIR RELEASE LATERAL EPICONDYLE ELBOW Left 08/07/2019 Performed by Dain Marinelli DO at [facility] ALLERGIES: No Known Allergies MEDICATIONS: Current [...] reviewed the following: PSG 10/24/22 AHI 21.1 ccq1wxy 92% Dx MARGOTH IMPRESSION/RECOMMENDATIONS: 1. MARGOTH (obstructive [...] would want to have a permanent medical numerical control operator in his body. He is interested in [...] to stop the activity if sleepiness occurs (cotton puller at the next safe opportunity if driving). MARGOTH treatment options were discussed. CPAP is the most predictably effective treatment. Above plan as discussed with the patient who acknowledged understanding and agreement. CL THOMAS MD [facility] [address] [place] [address] documented in this encounter [facility] 06-02-2024 Instructions Cl Thomas MD - 06/02/2024 8:45 AM EDT Mandibular advancing oral appliance for MARGOTH Custom made and adjustable ENT: Dr. Marissa Garcia ([facility]), phone: [phone] Dr. Lana Carson ([facility]), phone: [phone] Dentists: Dr. Roberth Murcia, phone [phone], [place], [address] Dr. Devendra Sesay ([facility] Accredited) [facility] [address] [place] [address] [address] [place] [address] Chris Rogers [address] [place], [place] [address] Dr. Rl Coronado [address] [place], [place] [id number] Dr. Ignacio Pérez [facility] [place] [address] Thank you for visiting [facility] office. The process of completing a sleep study has many steps. We have detailed these steps below to help keep you informed of what to expect. The scheduling, prior authorization, and registration process: Please call [phone] option #1 to schedule your sleep study. Your sleep medicine specialist places an electronic order which is sent to [facility] sleep lab. This order is then reviewed by the lab staff and a request for approval is sent to your insurance company. If you would like to know the estimated cost of your study, you can call [phone] for general pricing information (note that you will need the following procedure codes allow them to estimate the cost: Polysomnogram (PSG), in lab diagnostic study without CPAP = 27932 PAP titration, in lab with CPAP for treatment = 98591 Home sleep study = 49214 Every study request is reviewed in our sleep prior authorization department. Some sleep studies require prior authorization and some do not (only require that the provider document the need for the study). Some sleep study orders may need to be changed based on insurance coverage. (ie in lab to home study). Please confirm with your insurance that all [facility] sleep labs are in network with your insurance. If you change your insurance after the sleep study is ordered, please call the sleep lab back to update our scheduling staff ([phone] option #1). You should receive a call [...] your sleep study is sent to a hvac technician residential to be reviewed and scored. The report from the hvac technician residential is then sent to the sleep medicine physician and within 7-10 days the study will be formally interpreted. Once the study is completed, there will be contact from our office (through [employer], phone, or a letter) about next steps (ie treatment for sleep apnea, office appointment, cpap machine orders). If a cpap machine has been ordered and you do not hear from the equipment company within 30 days of your study, please call our office [phone]. FYI: Some insurance companies have strict guidelines regarding the timeline for this process. If sleep studies are not completed within 6-12 months of the office visit insurance may require another office visit. Also if cpap set up is not done within a year of the initial sleep study insurance may require another sleep study. Thank you, [facility] Department documented in this encounter [facility] 03-24-2024 Miscellaneous Notes ----- Message from Dr. Cl Thomas MD sent at 02/25/2024 2:50 PM EDT ----- Regarding: check 1 mo Check download Please obtain updated download for review documented in this encounter [facility] 03-24-2024 Telephone encounter Note ----- Message from Dr. Cl Thomas MD sent at 02/25/2024 2:50 PM EDT ----- Regarding: check 1 mo Check download [facility] 03-24-2024 Telephone encounter Note Please obtain updated download for review [facility] 02-25-2024 History of Presen t illness Narrative Images from the original note were not included. CHIEF COMPLAINT: Speedy Rosen is a 44 y.o. male who presents to [facility] in follow-up for MARGOTH and insomnia The patient was unaccompanied. He is a former patient of Dr. Ervin [employer] Since last seen, Mr. Rosen [...] much at night due to sleepiess Will cotton puller if needed [place]ham Sleepiness Scale: Sitting and Reading: Slight Chance [...] 08/07/2019 Performed by Dain Marinelli DO at [facility] ALLERGIES: No Known Allergies MEDICATIONS: Current Outpatient [...] Sleep Study Results: PSG 10/24/22 AHI 21.1 [id number] 92% Dx MARGOTH No new CPAP data [...] nasal congestion recommended that he try Astepro [id number] nasal spray per package directions Return visit [...] to stop the activity if sleepiness occurs (cotton puller at the next safe opportunity if driving). MARGOTH treatment options were discussed. CPAP is the most predictably effective treatment. Interim measures to reduce obstructive sleep apnea severity were recommended (avoidance of the supine position and elevation of the upper body and during sleep). Above plan as discussed with the patient who acknowledged understanding and agreement. CL THOMAS MD [facility] [address] [place] [address] documented in this encounter [facility] 02-25-2024 Instructions Cl Thomas MD - 02/25/2024 2:30 PM EDT AstePro nasal spray - over the counter per package directions for congestion Retry CPAP - we can adjust the pressure as needed documented in this encounter [facility] 11-05-2023 Miscellaneous Notes error documented in this encounter [facility] 11-05-2023 Telephone encounter Note error [facility] Work Phone: Evaluation note Diagnosis Bilateral hand [...] muscle, initial encounter documented in this encounter [facility] HealthcareEvaluation note* Diagnosis Chronic insomnia Insomnia, unspecified [facility]* Diagnosis MARGOTH (obstructive sleep apnea)- Primary Obstructive sleep apnea (adult) (pediatric) Chronic insomnia Insomnia, unspecified Hypersomnia Hypersomnia, unspecified Nasal congestion Other diseases of nasal cavity and sinuses documented in this encounter [facility] SystemEvaluation note* Diagnosis MARGOTH (obstructive sleep apnea)- Primary Obstructive sleep apnea (adult) (pediatric) Intolerance of continuous positive airway pressure (CPAP) ventilation Hypersomnia Hypersomnia, unspecified Awakens from sleep due to pain documented in this encounter [facility]* Diagnosis Bilateral hand pain- Primary Gastroesophageal reflux disease with esophagitis, unspecified whether hemorrhage Dermatitis- Primary Contact dermatitis and other eczema, due to unspecified cause Cervical pain (neck) Cervicalgia Strain of right trapezius muscle, initial encounter documented in this encounter [facility] HealthcareEvaluation note* Diagnosis Bilateral hand [...] muscle, initial encounter [facility]* Diagnosis MARGOTH (obstructive sleep apnea) Obstructive sleep apnea (adult) (pediatric) documented in this encounter [facility] note* Diagnosis Bilateral [...] apnea (adult) (pediatric) documented in this encounter [facility] System[facility] note* Diagnosis Chronic insomnia- Primary Insomnia, [...] mery dermatitis- Primary documented in this encounter [facility] HealthcareInstructionsNot on filedocumented in this [facility] SystemInstructionsNot on filedocumented in this encounterPro[facility] SystemInstructionsNot on filedocumented in this encounterProFisher[facility] SystemInstructionsNot on filedocumented in this encounterPro[facility] InstructionsNot on filedocumented in this encounterPro[facility] InstructionsNot on filedocumented in this encounterProFisher[facility] SystemReason for visit Narrative* Consultation (Routine) - Authorized Specialty Diagnoses / Procedures Referred By Rosamaria campos Referred To Contact Physical Therapy Diagnoses Cervical pain (neck) Strain of right trapezius muscle, initial encounter Degeneration of intervertebral disc of lumbar region, unspecified whether pain present Procedures ME OFFICE/OUTPATIENT NEW HIGH MDM 60 MINUTES Frances Nguyen NP [address] [place] [address] Phone: tel: fax: Annabelle Martinez, PT [address] [address] Phone: tel: fax: Referral ID Status Reason Start Date Expiration Date Visits Requested Visits Authorized [id number] Authorized Consult and Treat 09/09/2024 11/07/2024 6 6 [facility] Narrative* Consultation (Routine) - Closed Specialty Diagnoses / Procedures Referred By Rosamaria campos Referred To Contact Physical Therapy Diagnoses Cervical pain (neck) Strain of right trapezius muscle, initial encounter Degeneration of intervertebral disc of lumbar region, unspecified whether pain present Procedures ME OFFICE/OUTPATIENT NEW HIGH MDM 60 MINUTES Frances Nguyen NP [address] [place] [address] Phone: tel: fax: Annabelle Martinez, PT [address] [address] Phone: tel: fax: Referral ID Status Reason Start Date Expiration Date V isits Requested Visits Authorized [id number] Closed Consult and Treat 09/09/2024 11/07/2024 6 6 [facility] Narrative* Misc (Routine) - Closed Specialty Diagnoses / Procedures Referred By Contac t Referred To Contact Diagnoses MARGOTH (obstructive sleep apnea) Procedures Polysomnography 4 or more [place] [address] [place] [address] Phone: tel: fax: Referral ID Status Reason Start Date Expiration Date Visits Re quested Visits Authorized [id number] Closed 06/02/2024 06/02/2025 1 1 [facility] SystemReason for visit Narrative* Rehabilitation - Outpatient (Routine) - Authorized Specialty Diagnoses / Procedures Referred By Contac t Referred To Contact Physical Therapy Diagnoses Lumbar Stenosis Procedures ME PHYSICAL THERAPY EVALUATION LOW COMPLEX 20 MINS ME OFFICE/OUTPATIENT NEW HIGH MDM 60 MINUTES Sorin Elizondo MD [address] [place] [address] Phone: tel: fax: Leydi Jenkins, GRACE Referral ID Status Reason Start Date Expiration Date V isits Requested Visits Authorized [id number] Authorized 11/18/2024 01/16/2025 6 6 [facility] [...] Referral Specialty Diagnoses / Procedures Referred By Contac t Referred To Contact Diagnoses MARGOTH (obstructive sleep apnea) Procedures Polysomnography 4 or more parameters with PAP titration Cl Thomas MD [address] [address] Referral ID Status Reason Start Date Expiration Date V isits Requested Visits Authorized [id number] Pending Review 06/02/2024 06/02/2025 1 1 Additional Source Comments (unrecognized sect ion and content) No Status Records FoundNo Status Records FoundNo Status Records FoundNo Status Records FoundNo Status Records Found INFORMATION SOURCE (unrecogn ized section and content) DATE CREATED AUTHOR 05/29/2021 [facility] DATE CREATED AUTHOR AUTHOR'S ORGANIZ ATION 11/22/2024 [facility] DATE CREATED AUTHOR AUTHOR'S ORGANIZ ATION 12/25/2024 [facility] EPIC DATE CREATED AUTHOR AUTHOR'S ORGANIZ ATION 01/15/2025 [facility] DATE CREATED AUTHOR AUTHOR'S ORGANIZ ATION 04/02/2025 [facility] Care Teams (unrecognized sec tion and content) Phys Ther Relationship Specialty Start Date End Date Frances Ngyuen NP [address] [place] [address] PCP - [employer] 08/19/23 Austin Gray MD [address] [place] [address] PCP - General Family Medicine 10/08/23 Phys Ther Relationship Specialty Start Date End Date Frances Nguyen NP [address] [place] [address] PCP - [employer] 08/19/23 Austin Gray MD [address] [place] [address] PCP - General Family Medicine 10/08/23 Phys Ther Relationship Specialty Start Date End Date Frances Nguyen NP [address] [place] [address] PCP - [employer] 08/19/23 Austin Gray MD [address] [place] [address] PCP - General Family Medicine 10/08/23 Phys Ther Relationship Specialty Start Date End Date Frances Nguyen NP [address] [place] [address] PCP - [employer] 08/19/23 Austin Gray MD [address] [place] [address] PCP - General Family Medicine 10/08/23 Phys Ther Relationship Specialty Start Date End Date Frances Nguyen NP [address] [place] [address] PCP - [employer] 08/19/23 Austin Gray MD [address] [place] [address] PCP - General Family Medicine 10/08/23 Phys Ther Relationship Specialty Start Date End Date Frances Nguyen NP [address] [place] [address] PCP - [employer] 08/19/23 Austin Gray MD [address] [place] [address] PCP - General Family Medicine 10/08/23 Phys Ther Relationship Specialty Start Date End Date Frances Nguyen NP [address] [place] [address] PCP - [employer] 08/19/23 Austin Gray MD [address] [place] [address] PCP - General Family Medicine 10/08/23 Phys Ther Relationship Specialty Start Date End Date Frances Nguyen [facility] [address] [place] [address] PCP - General Nurse Practitioner 08/02/23 Phys Ther Relationship Specialty Start Date End Date Frances Nguyen [facility] [address] [place] [address] PCP - General Nurse Practitioner 08/02/23 Phys Ther Relationship Specialty Start Date End Date Frances Nguyen [facility] [address] [place] [address] PCP - General Nurse Practitioner 08/02/23 Phys Ther Relationship Specialty Start Date End Date Frances Nguyen [facility] PCP - General Nurse Practitioner 08/02/23 Phys Ther Relationship Specialty Start Date End Date Frances Nguyen [facility] PCP - General Nurse Practitioner 08/02/23 Phys Ther Relationship Specialty Start Date End Date Frances Nguyen NP [address] [place] [address] PCP - [employer] 08/19/23 Austin Gray MD [address] [place] [address] PCP - General Family Medicine 10/08/23 Phys Ther Relationship Specialty Start Date End Date Frances Nguyen NP [address] [place] [address] PCP - [employer] 08/19/23 Austin Gray MD [address] [place] [address] PCP - General Family Medicine 10/08/23 Phys Ther Relationship Specialty Start Date End Date Frances Nguyen, SUGAR GRINDER-MOTOR HOME ELECTRICAL FOREMAN PCP - General Nurse Practitioner 08/02/23 Phys Ther Relationship Specialty Start Date End Date Frances Nguyen NP [address] [place] [address] PCP - [employer] 08/19/23 Austin Gray MD [address] [place] [address] PCP - General Family Medicine 10/08/23 Phys Ther Relationship Specialty Start Date End Date Frances Nguyen NP [address] [place] [address] PCP - [employer] 08/19/23 Austin Gray MD [address] [place] [address] PCP - General Family Medicine 10/08/23 Phys Ther Relationship Specialty Start Date End Date Frances Nguyen NP [address] [place] [address] PCP - Cook Commercial 08/19/23 Austin Gray MD [address] [place] [address] PCP - General Family Medicine 10/08/23 Phys Ther Relationship Specialty Start Date End Date Frances Nguyen NP [address] [place] [address] PCP - Cook Commercial 08/19/23 Austin Gray MD [address] [place] [address] PCP - General Family Medicine 10/08/23 Phys Ther Relationship Specialty Start Date End Date Frances Nguyen NP [address] [place] [address] PCP - [employer] 08/19/23 Austin Gray MD [address] [place] [address] PCP - General Family Medicine 10/08/23 Phys Ther Relationship Specialty Start Date End Date Frances Nguyen, SUGAR GRINDER-MOTOR HOME ELECTRICAL FOREMAN PCP - General Nurse Practitioner 08/02/23 Phys Ther Relationship Specialty Start Date End Date Frances Nguyen NP [address] [place] [address] PCP - Cook [employer] 08/19/23 Austin Gray MD [address] [place] [address] PCP - General Family Medicine 10/08/23 Phys Ther Relationship Specialty Start Date End Date Frances Nguyen NP [address] [place] [address] PCP - [employer] 08/19/23 Austin Gray MD [address] [place] [address] PCP - General Family Medicine 10/08/23 Phys Ther Relationship Specialty Start Date End Date Frances Nguyen NP [address] [place] [address] PCP - Cook [employer] 08/19/23 Austin Gray MD [address] [place] [address] PCP - General Family Medicine 10/08/23 Phys Ther Relationship Specialty Start Date End Date Frances Nguyen, SUGAR GRINDER-MOTOR HOME ELECTRICAL FOREMAN PCP - General Nurse Practitioner 08/02/23 Phys Ther Relationship Specialty Start Date End Date Frances Nguyen NP [address] [place] [address] PCP - [employer] 08/19/23 Austin Gray MD [address] [place] [address] PCP - General Family Medicine 10/08/23 Phys Ther Relationship Specialty Start Date End Date Frances Nguyen NP [address] [place] [address] PCP - [employer] 08/19/23 Austin Gray MD [address] [place] [address] PCP - General Family Medicine 10/08/23 Phys Ther Relationship Specialty Start Date End Date Frances Nguyen APRN-MOTOR HOME ELECTRICAL FOREMAN PCP - General Nurse Practitioner 08/02/23 Phys Ther Relationship Specialty Start Date End Date Frances Nguyen APRN-MOTOR HOME ELECTRICAL FOREMAN PCP - General Nurse Practitioner 08/02/23 Phys Ther Relationship Specialty Start Date End Date Franecs Nguyen NP [address] [place] [address] PCP - [employer] 08/19/23 Austin Gray MD [address] [place] [address] PCP - General Family Medicine 10/08/23 Reason [...] BE BASED ON THE PRIMARY CLINICAL RECORDS. [employer] provides no warranty or guarantee of the accuracy or completeness of information in this document.
== END 2025-04-22 14:42 | disposition home or self-care (01) ==
LOC: PM 14:41
PROVIDERS: PCP Nurse Practitioner; Visit Provider Nurse Practitioner
DX: M46.1 Sacroiliitis, not elsewhere classified (principal); M48.062 Spinal stenosis, lumbar region with neurogenic claudication; M47.816 Spondylosis without myelopathy or radiculopathy, lumbar region
CPT/HCPCS: G0463

== ENCOUNTER 2025-05-03 07:08 | Day surgery (SDC) | payer BC, SELFPAY ==
--- OUTSIDE RECORDS SUMMARY | 2025-05-03 07:09 | XMS_ITS | Encounter Summary ---
Author Organization [employer] [facility] tem Address [id number] [address] [place] [address] Care Team Providers Care Research Chief Engineer Name Role Phone NnamdiFrances pena Asya WARD NURSE-[facility] Primary Care Provider Encounter Details Date Type Department Care Team (Late st Contact Info) Description 08/22/2023 Orders Only [facility] [address] [place] [address] Marleny Garcia [facility] [address] [place] [address] Social History Tobacco Use Types [...] documented as of this encounter Care Teams Research Chief Engineer Relationship Specialty Start Date End Date Frances Nguyen, WARD NURSE-MEDICAL PHYSICS RESEARCHER PCP - General Nurse Practitioner 08/02/23 documented as of this encounter
--- OUTSIDE RECORDS SUMMARY | 2025-05-03 07:10 | XMS_ITS | Encounter Summary ---
Author Organization [employer] tem Address [id number] [address] [place] [address] Care Team Providers Care Automatic Dispenser Mechanic Name Role Phone NnamdiFrances pena LABORATORY SAMPLE CARRIER-PROCEDURE ANALYST Primary Care Provider Reason for Visit * Reason Onset Date Comments Medication update 06/22/2022 Encounter Details Date Type Department Care Team (Late st Contact Info) Description 06/22/2022 Telephone [facility] [address] [address] Parisa Abad LPN Medication update Social [...] documented as of this encounter Care Teams Automatic Dispenser Mechanic Relationship Specialty Start Date End Date Frances Nguyen, LABORATORY SAMPLE CARRIER-PROCEDURE ANALYST PCP - General Nurse Practitioner 08/02/23 documented as of this encounter
--- OUTSIDE RECORDS SUMMARY | 2025-05-03 07:10 | XMS_ITS | Encounter Summary ---
Author Organization [facility] Address [address] [place] [address] Care Team Providers Care Palliative Nurse Name Role Phone Frances Nguyen NP Unavailable [phone] Austin Gray MD Primary Care Provider [phone] Encounter Details Date Type Department Care Team (Late st Contact Info) Description 11/14/2024 External Result Encounter [facility] [address] [place] [address] Frances Nguyen NP [address] [facility] [place] [address] Social History Tobacco Use Types Packs/Day Years [...] PERFORMED AT [facility] XR ELBOW LT MIN 3 VWS: 11/14/2024 [...] PERFORMED AT [facility] XR ELBOW LT MIN 3 VWS: 11/14/2024 [...] MD on 11/14/2024 2:16 PM Frances Nguyen METALSMITH HELPER IMG XR PROCEDURES Final Result * XR elbow 3+ views right (11/14/2024 11:51 AM EDT) Anatomical Region Laterality Modality Upper Extremities, Elbow Right Radiogr aphic Imaging 11/14/2024 11:5 1 AM EDT Narrative 11/14/2024 11:49 AM EDT THIS EXAM WAS PERFORMED AT [facility] Right elbow: HISTORY: Right elbow pain. 4 views of the right elbow were obtained. There is no acute osseous, articular, or soft tissue abnormality. IMPRESSION: Negative exam. Finalized by Paulo Howell MD on 11/14/2024 11:49 AM Procedure Note Radiology, Radiologist, - 11/14/2024 THIS EXAM WAS PERFORMED AT [facility] Right elbow: HISTORY: Right elbow pain. 4 views of the right elbow were obtained. There is no acute osseous,articular, or soft tissue abnormality. IMPRESSION: Negative exam. Finalized by Paulo Howell MD on 11/14/2024 11:49 AM Frances Nguyen NP IMG XR PROCEDURES Final Result documented in this encounter Visit Diagnoses Not on filedocumented in this encounter Care Teams Palliative Nurse Relationship Specialty Start Date End Date Frances Nguyen NP [address] [place] [address] PCP - [facility] 08/19/23 Austin Gray MD [address] [place] [address] PCP - General Family Medicine 10/08/23 documented as of this encounter
--- OUTSIDE RECORDS SUMMARY | 2025-05-03 07:10 | XMS_ITS | Encounter Summary ---
Author Organization [facility] tem Address [id number] [address] [place] [address] Care Team Providers Care Dermatology Sales Representative Name Role Phone NnamdiFrances pena Asya [facility] Primary Care Provider Encounter Details Date Type Department Care Team (Late st Contact Info) Description 10/25/2020 Orders Only [facility] [address] [place] [address] [facility] [address] [place] [address] Social History Tobacco Use Types [...] documented as of this encounter Care Teams Dermatology Sales Representative Relationship Specialty Start Date End Date Frances Nguyen, SALT CUTTER-EDITOR DICTIONARY PCP - General Nurse Practitioner 08/02/23 documented as of this encounter
--- OUTSIDE RECORDS SUMMARY | 2025-05-03 07:10 | XMS_ITS | Clinical Summary ---
Author Organization [facility] Healthcare Address [address] [place] [address] Care Team Providers Care Printing Supervisor Name Role Phone Frances Nguyen NP Unavailable [phone] Austin Gray MD Primary Care Provider [phone] Allergies No known active allergies Medications pantoprazole [...] Department Care Team Description 04/01/2025 Abstract [facility] [facility] [address] [place] [address] Frances Nguyen NP 03/22/2025 [facility] [address] [place] [address] Frances Nguyen NP 03/01/2025 Abstract [facility] [address] [place] [address] Frances Nguyen NP 02/16/2025 Clinisync Result Encounter [facility] External Department Unsolicited Provider, Generic External Data 02/16/2025 Clinisync Result Encounter NOMS External Department Unsolicited Provider, Generic External Data from Last 3 Months Family History Medical [...] PM EDT XR EYE BILATERAL FOREIGN BODY 93980 02/16/2025 8:28 AM EDT from Last 3 Months Results * MR LUMBAR SPINE WO CON (02/16/2025 3:04 PM EDT) Anatomical Region Laterality Modality Other 02/16/2025 3:04 PM EDT Narrative 02/16/2025 3:06 [place] [address] Magnetic Resonance Report Signed Patient: NOLAN ROSEN MR#: [id number] : 1980 Acct:[id number] Age/Sex: 45 / M ADM Date: 02/16/25 Loc: RAD Attending Dr: Jessica Elizondo M.D. Ordering Physician: Jessica Elizondo M.D. Date of Service: 02/16/25 Procedure(s): MR lumbar spine wo con Accession Number(s): [id number] cc: Frances Nguyen OTR [employer] TRUCK DRIVER; Jessica Elizondo M.D. The [place] [address] Patient Name: NOLAN ROSEN MRN: [facility]:[id number] date: 1980 Sex: M Assigned Patient Location: [facility] Current Patient Location: [facility] Accession/Order Number: [id number] Exam Date: 02/16/2025 15:00 Report Date: 02/16/2025 [...] above, worst at L4-L5. Impression dictated by: Alesia Potter Jr.OLetty 02/16/2025 3:04 PM Dictation Location: [place] [address] Electronically authenticated by: [id number] Y Date: 02/16/2025 15:04 Dictated By: Vinh Nieto M.D. Signed By: 02/16/25 1506 DD/ 1504 TD/TT: Review Appraiser: Procedure Note Radiology, Radiologist, MD - 02/16/2025 [place] [address] Magnetic Resonance Report Signed Patient: DMITRI ROSEN#: [id number] : 1980Acct:[id number] Age/Sex: 45 / MADM Date: 02/16/25 Loc: RAD Attending Dr: Jsesica Elizondo M.D. Ordering Physician: Jessica Elizondo M.D. Date of Service: 02/16/25 Procedure(s): MR lumbar spine wo con Accession Number(s): [id number] cc: Frances Nguyen NP; Jessica Elizondo M.D. The [place] [id number] Patient Name: NOLAN ROSEN MRN: [id number] date: 1980 Sex: M Assigned Patient Location: [facility] Current Patient Location: [facility] Accession/Order Number: [id number] Exam Date: 02/16/2025 15:00 Report Date: 02/16/2025 [...] 02/16/2025 3:04 PM Dictation Location: [place] [address] Electronically authenticated by: [id number] Y Date: 5:04 Dictated By: Vinh Nieto M.D. Signed By:02/16/25 1506 DD/ 1504 TD/TT: Review Appraiser: Generic External Data Provider [facility] Final Result * XR EYE BILATERAL FOREIGN BODY 30112 (02/16/2025 8:28 AM EDT) Anatomical Region Laterality Modality Radiographic Rhea ging 02/16/2025 8:28 AM EDT Narrative 02/16/2025 8:30 [place] [address] XRay Report Signed Patient: NOLAN ROSEN MR#: [id number] : 1980 Acct:[id number] Age/Sex: 45 / M ADM Date: 02/16/25 Loc: RAD Attending Dr: Jessica Elizondo M.D. Ordering Physician: Jessica Elizondo M.D. Date of Service: 02/16/25 Procedure(s): XR foreign body eye YUDITH Accession Number(s): [id number] cc: Frances Nguyen [employer] TRUCK DRIVER; Jessica Elizondo M.D. The [address] [address] Patient Name: NOLAN ROSEN MRN: [id number] date: 1980 Sex: M Assigned Patient Location: RAD Current Patient Location: RAD Accession/Order Number: [id number] Exam Date: 02/16/2025 08:27 Report Date: 02/16/2025 [...] Magallon M.D. 02/16/2025 8:28 AM Dictation Location: [place] [address] Electronically authenticated by: [id number] Y Date: 02/16/2025 08:28 Dictated By: Galina Magallon M.D. Signed By: 02/16/25829 DD/ 7 TD/TT: Review Appraiser: Procedure Note Radiology, Radiologist, - 02/16/2025 [place] [address] XRay Report Signed Patient: DEVYN ROSENR#: [id number] : 1980Acct:[id number] Age/Sex: 45 / MADM Date: 02/16/25 Loc: RAD Attending Dr: Jessica Elizondo M.D. Ordering Physician: Jessica Elizondo M.D. Date of Service: 02/16/25 Procedure(s): XR foreign body eye YUDITH Accession Number(s): [id number] cc: Frances Nguyen [employer] TRUCK DRIVER; Jessica Elizondo M.D. The [place] [address] Patient Name: NOLAN ROSEN MRN: [id number] date: 1980 Sex: M Assigned Patient Location: [facility] Current Patient Location: [facility] Accession/Order Number: [id number] Exam Date: 02/16/2025 08:27 Report Date: 02/16/2025 [...] Magallon M.D. 02/16/2025 8:28 AM Dictation Location: [place] [address] Electronically authenticated by: [id number] Y Date: 508:28 Dictated By: Gal[place] Magallon M.D. Signed By:02/16/25829 DD/ 7 TD/TT: Review Appraiser: Generic External Data Provider IMG XR PROCEDURES Final Result from Last 3 Months Insurance [facility] Care Teams Printing Supervisor Relationship Specialty Start Date End Date Frances Nguyen NP [address] [place] [address] PCP - [employer] 08/19/23 Austin Gray MD [address] [place] [address] PCP - General Family Medicine 10/08/23
--- OUTSIDE RECORDS SUMMARY | 2025-05-03 07:10 | XMS_ITS | Clinical Summary ---
Author Organization [employer] tem Address [facility] [id number] [address] [place] [address] Care Team Providers Care Learning Support Assistant Name Role Phone Frances Nguyen PLANT PATHOLOGIST-ENVIRONMENTAL SERVICES WORKER Primary Care Provider Allergies No known active [...] 01/12/2026 01/12/2025 Medical Devices Implanted Type Area Manager Neonatal Device Identifier Shelf Expiration Date Model / Serial / Lot Anch Sut 2.9mm [facility] [id number] - [id number] - [id number] Implanted:Qty: 3 on 08/07/2019 by Dain Marinelli DO at [facility] [place] Left: Elbow [employer] 11/17/2019 [id number] / [id number] / [id number] Insurance Care Teams Learning Support Assistant Relationship Specialty Start Date End Date Frances Nguyen, PAYAL-ENVIRONMENTAL SERVICES WORKER PCP - General Nurse Practitioner 08/02/23
--- OUTSIDE RECORDS SUMMARY | 2025-05-03 07:10 | XMS_ITS | Patient Health Record ---
Author Organization [facility] Address [address] [place] [address] Care Team Providers Care City Superintendent Of Schools Name Role Phone Mike Wilks Unavailable [phone] Allergies No Known Allergies Reason For Referral [...] Problem Status W/U Status Risk Notes Problem 62263098 Displaced fracture of proximal third of navicular [scaphoid] bone of right wrist, subsequent encounter for fracture with delayed healing (S62.031G) Active confirmed Problem [id number] Dupuytren's contracture of both hands (M72.0) Active confirmed Plan Of Treatment Pending Test Test Name Order Date SCC- HAND 3 VIEW LEFT [id number] 12/09/2023 CT WRIST RIGHT WITHOUT CONTRAST 12/09/19 24 Insurance Providers Payer Name Payer Address Payer Phone Subscriber Number Group Number Insured Name Patient Relationship to Insured Coverage Start Date Coverage End Date [facility] [address] [place] [phone] [id number] SPEEDY ROSEN Self - patient is the insured
--- OUTSIDE RECORDS SUMMARY | 2025-05-03 07:10 | XMS_ITS | Encounter Summary ---
Author Organization [employer] [facility] tem Address [id number] [address] [place] [address] Care Team Providers Care Restaurant Host/Hostess Name Role Phone NnamdiFrances pena Asya [facility] Primary Care Provider Encounter Details Date Type Department Care Team (Late st Contact Info) Description 11/27/2022 Orders Only [facility] [address] [place] [address] Marleny Garcia [facility] [address] [place] [address] Social History Tobacco Use Types [...] documented as of this encounter Care Teams Restaurant Host/Hostess Relationship Specialty Start Date End Date Frances Nguyen APRN-NON CDL DRIVER PCP - General Nurse Practitioner 08/02/23 documented as of this encounter
--- OUTSIDE RECORDS SUMMARY | 2025-05-03 07:10 | XMS_ITS | Encounter Summary ---
Author Organization [facility] Address [address] [place] [address] Care Team Providers Care Machine Operator Hop Worker Name Role Phone Frances Nguyen NP Unavailable [phone] Austin Gray MD Primary Care Provider Reason for Visit * Reason Comments Med Refill Encounter Details Date Type Department Care Team (Late st Contact Info) Description 09/08/2024 Refill [facility] [facility] [address] [place] [address] Frances Nguyen NP [address] [address] Gastroesophageal reflux disease with esophagitis, unspecified whether [...] hemorrhage documented in this encounter Care Teams Machine Operator Hop Worker Relationship Specialty Start Date End Date Frances Nguyen NP [address] [place] [address] PCP - [place] [employer] 08/19/23 Austin Gray MD [address] [place] [address] PCP - General Family Medicine 10/08/23 documented as of this encounter
--- OUTSIDE RECORDS SUMMARY | 2025-05-03 07:10 | XMS_ITS | Encounter Summary ---
Author Organization [employer] [facility] tem Address [id number] [address] [place] [address] Care Team Providers Care Ranch Hand Name Role Phone Frances Nguyen SERVICES EXECUTIVE-GLASS BULB SILVERER Primary Care Provider Encounter Details Date Type Department Care Team (Late st Contact Info) Description 03/07/2022 Telephone [facility] Family [facility] [address] [place] [address] Tri Davidson LPN Social History [...] documented as of this encounter Care Teams Ranch Hand Relationship Specialty Start Date End Date Frances Nguyen, PAYAL-GLASS BULB SILVERER PCP - General Nurse Practitioner 08/02/23 documented as of this encounter
--- OUTSIDE RECORDS SUMMARY | 2025-05-03 07:10 | XMS_ITS | Encounter Summary ---
Author Organization [employer] tem Address [facility] [id number] [address] [place] [address] Care Team Providers Care Cement Rubber Name Role Phone Frances Nguyen COMPUTER PROGRAMMER ANALYST-CALL CENTER ANALYST Primary Care Provider Reason for Visit * Reason Onset Date Comments Med Refill 03/07/2022 Encounter Details Date Type Department Care Team (Late st Contact Info) Description 03/07[facility]20[facility] [address] [place] [address] Tri Davidson LPN Anxiety Social [...] documented as of this encounter Care Teams Cement Rubber Relationship Specialty Start Date End Date Frances Nguyen, PAYAL-CALL CENTER ANALYST PCP - General Nurse Practitioner 08/02/23 documented as of this encounter
--- OUTSIDE RECORDS SUMMARY | 2025-05-03 07:10 | XMS_ITS | Encounter Summary ---
Author Organization [facility] Address [address] [place] [address] Care Team Providers Care Mechatronics Technician Name Role Phone Frances Nguyen NP Unavailable [phone] Austin Gray MD Primary Care Provider [phone] Encounter Details Date Type Department Care Team (Late st Contact Info) Description 10/09/2023 Abstract [facility] [address] [facility] [place] [address] Frances Nguyen NP [address] [facility] [place] [address] Social History Tobacco Use Types Packs/Day Years [...] on filedocumented in this encounter Care Teams Mechatronics Technician Relationship Specialty Start Date End Date Frances Nguyen NP [address] [place] [address] PCP - [facility] 08/19/23 Austin Gray MD [address] [place] [address] PCP - General Family Medicine 10/08/23 documented as of this encounter
--- OUTSIDE RECORDS SUMMARY | 2025-05-03 07:10 | XMS_ITS | Encounter Summary ---
Author Organization [facility] Address [address] [facility] [place] [address] Care Team Providers Care Application Integration Specialist Name Role Phone Frances Nguyen NP Unavailable [phone] Austin Gray MD Primary Care Provider [phone] Encounter Details Date Type Department Care Team (Late st Contact Info) Description 04/01/2025 Abstract [facility] [address] [facility] [place] [address] Frances Nguyen NP [address] [facility] [place] [address] Social History Tobacco Use Types Packs/Day Years [...] on filedocumented in this encounter Care Teams Application Integration Specialist Relationship Specialty Start Date End Date Frances Nguyen NP [address] [place] [address] PCP - [place] [employer] 08/19/23 Austin Gray MD [address] [place] [address] PCP - General Family Medicine 10/08/23 documented as of this encounter
--- OUTSIDE RECORDS SUMMARY | 2025-05-03 07:10 | XMS_ITS | Encounter Summary ---
Author Organization [facility] Address [address] [facility] [place] [address] Care Team Providers Care Victim Advocate Name Role Phone Frances Nguyen NP Unavailable [phone] Austin Gray MD Primary Care Provider [phone] Encounter Details Date Type Department Care Team (Late st Contact Info) Description 03/22/2025 Abstract [facility] [address] [facility] [place] [address] Frances Nugyen NP [address] [facility] [place] [address] Social History Tobacco Use Types Packs/Day Years [...] on filedocumented in this encounter Care Teams Victim Advocate Relationship Specialty Start Date End Date Frances Nguyen NP [address] [place] [address] PCP - [place] [employer] 08/19/23 Austin Gray MD [address] [place] [address] PCP - General Family Medicine 10/08/23 documented as of this encounter
--- OUTSIDE RECORDS SUMMARY | 2025-05-03 07:10 | XMS_ITS | Encounter Summary ---
Author Organization [facility] Address [address] [place] [address] Care Team Providers Care Office Associate Name Role Phone Austin Gray MD Primary Care Provider [phone] Frances Nguyen NP Unavailable [phone] Austin Gray MD Primary Care Provider [phone] Encounter Details Date Type Department Care Team (Late st Contact Info) Description 08/21/2023 Orders Only [facility] [address] [facility] [place] [address] Frances Nguyen, CHEF'S ASSISTANT [address] [place] [address] Social History Tobacco Use Types Packs/Day Years [...] Hand Right Radiogra phic Imaging Frances Wendy CHEF'S ASSISTANT IMG XR PROCEDURES Final Result * XR hand 3+ views left (08/02/2023 1:26 PM EST) Anatomical Region Laterality Modality Upper Extremities, Hand Left Radiogra phic Imaging Frances Wendy WOOD IMG XR PROCEDURES Final Result documented in this encounter Visit Diagnoses Not on filedocumented in this encounter Care Teams Office Associate Relationship Specialty Start Date End Date Austin Gary MD PCP - General Family Medicine 03/15/23 10/07/23 Frances Nguyen NP [address] [place] [address] PCP - [place] [employer] 08/19/23 Austin Gray MD [address] [place] [address] PCP - General Family Medicine 10/08/23 documented as of this encounter
--- OUTSIDE RECORDS SUMMARY | 2025-05-03 07:10 | XMS_ITS | Encounter Summary ---
Author Organization [employer] [facility] tem Address [facility] [id number] [address] [place] [address] Care Team Providers Care Technology Infusion Specialist Name Role Phone Frances Nguyen ROVING HAND-NURSING UNIT CLERK Primary Care Provider Encounter Details Date Type Department Care Team (Late st Contact Info) Description 01/25/2021 Orders Only [facility] [address] [place] [address] Tri Davidson LPN Cervicalgia Social History Tobacco [...] Physical Therapy (01/25/2021) 01/25/2021 us Marleny Garcia APRN-NURSING UNIT CLERK OUTPATIENT REFERRAL O RDERABLES Final Result MANUALLY TRANSCRIBED RESULTS documented in this encounter Visit Diagnoses Diagnosis Cervicalgia documented in this encounter Additional Health Concerns Infection Onset Date Last Indicated Resolved Time COVID-19 Rule-Out 12/11/2021 12/11/2021 12/12/2021 12:43 PM EDT Assessment Noted Time PHQ-9 Depression Total Score: 0 01/12/20 21 9:00 AM EDT documented as of this encounter Care Teams Technology Infusion Specialist Relationship Specialty Start Date End Date Frances Nguyen, PAYAL-NURSING UNIT CLERK PCP - General Nurse Practitioner 08/02/23 documented as of this encounter
--- OUTSIDE RECORDS SUMMARY | 2025-05-03 07:10 | XMS_ITS | Encounter Summary ---
Author Organization [facility] Address [address] [place] [facility] [place] [address] Care Team Providers Care Church Official Name Role Phone Frances Nguyen NP Unavailable [phone] Austin Gray MD Primary Care Provider [phone] Encounter Details Date Type Department Care Team (Late st Contact Info) Description 03/01/2025 Abstract [facility] [address] [facility] [place] [address] Frances Nguyen NP [address] [facility] [place] [address] Social History Tobacco Use Types Packs/Day Years [...] on filedocumented in this encounter Care Teams Church Official Relationship Specialty Start Date End Date Frances Nguyen NP [address] [place] [address] PCP - [place] [employer] 08/19/23 Austin Gray MD [address] [place] [address] PCP - General Family Medicine 10/08/23 documented as of this encounter
--- OUTSIDE RECORDS SUMMARY | 2025-05-03 07:10 | XMS_ITS | Encounter Summary ---
Author Organization [employer] [facility] tem Address [facility][id number] [address] [place] [address] Care Team Providers Care Gelatin Dynamite Packing Operator Name Role Phone NnamdiFrances pena Asya CERTIFIED SOLID WASTE FACILITY OPERATORWR[facility] Primary Care Provider Encounter Details Date Type Department Care Team (Late st Contact Info) Description 07/17/2021 Orders Only [facility] [address] [place] [address] Marleny Garcia [facility]NWRENTHAM DEVEL[facility] C[facility] [address] [place] [address] Social History Tobacco Use Types [...] documented as of this encounter Care Teams Gelatin Dynamite Packing Operator Relationship Specialty Start Date End Date Frances Nguyen, CERTIFIED SOLID WASTE FACILITY OPERATOR-SERVICE CENTER APPRAISER PCP - General Nurse Practitioner 08/02/23 documented as of this encounter
--- OUTSIDE RECORDS SUMMARY | 2025-05-03 07:10 | XMS_ITS | Encounter Summary ---
Author Organization [employer] tem Address [facility][id number] [address] [place] [address] Care Team Providers Care Sfdc Technical Architect Name Role Phone Frances Nguyen HEDIS NURSE-ELECTRICAL SYSTEMS DESIGN ENGINEER Primary Care Provider Reason for Visit * Reason Onset Date Comments Med Refill 09/13/2022 Encounter Details Date Type Department Care Team (Late st Contact Info) Description 09/13/2022 Refill [facility] [address] [address] Angelica Ervin MD [address] [place] [address] Chronic insomnia Social History Tobacco [...] documented as of this encounter Care Teams Sfdc Technical Architect Relationship Specialty Start Date End Date Frances Nguyen, HEDIS NURSE-ELECTRICAL SYSTEMS DESIGN ENGINEER PCP - General Nurse Practitioner 08/02/23 documented as of this encounter
--- OUTSIDE RECORDS SUMMARY | 2025-05-03 07:10 | XMS_ITS | Encounter Summary ---
Author Organization [employer] tem Address [facility]-[id number] [address] [place] [address] Care Team Providers Care Head Of Data Name Role Phone NnamdiFrances pena COMMISSION BROKER-SYSTEM OPERATOR Primary Care Provider Encounter Details Date Type Department Care Team (Late st Contact Info) Description [facility]20[facility] [address] [address] Uyen Dickens RN Social History [...] Says [place] masks already. [...] documented as of this encounter Care Teams Head Of Data Relationship Specialty Start Date End Date Frances Nguyen, COMMISSION BROKER-SYSTEM OPERATOR PCP - General Nurse Practitioner 08/02/23 documented as of this encounter
--- OUTSIDE RECORDS SUMMARY | 2025-05-03 07:10 | XMS_ITS | Encounter Summary ---
Author Organization [employer] tem Address [facility] [address] [place] [address] Care Team Providers Care General Foundry Worker Name Role Phone NnamdiFrances pena Asya SOFTWARE APPLICATIONS DEVELOPER-DIMENSIONAL INTEGRATION ENGINEER Primary Care Provider Encounter Details Date Type Department Care Team (Late st Contact Info) Description 08/07/2023 [facility] [address] [address] Parisa Gandara Social History Tobacco [...] [facility] Patient stated that he is extremely frustrated [...] documented as of this encounter Care Teams General Foundry Worker Relationship Specialty Start Date End Date Frances Nguyen, SOFTWARE APPLICATIONS DEVELOPER-DIMENSIONAL INTEGRATION ENGINEER PCP - General Nurse Practitioner 08/02/23 documented as of this encounter
--- OUTSIDE RECORDS SUMMARY | 2025-05-03 07:10 | XMS_ITS | Encounter Summary ---
Author Organization [facility] Address [address] [place] [address] Care Team Providers Care Finishing Machine Operator Name Role Phone Austin Gray MD Primary Care Provider [phone] Frances Nguyen NP Unavailable [phone] Austin Gray MD Primary Care Provider [phone] Encounter Details Date Type Department Care Team (Late st Contact Info) Description 08/02/2023 External Result Encounter [facility] [address] [place] [place] [address] Frances Nguyen, [employer] [address] [place] [address] Social History Tobacco Use Types Packs/Day Years [...] AM EST THIS EXAM WAS PERFORMED AT [facility] Procedure: Lumbo-sacral spine radiographs performed Number of views:3 History:Low back pain remote trauma Comparison:None Findings: There is no fracture, malalignment, or destructive lesion. There is mild disc space narrowing at L5-S1. Vertebral body height is well-maintained. Impression: No acute findings. Finalized by Eddie Hemphill MD on 08/02/2023 9:26 AM Procedure Note Radiology, Radiologist, MD - 08/13/2023 THIS EXAM WAS PERFORMED AT [facility] Procedure: Lumbo-sacral spine radiographs performed Number of views:3 History:Low back pain remote trauma Comparison:None Findings: There is no fracture, malalignment, or destructive lesion.There is mild disc space narrowing at L5-S1. Vertebral body height iswell-maintained. Impression: No acute findings. Finalized by Eddie Hemphill MD on 08/02/2023 9:26 AM us Frances Aichholz [employer] IMG XR PROCEDURES Final Result * XR hand 3+ views right (08/02/2023 9:27 AM EST) Anatomical Region Laterality Modality Upper Extremities, Hand Right Radiogra phic Imaging 08/02/2023 9:27 AM EST Narrative 08/02/2023 9:26 AM EST THIS EXAM WAS PERFORMED AT [facility] Procedure: Right hand radiographs performed Number of views:3 History:Hand pain Comparison:None Findings: There is no fracture, dislocation, or destructive lesion. Joint space is well preserved. Impression: No acute findings. Finalized by Eddie Hemphill MD on 08/02/2023 9:26 AM Procedure Note Radiology, RadiologistMD - 08/13/2023 THIS EXAM WAS PERFORMED AT [facility] Procedure: Right hand radiographs performed Number of views:3 History:Hand pain Comparison:None Findings: There is no fracture, dislocation, or destructive lesion. Jointspace is well preserved. Impression: No acute findings. Finalized by Eddie Hemphill MD on 08/02/2023 9:26 AM Frances Nnamdiallysonwaldo [employer] IMG XR PROCEDURES Final Result * XR hand 3+ views left (08/02/2023 9:26 AM EST) Anatomical Region Laterality Modality Upper Extremities, Hand Left Radiogra phic Imaging 08/02/2023 9:26 AM EST Narrative 08/02/2023 9:25 AM EST THIS EXAM WAS PERFORMED AT [facility] Procedure: Left hand radiographs performed Number of views:3 History:Hand pain Comparison:None Findings: There is no fracture, dislocation, or destructive lesion. Joint space is well preserved. Impression: No acute findings. Finalized by Eddie Hemphill MD on 08/02/2023 9:25 AM Procedure Note Radiology, RadiologistMD - 08/13/2023 THIS EXAM WAS PERFORMED AT [facility] Procedure: Left hand radiographs performed Number [...] of a recent Streptococcus infection. Performed By: [facility] [address] [place] [id number] Photographic Colorist: Tuan Xiong MD, PhD CLIA Number: [id number] PERFORMED AT [address] [place] [address] 08/02/2023 9:00 AM EST 08/02/2023 9:05 AM EST Frances Nguyen NP LAB BLOOD ORDERABLES Final Resu lt [facility] * PRITI (08/02/2023 9:00 AM EST) PRITI SCREEN W/REFLEX Negative Negative [facility] Comment: Testing performed using multiplex flow immunoassay. Eleven different antigens associated with systemic autoimmune diseases (dsDNA,Sm,Sm/[employer] MEATS SUPERVISOR,CURED MEATS SUPERVISOR,Chromatin, SSA,SSB,Alma-1,Scl70,Ribo P,Centromere B) are included in this screening test. PERFORMED AT [facility] [address],[place] [address] 08/02/2023 9:00 AM EST 08/02/2023 9:05 AM EST us Frances Nguyen [employer] LAB BLOOD ORDERABLES Final Resu lt [facility] * Sedimentation rate, automated (08/02/2023 9:00 AM EST) ESR 3 0 - 15 mm/h [facility] 08/02/2023 9:00 AM EST 08/02/2023 9:05 AM EST us Frances Nguyen [employer] LAB BLOOD ORDERABLES Final Resu lt Performing Organization Address [facility] Co de Phone Number [facility] * Uric acid (08/02/2023 9:00 AM EST) URIC ACID 5.4 2.6 - 7.2 mg/dL [facility] Comment:PERFORMED AT [address],[place] [address] 08/02/2023 9:00 AM EST 08/02/2023 9:05 AM EST us Frances Nguyen [employer]CH[employer] LAB BLOOD ORDERABLES Final Resu lt Performing Organization Address [facility] Co de Phone Number [facility] * C-reactive protein (08/02/2023 9:00 AM EST) C REACTIVE PROTEIN 0.1 0.000 - 0.744 mg/dL [facility] Comment:PERFORMED AT [place] [address] [facility] [address]. [address],[place] [address] 08/02/2023 9:00 AM EST 08/02/2023 9:05 AM EST us Frances Nguyen [employer] LAB BLOOD ORDERABLES Final Resu lt [...] not use a race coefficient. PERFORMED AT [address] [address] 08/02/2023 9:00 AM EST 08/02/2023 9:05 AM EST us Frances Nguyen [employer]CH[employer] LAB BLOOD ORDERABLES Final Resu lt [facility] * Rheumatoid factor (08/02/2023 9:00 AM EST) RHEUMATOID FACTOR 15 <20 IU/mL [facility] Comment:PERFORMED AT [address], [place] [address] 08/02/2023 9:00 AM EST 08/02/2023 9:05 AM EST us Frances Nguyen [employer]CH[employer] LAB BLOOD ORDERABLES Final Resu lt [...] 0.0 - 0.2 X10E9/L [facility] Comment:PERFORMED AT [facility] [address],[place] [address] 08/02/2023 9:00 AM EST 08/02/2023 9:05 AM EST us Frances Nguyen [employer] LAB BLOOD ORDERABLES Final Resu lt [facility] documented in this encounter Visit Diagnoses Not on filedocumented in this encounter Care Teams Finishing Machine Operator Relationship Specialty Start Date End Date Austin Gray MD PCP - General Family Medicine 03/15/23 10/07/23 Frances Nguyen NP [address] [place] [address] PCP - [facility] 08/19/23 Austin Gray MD [address] [place] [address] PCP - General Family Medicine 10/08/23 documented as of this encounter
--- OUTSIDE RECORDS SUMMARY | 2025-05-03 07:11 | XMS_ITS | CCD ---
Author Organization [facility] Care Team Providers Care Kitchen Mechanic Name Role Phone Wendy CORPORATE COMMUNICATIONS MANAGER, Frances Unavailable Austin Gray MD Primary Care Provider Aichwaldo WAREHOUSE PACKER-OCCUPATIONAL PSYCHOLOGISTFrances Primary Care Provider Aichwaldo WAREHOUSE PACKER-OCCUPATIONAL PSYCHOLOGIST, Frances Asya Primary Care Provider Wendy WAREHOUSE PACKER-OCCUPATIONAL PSYCHOLOGIST, Frances Sky Primary Care Provider GIAZ, FRANCES [...] Facil ity [place] [address] Magnetic Resonance Report Signed Patient: SPEEDY ROSEN MR#: [id number] : 1980 Acct:[id number] Age/Sex: 45 / M ADM Date: 02/16/25 Loc: LINDA Attending Dr: Sorin Elizondo M.D. Ordering Physician: Sorin Elizondo M.D. Date of Service: 02/16/25 Procedure(s): MR lumbar spine wo con Accession Number(s): [id number] cc: Frances Nguyen CORPORATE COMMUNICATIONS MANAGER; Sorin Elizondo M.D. [place] [id number] Patient Name: SPEEDY ROSEN MRN: [facility]:[id number] date: 1980 Sex: M Assigned Patient Location: [facility] Current Patient Location: [facility] Accession/Order Number: [id number] Exam Date: 02/16/2025 15:00 Report Date: 02/16/2025 [...] Jr., D.O. 02/16/2025 3:04 PM Dictation Location: [place] [address] Electronically authenticated by: [id number] Y Date: 02/16/2025 15:04 Dictated By: Vinh Nieto M.D. Signed By: 02/16/25 1506 DD/ 1504 TD/TT: Fly Frame Tender: [facility] Radiology, Radiologist, MD - 02/16/2025 [place] [address] Magnetic Resonance Report Signed Patient: SPEEDY ROSEN MR#: [id number] : 1980 Acct:[id number] Age/Sex: 45 / M ADM Date: 02/16/25 Loc: RAD Attending Dr: Sorin Elizondo M.D. Ordering Physician: Sorin Elizondo M.D. Date of Service: 02/16/25 Procedure(s): MR lumbar spine wo con Accession Number(s): [id number] cc: Frances Nguyen CORPORATE COMMUNICATIONS MANAGER; Sorin Elizondo M.D. [address] [address] Patient Name: SPEEDY ROSEN MRN: [facility]:[id number] date: 1980 Sex: M Assigned Patient Location: [facility] Current Patient Location: [facility] Accession/Order Number: [id number] Exam Date: 02/16/2025 15:00 Report Date: 02/16/2025 [...] Jr., D.O. 02/16/2025 3:04 PM Dictation Location: [place] [address] Electronically authenticated by: [id number] Y Date: 02/16/2025 15:04 Dictated By: Vinh Nieto M.D. Signed By: 02/16/25 1506 DD/ 1504 TD/TT: Fly Frame Tender: [facility] Radiology Study observation (narrative) [facility] MR LUMBAR SPINE WO CONOrdere d By: Radiologist Radiology on 02-16-2025 [facility] [employer] Work Phone: XR EYE BILATERAL FOREIGN BOD Y [id number] 02-16-[address] [address] XRay Report Signed Patient: SPEEDY ROSEN MR#: [id number] : 1980 Acct:[id number] Age/Sex: 45 / M ADM Date: 02/16/25 Loc: RAD Attending Dr: Sorin Elizondo M.D. Ordering Physician: Sorin Elizondo M.D. Date of Service: 02/16/25 Procedure(s): XR foreign body eye YUDITH Accession Number(s): [id number] cc: Frances Nguyen NP; Sorin Elizondo M.D. [address] [address] Patient Name: SPEEDY ROSEN MRN: [facility]:[id number] date: 1980 Sex: M Assigned Patient Location: [facility] Current Patient Location: [facility] Accession/Order Number: [id number] Exam Date: 02/16/2025 08:27 Report Date: 02/16/2025 [...] Magallon M.D. 02/16/2025 8:28 AM Dictation Location: [place] [address] Electronically authenticated by: [id number] Y Date: 02/16/2025 08:28 Dictated By: Galina Magallon M.D. Signed By: 02/16/25829 DD/ 7 TD/TT: Fly Frame Tender: [facility] Radiology, Radiologist, - 02/16/[address] [address] XRay Report Signed Patient: SPEEDY ROSEN MR#: [id number] : 1980 Acct:[id number] Age/Sex: 45 / M ADM Date: 02/16/25 Loc: RAD Attending Dr: Sorin Elizondo M.D. Ordering Physician: Sorin Elizondo M.D. Date of Service: 02/16/25 Procedure(s): XR foreign body eye YUDITH Accession Number(s): [id number] cc: Frances Nguyen NP; Sorin Elizondo M.D. The [place] [id number] Patient Name: SPEEDY ROSEN MRN: [id number]:[id number] date: 1980 Sex: M Assigned Patient Location: [facility] Current Patient Location: [facility] Accession/Order Number: [id number] Exam Date: 02/16/2025 08:27 Report Date: 02/16/2025 [...] Magallon M.D. 02/16/2025 8:28 AM Dictation Location: [place] [address] Electronically authenticated by: [id number] Y Date: 02/16/2025 08:28 Dictated By: Galina Magallon M.D. Signed By: 02/16/25829 DD/ 7 TD/TT: Fly Frame Tender: [facility] Radiology Study observation (narrative) [facility] XR EYE BILATERAL FOREIGN BOD Y [id number] By: Radiologist Radiology on 02-16-2025 [facility] [employer] Work Phone: XR ELBOW LT MIN [...] Robles MD on 11/14/2024 2:16 PM Normal [facility] XR ELBOW RT MIN 3 VWSon 03- XR ELBOW RT MIN 3 VWS XR ELBOW RT MIN 3 VWS Right elbow: HISTORY: Right elbow pain. 4 views of the right elbow were obtained. There is no acute osseous, articular, or soft tissue abnormality. IMPRESSION: Negative exam. Finalized by Paulo Howell MD on 11/14/2024 11:49 AM Normal [facility] XR Hip - right [address] [address] XRay Report Signed Patient: SPEEDY ROSEN MR#: [id number] : 1980 Acct:[id number] Age/Sex: 44 / M ADM Date: 10/09/24 Loc: RAD Attending Dr: Frances Nguyen NP Ordering Physician: Frances Nguyen NP Date of Service: 10/09/24 Procedure(s): XR hip RT min 2V Accession Number(s): [id number] cc: Frances Nguyen NP [place] [id number] Patient Name: SPEEDY ROSEN MRN: [id number]:[id number] date: 1980 Sex: M Assigned Patient Location: [facility] Current Patient Location: Accession/Order Number: [id number] Exam Date: 10/09/2024 11:56 Report Date: 10/09/2024 [...] Galina Magallon M.D.10/09/2024 12:02 PM Dictation Location: [place] [address] Electronically authenticated by: [id number] Y Date: 10/09/2024 12:02 Dictated By: Galina Magallon M.D. Signed By: 10/14/24 1035 DD/ 1202 TD/TT: Fly Frame Tender: [facility] Radiology, Radiologist, - 10/14/2024 [place] [address] XRay Report Signed Patient: SPEEDY ROSEN MR#: [id number] : 1980 Acct:[id number] Age/Sex: 44 / M ADM Date: 10/09/24 Loc: RAD Attending Dr: Frances Nguyen NP Ordering Physician: Frances Nguyen NP Date of Service: 10/09/24 Procedure(s): XR hip RT min 2V Accession Number(s): [id number] cc: Frances Nguyen NP The [address] [address] Patient Name: SPEEDY ROSEN MRN: [facility]:[id number] date: 1980 Sex: M Assigned Patient Location: [facility] Current Patient Location: Accession/Order Number: [id number] Exam Date: 10/09/2024 11:56 Report Date: 10/09/2024 [...] Galina Magallon M.D.10/09/2024 12:02 PM Dictation Location: [place] [address] Electronically authenticated by: [id number] Y Date: 10/09/2024 12:02 Dictated By: Galina Magallon M.D. Signed By: 10/14/24 1035 DD/ 1202 TD/TT: Fly Frame Tender: [employer] XR Hip - right 3 ViewsOrdere d By: Radiologist Radiology on 10-14-2024 [employer] Work Phone: No Panel Informationon 10-09 Radiology Study observation (narrative) [facility] XR LUMBAR SPINE 2 OR 3Von [address] [address] XRay Report Signed Patient: SPEEDY ROSEN MR#: [id number] : 1980 Acct:[id number] Age/Sex: 44 / M ADM Date: 10/09/24 Loc: [facility] Attending Dr: Frances Nguyen NP Ordering Physician: Frances Nguyen NP Date of Service: 10/09/24 Procedure(s): XR lumbar spine 2-3V Accession Number(s): [id number] cc: Frances Nguyen NP [place] [address] Patient Name: SPEEDY ROSEN MRN: [facility]:[id number] date: 1980 Sex: M Assigned Patient Location: [facility] Current Patient Location: [facility] Accession/Order Number: [id number] Exam Date: 10/09/2024 11:56 Report Date: 10/09/2024 [...] Galina Magallon M.D.10/09/2024 12:02 PM Dictation Location: [place] [address] Electronically authenticated by: [id number] Y Date: 10/09/2024 12:02 Dictated By: Galina Magallon M.D. Signed By: 10/09/24 1201 DD/ 1202 TD/TT: Fly Frame Tender: [facility] Radiology, Radiologist, - 10/09/[address] [address] XRay Report Signed Patient: SPEEDY ROSEN MR#: [id number] : 1980 Acct:[id number] Age/Sex: 44 / M ADM Date: 10/09/24 Loc: [facility] Attending Dr: Frances Nguyen NP Ordering Physician: Frances Nguyen NP Date of Service: 10/09/24 Procedure(s): XR lumbar spine 2-3V Accession Number(s): [id number] cc: Frances Nguyen NP [place] [id number] Patient Name: SPEEDY ROSEN MRN: [id number]:[id number] date: 1980 Sex: M Assigned Patient Location: [facility] Current Patient Location: [facility] Accession/Order Number: [id number] Exam Date: 10/09/2024 11:56 Report Date: 10/09/2024 [...] Galina Magallon M.D.10/09/2024 12:02 PM Dictation Location: [email or web address] Electronically authenticated by: [id number] Y Date: 10/09/2024 12:02 Dictated By: Galina Magallon M.D. Signed By: 10/09/241204 DD/ 120 TD/TT: Fly Frame Tender: [employer] XR LUMBAR SPINE 2 OR 3VOrder ed By: Radiologist Radiology on 10-09-2024 [employer] Work Phone: CERVICAL SPINE 4 OR 5 VIEWSo n 05-25-2021 CERVICAL SPINE [address] [facility] Department of Radiology [address] [place] [address] Patient Name: SPEEDY ROSEN : [...] lordosis. Electronically signed: Paulo Howell. Transcribed by: [email or web address], User Resident: Electronically Signed by: PAULO HOWELL @ 05/25/2021 07:[address] [facility] Comment on above: Order Comment: Evalu ate Vital Signs Date Time Vital Sign Value Performing Clinician Facility 01-12-2025 14:38-0400 Body height 182.9 cm Cl Thomas MD Work Phone: [facility] 01-12-2025 14:38-0400 Body mass index (BMI) [Ratio] 24.55 kg/m2 Cl Thomas MD Work Phone: [facility] 01-12-2025 14:38-0400 Body weight 82.1 kg Cl Thomas MD Work Phone: [facility] 01-12-2025 14:38-0400 Diastolic blood pressure 84 mm[Hg] Cl Thomas MD Work Phone: [facility] 01-12-2025 14:38-0400 Heart rate 74 /min Cl Thomas MD Work Phone: [facility] 01-12-2025 14:38-0400 SaO2% (BldA) [Mass fraction] 99 % Cl Thomas MD Work Phone: [facility] 01-12-2025 14:38-0400 Systolic blood pressure 118 mm[Hg] Cl Thomas MD Work Phone: [facility] 11-18-2024 20:50-0400 Body height 182.9 cm Pmh 3 [facility] 11-18-2024 20:50-0400 Body mass index (BMI) [Ratio] 24.01 kg/m2 Pm 3 [facility] 11-18-2024 20:50-0400 Body weight 80.29 kg Pmh 3 [facility] 10-19-2024 19:19-0500 Body mass index (BMI) [Ratio] 24.17 kg/m2 Frances Aichholz CORPORATE COMMUNICATIONS MANAGER Work Phone: [facility] 10-19-2024 19:19-0500 Body temperature 98.8 [degF] Frances Aichholz CORPORATE COMMUNICATIONS MANAGER Work Phone: [facility] 10-19-2024 19:19-0500 Body weight 80.83 kg Frances Aichholz CORPORATE COMMUNICATIONS MANAGER Work Phone: [facility] 10-19-2024 19:19-0500 Diastolic blood pressure 86 mm[Hg] Frances Aichholz CORPORATE COMMUNICATIONS MANAGER Work Phone: [facility] 10-19-2024 19:19-0500 Heart rate 76 /min Frances Aichholz CORPORATE COMMUNICATIONS MANAGER Work Phone: [facility] 10-19-2024 19:19-0500 Respiratory rate 18 /min Frances Aichholz CORPORATE COMMUNICATIONS MANAGER Work Phone: [facility] 10-19-2024 19:19-0500 SaO2% (BldA) [Mass fraction] 98 % Frances Aichholz CORPORATE COMMUNICATIONS MANAGER Work Phone: [facility] 10-19-2024 19:19-0500 Systolic blood pressure 124 mm[Hg] Frances Aichholz CORPORATE COMMUNICATIONS MANAGER Work Phone: [facility] 09-08-2024 15:23-0500 Diastolic blood pressure 84 mm[Hg] Frances Aichholz CORPORATE COMMUNICATIONS MANAGER Work Phone: [facility] 09-08-2024 15:23-0500 Systolic blood pressure 122 mm[Hg] Frances Aichholz CORPORATE COMMUNICATIONS MANAGER Work Phone: [facility] 09-08-2024 14:59-0500 Body mass index (BMI) [Ratio] 25.33 kg/m2 Frances Aichholz CORPORATE COMMUNICATIONS MANAGER Work Phone: [facility] 09-08-2024 14:59-0500 Body temperature 97.81 [degF] Frances Aichholz CORPORATE COMMUNICATIONS MANAGER Work Phone: [facility] 09-08-2024 14:59-0500 Body weight 84.73 kg Frances Nguyen CORPORATE COMMUNICATIONS MANAGER Work Phone: [facility] 09-08-2024 14:59-0500 Heart rate 81 /min Frances Nguyen CORPORATE COMMUNICATIONS MANAGER Work Phone: [facility] 09-08-2024 14:59-0500 Respiratory rate 19 /min Frances Nguyen CORPORATE COMMUNICATIONS MANAGER Work Phone: [facility] 09-08-2024 14:59-0500 SaO2% (BldA) [Mass fraction] 99 % Frances Nguyen CORPORATE COMMUNICATIONS MANAGER Work Phone: [facility] 06-02-2024 08:47-0400 Body height 182.9 cm Cl Thomas MD Work Phone: [facility] 06-02-2024 08:47-0400 Body mass index (BMI) [Ratio] 24.01 kg/m2 Cl Thomas MD Work Phone: [facility] 06-02-2024 08:47-0400 Body weight 80.29 kg Cl Thomas MD Work Phone: [facility] 06-02-2024 08:47-0400 Diastolic blood pressure 82 mm[Hg] Cl Thomas MD Work Phone: [facility] 06-02-2024 08:47-0400 Heart rate 74 /min Cl Thomas MD Work Phone: [facility] 06-02-2024 08:47-0400 SaO2% (BldA) [Mass fraction] 100 % Cl Thomas MD Work Phone: [facility] 06-02-2024 08:47-0400 Systolic blood pressure 120 mm[Hg] Cl Thomas MD Work Phone: [facility] 02-25-2024 14:33-0400 Body height 182.9 cm Cl Thomas MD Work Phone: [facility] 02-25-2024 14:33-0400 Body mass index (BMI) [Ratio] 23.42 kg/m2 Cl Thomas MD Work Phone: [facility] 02-25-2024 14:33-0400 Body weight 78.34 kg Cl Thomas MD Work Phone: [facility] 02-25-2024 14:33-0400 Diastolic blood pressure 88 mm[Hg] Cl Thomas MD Work Phone: [facility] 02-25-2024 14:33-0400 Heart rate 78 /min Cl Thomas MD Work Phone: [facility] 02-25-2024 14:33-0400 SaO2% (BldA) [Mass fraction] 98 % Cl Thomas MD Work Phone: [facility] 02-25-2024 14:33-0400 Systolic blood pressure 135 mm[Hg] Cl Thomas MD Work Phone: [facility] Encounters Encounter Date Encounter Type Care Provider Facility Start: 03-22-2025 End: 03-22-2025 ambulatory Sorin Elizondo MD Facility:[facility] Start: 03-01-2025 End: 03-01-2025 ambulatory Sorin Elizondo MD Facility:[facility] Start: 02-16-2025 End: 02-16-2025 [facility] Result Encounter Generic External Data Provider [facility] External Department Unsolicited Start: 02-16-2025 End: 02-16-2025 [facility] Result Encounter Generic External Data Provider [facility] External Department Unsolicited Start: 01-20-2025 End: 01-20-2025 Refill Frances Nguyen CORPORATE COMMUNICATIONS MANAGER Work Phone: [facility] Comment on above: Poison mery dermatiti s (Primary Dx) Start: 01-12-2025 End: 01-12-2025 Office outpatient visit 25 minutes Cl Thomas MD Work Phone: [facility] Comment on above: Chronic insomnia (Pr imary Dx); MARGOTH (obstructive sleep apnea); Hypersomnia Start: 01-12-2025 End: 01-12-2025 ambulatory CL THOMAS [facility] Start: 01-12-2025 End: 01-12-2025 [facility]phone [facility] Comment on above: Medication Dosage Start: 12-29-2024 End: 12-29-2024 Telephone [facility] Start: 12-23-2024 [...] 11-26-2024 End: 11-26-2024 Telephone encounter Jovanna Quinones [facility] Start: 11-25-2024 End: [...] Clinical Support Cl Thomas MD Work Phone: [facility] Comment on above: MARGOTH (obstructive sle ep apnea) Lumbar paraspinal mu scle spasm (Primary Dx) Start: 11-18-2024 End: 11-18-2024 Bamboo flowsheet Annabelle Martinez PT Work Phone: [facility] Start: 11-18-2024 End: 11-18-2024 Bamboo flowsheet Annabelle Martinez PT Work Phone: [facility] Start: 11-16-2024 End: 11-16-2024 ambulatory Sorin Elizondo MD Facility:[facility] Start: 11-15-2024 End: 11-15-2024 Refill Frances Nguyen CORPORATE COMMUNICATIONS MANAGER Work Phone: [facility] Comment on above: Cervical pain (neck) ; Strain of right trapezius muscle, initial encounter Start: 11-14-2024 End: 11-14-2024 ambulatory FRANCES NGUYEN [facility] Start: 10-20-2024 End: 10-20-2024 Telephone encounter Jovanna Quinones [facility] Start: 10-19-2024 End: 10-19-2024 Office outpatient visit 25 minutes Frances Nguyen CORPORATE COMMUNICATIONS MANAGER Work Phone: [facility] Comment on above: SI joint arthritis ( CMS/HCC) (Primary Dx); Cervical pain (neck); Strain of right trapezius muscle, subsequent encounter; Bilateral elbow joint pain; Degeneration of intervertebral disc of lumbar region, unspecified whether pain present Start: 10-19-2024 End: 10-19-2024 ambulatory FRANCES WENDY Not Available Start: 10-19-2024 End: 10-19-2024 Bamboo flowsheet Frances Wendy CORPORATE COMMUNICATIONS MANAGER Work Phone: [facility] Start: 10-19-2024 End: 10-19-2024 Bamboo flowsheet Frances Wendy CORPORATE COMMUNICATIONS MANAGER Work Phone: [facility] Start: 10-13-2024 [...] 10-12-2024 End: 10-12-2024 Telephone encounter Elise Garcia PLUMBING INSPECTOR [facility] Start: 10-11-2024 End: 10-11-2024 Refill Frances Zamorawaldo CORPORATE COMMUNICATIONS MANAGER Work Phone: [facility] Comment on above: Cervical pain (neck) ; Strain of right trapezius muscle, initial encounter Start: 10-09-2024 End: 10-14-2024 [facility] Result Encounter Frances Zamorawaldo CORPORATE COMMUNICATIONS MANAGER Work Phone: [facility] External Department Unsolicited Start: 10-09-2024 End: 10-14-2024 [facility] Result Encounter Frances Zamorawaldo CORPORATE COMMUNICATIONS MANAGER Work Phone: [facility] External Department Unsolicited Start: [...] 09-30-2024 End: 09-30-2024 Bamboo flowsheet Parisa Calle DREDGE MASTER [facility] Start: 09-30-2024 End: 09-30-2024 Bamboo flowsheet Parisa Calle DREDGE MASTER [facility] Start: 09-30-2024 End: 09-30-2024 [...] Office outpatient visit 25 minutes Frances Cotohholz CORPORATE COMMUNICATIONS MANAGER Work Phone: [facility] Comment on above: Strain of right trap ezius muscle, initial encounter (Primary Dx); Gastroesophageal reflux disease with esophagitis, unspecified whether hemorrhage; Cervical pain (neck); Degeneration of intervertebral disc of lumbar region, unspecified whether pain present Start: 09-08-2024 End: 09-08-2024 Bamboo flowsheet Frances Zamorawaldo CORPORATE COMMUNICATIONS MANAGER Work Phone: [facility] Start: 09-08-2024 End: 09-08-2024 Bamboo flowsheet Frances Zamorawaldo CORPORATE COMMUNICATIONS MANAGER Work Phone: [facility] Start: 06-03-2024 End: 06-03-2024 Telephone encounter Cl [place] [facility] Comment on above: Sleep Lab (CPAP) Start: 06-02-2024 End: 06-02-2024 Office outpatient visit 15 minutes Cl Thomas MD Work Phone: [facility] Comment on above: MARGOTH (obstructive sle ep apnea) (Primary Dx); Intolerance of continuous positive airway pressure (CPAP) ventilation; Hypersomnia; Awakens from sleep due to pain Start: 06-02-2024 End: 06-02-2024 ambulatory CL THOMAS [facility] Start: 03-24-2024 End: 03-24-2024 Telephone encounter Cl Thomas MD Work Phone: [facility] Start: 02-25-2024 End: 02-25-2024 Office outpatient visit 15 minutes Cl Thomas MD Work Phone: [facility] Comment on above: MARGOTH (obstructive sle ep apnea) (Primary Dx); Chronic insomnia; Hypersomnia; Nasal congestion Start: 02-25-2024 End: 02-25-2024 ambulatory CL THOMAS [facility] Start: 11-05-2023 Telephone encounter Cl Max MD Work Phone: [facility] Start: 10-03-2023 Refill Angelica Ervin MD Work Phone: [facility] Comment on above: Chronic insomnia Procedures Date Procedure Procedure Detail Performing Clinician Start: 02-16-2025 MR LUMBAR SPINE WO CON Generic External Data Provider Start: 02-16-2025 XR EYE BILATERAL FOR EIGN BODY 84408 Generic External Data Provider Start: 10-09-2024 Radex hip unilateral with pelvis 2-3 views Frances Nguyen CORPORATE COMMUNICATIONS MANAGER Work Phone: Start: 10-09-2024 XR LUMBAR SPINE 2 OR 3V Frances Nguyen CORPORATE COMMUNICATIONS MANAGER Work Phone: Start: 02-25-2024 Follow-up visit Follow-up CL THOMAS Start: 05-14-2022 Adult depression screening assessment Angelica Ervin MD Work Phone: Plan of Treatment Date Care Activity Detail Author Start: 01-12-2026 Adult BMI Screening Adult BMI Screen ing [facility] Start: 01-12-2026 Tobacco Screening Tobacco Screening [facility] Start: 11-18-2025 Adult BMI Screening Adult BMI Screen ing [facility] Start: 11-18-2025 Tobacco Screening Tobacco Screening [facility] Start: 06-02-2025 Adult BMI Screening Adult BMI Screen ing [facility] Start: 06-02-2025 Tobacco Screening Tobacco Screening [facility] Start: 04-19-2025 Influenza vaccination Influenza Vacc ine [facility] Start: 02-24-2025 Adult BMI Screening Adult BMI Screen ing [facility] Start: 02-24-2025 Tobacco Screening Tobacco Screening [facility] Start: 02-23-2025 End: 02-23-2025 Patient encounter procedure 02/23/2025 9:15 AM EDT Office Visit [facility] [address] [place] [address] Cl Thomas MD [address] [facility] [address] [place] [address] [facility] Start: 01-12-2025 End: 01-12-2025 Patient encounter procedure 01/12/2025 2:45 PM EDT Office Visit [facility] [address] [place] [id number] Cl Thomas MD [address] [facility] [address] [place] [address] [facility] Start: 12-28-2024 End: 12-28-2024 Patient encounter procedure 12/28/2024 6:30 PM EDT Office Visit [facility] [address] [place] [address] Frances Nguyen, CORPORATE COMMUNICATIONS MANAGER [address] [place] [address] [facility] Start: 12-22-2024 End: 12-22-2024 ambulatory 12/22/2024 6:00 PM EDT Treatment [facility] [address] [place] [address] Annabelle Martinez, PT [address] [place] [address] [facility] Start: 12-14-2024 End: 12-14-2024 ambulatory 12/14/2024 4:00 PM EDT Treatment [facility] [address] [place] [address] Annabelle Martinez, PT [address] [place] [address] [facility] Start: 12-08-2024 End: 12-08-2024 ambulatory 12/08/2024 6:00 PM EDT Treatment [facility] [address] [place] [address] Annabelle Martinez, PT [address] [place] [address] [facility] Start: 12-03-2024 End: 12-03-2024 ambulatory 12/03/2024 4:30 PM EDT Treatment [facility] [address] [place] [address] Annabelle Martinez, PT [address] [place] [address] [facility] Start: 12-01-2024 End: 12-01-2024 ambulatory 12/01/2024 4:00 PM EDT Treatment [facility] [address] [place] [address] Annabelle Martinez, PT [address] [place] [address] [facility] Start: 11-26-2024 End: 11-26-2024 ambulatory 11/26/2024 5:00 PM EDT Treatment [facility] [address] [facility] [address] [place] [address] Ranjan Britt PTA [facility] Start: 11-24-2024 End: 11-24-2024 ambulatory 11/24/2024 6:00 PM EDT Treatment [facility] [address] [place] [address] Annabelle Martinez, PT [address] [place] [address] [facility] Start: 11-18-2024 End: 11-18-2024 Clinical Support 11/18/2024 8:00 PM EDT Clinical Support [facility] [address] [place] [address] Cl Thomas MD [address] [place] [address] [facility] Start: 10-21-2024 End: 10-21-2024 Patient encounter procedure 10/21/2024 6:00 PM EST Office Visit [facility] [address] [place] [address] Frances Nguyen, [place] [address] [place] [address] [facility] Start: 10-19-2024 End: 10-19-2024 [...] joint pain Expected: 10/19/2024 (Approximate), Expires: 10/19/2025 [facility] Comment on above: Expected: 10/19/2024 (Approximate), Expires: 10/19/2025 Start: 10-13-2024 End: 10-13-2024 ambulatory 10/13/2024 5:00 PM EST Treatment [facility] [address] [facility] [address] [place] [address] Annabelle Martinez, PT [address] [facility] [address] [place] [address] [facility] Start: 10-13-2024 End: 10-13-2024 Patient encounter procedure 10/13/2024 2:15 PM EST Office Visit [facility] [address] [place] [id number] Cl Thomas MD [address] [facility] [address] [place] [address] [facility] Start: 10-06-2024 End: 10-06-2024 ambulatory 10/06/2024 4:30 PM EST Treatment [facility] [address] [place] [address] Annabelle Martinez, PT [address] [facility] [address] [place] [address] [facility] Start: 10-01-2024 End: 10-01-2024 ambulatory 10/01/2024 5:00 PM EST Treatment [facility] [address] [place] [address] Parisa Calle, DREDGE MASTER Arrived [facility] Comment on above: Arrived Start: 09-22-2024 End: 09-22-2024 ambulatory 09/22/2024 4:30 PM EST Treatment [facility] [address] [place] [address] Annabelle Martinez, PT [address] [facility] [address] [place] [address] [facility] Start: 09-16-2024 End: 09-16-2024 ambulatory 09/16/2024 4:30 PM EST Treatment [facility] [address] [place] [address] Annabelle Martinez, PT [address] [place] [address] [facility] Start: 09-09-2024 End: 09-09-2024 ambulatory 09/09/2024 1:00 PM EST Evaluation [facility] [address] [place] [address] Annabelle Martinze, PT [address] [place] [address] [facility] Start: 09-08-2024 End: 09-08-2025 [...] Support 06/29/2024 8:00 PM EST Clinical Support [facility] [address] [place], [place] [address] [place] [address] Cl Thomas MD [address] [place] [address] [facility] Start: 06-02-2024 End: 06-02-2024 Patient encounter procedure 06/02/2024 8:45 AM EDT Office Visit [facility] [address] [place] [address] Cl Thomas MD [address] [address] [facility] Start: 04-19-2024 Influenza vaccination Influenza Vacc ine [facility] Start: 02-27-2024 Adult BMI Screening Adult BMI Screen ing [facility] Start: 02-27-2024 Tobacco Screening Tobacco Screening [facility] Start: 01-07-2024 End: 01-07-2024 Patient encounter procedure 01/07/2024 9:30 AM EDT Office Visit [facility] [address] [place] [address] Cl Thomas MD [address] [facility] [address] [place] [address] [facility] Start: 01-02-2024 End: 01-02-2024 Clinical Support 01/02/2024 8:00 PM EDT Clinical Support [facility] [address] [facility] [place] [address] Angelica Ervin MD [address] [place] [address] [facility] Start: 05-14-2023 Depression Screening Depression Scre ening [facility] Start: 04-19-2023 Influenza vaccination Influenza Vacc ine [facility] Start: 01-28-2000 DTaP,Tdap and Td Vac cines (1 - Tdap) DTaP,Tdap and Td Vaccines (1 - Tdap) [facility] End: 06-02-2025 Polysomnography 4 or more parameters with PAP titration Polysomnography 4 or more parameters with PAP titration Sleep Center Routine MARGOTH (obstructive sleep apnea) 1 Occurrences starting 06/02/2024 until 06/02/2025 [facility] Work Phone: Comment on above: 1 Occurrences starti ng 06/02/2024 until 06/02/2025 Payers Date Payer Category Payer Blue Cross Blue Shield BCBS [id number] 2023 Blue Cross Blue Shie Managed Care - PPO ANTHEM [id number] 2023 Unknown [id number] 1.13.424. [id number] 2023 Unknown [id number] 1981 Unknown [id number] 2.16.840.1.960939.3.579. 2.1285 1981 Unknown [id number] 2.16.840.1.335469.3.579. 2.128 1981 Unknown [id number] 2.16.840.1.038829.3.579. 2.128 1981 Unknown [id number] 2.16.840.1.178836.3.579. 2.9 1981 Unknown [id number] 2.16.840.1.313107.3.579. 2.1259 1981 Unknown [id number] 2.16.840.1.175006.3.579. 2.1258 1981 Unknown [id number] 2.16.840.1.694234.3.579. 2.1258 1981 Unknown [id number] 2.16.840.1.084541.3.579. 2.1258 1981 Unknown [id number] 2.840.1.966457.3.579. 2.1258 1981 Unknown [id number] 2.16840.1.176006.3.579. 2.1258 1981 Unknown [id number] 2.840.1.401721.3.579. 2.1258 1981 Unknown [id number] 2.840.1.932526.3.579. 2.1258 1981 Unknown [id number] 2.0.1.203574.3.579. 2.1258 1981 Unknown [id number] 2.840.1.394351.3.579. 2.1258 1981 Unknown [id number] 2.840.1.834238.3.579. 2.1258 1981 Unknown [id number] 2.840.1.568915.3.579. 2.1258 1981 Unknown [id number] 2840.1.351523.3.579. 2.1258 1981 Unknown [id number] 2.840.1.928159.3.579. 2.1285 1981 Unknown [id number] 2.840.1.918475.3.579. 2.1285 1981 Unknown [id number] 2.840.1.517086.3.579. 2.1285 1981 Unknown [id number] 2.840.1.693403.3.579. 2.196 1981 Unknown [id number] 2.16840.1.865549.3.579. 2.196 1981 Unknown [id number] 2.16.840.1.514384.3.579. 2.196 Social History Date Type Detail Facility Start: 06-05-2022 End: 10-10-2023 Tobacco smoking status NHIS Never smoked tobacco [facility] Start: 06-05-2022 End: 10-10-2023 Tobacco use and exposure Smokeless tobacco non-user [facility] Start: 11-11-2023 End: 10-19-2024 Alcoholic beverage intake Current drinker of alcohol (finding) [facility] Start: 10-10-2023 End: 11-11-2023 History of Social function [facility] Start: 10-10-2023 End: 11-11-2023 Tobacco use panel [facility] Start: 10-09-2023 Alcohol Comment 1-2 drinks 2-3 times a week, caffeine 1-2 cups per day [facility] Start: 1980 Sex assigned at Not on file [facility] Adolescent depressio n screening assessment 0 [facility] Start: 05-15-2017 Alcohol Comment Only a few bee rs a week, not typically every night [facility] Start: 03-24-2015 Sex Male (finding) [facility] Medical Equipment Procedure Code Equipment Code Equipment Origin al Text Equipment Identifier Dates Anch Sut 2.9mm S hldr Kntls Rpl [id number] - [id number] - [id number] Start: 08-07-2019 Clinical Notes 11-05-2023 to 01-12-2025 Telephone Encounter - Yeny Garduno [facility] - 01/12/2025 3:59 PM EDTTelephone Encounter - Cl Thomas MD - 01/12/2025 3:59 PM EDTTelephone Encounter - Yeny Garduno [facility] - 01/12/2025 3:59 PM EDT Note Date & Type Note Facility 01-12-2025 Miscellaneous Notes Received call from [facility]. They need clarification on Rx. Is it supposed to be 30 for 30 days or 10 for 10 days? I left message with [facility] pharmacy, 30 day supply was intended documented in this encounter [facility] 01-12-2025 Telephone encounter Note Received call from [facility]. They need clarification on Rx. Is it supposed to be 30 for 30 days or 10 for 10 days? [facility] 01-12-2025 Telephone encounter Note I left message with [facility] pharmacy, 30 day supply was intended [facility] 01-12-2025 History of Presen t illness Narrative Images from the original note were not included. Images from the original note were not included. CHIEF COMPLAINT: Speedy Rosen is a 44 y.o. male who presents to [facility] in follow-up for MARGOTH [...] chin strap, denies trouble tolerating the mask. [place] Sleepiness Scale: Sitting and Reading: (!) High [...] 08/07/2019 Performed by Dain Marinelli DO at [facility] ALLERGIES: No Known Allergies MEDICATIONS: Current [...] Sleep Study Results: Titration study on 11/18/2024 (Djkerj=586.0 lbs; BMI=24.2 kg/m2) DIAGNOSIS: ? Obstructive Sleep [...] and NREM sleep. PSG 10/24/22 AHI 21.1 [id number] 92% Dx MARGOTH IMPRESSION/RECOMMENDATIONS: 1. 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 - The patient was advised [...] to stop the activity if sleepiness occurs (cost recovery technician at the next safe opportunity if driving). MARGOTH treatment options were discussed. CPAP is the most predictably effective treatment. Above plan as discussed with the patient who acknowledged understanding and agreement. CL THOMAS MD [facility] [address] [facility] [place] [address] documented in this encounter [facility] 01-12-2025 Instructions Cl Thomas MD - [...] sedating substances as this may cause excess AIR SHOVEL OPERATOR depression/altered mentation. - The patient was advised to only take the medication if they have adequate time to devote to sleep (must have a full night sleep - 8 hrs) and not to drive or perform tasks requiring full mental alertness the next morning until the know how the medication affects them The following attachments cannot be sent through Care Everywhere.Cait[employer], ADULT (Belgian)documented in this encounter [facility] 12-29-2024 Miscellaneous Notes Pressure change done in office and pressure change order faxed to [facility] for their records. documented in this encounter [facility] 12-29-2024 Telephone encounter Note Pressure change done in office and pressure change order faxed to [facility] for their records. [facility] 12-29-2024 Miscellaneous Notes Images from the original [...] need RV for compliance and address insomnia Grocery Checker called patient and informed him that per AD: Cl Thomas MD Physician Signed 1449 Pressure change auto CPAP 12-[address] should not drive if excessively sleepy He slept for 375 min on the sleep study, although sleep was broken Will need RV for compliance and address insomnia Grocery Checker scheduled patient for follow up with AD on 01/12/2025. documented in this encounter [facility] 12-29-2024 Telephone encounter Note Images from the [...] soon as possible. Please review and advise. [facility] 12-29-2024 Telephone encounter Note Pressure change auto CPAP 12-[address] should not drive if excessively sleepy He slept for 375 min on the sleep study, although sleep was broken Will need RV for compliance and address insomnia [facility] 12-29-2024 Telephone encounter Note Grocery Checker called patient and informed him that per AD: Cl Thomas MD Physician Signed 1449 Pressure change auto CPAP 12-20 Agree he should not drive if excessively sleepy He slept for 375 min on the sleep study, although sleep was broken Will need RV for compliance and address insomnia Grocery Checker scheduled patient for follow up with AD on 01/12/2025. T [facility] 12-22-2024 History of Presen t illness [...] to be instructed in home exercise program. [employer] Goals: To be met in 10 weeks [...] sign below. Date: documented in this encounter [facility] 12-08-2024 History of Presen t illness [...] to be instructed in home exercise program. [employer] Goals: To be met in 10 weeks [...] sign below. Date: documented in this encounter [facility] 12-01-2024 History of Presen t illness [...] to be instructed in home exercise program. [employer] Goals: To be met in 10 weeks [...] sign below. Date: documented in this encounter [facility] 11-26-2024 Miscellaneous Notes Patient called office about having a titration completed on 11/18/2024, patient stated that he needs to have a pressure change and a chin strap. Grocery Checker informed patient that AD will read the titration and then result it to our sleep coordinators and they will contact patient to inform him if any pressure changes need made. Patient verbalized understanding. documented in this encounter [facility] 11-26-2024 Telephone encounter Note Patient called office about having a titration completed on 11/18/2024, patient stated that he needs to have a pressure change and a chin strap. Grocery Checker informed patient that AD will read the titration and then result it to our sleep coordinators and they will contact patient to inform him if any pressure changes need made. Patient verbalized understanding. [facility] 11-24-2024 History of Presen t illness [...] to be instructed in home exercise program. Usp Goals: To be met in 10 weeks [...] sign below. Date: documented in this encounter [facility] 11-18-2024 History of Presen t illness [...] to be instructed in home exercise program. Usp Goals: To be met in 10 weeks [...] sign below. Date: documented in this encounter [facility] 10-20-2024 Miscellaneous Notes Patient stopped in office and stated that he tried to contact the sleep lab to see what he needed to bring with him for his titration study that is scheduled for tonight, caption writer informed him to wear comfortable pajamas, eat [...] that he has to have another study. Grocery Checker explained to patient that he has had pressure changes in the past by Dr. Ervin and that those had not helped so the next step is a sleep study, patient verbalized understanding and walked out of office. documented in this encounter [facility] 10-20-2024 Telephone encounter Note Patient stopped in office and stated that he tried to contact the sleep lab to see what he needed to bring with him for his titration study that is scheduled for tonight, caption writer informed him to wear comfortable pajamas, eat [...] that he has to have another study. Grocery Checker explained to patient that he has had pressure changes in the past by Dr. Ervin and that those had not helped so the next step is a sleep study, patient verbalized understanding and walked out of office. 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 [employer] Goals: To be met in 10 weeks [...] sign below. Date: documented in this encounter [facility] 10-12-2024 Miscellaneous Notes Patient called office back and stated that he does not wish to reschedule his appointment at this time due to him needing to reschedule his sleep study, patient stated that he hasn't been able to use his machine and that he really needs to get his sleep study before returning to the office, caption writer transferred patient to the sleep lab to reschedule his sleep study, patient stated that he would call our office back to reschedule. documented in this encounter [facility] 10-12-2024 Telephone encounter Note Patient called office back and stated that he does not wish to reschedule his appointment at this time due to him needing to reschedule his sleep study, patient stated that he hasn't been able to use his machine and that he really needs to get his sleep study before returning to the office, caption writer transferred patient to the sleep lab to reschedule his sleep study, patient stated that he would call our office back to reschedule. [facility] 10-12-2024 Miscellaneous Notes Patient left mychart message wanting to cancel appointment and stated Nothing has changed. I haven't done the study . Grocery Checker attempted to call patient to reschedule appointment, voicemail box was full, unable to leave message. documented in this encounter [facility] 10-12-2024 Telephone encounter Note Patient left mychart message wanting to cancel appointment and stated Nothing has changed. I haven't done the study . Grocery Checker attempted to call patient to reschedule appointment, voicemail box was full, unable to leave message. [facility] 10-06-2024 History of Presen t illness [...] right upper trapezius muscle flexibility Strength: right ampoule sealer 100#, left ampoule sealer 110#, bilateral UE 5/5 Treatment: PT evaluation [...] to be instructed in home exercise program. [employer] Goals: To be met in 10 weeks [...] sign below. Date: documented in this encounter [facility] 09-29-2024 History of Presen t illness [...] right upper trapezius muscle flexibility Strength: right ampoule sealer 100#, left ampoule sealer 110#, bilateral UE 5/5 Treatment: PT evaluation [...] to be instructed in home exercise program. [employer] Goals: To be met in 10 weeks [...] sign below. Date: documented in this encounter [facility] 09-22-2024 History of Emmanuelle campos illness [...] right upper trapezius muscle flexibility Strength: right ampoule sealer 100#, left ampoule sealer 110#, bilateral UE 5/5 Treatment: PT evaluation [...] to be instructed in home exercise program. [employer] Goals: To be met in 10 weeks [...] sign below. Date: documented in this encounter [facility] 09-16-2024 History of Presen t illness [...] right upper trapezius muscle flexibility Strength: right ampoule sealer 100#, left ampoule sealer 110#, bilateral UE 5/5 Treatment: PT evaluation [...] to be instructed in home exercise program. [employer] Goals: To be met in 10 weeks [...] sign below. 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 tendon release/Bondra family history includes Arthritis in [...] to Physical Therapy documented in this encounter [facility] 09-08-2024 Instructions Frances Nguyen NP - 09/08/2024 2:40 PM EST Will use muscle relaxer at bedtime as needed PT Fu in 6 weeks documented in this encounter [facility] 06-03-2024 Miscellaneous Notes 06/02 order received Scheduled CPAP at [facility] on 06/29 Confirmation antionette Chatted pre auth for ins [facility] blue access CPAP order & 06/02 Thomas notes in epic documented in this encounter [facility] 06-03-2024 Telephone encounter Note 06/02 order received Scheduled CPAP at [facility] on 06/29 Confirmation antionette Chatted pre auth for ins [facility] blue access CPAP order & 06/02 Thomas notes in epic [facility] 06-02-2024 History of Presen t illness Narrative CHIEF COMPLAINT: Speedy Rosen is a 44 y.o. male who presents to [facility] in follow-up for MARGOTH [...] with driving where he does need to cost recovery technician. [place] Sleepiness Scale: Sitting and Reading: (!) High [...] minutes in traffic: Slight Chance (he will cost recovery technician and stop) Total: 14 I personally reviewed this data PAST MEDICAL HISTORY: Patient Active Problem List Diagnosis Allergic rhinitis Depression Past Medical History: Diagnosis Date Allergic rhinitis Anxiety Depression Moderate obstructive sleep apnea Visual impairment glasses, contacts Past Surgical History: Procedure Laterality Date CYST REMOVAL left hand, left foot HERNIA REPAIR RELEASE LATERAL EPICONDYLE ELBOW Left 08/07/2019 Performed by Dain Marinelli DO at [facility] ALLERGIES: No Known Allergies MEDICATIONS: Current [...] reviewed the following: PSG 10/24/22 AHI 21.1 [id number] 92% Dx MARGOTH IMPRESSION/RECOMMENDATIONS: 1. MARGOTH (obstructive [...] he would want to have a permanent senior medical technologist in his body. He is interested in [...] to stop the activity if sleepiness occurs (cost recovery technician at the next safe opportunity if driving). MARGOTH treatment options were discussed. CPAP is the most predictably effective treatment. Above plan as discussed with the patient who acknowledged understanding and agreement. CL THOMAS MD [facility] [address] [place] [address] documented in this encounter [facility] 06-02-2024 Instructions Cl Thomas MD - 06/02/2024 8:45 AM EDT Mandibular advancing oral appliance for MARGOTH Custom made and adjustable ENT: Dr. Marissa Garcia ([facility]), phone: [phone] Dr. Lana Carson ([facility]), phone: [phone] Dentists: Dr. Roberth Murcia, phone [phone], [place], [address] Dr. Devendra Sesay ([facility] Accredited) [facility] [address] [place] [address] [address] [place] [address] Chris Rogers [address] [place], [place] [address] Dr. Rl Coronado [address] [place], [place] [id number] Dr. Ignacio Pérez [facility] [place] [address] Thank you for visiting [facility] office. The process of completing a sleep study has many steps. We have detailed these steps below to help keep you informed of what to expect. The scheduling, prior authorization, and registration process: Please call [phone] option #1 to schedule your sleep study. Your sleep medicine specialist places an electronic order which is sent to [facility] sleep lab. This order is then reviewed by the lab staff and a request for approval is sent to your insurance company. If you would like to know the estimated cost of your study, you can call [phone] for general pricing information (note that you will need the following procedure codes allow them to estimate the cost: Polysomnogram (PSG), in lab diagnostic study without CPAP = 46851 PAP titration, in lab with CPAP for treatment = 24445 Home sleep study = 04231 Every study request is reviewed in our sleep prior authorization department. Some sleep studies require prior authorization and some do not (only require that the provider document the need for the study). Some sleep study orders may need to be changed based on insurance coverage. (ie in lab to home study). Please confirm with your insurance that all [facility] sleep labs are in network with your insurance. If you change your insurance after the sleep study is ordered, please call the sleep lab back to update our scheduling staff ([phone] option #1). You should receive a call [...] your sleep study is sent to a dialysis equipment technician to be reviewed and scored. The report from the dialysis equipment technician is then sent to the sleep medicine physician and within 7-10 days the study will be formally interpreted. Once the study is completed, there will be contact from our office (through [place], phone, or a letter) about next steps (ie treatment for sleep apnea, office appointment, cpap machine orders). If a cpap machine has been ordered and you do not hear from the equipment company within 30 days of your study, please call our office [phone]. FYI: Some insurance companies have strict guidelines regarding the timeline for this process. If sleep studies are not completed within 6-12 months of the office visit insurance may require another office visit. Also if cpap set up is not done within a year of the initial sleep study insurance may require another sleep study. Thank you, [facility] Sleep Medicine Department documented in this encounter [facility] 03-24-2024 Miscellaneous Notes ----- Message from Dr. Cl Thomas MD sent at 02/25/2024 2:50 PM EDT ----- Regarding: check 1 mo Check download Please obtain updated download for review documented in this encounter [facility] 03-24-2024 Telephone encounter Note ----- Message from Dr. Cl Thomas MD sent at 02/25/2024 2:50 PM EDT ----- Regarding: check 1 mo Check download [facility] 03-24-2024 Telephone encounter Note Please obtain updated download for review [facility] 02-25-2024 History of Presen t illness Narrative Images from the original note were not included. CHIEF COMPLAINT: Speedy Rosen is a 44 y.o. male who presents to [facility] in follow-up for MARGOTH [...] would be 3000 dollars after getting the toleod estimate. He sleeps on his side at [...] much at night due to sleepiess Will cost recovery technician if needed [place] Sleepiness Scale: Sitting and Reading: Slight Chance [...] 08/07/2019 Performed by Dain Marinelli DO at [facility] ALLERGIES: No Known Allergies MEDICATIONS: Current Outpatient [...] Sleep Study Results: PSG 10/24/22 AHI 21.1 [id number] 92% Dx MARGOTH No new CPAP data [...] nasal congestion recommended that he try Astepro [id number] nasal spray per package directions Return visit [...] to stop the activity if sleepiness occurs (cost recovery technician at the next safe opportunity if driving). MARGOTH treatment options were discussed. CPAP is the most predictably effective treatment. Interim measures to reduce obstructive sleep apnea severity were recommended (avoidance of the supine position and elevation of the upper body and during sleep). Above plan as discussed with the patient who acknowledged understanding and agreement. CL THOMAS MD [facility] [address] [place] [address] documented in this encounter [facility] 02-25-2024 Instructions Cl Thomas MD - 02/25/2024 2:30 PM EDT AstePro nasal spray - over the counter per package directions for congestion Retry CPAP - we can adjust the pressure as needed documented in this encounter [facility] 11-05-2023 Miscellaneous Notes error documented in this encounter [facility] 11-05-2023 Telephone encounter Note error [facility] Work Phone: Evaluation note Diagnosis Bilateral [...] muscle, initial encounter documented in this encounter [facility] HealthcareEvaluation [facility]* Diagnosis Chronic insomnia Insomnia, unspecified [facility] Diagnosis MARGOTH (obstructive sleep apnea)- Primary Obstructive sleep apnea (adult) (pediatric) Chronic insomnia Insomnia, unspecified Hypersomnia Hypersomnia, unspecified Nasal congestion Other diseases of nasal cavity and sinuses [facility]* Diagnosis MARGOTH (obstructive sleep apnea)- Primary Obstructive sleep apnea (adult) (pediatric) Intolerance of continuous positive airway pressure (CPAP) ventilation Hypersomnia Hypersomnia, unspecified Awakens from sleep due to pain documented [facility] this [facility]* Diagnosis Bilateral hand pain- Primary Gastroesophageal reflux disease with esophagitis, unspecified whether hemorrhage Dermatitis- Primary Contact dermatitis and other eczema, due to unspecified cause Cervical pain (neck) Cervicalgia Strain of right trapezius muscle, initial encounter documented in this encounter [facility] HealthcareEvaluation note* Diagnosis Bilateral hand pain- [...] apnea (adult) (pediatric) documented [facility] this [facility]* Diagnosis Bilateral hand pain- [...] apnea (adult) (pediatric) documented [facility] this [facility]* Diagnosis Chronic insomnia- Primary Insomnia, [...] encounter [facility] HealthcareInstructionsNot on filedocumented in this [facility] SystemInstructionsNot on filedocumented in this encounterPro[facility] SystemInstructionsNot on filedocumented in this encounterProAd[facility] SystemInstructionsNot on filedocumented in this encounterProAd[facility] System InstructionsNot on filedocumented in this encounterProAd[facility] System InstructionsNot on filedocumented in this encounterProAdams [facility] SystemReason for visit Narrative* Consultation (Routine) - Authorized Specialty Diagnoses / Procedures Referred By Rosamaria campos Referred To Contact Physical Therapy Diagnoses Cervical pain (neck) Strain of right trapezius muscle, initial encounter Degeneration of intervertebral disc of lumbar region, unspecified whether pain present Procedures AL OFFICE/OUTPATIENT NEW HIGH MDM 60 MINUTES Frances Nguyen NP [address] [place] [address] Phone: tel: fax: Annabelle Martinez, PT [address] [address] Phone: tel: fax: Referral ID Status Reason Start Date Expiration Date Visits Requested Visits Authorized [id number] Authorized Consult and Treat 09/09/2024 11/07/2024 6 6 [facility] Narrative* Consultation (Routine) - Closed Specialty Diagnoses / Procedures Referred By Rosamaria campos Referred To Contact Physical Therapy Diagnoses Cervical pain (neck) Strain of right trapezius muscle, initial encounter Degeneration of intervertebral disc of lumbar region, unspecified whether pain present Procedures AL OFFICE/OUTPATIENT NEW HIGH MDM 60 MINUTES Frances Nguyen NP [address] [place] [address] Phone: tel: fax: Annabelle Martinez, PT [address] [address] Phone: tel: fax: Referral ID Status Reason Start Date Expiration Date V isits Requested Visits Authorized [id number] Closed Consult and Treat 09/09/2024 11/07/2024 6 6 [facility] Narrative* Misc (Routine) - Closed Specialty Diagnoses / Procedures Referred By Contac t Referred To Contact Diagnoses MARGOTH (obstructive sleep apnea) Procedures Polysomnography 4 or more parameters [place] [address] [place] [address] Phone: tel: fax: Referral ID Status Reason Start Date Expiration Date Visits Re quested Visits Authorized [id number] Closed 06/02/2024 06/02/[address] SystemReason for visit Narrative* Rehabilitation - Outpatient (Routine) - Authorized Specialty Diagnoses / Procedures Referred By Contac t Referred To Contact Physical Therapy Diagnoses Lumbar Stenosis Procedures AL PHYSICAL THERAPY EVALUATION LOW COMPLEX 20 MINS AL OFFICE/OUTPATIENT NEW HIGH MDM 60 MINUTES Sorin Elizondo MD [address] [place] [address] Phone: tel: fax: Leydi Jenkins, GRACE Referral ID Status Reason Start Date Expiration Date V isits Requested Visits Authorized [id number] Authorized 11/18/2024 01/16/2025 6 6 [facility] [...] with PAP titration Cl Thomas MD [address] [address] Referral ID Status Reason Start Date Expiration Date V isits Requested Visits Authorized [id number] Pending Review 06/02/2024 06/02/2025 1 1 Additional Source Comments (unrecognized sect ion and content) No Status Records FoundNo Status Records FoundNo Status Records FoundNo Status Records FoundNo Status Records Found INFORMATION SOURCE (unrecogn ized section and content) DATE CREATED AUTHOR 05/29/2021 [facility] DATE CREATED AUTHOR AUTHOR'S ORGANIZ ATION 11/22/2024 [facility] DATE CREATED AUTHOR AUTHOR'S ORGANIZ ATION 12/25/2024 [facility] EPIC DATE CREATED AUTHOR AUTHOR'S ORGANIZ ATION 01/15/2025 [facility] DATE CREATED AUTHOR AUTHOR'S ORGANIZ ATION 04/02/2025 [facility] Care Teams (unrecognized sec tion and content) Kitchen Mechanic Relationship Specialty Start Date End Date Frances Nguyen NP [address] [place] [address] PCP - [employer] 08/19/23 Austin Gray MD [address] [place] [address] PCP - General Family Medicine 10/08/23 Kitchen Mechanic Relationship Specialty Start Date End Date Frances Nguyen NP [address] [place] [address] PCP - [employer] 08/19/23 Austin Gray MD [address] [place] [address] PCP - General Family Medicine 10/08/23 Kitchen Mechanic Relationship Specialty Start Date End Date Frances Nguyen NP [address] [place] [address] PCP - [employer] 08/19/23 Austin Gray MD [address] [place] [address] PCP - General Family Medicine 10/08/23 Kitchen Mechanic Relationship Specialty Start Date End Date Frances Nguyen NP [address] [place] [address] PCP - [employer] 08/19/23 Austin Gray MD [address] [place] [address] PCP - General Family Medicine 10/08/23 Kitchen Mechanic Relationship Specialty Start Date End Date Frances Nguyen NP [address] [place] [address] PCP - [employer] 08/19/23 Austin Gray MD [address] [place] [address] PCP - General Family Medicine 10/08/23 Kitchen Mechanic Relationship Specialty Start Date End Date Frances Nguyen NP [address] [place] [address] PCP - [employer] 08/19/23 Austin Gray MD [address] [place] [address] PCP - General Family Medicine 10/08/23 Kitchen Mechanic Relationship Specialty Start Date End Date Frances Nguyen NP [address] [place] [address] PCP - [employer] 08/19/23 Austin Gray MD [address] [place] [address] PCP - General Family Medicine 10/08/23 Kitchen Mechanic Relationship Specialty Start Date End Date Frances Nguyen [facility] [address] [place] [address] PCP - General Nurse Practitioner 08/02/23 Kitchen Mechanic Relationship Specialty Start Date End Date Frances Nguyen [facility] [address] [place] [address] PCP - General Nurse Practitioner 08/02/23 Kitchen Mechanic Relationship Specialty Start Date End Date Frances Nguyen [facility] [address] [place] [address] PCP - General Nurse Practitioner 08/02/23 Kitchen Mechanic Relationship Specialty Start Date End Date Frances Nguyen [facility] PCP - General Nurse Practitioner 08/02/23 Kitchen Mechanic Relationship Specialty Start Date End Date Frances Nguyen [facility] PCP - General Nurse Practitioner 08/02/23 Kitchen Mechanic Relationship Specialty Start Date End Date Frances Nguyen NP [address] [place] [address] PCP - [employer] 08/19/23 Austin Gray MD [address] [place] [address] PCP - General Family Medicine 10/08/23 Kitchen Mechanic Relationship Specialty Start Date End Date Frances Nguyen NP [address] [place] [address] PCP - [employer] 08/19/23 Austin Gray MD [address] [place] [address] PCP - General Family Medicine 10/08/23 Kitchen Mechanic Relationship Specialty Start Date End Date Frances Nguyen, [employer]HOU[employer] PACKER-OCCUPATIONAL PSYCHOLOGIST PCP - General Nurse Practitioner 08/02/23 Kitchen Mechanic Relationship Specialty Start Date End Date Frances Nguyen NP [address] [place] [address] PCP - [employer] 08/19/23 Austin Gray MD [address] [place] [address] PCP - General Family Medicine 10/08/23 Kitchen Mechanic Relationship Specialty Start Date End Date Frances Nguyen NP [address] [place] [address] PCP - [employer] 08/19/23 Austin Gray MD [address] [place] [address] PCP - General Family Medicine 10/08/23 Kitchen Mechanic Relationship Specialty Start Date End Date Frances Nguyen NP [address] [place] [address] PCP - [employer] 08/19/23 Austin Gray MD [address] [place] [address] PCP - General Family Medicine 10/08/23 Kitchen Mechanic Relationship Specialty Start Date End Date Frances Nguyen NP [address] [place] [address] PCP - [employer] 08/19/23 Austin Gray MD [address] [place] [address] PCP - General Family Medicine 10/08/23 Kitchen Mechanic Relationship Specialty Start Date End Date Frances Nguyen NP [address] [place] [address] PCP - [employer] 08/19/23 Austin Gray MD [address] [place] [address] PCP - General Family Medicine 10/08/23 Kitchen Mechanic Relationship Specialty Start Date End Date Frances Nguyen, WAREHOUSE PACKER-OCCUPATIONAL PSYCHOLOGIST PCP - General Nurse Practitioner 08/02/23 Kitchen Mechanic Relationship Specialty Start Date End Date Frances Nguyen NP [address] [place] [address] PCP - [employer] 08/19/23 Austin Gray MD [address] [place] [address] PCP - General Family Medicine 10/08/23 Kitchen Mechanic Relationship Specialty Start Date End Date Frances Nguyen NP [address] [place] [address] PCP - [employer] 08/19/23 Austin Gray MD [address] [place] [address] PCP - General Family Medicine 10/08/23 Kitchen Mechanic Relationship Specialty Start Date End Date Frances Nguyen NP [address] [place] [address] PCP - [employer] 08/19/23 Austin Gray MD [address] [place] [address] PCP - General Family Medicine 10/08/23 Kitchen Mechanic Relationship Specialty Start Date End Date Frances Nguyen, WAREHOUSE PACKER-OCCUPATIONAL PSYCHOLOGIST PCP - General Nurse Practitioner 08/02/23 Kitchen Mechanic Relationship Specialty Start Date End Date Frances Nguyne NP [address] [place] [address] PCP - [employer] 08/19/23 Austin Gray MD [address] [place] [address] PCP - General Family Medicine 10/08/23 Kitchen Mechanic Relationship Specialty Start Date End Date Frances Nguyen NP [address] [place] [address] PCP - [employer] 08/19/23 Austin Gray MD [address] [place] [address] PCP - General Family Medicine 10/08/23 Kitchen Mechanic Relationship Specialty Start Date End Date Frances Nguyen APRN-OCCUPATIONAL PSYCHOLOGIST PCP - General Nurse Practitioner 08/02/23 Kitchen Mechanic Relationship Specialty Start Date End Date Frances Nguyen APRN-OCCUPATIONAL PSYCHOLOGIST PCP - General Nurse Practitioner 08/02/23 Kitchen Mechanic Relationship Specialty Start Date End Date Frances gNuyen NP [address] [place] [address] PCP - [employer] 08/19/23 Austin Gray MD [address] [place] [address] PCP - General Family Medicine 10/08/23 Reason [...] BE BASED ON THE PRIMARY CLINICAL RECORDS. [employer] provides no warranty or guarantee of the accuracy or completeness of information in this document.
[2025-05-03 07:13] VITALS: BP 119/87; PULSE 82; TEMP 37.1; O2SAT 97
[2025-05-03 07:50] VITALS: BP 134/62; PULSE 80; O2SAT 100
[2025-05-03 07:51] VITALS: BP 129/71; PULSE 72; O2SAT 100
[2025-05-03] MEDS: BUPIVACAINE HCL 0.25% PF 25 MG/10 ML VIAL 2 ML INJ (07:53)
[2025-05-03] MEDS: IOHEXOL 240 MG/ML - 10 ML VIAL 12 MG INJ (07:53)
[2025-05-03] MEDS: METHYLPREDNISOLONE ACETATE 40 MG/ML VIAL INJ (07:53)
[2025-05-03] MEDS: LIDOCAINE HCL 2% 400 MG/20 ML MDV INJ (07:53)
--- NOTE | 2025-05-03 07:55 | W.PM.PROCNOT ---
Date of procedure: 05/03/25 Pre-op diagnosis: Pain due to left sacroiliitis Post-op diagnosis: same as pre-op Procedure: Procedure: Left sacroiliac joint injection Medications: Bupivacaine 0.25% 3cc, depomedrol 40mg After informed consent was obtained, the patient was brought to the medical procedure unit and placed in the prone position, when a timeout was completed verifying correct patient, procedure, site, positioning, implant, and/or special equipment.? The skin overlying the area was prepped and draped in standard sterile fashion using alcohol.? A 25-gauge needle was inserted towards the left sacroiliac joint under direct fluoroscopic imaging.? Needle tip was advanced until the joint was encountered.? We instilled a total of 2 mL of solution.? Postoperatively needles were removed.? The patient tolerated the procedure well without complication.? The patient reported reduction in pain symptoms postoperatively. Anesthesia: Local Surgeon: Jessica Elizondo Pathology: none sent Condition: stable Disposition: no change
--- NOTE | 2025-05-03 07:55 | PC.NURSE ---
pain 0/10 upon D/C
== END 2025-05-03 07:55 | disposition home or self-care (01) ==
LOC: SURGOUT 07:08
PROVIDERS: PCP Nurse Practitioner; Visit Provider Anesthesiology
DX: M46.1 Sacroiliitis, not elsewhere classified (principal)
CPT/HCPCS: 27096; J0665; J1010; Q9966

== ENCOUNTER 2025-05-13 07:45 | Outpatient (OUT) | payer BC, SELFPAY ==
--- OUTSIDE RECORDS SUMMARY | 2025-05-13 07:47 | XMS_ITS | CCD ---
Author Organization [facility] Care Team Providers Care Senior Ui Designer Name Role Phone Wendy EMISSIONS INSPECTOR, Frances Unavailable Austin Gray MD Primary Care Provider Aichluis fernando PROPERTY MANAGEMENT BOOKKEEPER-ROLL TENDERFrances Primary Care Provider Aichluis fernando PROPERTY MANAGEMENT BOOKKEEPER-ROLL TENDER, Frances Asya Primary Care Provider Wendy PROPERTY MANAGEMENT BOOKKEEPER-ROLL TENDER, Frances Sky Primary Care Provider RANDIZ, FRANCES J Referring Unavailable AICHHOLZ, FRANCES J [...] Facil ity [place] [address] Magnetic Resonance Report Signed Patient: SPEEDY ROSEN MR#: [id number] : 1980 Acct:[id number] Age/Sex: 45 / M ADM Date: 02/16/25 Loc: LINDA Attending Dr: Sorin Elizondo M.D. Ordering Physician: Sorin Elizondo M.D. Date of Service: 02/16/25 Procedure(s): MR lumbar spine wo con Accession Number(s): [id number] cc: Frances Nguyen EMISSIONS INSPECTOR; Sorin Elizondo M.D. [place] [address] Patient Name: SPEEDY ROSEN MRN: TBH:[id number] date: 1980 Sex: M Assigned Patient Location: [facility] Current Patient Location: [facility] Accession/Order Number: [id number] Exam Date: 02/16/2025 15:00 Report Date: 02/16/2025 [...] Jr., D.OLetty 02/16/2025 3:04 PM Dictation Location: [place] [address] Electronically authenticated by: [id number] Y Date: 02/16/2025 15:04 Dictated By: Vinh Nieto M.D. Signed By: 02/16/25 1506 DD/ 1504 TD/TT: Roofing Applicator: [facility] Radiology, Radiologist, MD - 02/16/2025 [place] [address] Magnetic Resonance Report Signed Patient: SPEEDY ROSEN MR#: [id number] : 1980 Acct:[id number] Age/Sex: 45 / M ADM Date: 02/16/25 Loc: RAD Attending Dr: Sorin Elizondo M.D. Ordering Physician: Sorin Elizondo M.D. Date of Service: 02/16/25 Procedure(s): MR lumbar spine wo con Accession Number(s): [id number] cc: Frances Nguyen NP; Sorin Elizondo M.D. The [place] [address] Patient Name: SPEEDY ROSEN MRN: TBH:[id number] date: 1980 Sex: M Assigned Patient Location: [facility] Current Patient Location: [facility] Accession/Order Number: [id number] Exam Date: 02/16/2025 15:00 Report Date: 02/16/2025 [...] L4-L5. Impression dictated by: Vinh Nieto Jr., AlesiaOLetty 02/16/2025 3:04 PM Dictation Location: [place] [address] Electronically authenticated by: [id number] Y Date: 02/16/2025 15:04 Dictated By: Vinh Nieto M.D. Signed By: 02/16/25 1506 DD/ 1504 TD/TT: Roofing Applicator: [facility] Radiology Study observation (narrative) [facility] MR LUMBAR SPINE WO CONOrdere d By: Radiologist Radiology on 02-16-2025 [facility] Work Phone: XR EYE BILATERAL FOREIGN BOD Y [id number] 02-16-[address] [address] XRay Report Signed Patient: SPEEDY ROSEN MR#: [id number] : 1980 Acct:[id number] Age/Sex: 45 / M ADM Date: 02/16/25 Loc: RAD Attending Dr: Sorin Elizondo M.D. Ordering Physician: Sorin Elizondo M.D. Date of Service: 02/16/25 Procedure(s): XR foreign body eye YUDITH Accession Number(s): [id number] cc: Frances Nguyen EMISSIONS INSPECTOR; Sorin Elizondo M.D. [address] [id number] Patient Name: SPEEDY ROSEN MRN: [facility]:[id number] date: 1980 Sex: M Assigned Patient Location: [facility] Current Patient Location: [facility] Accession/Order Number: [id number] Exam Date: 02/16/2025 08:27 Report Date: 02/16/2025 [...] Magallon M.D. 02/16/2025 8:28 AM Dictation Location: [place] [address] Electronically authenticated by: [id number] Y Date: 02/16/2025 08:28 Dictated By: Galina Magallon M.D. Signed By: 02/16/25829 DD/ 7 TD/TT: Roofing Applicator: [facility] Radiology, Radiologist, MD - 02/16/[address] [address] XRay Report Signed Patient: SPEEDY ROSEN MR#: [id number] : 1980 Acct:[id number] Age/Sex: 45 / M ADM Date: 02/16/25 Loc: RAD Attending Dr: Sorin Elizondo M.D. Ordering Physician: Sorin Elizondo M.D. Date of Service: 02/16/25 Procedure(s): XR foreign body eye YUDITH Accession Number(s): [id number] cc: Frances Nguyen NP; Sorin Elizondo M.D. The [place] [id number] Patient Name: SPEEDY ROSEN MRN: [facility]:[id number] date: 1980 Sex: M Assigned Patient Location: [facility] Current Patient Location: [facility] Accession/Order Number: [id number] Exam Date: 02/16/2025 08:27 Report Date: 02/16/2025 [...] Magallon M.D. 02/16/2025 8:28 AM Dictation Location: [place] [address] Electronically authenticated by: [id number] Y Date: 02/16/2025 08:28 Dictated By: Galina Magallon M.D. Signed By: 02/16/25829 DD/ 7 TD/TT: Roofing Applicator: [facility] Radiology Study observation (narrative) [facility] XR EYE BILATERAL FOREIGN BOD Y [id number] By: Radiologist Radiology on 02-16-2025 [facility] Work Phone: XR ELBOW LT MIN [...] Robles MD on 11/14/2024 2:16 PM Normal [facility] XR ELBOW RT MIN 3 VWSon 10-18 XR ELBOW RT MIN 3 VWS XR ELBOW RT MIN 3 VWS Right elbow: HISTORY: Right elbow pain. 4 views of the right elbow were obtained. There is no acute osseous, articular, or soft tissue abnormality. IMPRESSION: Negative exam. Finalized by Paulo Howell MD on 11/14/2024 11:49 AM Normal [facility] XR Hip - right 3 Viewson [place] [id number] XRay Report Signed Patient: SPEEDY ROSEN MR#: [id number] : 1980 Acct:[id number] Age/Sex: 44 / M ADM Date: 10/09/24 Loc: RAD Attending Dr: Frances Nguyen NP Ordering Physician: Frances Nguyen NP Date of Service: 10/09/24 Procedure(s): XR hip RT min 2V Accession Number(s): [id number] cc: Frances Nguyen NP [address] [address] Patient Name: SPEEDY ROSEN MRN: [facility]:[id number] date: 1980 Sex: M Assigned Patient Location: [facility] Current Patient Location: Accession/Order Number: [id number] Exam Date: 10/09/2024 11:56 Report Date: 10/09/2024 12:02 At the request of: FRANCES NGUYNE NP Procedure: XR lumbar spine 2-3V CLINICAL [...] Galina Magallon M.D.10/09/2024 12:02 PM Dictation Location: [place] [address] Electronically authenticated by: [id number] Y Date: 10/09/2024 12:02 Dictated By: Galina Magallon M.D. Signed By: 10/14/24 1035 DD/ 1202 TD/TT: Roofing Applicator: [facility] Radiology, Radiologist, - 10/14/2024 [place] [address] XRay Report Signed Patient: SPEEDY ROSEN MR#: [id number] : 1980 Acct:[id number] Age/Sex: 44 / M ADM Date: 10/09/24 Loc: RAD Attending Dr: Frances Nguyen NP Ordering Physician: Frances Nguyen NP Date of Service: 10/09/24 Procedure(s): XR hip RT min 2V Accession Number(s): [id number] cc: Frances Nguyen NP The [address] [address] Patient Name: SPEEDY ROSEN MRN: [facility]:[id number] date: 1980 Sex: M Assigned Patient Location: [facility] Current Patient Location: Accession/Order Number: [id number] Exam Date: 10/09/2024 11:56 Report Date: 10/09/2024 [...] Galina Magallon M.D.10/09/2024 12:02 PM Dictation Location: [place] [address] Electronically authenticated by: [id number] Y Date: 10/09/2024 12:02 Dictated By: Galina Magallon M.D. Signed By: 10/14/24 1035 DD/ 1202 TD/TT: Roofing Applicator: [facility] XR Hip - right 3 ViewsOrdere d By: Radiologist Radiology on 10-14-2024 [facility] Work Phone: No Panel Informationon 10-09 Radiology Study observation (narrative) [facility] XR LUMBAR SPINE 2 [place] [address] XRay Report Signed Patient: SPEEDY ROSEN MR#: [id number] : 1980 Acct:[id number] Age/Sex: 44 / M ADM Date: 10/09/24 Loc: [facility] Attending Dr: Frances Ngueyn NP Ordering Physician: Frances Nguyen NP Date of Service: 10/09/24 Procedure(s): XR lumbar spine 2-3V Accession Number(s): [id number] cc: Frances Nguyen NP [place] [address] Patient Name: SPEEDY ROSEN MRN: [facility]:[id number] date: 1980 Sex: M Assigned Patient Location: [facility] Current Patient Location: [facility] Accession/Order Number: [id number] Exam Date: 10/09/2024 11:56 Report Date: 10/09/2024 [...] Galina Magallon M.D.10/09/2024 12:02 PM Dictation Location: [place] [address] Electronically authenticated by: [id number] Y Date: 10/09/2024 12:02 Dictated By: Galina Magallon M.D. Signed By: 10/09/24 1205 DD/ 1202 TD/TT: Roofing Applicator: [facility] Radiology, Radiologist, MD - 10/09/2024 [place] [address] XRay Report Signed Patient: SPEEDY ROSEN MR#: [id number] : 1980 Acct:[id number] Age/Sex: 44 / M ADM Date: 10/09/24 Loc: [facility] Attending Dr: Frances Nguyen NP Ordering Physician: Frances Nguyen NP Date of Service: 10/09/24 Procedure(s): XR lumbar spine 2-3V Accession Number(s): [id number] cc: Frances Nguyen NP [place] [id number] Patient Name: SPEEDY ROSEN MRN: [facility]:[id number] date: 1980 Sex: M Assigned Patient Location: [facility] Current Patient Location: [facility] Accession/Order Number: [id number] Exam Date: 10/09/2024 11:56 Report Date: 10/09/2024 [...] Galina Magallon M.D.10/09/2024 12:02 PM Dictation Location: [place] [address] Electronically authenticated by: [id number] Y Date: 10/09/2024 12:02 Dictated By: Galina Magallon M.D. Signed By: 10/09/24 1205 DD/ 1202 TD/TT: Roofing Applicator: [facility] XR LUMBAR SPINE 2 OR 3VOrder ed By: Radiologist Radiology on 10-09-2024 [facility] Work Phone: CERVICAL SPINE 4 OR 5 VIEWSo n 05-25-2021 CERVICAL SPINE 4 OR 5 VIEWS [facility] Department of Radiology [address] [place] [address] Patient Name: SPEEDY ROSEN : 1980 Sex: M Age: Race: White Pt. Location: Patient Status: O Ordered Date: 05/25/2021 9:30:00 AM Completed Date: 05/25/2021 09:39 AM Requesting Provider: EDWARD KRUGER Attending Provider: EDWARD KRUGER Report Copy To: Signs & Symptoms: M54.2 Cervicalgia I10 History: [place] Comments: Evaluate Exam: CERVICAL SPINE 4 OR [...] lordosis. Electronically signed: Paulo Howell. Transcribed by: [email or web address], User Resident: Electronically Signed by: PAULO HOWELL @ 05/25/2021 07:59 PM Normal The [facility] Comment on above: Order Comment: Evalu ate Vital Signs Date Time Vital Sign Value Performing Clinician Facility 01-12-2025 14:38-0400 Body height 182.9 cm Cl Thomas MD Work Phone: [facility] 01-12-2025 14:38-0400 Body mass index (BMI) [Ratio] 24.55 kg/m2 Cl Thomas MD Work Phone: [facility] 01-12-2025 14:38-0400 Body weight 82.1 kg Cl Thomas MD Work Phone: [facility] 01-12-2025 14:38-0400 Diastolic blood pressure 84 mm[Hg] Cl Thomas MD Work Phone: [facility] 01-12-2025 14:38-0400 Heart rate 74 /min Cl Thomas MD Work Phone: [facility] 01-12-2025 14:38-0400 SaO2% (BldA) [Mass fraction] 99 % Cl Thomas MD Work Phone: [facility] 01-12-2025 14:38-0400 Systolic blood pressure 118 mm[Hg] Cl Thomas MD Work Phone: [facility] 11-18-2024 20:50-0400 Body height 182.9 cm Pm 3 [facility] 11-18-2024 20:50-0400 Body mass index (BMI) [Ratio] 24.01 kg/m2 Pm 3 [facility] 11-18-2024 20:50-0400 Body weight 80.29 kg Pmh 3 [facility] 10-19-2024 19:19-0500 Body mass index (BMI) [Ratio] 24.17 kg/m2 Frances Cotocarlosz EMISSIONS INSPECTOR Work Phone: [facility] 10-19-2024 19:19-0500 Body temperature 98.8 [degF] Frances Randiz EMISSIONS INSPECTOR Work Phone: [facility] 10-19-2024 19:19-0500 Body weight 80.83 kg Francesmarta Cotocarlosz EMISSIONS INSPECTOR Work Phone: [facility] 10-19-2024 19:19-0500 Diastolic blood pressure 86 mm[Hg] Frances Seraholz EMISSIONS INSPECTOR Work Phone: [facility] 10-19-2024 19:19-0500 Heart rate 76 /min Frances Randiz EMISSIONS INSPECTOR Work Phone: [facility] 10-19-2024 19:19-0500 Respiratory rate 18 /min Francesmarta Cotocarlosz EMISSIONS INSPECTOR Work Phone: [facility] 10-19-2024 19:19-0500 SaO2% (BldA) [Mass fraction] 98 % Frances Randiz EMISSIONS INSPECTOR Work Phone: [facility] 10-19-2024 19:19-0500 Systolic blood pressure 124 mm[Hg] Frances Randiz EMISSIONS INSPECTOR Work Phone: [facility] 09-08-2024 15:23-0500 Diastolic blood pressure 84 mm[Hg] Frances Seraholz EMISSIONS INSPECTOR Work Phone: [facility] 09-08-2024 15:23-0500 Systolic blood pressure 122 mm[Hg] Frances Aichholz EMISSIONS INSPECTOR Work Phone: [facility] 09-08-2024 14:59-0500 Body mass index (BMI) [Ratio] 25.33 kg/m2 Frances Seraholz EMISSIONS INSPECTOR Work Phone: [facility] 09-08-2024 14:59-0500 Body temperature 97.81 [degF] Frances Nguyen EMISSIONS INSPECTOR Work Phone: [facility] 09-08-2024 14:59-0500 Body weight 84.73 kg Frances Nguyen EMISSIONS INSPECTOR Work Phone: [facility] 09-08-2024 14:59-0500 Heart rate 81 /min Frances Nguyen EMISSIONS INSPECTOR Work Phone: [facility] 09-08-2024 14:59-0500 Respiratory rate 19 /min Frances Nguyen EMISSIONS INSPECTOR Work Phone: [facility] 09-08-2024 14:59-0500 SaO2% (BldA) [Mass fraction] 99 % Frances Nguyen EMISSIONS INSPECTOR Work Phone: [facility] 06-02-2024 08:47-0400 Body height 182.9 cm Cl Thomas MD Work Phone: [facility] 06-02-2024 08:47-0400 Body mass index (BMI) [Ratio] 24.01 kg/m2 Cl Thomas MD Work Phone: [facility] 06-02-2024 08:47-0400 Body weight 80.29 kg Cl Thomas MD Work Phone: [facility] 06-02-2024 08:47-0400 Diastolic blood pressure 82 mm[Hg] Cl Thomas MD Work Phone: [facility] 06-02-2024 08:47-0400 Heart rate 74 /min Cl Thomas MD Work Phone: [facility] 06-02-2024 08:47-0400 SaO2% (BldA) [Mass fraction] 100 % Cl Thomas MD Work Phone: [facility] 06-02-2024 08:47-0400 Systolic blood pressure 120 mm[Hg] Cl Thomas MD Work Phone: [facility] 02-25-2024 14:33-0400 Body height 182.9 cm Cl Thomas MD Work Phone: [facility] 02-25-2024 14:33-0400 Body mass index (BMI) [Ratio] 23.42 kg/m2 Cl Thomas MD Work Phone: [facility] 02-25-2024 14:33-0400 Body weight 78.34 kg Cl Thomas MD Work Phone: [facility] 02-25-2024 14:33-0400 Diastolic blood pressure 88 mm[Hg] Cl Thomas MD Work Phone: [facility] 02-25-2024 14:33-0400 Heart rate 78 /min Cl Thomas MD Work Phone: [facility] 02-25-2024 14:33-0400 SaO2% (BldA) [Mass fraction] 98 % Cl Thomas MD Work Phone: [facility] 02-25-2024 14:33-0400 Systolic blood pressure 135 mm[Hg] Cl Thomas MD Work Phone: [facility] Encounters Encounter Date Encounter Type Care Provider Facility Start: 05-03-2025 End: 05-03-2025 ambulatory Sorin Elizondo MD Facility:[facility] Start: 03-22-2025 End: 03-22-2025 ambulatory Sorin El[facility] MD [facility] Start: 03-01-2025 End: 03-01-2025 ambulatory Sorin Elizondo MD Facility:[facility] Start: 02-16-2025 End: 02-16-2025 [facility]inis[facility] Result Encounter Generic External Data Provider [facility] Unsolicited Start: 02-16-2025 End: 02-16-2025 Clinisync Result Encounter Generic External Data Provider [facility] Unsolicited Start: 01-20-2025 End: 01-20-2025 Refill Frances Nguyen NP Work Phone: [facility] Comment on above: Poison mery dermatiti s (Primary Dx) Start: 01-12-2025 End: 01-12-2025 Office outpatient visit 25 minutes Cl [facility] Comment on above: Chronic insomnia (Pr imary Dx); MARGOTH (obstructive sleep apnea); Hypersomnia Start: 01-12-2025 End: 01-12-2025 ambulatory CL THOMAS [facility] Start: 01-12-2025 End: 01-12-2025 Telephone encounter [facility]y Garduno [facility] Comment on above: Medication Dosage Start: 12-29-2024 End: 12-29-2024 [facility] Start: 12-23-2024 End: 12-23-2024 Bamboo flowsroman Martinez PT Work Phone: [facility] Start: 12-23-2024 End: 12-23-2024 Bamboo flowsheet Annabelle Martinez PT Work Phone: [facility] Start: 12-23-2024 End: 12-23-2024 ambulatory ANNABELLE MARTINEZ Not Available Start: 12-22-2024 End: 12-23-2024 ambulatory Annabelle Martinez PT Work Phone: [facility] Comment on above: Lumbar paraspinal mu scle spasm (Primary Dx) Start: 12-09-2024 End: 12-09-2024 Bamboo flowsheet Annabelle Martinez PT Work Phone: [facility] Start: 12-09-2024 End: 12-09-2024 Bamboo flowsheet Annabelle Ramoston PT Work Phone: [facility] Start: 12-09-2024 End: 12-09-2024 ambulatory ANNABELLEERIC RAMOSTON Not Available Start: 12-08-2024 End: 12-09-2024 ambulatory Annabelle Ramoston PT Work Phone: [facility] Comment on above: Lumbar paraspinal mu scle spasm (Primary Dx) Start: 12-01-2024 End: 12-02-2024 ambulatory Annabelle Martinez PT Work Phone: [facility] Comment on above: Lumbar paraspinal mu scle spasm (Primary Dx) Start: 12-01-2024 End: 12-01-2024 Bamboo flowsheet Annabelle Martinez PT Work Phone: [facility] Start: 12-01-2024 End: 12-01-2024 Bamboo flowsheet Annabelle Martinez PT Work Phone: [facility] Start: 11-26-2024 End: 11-26-2024 Telephone encounter Jovanna Quinones [facility] Start: 11-25-2024 End: 11-25-2024 Bamboo flowsheet Annabelle Martinez PT Work Phone: [facility] Start: 11-25-2024 End: 11-25-2024 Bamboo flowsheet Annabelle Martinez PT Work Phone: [facility] Start: 11-25-2024 End: 11-25-2024 ambulatory ANNABELLE MATRINEZ Not Available Start: 11-24-2024 End: 11-25-2024 ambulatory Annabelle Martinez PT Work Phone: [facility] Comment on above: Lumbar paraspinal mu scle spasm (Primary Dx) Start: 11-18-2024 End: 11-18-2024 Clinical Support Cl Thomas MD Work Phone: [facility] Comment on above: MARGOTH (obstructive sle ep apnea) Lumbar paraspinal mu scle spasm (Primary Dx) Start: 11-18-2024 End: 11-18-2024 Bamboo flowsheet Annabelle Martinez PT Work Phone: [facility] Start: 11-18-2024 End: 11-18-2024 Bamboo flowsheet Annabelle Martinez PT Work Phone: [facility] Start: 11-16-2024 End: 11-16-2024 ambulatory Sorin Elizondo MD Facility: [facility] Start: 11-15-2024 End: 11-15-2024 Refill Frances Nguyen EMISSIONS INSPECTOR Work Phone: [facility] Comment on above: Cervical pain (neck) ; Strain of right trapezius muscle, initial encounter Start: 11-14-2024 End: 11-14-2024 ambulatory FRANCES NGUYEN [facility] Start: 10-20-2024 End: 10-20-2024 Telephone encounter Jovanna Quinones [facility] Start: 10-19-2024 End: 10-19-2024 Office outpatient visit 25 minutes Frances Nguyen EMISSIONS INSPECTOR Work Phone: [facility] Comment on above: SI joint arthritis ( CMS/HCC) (Primary Dx); Cervical pain (neck); Strain of right trapezius muscle, subsequent encounter; Bilateral elbow joint pain; Degeneration of intervertebral disc of lumbar region, unspecified whether pain present Start: 10-19-2024 End: 10-19-2024 ambulatory FRANCES NGUYEN Not Available Start: 10-19-2024 End: 10-19-2024 Bamboo flowsheet Frances Wendy EMISSIONS INSPECTOR Work Phone: [facility] Start: 10-19-2024 End: 10-19-2024 Bamboo flowsheet Frances Nguyen EMISSIONS INSPECTOR Work Phone: [facility] Start: 10-13-2024 [...] Start: 10-12-2024 End: 10-12-2024 Telephone encounter Elise Connor Garcia HAND WINDER [facility] Start: 10-11-2024 End: 10-11-2024 Refill Frances Nguyen EMISSIONS INSPECTOR Work Phone: [facility] Comment on above: Cervical pain (neck) ; Strain of right trapezius muscle, initial encounter Start: 10-09-2024 End: 10-14-2024 Clinisync Result Encounter Frances Nguyen EMISSIONS INSPECTOR Work Phone: [facility] Unsolicited Start: 10-09-2024 End: 10-14-2024 Clinisync Result Encounter Frances Nguyen EMISSIONS INSPECTOR Work Phone: [facility] Unsolicited Start: [...] Start: 09-30-2024 End: 09-30-2024 Bamboo flowsheet Parisa Alva CLIENT EXECUTIVE [facility] Start: 09-30-2024 End: 09-30-2024 Bamboo flowsheet Parisa Walkery CLIENT EXECUTIVE [facility] Start: 09-30-2024 End: 09-30-2024 ambulatory ANNABELLE MARTINEZ Not Available Start: 09-29-2024 End: 09-30-2024 ambulatory Annabelle Martinez PT Work Phone: [facility] Comment on above: Cervical pain (neck) (Primary Dx); Strain of right trapezius muscle, initial encounter Start: 09-23-2024 End: 09-23-2024 Bamboo sarwat Martinez PT Work Phone: [facility] Start: 09-23-2024 End: 09-23-2024 Bamboo sarwat Martinez PT Work Phone: [facility] Start: 09-23-2024 End: 09-23-2024 ambulatory ANNABELLE MARTINEZ Not Available Start: 09-22-2024 End: 09-23-2024 ambulatory Annabelle Martinez PT Work Phone: [facility] Comment on above: Cervical pain (neck) (Primary Dx); Strain of right trapezius muscle, initial encounter; Degeneration of intervertebral disc of lumbar region, unspecified whether pain present Start: 09-16-2024 End: 09-16-2024 Bamboo sarwat Martinez PT Work Phone: [facility] Start: 09-16-2024 End: 09-16-2024 Bamboo sarwat Martinez PT Work Phone: [facility] [...] present Start: 09-08-2024 End: 09-08-2024 ambulatory FRANCES ELIZABETHParmjitLUIS FERNANDO Not Available Start: 09-08-2024 End: 09-08-2024 Office outpatient visit 25 minutes Frances Nguyen EMISSIONS INSPECTOR Work Phone: [facility] Comment on above: Strain of right trap ezius muscle, initial encounter (Primary Dx); Gastroesophageal reflux disease with esophagitis, unspecified whether hemorrhage; Cervical pain (neck); Degeneration of intervertebral disc of lumbar region, unspecified whether pain present Start: 09-08-2024 End: 09-08-2024 Bamboo flowsheet Farnces Nguyen EMISSIONS INSPECTOR Work Phone: [facility] Start: 09-08-2024 End: 09-08-2024 Bamboo flowsheet Frances Nguyen EMISSIONS INSPECTOR Work Phone: [facility] Start: 06-03-2024 End: 06-03-2024 Telephone encounter Cl [facility] Comment on above: Sleep Lab (CPAP) Start: 06-02-2024 End: 06-02-2024 Office outpatient visit 15 minutes Cl Thomas MD Work Phone: [facility] Comment on above: MARGOTH (obstructive sle ep apnea) (Primary Dx); Intolerance of continuous positive airway pressure (CPAP) ventilation; Hypersomnia; Awakens from sleep due to pain Start: 06-02-2024 End: 06-02-2024 ambulatory CL THOMAS [facility] Start: 03-24-2024 End: 03-24-2024 Telephone encounter Cl [facility] MD [facility] Start: 02-25-2024 End: 02-25-2024 Office outpatient visit 15 minutes Cl Thomas MD [facility] Comment on above: MARGOTH (obstructive sle ep apnea) (Primary Dx); Chronic insomnia; Hypersomnia; Nasal congestion Start: 02-25-2024 End: 02-25-2024 ambulatory CL THOMAS [facility] Start: 11-05-2023 Telephone encounter Cl Max MD Work Phone: [facility] Start: 10-03-2023 Refill Angelica Ervin MD Work Phone: [facility] Comment on above: Chronic insomnia Procedures Date Procedure Procedure Detail Performing Clinician Start: 02-16-2025 MR LUMBAR SPINE WO CON Generic External Data Provider Start: 02-16-2025 XR EYE BILATERAL FOR EIGN BODY 87964 Generic External Data Provider Start: 10-09-2024 Radex hip unilateral with pelvis 2-3 views Frances Nguyen EMISSIONS INSPECTOR Work Phone: Start: 10-09-2024 XR LUMBAR SPINE 2 OR 3V Frances Nguyen EMISSIONS INSPECTOR Work Phone: Start: 02-25-2024 Follow-up visit Follow-up CL THOMAS Start: 05-14-2022 Adult depression screening assessment Angelica Ervin MD Work Phone: Plan of Treatment Date Care Activity Detail Author Start: 01-12-2026 Adult BMI Screening Adult BMI Screen ing [facility] Start: 01-12-2026 Tobacco Screening Tobacco Screening [facility] Start: 11-18-2025 Adult BMI Screening Adult BMI Screen ing [facility] Start: 11-18-2025 Tobacco Screening Tobacco Screening [facility] Start: 06-02-2025 Adult BMI Screening Adult BMI Screen ing [facility] Start: 06-02-2025 Tobacco Screening Tobacco Screening [facility] Start: 04-19-2025 Influenza vaccination Influenza Vacc ine [facility] Start: 02-24-2025 Adult BMI Screening Adult BMI Screen ing [facility] Start: 02-24-2025 Tobacco Screening Tobacco Screening [facility] Start: 02-23-2025 End: 02-23-2025 Patient encounter procedure 02/23/2025 9:15 AM EDT Office Visit [facility] [address] [facility] [place] [address] Cl Thomas MD [address] [facility] [place] [address] [facility] Start: 01-12-2025 End: 01-12-2025 Patient encounter procedure 01/12/2025 2:45 PM EDT Office Visit [facility] [address] [facility] [place] [address] Cl Thomas MD [address] [facility] [place] [address] [facility] Start: 12-28-2024 End: 12-28-2024 Patient encounter procedure 12/28/2024 6:30 PM EDT Office Visit [facility] [address] [place] [address] Frances Nguyen, EMISSIONS INSPECTOR [address] [place] [address] [facility] Start: 12-22-2024 End: 12-22-2024 ambulatory 12/22/2024 6:00 PM EDT Treatment [facility] [address] [facility] [address] [place] [address] Annabelle Martinez, PT [address] [facility] [address] [place] [address] [facility] Start: 12-14-2024 End: 12-14-2024 ambulatory 12/14/2024 4:00 PM EDT Treatment [facility] [address] [facility] [address] [place] [address] Annabelle Martinez, PT [address] [facility] [address] [place] [address] [facility] Start: 12-08-2024 End: 12-08-2024 ambulatory 12/08/2024 6:00 PM EDT Treatment [facility] [address] [place] [address] [place] [address] Annabelle Martinez, PT [address] [place] [address] [place] [address] [facility] Start: 12-03-2024 End: 12-03-2024 ambulatory 12/03/2024 4:30 PM EDT Treatment [facility] [address] [place] [address] [place] [address] Annabelle Martinez, PT [address] [place] [address] [place] [address] [facility] Start: 12-01-2024 End: 12-01-2024 ambulatory 12/01/2024 4:00 PM EDT Treatment [facility] [address] [place] [address] [place] [address] Annabelle Martinez, PT [address] [place] [address] [place] [address] [facility] Start: 11-26-2024 End: 11-26-2024 ambulatory 11/26/2024 5:00 PM EDT Treatment [facility] [address] [place] [address] [place] [address] Ranjan Britt, PHILIPP [facility] Start: 11-24-2024 End: 11-24-2024 ambulatory 11/24/2024 6:00 PM EDT Treatment [facility] [address] [place] [address] [place] [address] Annabelle Martinez, PT [address] [place] [address] [place] [address] [facility] Start: 11-18-2024 End: 11-18-2024 Clinical Support 11/18/2024 8:00 PM EDT Clinical Support [facility] [address] [place] [address] Cl Thomas MD [address] [facility] [address] [place] [address] [facility] Start: 10-21-2024 End: 10-21-2024 Patient encounter procedure 10/21/2024 6:00 PM EST Office Visit [facility] [address] [place] [address] Frances Nguyen, [place] [address] [place] [address] [facility] Start: 10-19-2024 End: 10-19-2024 Patient encounter procedure [facility] Comment on above: Cervical pain (neck) (Primary Dx); Strain of right trapezius muscle, subsequent encounter Start: 10-19-2024 End: 10-19-2025 XR Elbow - left 3 Views XR elbow 3+ views left Imaging Routine Bilateral elbow joint pain Expected: 10/19/2024 (Approximate), Expires: 10/19/2025 [facility] Work Phone: Comment on above: Expected: 10/19/2024 (Approximate), Expires: 10/19/2025 Start: 10-19-2024 End: 10-19-2025 XR Elbow - right 3 Views XR elbow 3+ views right Imaging Routine Bilateral elbow joint pain Expected: 10/19/2024 (Approximate), Expires: 10/19/2025 [facility] Comment on above: Expected: 10/19/2024 (Approximate), Expires: 10/19/2025 Start: 10-13-2024 End: 10-13-2024 ambulatory 10/13/2024 5:00 PM EST Treatment [facility] [address] [place] [address] [place] [address] Annabelle Martinez, PT [address] [place] [address] [place] [address] [facility] Start: 10-13-2024 End: 10-13-2024 Patient encounter procedure 10/13/2024 2:15 PM EST Office Visit [facility] [address] [facility] [place] [place] [address] Cl Thomas MD [address] [facility] [address] [place] [address] [facility] Start: 10-06-2024 End: 10-06-2024 ambulatory 10/06/2024 4:30 PM EST Treatment [facility] [address] [place] [address] [place] [address] Annabelle Martinez, PT [address] [place] [address] [place] [address] [facility] Start: 10-01-2024 End: 10-01-2024 ambulatory 10/01/2024 5:00 PM EST Treatment [facility] [address] [place] [address] [place] [address] Parisa Calle, CLIENT EXECUTIVE Arrived [facility] Comment on above: Arrived Start: 09-22-2024 End: 09-22-2024 ambulatory 09/22/2024 4:30 PM EST Treatment [facility] [address] [place] [address] [place] [address] Annabelle Martinez, PT [address] [place] [address] [place] [address] [facility] Start: 09-16-2024 End: 09-16-2024 ambulatory 09/16/2024 4:30 PM EST Treatment [facility] [address] [place] [address] [place] [address] Annabelle Martinez, PT [address] [place] [address] [place] [address] [facility] Start: 09-09-2024 End: 09-09-2024 ambulatory 09/09/2024 1:00 PM EST Evaluation [facility] [address] [facility] [address] [place] [address] Annabelle Martinez, PT [address] [facility] [address] [place] [address] [facility] Start: 09-08-2024 End: 09-08-2025 [...] Support 06/29/2024 8:00 PM EST Clinical Support [facility] [address] [place] [address] [facility] [place] [address] Cl Thomas MD [address] [facility] [address] [place] [address] [facility] Start: 06-02-2024 End: 06-02-2024 Patient encounter procedure 06/02/2024 8:45 AM EDT [facility] [address] [address] Cl Thomas MD [address] [facility] [place] [address] [facility] Start: 04-19-2024 Influenza vaccination Influenza Vacc ine [facility] Start: 02-27-2024 Adult BMI Screening Adult BMI Screen ing [facility] Start: 02-27-2024 Tobacco Screening Tobacco Screening [facility] Start: 01-07-2024 End: 01-07-2024 Patient encounter procedure 01/07/2024 9:30 AM EDT Office Visit [facility] [address] [facility] [place] [address] Cl Thomas MD [address] [facility] [address] [place] [address] [facility] Start: 01-02-2024 End: 01-02-2024 Clinical Support 01/02/2024 8:00 PM EDT Clinical Support [facility] [address] [place] [address] Angelica Ervin MD [address], [address] [address] [facility] Start: 05-14-2023 Depression Screening Depression Scre ening [facility] Start: 04-19-2023 Influenza vaccination Influenza Vacc ine [facility] Start: 01-28-2000 DTaP,Tdap and Td Vac cines (1 - Tdap) DTaP,Tdap and Td Vaccines (1 - Tdap) [facility] End: 06-02-2025 Polysomnography 4 or more parameters with PAP titration Polysomnography 4 or more parameters with PAP titration Sleep Center Routine MARGOTH (obstructive sleep apnea) 1 Occurrences starting 06/02/2024 until 06/02/2025 [facility] Work Phone: Comment on above: 1 Occurrences starti ng 06/02/2024 until 06/02/2025 Payers Date Payer Category Payer [employer] [facility] BCBS [id number] 2023 [facility] Managed Care - PPO ANTHEM [id number] 2023 Unknown [id number] 2023 Unknown [id number] 1981 Unknown [id number] 2.16.840.1.810847.3.579. 2.1285 1981 Unknown [id number] 2.16.840.1.322916.3.579. 2.1285 1981 Unknown [id number] 2.16.840.1.699727.3.579. 2.6 1981 Unknown [id number] 2.16.840.1.049666.3.579. 2.1258 1981 Unknown [id number] 2.16.840.1.895263.3.579. 2.1258 1981 Unknown [id number] 2.16.840.1.815789.3.579. 2.1258 1981 Unknown [id number] 2.16.840.1.025674.3.579. 2.1258 1981 Unknown [id number] 2.16840.1.031549.3.579. 2.1258 1981 Unknown [id number] 2.840.1.443823.3.579. 2.1258 1981 Unknown [id number] 2.840.1.662373.3.579. 2.1258 1981 Unknown [id number] 2.840.1.261140.3.579. 2.1258 1981 Unknown [id number] 2.840.1.689664.3.579. 2.1258 1981 Unknown [id number] 2.840.1.668420.3.579. 2.1258 1981 Unknown [id number] 2.840.1.010542.3.579. 2.1258 1981 Unknown [id number] 2.840.1.173411.3.579. 2.1258 1981 Unknown [id number] 2.840.1.743726.3.579. 2.1258 1981 Unknown [id number] 2.840.1.043726.3.579. 2.1258 1981 Unknown [id number] 2.16840.1.242182.3.579. 2.1285 1981 Unknown [id number] 2.16840.1.914825.3.579. 2.1285 1981 Unknown [id number] 2.16840.1.870720.3.579. 2.1286 1981 Unknown [id number] 2.16.840.1.570917.3.579. 2.196 1981 Unknown [id number] 2.16.840.1.577533.3.579. 2.196 1981 Unknown [id number] 2.16.840.1.063630.3.579. 2.196 1981 Unknown [id number] 2.16.840.1.562156.3.579. 2.196 Social History Date Type Detail Facility Start: 06-05-2022 End: 10-10-2023 Tobacco smoking status NHIS Never smoked tobacco [facility] Start: 06-05-2022 End: 10-10-2023 Tobacco use and exposure Smokeless tobacco non-user [facility] Start: 11-11-2023 End: 10-19-2024 Alcoholic beverage intake Current drinker of alcohol (finding) [facility] Start: 10-10-2023 End: 11-11-2023 History of Social function [facility] Start: 10-10-2023 End: 11-11-2023 Tobacco use panel [facility] Start: 10-09-2023 Alcohol Comment 1-2 drinks 2-3 times a week, caffeine 1-2 cups per day [facility] Start: 1980 Sex assigned at Not on file P [facility] Adolescent depressio n screening assessment 0 [facility] Start: 05-15-2017 Alcohol Comment Only a few bee rs a week, not typically every night [facility] Start: 03-24-2015 Sex Male (finding) [facility] Medical Equipment Procedure Code Equipment Code Equipment Origin al Text Equipment Identifier Dates Anch Sut 2.9mm S hldr K[facility] [id number] - [id number] - [id number] Start: 08-07-2019 Clinical Notes 11-05-2023 to 01-12-2025 Telephone Encounter - BEBE Mary - 01/12/2025 3:59 PM EDTTelephone Encounter - Cl Thomas MD - 01/12/2025 3:59 PM EDTTelephone Encounter - Yeny Hollandgeon BEBE - 01/12/2025 3:59 PM EDT Note Date & Type Note Facility 01-12-2025 Miscellaneous Notes Received call from [facility]. They need clarification on Rx. Is it supposed to be 30 for 30 days or 10 for 10 days? [facility] documented in this encounter [facility] 01-12-2025 Telephone encounter Note Received call from [facility]. They need clarification on Rx. Is it supposed to be 30 for 30 days or 10 for 10 days? [facility] 01-12-2025 Telephone encounter Note [facility] was [facility] 01-12-2025 History of Presen t illness Narrative Images from the original note were not included. Images from the original note were not included. CHIEF COMPLAINT: Speedy Rosen is a 44 y.o. male who presents to [facility] in follow-up for MARGOTH [...] chin strap, denies trouble tolerating the mask. Leonard Sleepiness Scale: Sitting and Reading: (!) High [...] 08/07/2019 Performed by Dain Marinelli DO at [facility] ALLERGIES: No Known Allergies MEDICATIONS: Current [...] Sleep Study Results: Titration study on 11/18/2024 (Lhdchi=685.0 lbs; BMI=24.2 kg/m2) DIAGNOSIS: ? Obstructive Sleep [...] and NREM sleep. PSG 10/24/22 AHI 21.1 [id number] 92% Dx MARGOTH IMPRESSION/RECOMMENDATIONS: 1. Chronic insomnia [...] sedating substances as this may cause excess CONVERSION DEVELOPER depression/altered mentation. - The patient was advised [...] to stop the activity if sleepiness occurs (tack puller machine at the next safe opportunity if driving). MARGOTH treatment options were discussed. CPAP is the most predictably effective treatment. Above plan as discussed with the patient who acknowledged understanding and agreement. CL THOMAS MD [facility] [address] [facility] [place] [address] documented in this encounter [facility] 01-12-2025 Instructions Cl Thomas MD - [...] sedating substances as this may cause excess CONVERSION DEVELOPER depression/altered mentation. - The patient was advised to only take the medication if they have adequate time to devote to sleep (must have a full night sleep - 8 hrs) and not to drive or perform tasks requiring full mental alertness the next morning until the know how the medication affects them The following attachments cannot be sent through Care Everywhere.Zachadplon, ADULT (Tristanian)documented in this encounter [facility] 12-29-2024 Miscellaneous Notes Pressure change done in office and pressure change order faxed to [facility] for their records. documented in this encounter [facility] 12-29-2024 Telephone encounter Note Pressure change done in office and pressure change order faxed to [facility] for their records. [facility] 12-29-2024 Miscellaneous Notes Images from the original [...] need RV for compliance and address insomnia Welfare Adviser called patient and informed him that per AD: Cl Thomas MD Physician Signed 1440 Pressure change auto CPAP 12-[address] if excessively sleepy He slept for 375 min on the sleep study, although sleep was broken Will need RV for compliance and address insomnia Welfare Adviser scheduled patient for follow up with AD on 01/12/2025. documented in this encounter [facility] 12-29-2024 Telephone encounter Note Images from the [...] soon as possible. Please review and advise. [facility] 12-29-2024 Telephone encounter Note Pressure change auto CPAP 12-[address] not [address] if excessively sleepy He slept for 375 min on the sleep study, although sleep was broken Will need RV for compliance and address insomnia [facility] 12-29-2024 Telephone encounter Note Welfare Adviser called patient and informed him that per AD: Cl Thomas MD Physician Signed 1449 Pressure change auto CPAP 12-[address] he [address] not drive if excessively sleepy He slept for 375 min on the sleep study, although sleep was broken Will need RV for compliance and address insomnia Welfare Adviser scheduled patient for follow up with AD on 01/12/2025. [facility] 12-22-2024 History of Presen t illness Narrative Images from the original note were not included. Physical Therapy Treatment Visit Patient Name: Speedy Rosen Today's Date: 12/22/24 Encounter Diagnoses Name Primary? Lumbar paraspinal muscle spasm Yes Visit number: 12/22 Timed Code Treatment Minutes: 40 minutes Total Treatment Time: 40 minutes Time In: 1705 Time Out: 174 History: Pt. Presents to PT with c/c [...] to be instructed in home exercise program. Special Certificate Dictator Goals: To be met in 10 weeks [...] sign below. Date: documented in this encounter [facility] 12-08-2024 History of Presen t illness [...] to be instructed in home exercise program. Special Certificate Dictator Goals: To be met in 10 weeks [...] sign below. Date: documented in this encounter [facility] 12-01-2024 History of Presen t illness [...] to be instructed in home exercise program. [facility] Goals: To be met in 10 weeks [...] sign below. Date: documented in this encounter [facility] 11-26-2024 Miscellaneous Notes Patient called office about having a titration completed on 11/18/2024, patient stated that he needs to have a pressure change and a chin strap. Welfare Adviser informed patient that AD will read the titration and then result it to our sleep coordinators and they will contact patient to inform him if any pressure changes need made. Patient verbalized understanding. documented in this encounter [facility] 11-26-2024 Telephone encounter Note Patient called office about having a titration completed on 11/18/2024, patient stated that he needs to have a pressure change and a chin strap. Welfare Adviser informed patient that AD will read the titration and then result it to our sleep coordinators and they will contact patient to inform him if any pressure changes need made. Patient verbalized understanding. [facility] 11-24-2024 History of Presen t illness [...] to be instructed in home exercise program. Special Certificate Dictator Goals: To be met in 10 weeks [...] sign below. Date: documented in this encounter [facility] 11-18-2024 History of Presen t illness [...] to be instructed in home exercise program. Special Certificate Dictator Goals: To be met in 10 weeks [...] sign below. Date: documented in this encounter [facility] 10-20-2024 Miscellaneous Notes Patient stopped in office and stated that he tried to contact the sleep lab to see what he needed to bring with him for his titration study that is scheduled for tonight, investigative writer informed him to wear comfortable pajamas, [...] that he has to have another study. Welfare Adviser explained to patient that he has had pressure changes in the past by Dr. Ervin and that those had not helped so the next step is a sleep study, patient verbalized understanding and walked out of office. [facility] Telephone encounter Note Patient stopped in office and stated that he tried to contact the sleep lab to see what he needed to bring with him for his titration study that is scheduled for tonight, investigative writer informed him to wear comfortable pajamas, [...] that he has to have another study. Welfare Adviser explained to patient that he has had pressure changes in the past by Dr. Ervin and that those had not helped so the next step is a sleep study, patient verbalized understanding and walked out of office. [employer] 10-19-2024 History of Presen t illness Narrative [...] titer abnormal 08/07/2023 Anxiety Arthritis 10/10/2023 Asthma ([facility]) 10/10/2023 Bilateral hand pain 10/10/2023 Bursitis [...] TENDON RELEASE 07/2019 Left partial lateral epicondylectomy family literacy coordinator tendon release/Bondra family history includes Arthritis [...] relaxer as well documented in this encounter [facility] 10-19-2024 Instructions Frances Nguyen NP - 10/19/2024 7:30 PM EST Low back: refer to pain mgmt: Dr Nikos Gazra Check elbow xray documented in this encounter [facility] 10-13-2024 History of Presen t illness [...] right upper trapezius muscle flexibility Strength: right mine laborer 100#, left mine laborer 110#, bilateral UE 5/5 Treatment: PT evaluation [...] to be instructed in home exercise program. Special Certificate Dictator Goals: To be met in 10 weeks [...] sign below. Date: documented in this encounter [facility] 10-12-2024 Miscellaneous Notes Patient called office back and stated that he does not wish to reschedule his appointment at this time due to him needing to reschedule his sleep study, patient stated that he hasn't been able to use his machine and that he really needs to get his sleep study before returning to the office, investigative writer transferred patient to the sleep lab to reschedule his sleep study, patient stated that he would call our office back to reschedule. documented in this encounter [facility] 10-12-2024 Telephone encounter Note Patient called office back and stated that he does not wish to reschedule his appointment at this time due to him needing to reschedule his sleep study, patient stated that he hasn't been able to use his machine and that he really needs to get his sleep study before returning to the office, investigative writer transferred patient to the sleep lab to reschedule his sleep study, patient stated that he would call our office back to reschedule. [facility] 10-12-2024 Miscellaneous Notes Patient left mychart message wanting to cancel appointment and stated Nothing has changed. I haven't done the study . Welfare Adviser attempted to call patient to reschedule appointment, voicemail box was full, unable to leave message. [facility] [employer] [facility] 10-12-2024 Telephone encounter Note Patient left mychart message wanting to cancel appointment and stated Nothing has changed. I haven't done the study . Welfare Adviser attempted to call patient to reschedule appointment, voicemail box was full, unable to leave message. [facility] [employer] [facility] 10-06-2024 History of Presen t illness Narrative [...] right upper trapezius muscle flexibility Strength: right mine laborer 100#, left mine laborer 110#, bilateral UE 5/5 Treatment: PT evaluation [...] to be instructed in home exercise program. Special Certificate Dictator Goals: To be met in 10 weeks [...] sign below. Date: documented in this encounter [facility] 09-29-2024 History of Presen t illness [...] right upper trapezius muscle flexibility Strength: right mine laborer 100#, left mine laborer 110#, bilateral UE 5/5 Treatment: PT evaluation [...] to be instructed in home exercise program. Special Certificate Dictator Goals: To be met in 10 weeks [...] sign below. Date: documented in this encounter [facility] 09-22-2024 History of en t illness Narrative Physical Therapy Treatments Visit [...] right upper trapezius muscle flexibility Strength: right mine laborer 100#, left mine laborer 110#, bilateral UE 5/5 Treatment: PT evaluation [...] to be instructed in home exercise program. [facility] Goals: To be met in 10 weeks [...] sign below. Date: documented in this encounter [facility] 09-16-2024 History of Presen t illness [...] right upper trapezius muscle flexibility Strength: right mine laborer 100#, left mine laborer 110#, bilateral UE 5/5 Treatment: PT evaluation [...] to be instructed in home exercise program. Special Certificate Dictator Goals: To be met in 10 weeks [...] sign below. Date: documented in this encounter [facility] 09-08-2024 History of en t illness Narrative Pt's main fucus today [...] TENDON RELEASE 07/2019 Left partial lateral epicondylectomy family literacy coordinator tendon release/Bondra family history includes Arthritis [...] to Physical Therapy documented in this encounter [facility] 09-08-2024 Instructions Frances Nguyen NP - 09/08/2024 2:40 PM EST Will use muscle relaxer at bedtime as needed PT Fu in 6 weeks documented in this encounter [facility] 06-03-2024 Miscellaneous Notes 06/02 order received [facility]uled [facility]AP at [facility]29 Confirmation antionette Chatted pre auth for ins [facility] blue access CPAP order & 06/02 Thomas notes in epic documented in this encounter [facility] 06-03-2024 Telephone encounter Note 06/02 order received Scheduled [facility]AP at [facility] on 06/29 Confirmation elysehart Chatted pre auth for ins [facility] blue access CPAP order & 06/02 Thomas notes in epic [facility] 06-02-2024 History of Presen t illness Narrative CHIEF COMPLAINT: Speedy Rosen is a 44 y.o. male who presents to [facility] in follow-up for MARGOTH The [...] with driving where he does need to tack puller machine. Leonard Sleepiness Scale: Sitting and Reading: (!) High [...] minutes in traffic: Slight Chance (he will tack puller machine and stop) Total: 14 I personally reviewed this data PAST MEDICAL HISTORY: Patient Active Problem List Diagnosis Allergic rhinitis Depression Past Medical History: Diagnosis Date Allergic rhinitis Anxiety Depression Moderate obstructive sleep apnea Visual impairment glasses, contacts Past Surgical History: Procedure Laterality Date CYST REMOVAL left hand, left foot HERNIA REPAIR RELEASE LATERAL EPICONDYLE ELBOW Left 08/07/2019 Performed by Dain Marinelli DO at [facility] ALLERGIES: No Known Allergies MEDICATIONS: Current [...] reviewed the following: PSG 10/24/22 AHI 21.1 [id number] 92% Dx MARGOTH IMPRESSION/RECOMMENDATIONS: 1. MARGOTH (obstructive [...] he would want to have a permanent emergency medicine medical director in his body. He is interested in [...] to stop the activity if sleepiness occurs (tack puller machine at the next safe opportunity if driving). MARGOTH treatment options were discussed. CPAP is the most predictably effective treatment. Above plan as discussed with the patient who acknowledged understanding and agreement. CL THOMAS MD [facility] [address] [facility] [address] documented in this encounter [facility] 06-02-2024 Instructions Cl Thomas MD - 06/02/2024 8:45 AM EDT Mandibular advancing oral appliance for MARGOTH Custom made and adjustable ENT: Dr. Marissa Garcia ([facility]), phone: [phone] Dr. Lana Carson ([facility]), phone: [phone] Dentists: Dr. Roberth Murcia, phone [phone], [address] Dr[address] Devendra Sesay ([facility] Accredited) [facility] [address] [facility] [address] [facility] [address] [place] [address] Chris Rogers [address] [place], [place] [address] Dr. Rl Coronado [address] [place] [address] Dr. Ignacio Pérez [address] [place] [address] Thank you for visiting [facility] office. The process of completing a sleep study has many steps. We have detailed these steps below to help keep you informed of what to expect. The scheduling, prior authorization, and registration process: Please call [phone] option #1 to schedule your sleep study. Your sleep medicine specialist places an electronic order which is sent to [facility] sleep lab. This order is then reviewed by the lab staff and a request for approval is sent to your insurance company. If you would like to know the estimated cost of your study, you can call [phone] for general pricing information (note that you will need the following procedure codes allow them to estimate the cost: Polysomnogram (PSG), in lab diagnostic study without CPAP = 09957 PAP titration, in lab with CPAP for treatment = 86648 Home sleep study = 18699 Every study request is reviewed in our sleep prior authorization department. Some sleep studies require prior authorization and some do not (only require that the provider document the need for the study). Some sleep study orders may need to be changed based on insurance coverage. (ie in lab to home study). Please confirm with your insurance that all [facility] sleep labs are in network with your insurance. If you change your insurance after the sleep study is ordered, please call the sleep lab back to update our scheduling staff ([phone] option #1). You should receive a call [...] your sleep study is sent to a surgical scrub technician to be reviewed and scored. The report from the surgical scrub technician is then sent to the sleep medicine physician and within 7-10 days the study will be formally interpreted. Once the study is completed, there will be contact from our office (through mychart, phone, or a letter) about next steps (ie treatment for sleep apnea, office appointment, cpap machine orders). If a cpap machine has been ordered and you do not hear from the equipment company within 30 days of your study, please call our office [phone]. FYI: Some insurance companies have strict guidelines regarding the timeline for this process. If sleep studies are not completed within 6-12 months of the office visit insurance may require another office visit. Also if cpap set up is not done within a year of the initial sleep study insurance may require another sleep study. Thank you, [facility] Department documented in this encounter [facility] 03-24-2024 Miscellaneous Notes ----- Message from Dr. Cl Thomas MD sent at 02/25/2024 2:50 PM EDT ----- Regarding: check 1 mo Check download Please obtain updated download for review documented in this encounter [facility] 03-24-2024 Telephone encounter Note ----- Message from Dr. Cl Thomas MD sent at 02/25/2024 2:50 PM EDT ----- Regarding: check 1 mo Check download [facility] 03-24-2024 Telephone encounter Note Please obtain updated download for review [facility] 02-25-2024 History of Presen t illness Narrative Images from the original note were not included. CHIEF COMPLAINT: Speedy Rosen is a 44 y.o. male who presents to [facility] in follow-up for MARGOTH [...] much at night due to sleepiess Will tack puller machine if needed Leonard Sleepiness Scale: Sitting and Reading: Slight Chance [...] 08/07/2019 Performed by Dain Marinelli DO at [facility] ALLERGIES: No Known Allergies MEDICATIONS: Current [...] Sleep Study Results: PSG 10/24/22 AHI 21.1 [id number] 92% Dx MARGOTH No new CPAP data [...] nasal congestion recommended that he try Astepro [id number] nasal spray per package directions Return visit [...] to stop the activity if sleepiness occurs (tack puller machine at the next safe opportunity if driving). MARGOTH treatment options were discussed. CPAP is the most predictably effective treatment. Interim measures to reduce obstructive sleep apnea severity were recommended (avoidance of the supine position and elevation of the upper body and during sleep). Above plan as discussed with the patient who acknowledged understanding and agreement. CL THOMAS MD [facility] [address] [facility] [place] [address] documented in this encounter [facility] 02-25-2024 Instructions Cl Thomas MD - 02/25/2024 2:30 PM EDT AstePro nasal spray - over the counter per package directions for congestion Retry CPAP - we can adjust the pressure as needed documented in this encounter [facility] 11-05-2023 Miscellaneous Notes error documented in this encounter [facility] 11-05-2023 Telephone encounter Note error [facility] Work Phone: Evaluation note Diagnosis Bilateral [...] whether pain present documented in this encounter [facility] HealthcareEvaluation note* Diagnosis Bilateral hand pain- Primary Gastroesophageal reflux disease with esophagitis, unspecified whether hemorrhage Dermatitis- Primary Contact dermatitis and other eczema, due to unspecified cause Cervical pain (neck)- Primary Cervicalgia Strain of right trapezius muscle, initial encounter Degeneration of intervertebral disc of lumbar region, unspecified whether pain present documented in this encounter [facility] HealthcareEvaluation note* Diagnosis Bilateral hand pain- Primary Gastroesophageal reflux disease with esophagitis, unspecified whether hemorrhage Dermatitis- Primary Contact dermatitis and other eczema, due to unspecified cause Cervical pain (neck)- Primary Cervicalgia Strain of right trapezius muscle, initial encounter Degeneration of intervertebral disc of lumbar region, unspecified whether pain present documented in this encounter [facility] HealthcareEvaluation note* Diagnosis Bilateral hand pain- Primary Gastroesophageal reflux disease with esophagitis, unspecified whether hemorrhage Dermatitis- Primary Contact dermatitis and other eczema, due to unspecified cause Cervical pain (neck)- Primary Cervicalgia Strain of right trapezius muscle, initial encounter documented in this encounter [facility] HealthcareEvaluation note* Diagnosis Chronic insomnia Insomnia, unspecified documented in this encounter [facility] SystemEvaluation note* Diagnosis MARGOTH (obstructive sleep apnea)- Primary Obstructive sleep apnea (adult) (pediatric) Chronic insomnia Insomnia, unspecified Hypersomnia Hypersomnia, unspecified Nasal congestion Other diseases of nasal cavity and sinuses documented in this encounter [facility] SystemEvaluation note* Diagnosis MARGOTH (obstructive sleep apnea)- Primary Obstructive sleep apnea (adult) (pediatric) Intolerance of continuous positive airway pressure (CPAP) ventilation Hypersomnia Hypersomnia, unspecified Awakens from sleep due to pain documented in this encounter [facility] System[facility] note* Diagnosis Bilateral hand pain- Primary Gastroesophageal reflux disease with esophagitis, unspecified whether hemorrhage Dermatitis- Primary Contact dermatitis and other eczema, due to unspecified cause Cervical pain (neck) Cervicalgia Strain of right trapezius muscle, initial encounter documented in this encounter [facility] HealthcareEvaluation note* Diagnosis Bilateral hand pain- Primary Gastroesophageal reflux disease with esophagitis, unspecified whether hemorrhage Dermatitis- Primary Contact dermatitis and other eczema, due to unspecified cause SI joint arthritis (CMS/HCC)- Primary Cervical pain (neck) Cervicalgia Strain of right trapezius muscle, subsequent encounter Bilateral elbow joint pain Degeneration of intervertebral disc of lumbar region, unspecified whether pain present documented in this encounter [facility] HealthcareEvaluation note* Diagnosis Bilateral hand pain- [...] apnea (adult) (pediatric) documented in this encounter [facility] SystemEvaluation note* Diagnosis Bilateral hand pain- [...] referable to back documented in this encounter [facility] HealthcareEvaluation note* Diagnosis MARGOTH (obstructive sleep apnea)- Primary Obstructive sleep apnea (adult) (pediatric) documented [facility] Diagnosis Chronic insomnia- Primary Insomnia, unspecified MARGOTH (obstructive sleep apnea) Obstructive sleep apnea (adult) (pediatric) Hypersomnia Hypersomnia, unspecified documented [facility]* Diagnosis Bilateral hand pain- [...] mery dermatitis- Primary documented in this encounter [facility] HealthcareInstructionsNot on filedocumented in this [facility] SystemInstructionsNot on filedocumented in this [facility] SystemInstructionsNot on filedocumented in this encounterProRussell [facility] Health SystemInstructionsNot on filedocumented in this encounterProThe [facility] InstructionsNot on filedocumented in this [facility] InstructionsNot on filedocumented in this encounterMem[facility] SystemReason for visit Narrative* Consultation (Routine) - Authorized Specialty Diagnoses / Procedures Referred By Rosamaria campos Referred To Contact Physical Therapy Diagnoses Cervical pain (neck) Strain of right trapezius muscle, initial encounter Degeneration of intervertebral disc of lumbar region, unspecified whether pain present Procedures DC OFFICE/OUTPATIENT NEW HIGH MDM 60 MINUTES Frances Nguyen, [place] [address] [place] [address] Phone: tel: fax: Annabelle Martinez, PT [address] [address] Phone: tel: fax: Referral ID Status Reason Start Date Expiration Date Visits Requested Visits Authorized [id number] Authorized Consult and Treat 09/09/2024 11/07/2024 6 6 [facility] Consultation (Routine) - Closed Specialty Diagnoses / Procedures Referred By Rosamaria campos Referred To Contact Physical Therapy Diagnoses Cervical pain (neck) Strain of right trapezius muscle, initial encounter Degeneration of intervertebral disc of lumbar region, unspecified whether pain present Procedures DC OFFICE/OUTPATIENT NEW HIGH MDM 60 MINUTES Frances Nguyen NP [address] [place] [address] Phone: tel: fax: Annabelle Martinez, PT [address] [address] Phone: tel: fax: Referral ID Status Reason Start Date Expiration Date V isits Requested Visits Authorized [id number] Closed Consult and Treat 09/09/2024 11/07/2024 6 6 [facility] Narrative* Misc (Routine) - Closed Specialty Diagnoses / Procedures Referred By Rosamaria campos Referred To Contact Diagnoses MARGOTH (obstructive sleep apnea) Procedures Polysomnography 4 or more parameters with PAP titration Cl Thomas MD [address] [facility] [address] [place] [address] Phone: tel: fax: Referral ID Status Reason Start Date Expiration Date Visits Re quested Visits Authorized [id number] Closed 06/02/2024 06/02/2025 1 1 [facility] SystemReason for visit Narrative* Rehabilitation - Outpatient (Routine) - Authorized Specialty Diagnoses / Procedures Referred By Rosamaria campos Referred To Contact Physical Therapy Diagnoses Lumbar Stenosis Procedures DC PHYSICAL THERAPY EVALUATION LOW COMPLEX 20 MINS DC OFFICE/OUTPATIENT NEW HIGH MDM 60 MINUTES Sorin Elizondo MD [address] [place] [address] Phone: tel: fax: Leydi Jenkins, GRACE Referral ID Status Reason Start Date Expiration Date V isits Requested Visits Authorized [id number] Authorized 11/18/2024 01/16/2025 6 6 [facility] [...] Referral Specialty Diagnoses / Procedures Referred By Rosamaria t Referred To Contact Diagnoses MARGOTH (obstructive sleep apnea) Procedures Polysomnography 4 or more parameters with PAP titration Cl Thomas MD [address] [facility] [address] [place] [address] Referral ID Status Reason Start Date Expiration Date V isits Requested Visits Authorized [id number] Pending Review 06/02/2024 06/02/2025 1 1 Additional Source Comments (unrecognized sect ion and content) No Status Records FoundNo Status Records FoundNo Status Records FoundNo Status Records FoundNo Status Records Found INFORMATION SOURCE (unrecogn ized section and content) DATE CREATED AUTHOR 05/29/2021 [facility] DATE CREATED AUTHOR AUTHOR'S ORGANIZ ATION 11/22/2024 [facility] DATE CREATED AUTHOR AUTHOR'S ORGANIZ ATION 12/25/2024 [facility] EPIC DATE CREATED AUTHOR AUTHOR'S ORGANIZ ATION 01/15/2025 [facility] DATE CREATED AUTHOR AUTHOR'S ORGANIZ ATION 05/05/2025 [facility] Care Teams (unrecognized sec tion and content) Senior Ui Designer Relationship Specialty Start Date End Date Frances Nguyen NP [address] [place] [address] PCP - Roshni Martinez 08/19/23 Austin Gray MD [address] [place] [address] PCP - General Family Medicine 10/08/23 Senior Ui Designer Relationship Specialty Start Date End Date Frances Nguyen NP [address] [place] [address] PCP - [facility] 08/19/23 Austin Gray MD [address] [place] [address] PCP - General Family Medicine 10/08/23 Senior Ui Designer Relationship Specialty Start Date End Date Frances Nguyen NP [address] [place] [address] PCP - [facility] 08/19/23 Austin Gray MD [address] [place] [address] PCP - General Family Medicine 10/08/23 Senior Ui Designer Relationship Specialty Start Date End Date Frances Nguyen NP [address] [place] [address] PCP - [facility] [employer] 08/19/23 Austin Gray MD [address] [place] [address] PCP - General Family Medicine 10/08/23 Senior Ui Designer Relationship Specialty Start Date End Date Frances Nguyen NP [address] [place] [address] PCP - [facility] [employer] 08/19/23 Austin Gray MD [address] [place] [address] PCP - General Family Medicine 10/08/23 Senior Ui Designer Relationship Specialty Start Date End Date Frances Nguyen NP [address] [place] [address] PCP - [facility] [employer] 08/19/23 Austin Gray MD [address] [place] [address] PCP - General Family Medicine 10/08/23 Senior Ui Designer Relationship Specialty Start Date End Date Frances Nguyen NP [address] [place] [address] PCP - [facility] 08/19/23 Austin Gray MD [address] [place] [address] PCP - General Family Medicine 10/08/23 Senior Ui Designer Relationship Specialty Start Date End Date Frances Nguyen PROPERTY MANAGEMENT BOOKKEEPER-ROLL TENDER [address] [place] [address] PCP - General Nurse Practitioner 08/02/23 Senior Ui Designer Relationship Specialty Start Date End Date Frances Nguyen PROPERTY MANAGEMENT BOOKKEEPER-ROLL TENDER [address] [place] [address] PCP - General Nurse Practitioner 08/02/23 Senior Ui Designer Relationship Specialty Start Date End Date rFances Nguyen PROPERTY MANAGEMENT BOOKKEEPER-ROLL TENDER [address] [place] [address] PCP - General Nurse Practitioner 08/02/23 Senior Ui Designer Relationship Specialty Start Date End Date Frances Nguyen PROPERTY MANAGEMENT BOOKKEEPER-ROLL TENDER PCP - General Nurse Practitioner 08/02/23 Senior Ui Designer Relationship Specialty Start Date End Date Frances Nguyen, PROPERTY MANAGEMENT BOOKKEEPER-ROLL TENDER PCP - General Nurse Practitioner 08/02/23 Senior Ui Designer Relationship Specialty Start Date End Date Frances Nguyen NP [address] [place] [address] PCP - [facility] 08/19/23 Austin Gray MD [address] [place] [address] PCP - General Family Medicine 10/08/23 Senior Ui Designer Relationship Specialty Start Date End Date Frances Nguyen NP [address] [place] [address] PCP - [facility] 08/19/23 Austin Gray MD [address] [place] [address] PCP - General Family Medicine 10/08/23 Senior Ui Designer Relationship Specialty Start Date End Date Frances Nguyen, PROPERTY MANAGEMENT BOOKKEEPER-ROLL TENDER PCP - General Nurse Practitioner 08/02/23 Senior Ui Designer Relationship Specialty Start Date End Date Frances Nguyen NP [address] [place] [address] PCP - [facility] 08/19/23 Austin Gray MD [address] [place] [address] PCP - General Family Medicine 10/08/23 Senior Ui Designer Relationship Specialty Start Date End Date Frances Nguyen NP [address] [place] [address] PCP - [facility] 08/19/23 Austin Gray MD [address] [place] [address] PCP - General Family Medicine 10/08/23 Senior Ui Designer Relationship Specialty Start Date End Date Frances Nguyen NP [address] [place] [address] PCP - [facility] [employer] 08/19/23 Austin Gray MD [address] [place] [address] PCP - General Family Medicine 10/08/23 Senior Ui Designer Relationship Specialty Start Date End Date Frances Nguyen NP [address] [place] [address] PCP - [facility] 08/19/23 Austin rGay MD [address] [place] [address] PCP - General Family Medicine 10/08/23 Senior Ui Designer Relationship Specialty Start Date End Date Frances Nguyen NP [address] [place] [address] PCP - [facility] 08/19/23 Austin Gray MD [address] [place] [address] PCP - General Family Medicine 10/08/23 Senior Ui Designer Relationship Specialty Start Date End Date Frances Nguyen, PROPERTY MANAGEMENT BOOKKEEPER-ROLL TENDER PCP - General Nurse Practitioner 08/02/23 Senior Ui Designer Relationship Specialty Start Date End Date Frances Nguyen NP [address] [place] [address] PCP - [facility] 08/19/23 Austin Gray MD [address] [place] [address] PCP - General Family Medicine 10/08/23 Senior Ui Designer Relationship Specialty Start Date End Date Frances Nguyen NP [address] [place] [address] PCP - [facility] 08/19/23 Austin Gray MD [address] [place] [address] PCP - General Family Medicine 10/08/23 Senior Ui Designer Relationship Specialty Start Date End Date Frances Nguyen NP [address] [place] [address] PCP - [facility] [employer] 08/19/23 Austin Gray MD [address] [place] [address] PCP - General Family Medicine 10/08/23 Senior Ui Designer Relationship Specialty Start Date End Date Frances Nguyen PROPERTY MANAGEMENT BOOKKEEPER-ROLL TENDER PCP - General Nurse Practitioner 08/02/23 Senior Ui Designer Relationship Specialty Start Date End Date Frances Nguyen NP [address] [place] [address] PCP - [facility] [employer] 08/19/23 Austin Gray MD [address] [place] [address] PCP - General Family Medicine 10/08/23 Senior Ui Designer Relationship Specialty Start Date End Date Frances Nguyen NP [address] [place] [address] PCP - [facility] 08/19/23 Austin Gray MD [address] [place] [address] PCP - General Family Medicine 10/08/23 Senior Ui Designer Relationship Specialty Start Date End Date Frances Nguyen PROPERTY MANAGEMENT BOOKKEEPER-ROLL TENDER PCP - General Nurse Practitioner 08/02/23 Senior Ui Designer Relationship Specialty Start Date End Date Frances Nguyen, PROPERTY MANAGEMENT BOOKKEEPER-ROLL TENDER PCP - General Nurse Practitioner 08/02/23 Senior Ui Designer Relationship Specialty Start Date End Date Frances Nguyen NP [address] [place] [address] PCP - [facility] 08/19/23 Austin Gray MD [address] [place] [address] PCP - General Family Medicine 10/08/23 Reason [...] BE BASED ON THE PRIMARY CLINICAL RECORDS. [email or web address] provides no warranty or guarantee of the accuracy or completeness of information in this document.
--- NOTE | 2025-05-13 08:01 | PM.CN ---
Consult Note: HPI Data of Consult Patient: known to practice within the last 3 years Requesting Physician: Katty Hughes NP Primary Care Provider: Frances Nguyen NP Consult Narrative Reason for consult: low back pain Narrative: Nolan Stern a pleasant 45 year old male with chronic low back pain unresponsive to > 6 weeks of PT/HEP, heat, ice, tylenol, NSAIDs. recently underwent left SIJ injection with significant ongoing relief. pain 0/10. sparingly utilizing meloxicam, denies side effects. cc:: CC: Katty Hughes NP Review of Systems ROS Musculoskeletal Denies: back pain or joint pain [facility] Medical History (Updated 04/22/25 @ 15:04 by Katty Hughes NP) Hiatal hernia ?K44.9 - Diaphragmatic hernia without obstruction or gangrene (ICD-10) Acid reflux ?K21.9 - Gastro-esophageal reflux disease without esophagitis (ICD-10) Asthma ?J45.909 - Unspecified asthma, uncomplicated (ICD-10) Sleep apnea ?G47.30 - Sleep apnea, unspecified (ICD-10) Surgical History History of hernia repair ?Z98.890 - Other specified postprocedural states (ICD-10) ?Z87.19 - Personal history of other diseases of the digestive system (ICD-10) Meds Home Medications and Allergies Home Medications ?Medication ?Instructions ?Recorded ?Confirmed ?Type pantoprazole 40 mg tablet,delayed 40 mg PO DAILY 11/16/24 05/03/25 History release tizanidine 4 mg capsule 4 mg PO BID PRN muscle spasticity 11/16/24 05/03/25 History meloxicam 7.5 mg tablet 7.5 mg PO BID #60 tabs 04/22/25 05/03/25 Rx Allergies Allergy/AdvReac Type Severity Reaction Status Date / Time No Known Drug Allergies Allergy Verified 05/03/25 07:16 Exam Constitutional Documenting provider has reviewed patient's vital signs: yes Common normals: no apparent distress, oriented x3, healthy appearing, alert and well nourished General appearance: cooperative HENMT Common normals: normocephalic, hearing grossly normal bilaterally and moist oral mucous membranes Head and scalp: normocephalic Eye Common normals: PERRL Pupil: PERRL Neck & C-Spine Common normals: full ROM General: normal visual inspection Chest Common normals: inspection of chest normal Respiratory Common normals: normal respiratory effort, no retractions and no use of accessory muscles Back & Pelvis Lumbar spine/lower back: normal to inspection and straight leg raise negative bilaterally; no pain with ROM and no lumbar spinal tenderness Sacroiliac joints: SI joints normal Other: negative left sumanth(patricks), gaenslens, thigh thrust, compression test Neuro Common normals: oriented x3 Sensorium/orientation: alert Psych Common normals: mental status grossly normal, thought process normal, cooperative, affect normal, speech normal and activity/motor behavior normal Speech: normal speech Thought process: normal thought process Results Additional Findings Additional findings: If on a controlled substance or opioids, I have checked an [place] report on this patient and there are no aberrancies noted in the prescribing history.??If on a controlled substance or opioid a drug screen was completed and reviewed within the last year, and if there has not been a drug screen completed we ordered one today to monitor higher risk, state monitored pain medication use. As part of providing excellent, safe, comprehensive care, the following was completed at our patient's visit: 1. A medication reconciliation and review to ensure accurate knowledge of current/active medications, including asking our patients to inform us about any [id number] medications or herbal remedies/nutritional supplements/alternative remedies. 2. A review to specifically ensure our patients have had annual screening for screening for depression, screening for tobacco use, and screening for unhealthy alcohol use. For concerning screenings had a discussion with the patient, provided patient education, and recommended follow-up with primary care provider when appropriate. If patient noted with a risk of falling, they received education on strength, gait, and balance training to prevent future risk of falling. Portions of this note may have been carried over from the previous visit and updated as appropriate. Please note this office utilizes paper charting in addition to the electronic medical record. A list of current medications, vitals, and PMH is available there as the clinical staff outside of myself do not have access to [facility] charting during the clinic day operations. As part of providing quality comprehensive care the current medications, vitals, and PMH were reviewed in the paper chart. Assessment and Plan Assessment and Plan (1) Sacroiliitis: Assessment and Plan: 04-22-25 left SIJ injection 100% improvement ongoing (2) Lumbar stenosis with neurogenic claudication: (3) Lumbar spondylosis: Plan Pain well controlled, advised to sparingly utilize NSAIDs. can utilize otc tylenol. continue HEP as tolerated. f/u 3 months, sooner if needed
== END 2025-05-13 07:46 | disposition home or self-care (01) ==
LOC: PM 07:45
PROVIDERS: PCP Nurse Practitioner; Visit Provider Nurse Practitioner
DX: M46.1 Sacroiliitis, not elsewhere classified (principal); M48.062 Spinal stenosis, lumbar region with neurogenic claudication; M47.816 Spondylosis without myelopathy or radiculopathy, lumbar region
CPT/HCPCS: G0463